=== PATIENT | male | born 1965 | race American Indian/Alaskan Native ===

== ENCOUNTER 2017-12-05 19:00 | Emergency (ER) | payer MEDICARE ==
[2017-12-05] MEDS ORDERED: XYLOCAINE 2%/EPI 1:100,000 INFILTRATI ONE (20:28)
[2017-12-05] MEDS ORDERED: NACL 0.9% IR ONE (20:28)
[2017-12-05] MEDS ORDERED: DILAUDID IV ONE (20:29)
--- NOTE | 2017-12-05 20:29 | Emergency Department Report ---
ED General Adult HPI - General Chief complaint: Wound/Laceration Stated complaint: LEFT LEG LACERATION Time Seen by Provider: 12/05/17 20:20 Source: patient, EMS (ems notes not available at time of chart dictation), RN notes reviewed, old records reviewed Mode of arrival: Stretcher Limitations: Physical Limitation - History of Present Illness Initial comments: This is a 52-year-old male. He has a past medical history of narcotic seeking behavior, hypertension, congestive heart failure, history of pulmonary embolus, tobacco dependency, GERD, arthritis, COPD, high cholesterol, morbid obesity, functional paraplegia using a wheelchair. Recently admitted to the hospital, please see his discharge summary from last week. Patient presents to the ER today with a complaint of left medial leg laceration after falling out of a wheelchair. He does not think he hit his head. He has sharp burning pain, which increases with palpation and decreases with rest over the laceration site. He reports that he does not think that he hit his head or neck. He admits to consuming 2 beers, and reports that the fall happened at least 4 hours prior to my evaluation of him. -: Sudden Location: left, lower extremity Radiation: non-radiation Severity scale (0 -10): 10 Quality: burning, stabbing, aching Consistency: intermittent Improves with: rest Worsens with: movement Associated Symptoms: denies: confusion, chest pain, cough, diaphoresis, fever/ chills, headaches, loss of appetite, malaise, nausea/vomiting, shortness of breath, syncope, weakness (patient denies new weakness) - Related Data Home Medications Medication Instructions Recorded Confirmed Last Taken Gabapentin [Neurontin] 600 mg PO BID 09/22/14 11/30/17 07/31/15 Previous Rx's Medication Instructions Recorded Last Taken Type Metolazone [Zaroxolyn] 2.5 mg PO BID #60 tablet 09/13/15 Unknown Rx Nystatin [Nystatin SUSP] 5 ml PO QID PRN #1 bottle 09/13/15 Unknown Rx oxyCODONE /ACETAMINOPHEN [Percocet 1 tab PO Q6HR PRN #15 tablet 04/24/16 Unknown Rx 5/325 mg] Acetaminophen [8Hr Arthritis Pain] 650 mg PO Q8H PRN #30 tablet.er 12/01/17 Unknown Rx Carvedilol [Coreg] 1 tab PO BID #60 tablet 12/01/17 Unknown Rx Divalproex Sodium [Divalproex 500 mg PO BID #60 12/01/17 Unknown Rx Sodium ER] Esomeprazole Magnesium [NexIUM] 40 mg PO QDAY #30 tab 12/01/17 07/31/15 Rx Folic Acid [Folvite] 1 mg PO QDAY #30 12/01/17 07/31/15 Rx Furosemide [Lasix TAB] 40 mg PO BID #60 tablet 12/01/17 Unknown Rx Nicotine [Habitrol] 21 mg TD QDAY #14 patch 12/01/17 Unknown Rx Potassium Chloride 20 meq PO BID #60 tablet.er 12/01/17 Unknown Rx Rivaroxaban [Xarelto] 20 mg PO QDAY #30 tablet 12/01/17 Unknown Rx Tamsulosin [Flomax] 0.4 mg PO QHS #30 12/01/17 Unknown Rx Timolol 0.5% [Timoptic] 0.5 ml AU BID #1 12/01/17 Unknown Rx Torsemide [Demadex] 100 mg PO BID #60 tablet 12/01/17 Unknown Rx Acetaminophen [Tylenol Arthritis] 650 mg PO Q6HR PRN #30 tablet.er 12/05/17 Unknown Rx Bacitracin Zinc Oint [Antibiotic 20 applic TP BID #1 tube 12/05/17 Unknown Rx Oint] Allergies Allergy/AdvReac Type Severity Reaction Status Date / Time morphine Allergy Itching Verified 11/29/17 07:58 tramadol Allergy Itching Verified 11/29/17 07:58 ED Review of Systems ROS: Stated complaint: LEFT LEG LACERATION Other details as noted in HPI Comment: All other systems reviewed and negative ED Past Medical Hx - Past Medical History Previous Medical History?: Yes Hx Hypertension: Yes Hx Congestive Heart Failure: Yes Hx Diabetes: No Hx GERD: Yes Hx Arthritis: Yes Hx Asthma: No Hx COPD: Yes Additional medical history: hyperlipidemia. CHF diastolic dysfunction. Sleep apnea - Surgical History Past Surgical History?: Yes Additional Surgical History: spinal fusion surgery in 2011. Reversed Colostomy. colon resection - Social History Smoking Status: Unknown if ever smoked Substance Use Type: Alcohol, Prescribed - Medications Home Medications: Home Medications Medication Instructions Recorded Confirmed Last Taken Type Gabapentin [Neurontin] 600 mg PO BID 09/22/14 11/30/17 07/31/15 History Metolazone [Zaroxolyn] 2.5 mg PO BID #60 tablet 09/13/15 Unknown Rx Nystatin [Nystatin SUSP] 5 ml PO QID PRN #1 bottle 09/13/15 Unknown Rx oxyCODONE /ACETAMINOPHEN [Percocet 1 tab PO Q6HR PRN #15 tablet 04/24/16 Unknown Rx 5/325 mg] Acetaminophen [8Hr Arthritis Pain] 650 mg PO Q8H PRN #30 tablet.er 12/01/17 Unknown Rx Carvedilol [Coreg] 1 tab PO BID #60 tablet 12/01/17 Unknown Rx Divalproex Sodium [Divalproex 500 mg PO BID #60 12/01/17 11/30/17 Unknown Rx Sodium ER] Esomeprazole Magnesium [NexIUM] 40 mg PO QDAY #30 tab 12/01/17 11/30/17 Rx Folic Acid [Folvite] 1 mg PO QDAY #30 12/01/17 11/30/17 07/31/15 Rx Furosemide [Lasix TAB] 40 mg PO BID #60 tablet 12/01/17 Unknown Rx Nicotine [Habitrol] 21 mg TD QDAY #14 patch 12/01/17 Unknown Rx Potassium Chloride 20 meq PO BID #60 tablet.er 12/01/17 Unknown Rx Rivaroxaban [Xarelto] 20 mg PO QDAY #30 tablet 12/01/17 Unknown Rx Tamsulosin [Flomax] 0.4 mg PO QHS #30 12/01/17 11/30/17 Unknown Rx Timolol 0.5% [Timoptic] 0.5 ml AU BID #1 12/01/17 11/30/17 Unknown Rx Torsemide [Demadex] 100 mg PO BID #60 tablet 12/01/17 Unknown Rx Acetaminophen [Tylenol Arthritis] 650 mg PO Q6HR PRN #30 tablet.er 12/05/17 Unknown Rx Bacitracin Zinc Oint [Antibiotic 20 applic TP BID #1 tube 12/05/17 Unknown Rx Oint] ED Physical Exam - General Limitations: Physical Limitation General appearance: alert, other (patient is agitated and anxious) - Head Head exam: Present: atraumatic, normocephalic - Eye Eye exam: Present: normal appearance, EOMI, other (visual acuity intact to finger counting, color perception, reading at a close distance). Absent: nystagmus - ENT ENT exam: Present: normal exam, normal orophraynx, mucous membranes moist, normal external ear exam - Neck Neck exam: Present: normal inspection, full ROM, other (there is no midline cervical spine pain, tenderness). Absent: tenderness, meningismus - Respiratory Respiratory exam: Present: normal lung sounds bilaterally. Absent: respiratory distress - Cardiovascular Cardiovascular Exam: Present: regular rate, normal rhythm, normal heart sounds. Absent: bradycardia, tachycardia, irregular rhythm, systolic murmur, diastolic murmur, rubs, gallop - GI/Abdominal GI/Abdominal exam: Present: soft, normal bowel sounds. Absent: distended, tenderness, guarding, rebound, rigid, pulsatile mass - Rectal Rectal exam: Present: deferred - Extremities Exam Extremities exam: Present: full ROM, tenderness (on the left medial lower extremity, there is a linear 10 cm laceration noted, with no obvious pulsatile bleeding and no obvious foreign bodies), pedal edema, other (2+ pulses noted on the bilateral upper, lower extremities. Chronic venous stasis changes noted. There is a healing left lateral leg laceration with multiple interrupted sutures with no obvious discharge, not ready to come out here.) - Back Exam Back exam: Present: normal inspection. Absent: paraspinal tenderness, vertebral tenderness - Neurological Exam Neurological exam: Present: alert, oriented X3, CN II-XII intact, other ( Extraocular movements intact. Tongue midline. No facial droop. Facial sensation intact to light touch in the V1, V2, V3 distribution bilaterally. 5 and 5 strength in 4 extremities.. Sensation is intact to light touch in 4 extremities.). Absent: motor sensory deficit - Psychiatric Psychiatric exam: Present: agitated, anxious - Skin Skin exam: Present: warm. Absent: rash ED Course Vital Signs 12/05/17 12/05/17 12/05/17 19:46 19:54 20:16 Temperature 98.2 F Pulse Rate 92 H Respiratory 18 18 Rate Blood Pressure 109/70 121/72 Blood Pressure 109/70 [Left] O2 Sat by Pulse 98 Oximetry 12/05/17 12/05/17 12/05/17 20:30 20:35 20:46 Temperature Pulse Rate Respiratory 18 Rate Blood Pressure 103/71 Blood Pressure [Left] O2 Sat by Pulse 96 Oximetry 12/05/17 21:05 Temperature Pulse Rate Respiratory 18 Rate Blood Pressure Blood Pressure [Left] O2 Sat by Pulse Oximetry - Laceration /Wound Repair Left Lower Medial Leg Wound Location: lower extremity Irrigated w/ Saline (ccs): 10 Betadine Prep?: Yes Anesthesia: Lidocaine w/ Epi Volume Anesthetic (ccs): 10 Wound Debrided: minimal Suture Size/Type: 3:0 (Ethilon monofilament) Number of Sutures: 10 Layer Closure?: No Sterile Dressing Applied?: No Progress: The wound was anesthetized with lidocaine with epinephrine. The wound was irrigated with sterile saline mixed with Betadine, 500 mL, at adequate pressure. The wound was explored under bloodless field, no obvious foreign bodies were noted. The wound was then debrided, and 10 interrupted 3-0 monofilament sutures were placed with good cosmetic approximation. The patient tolerated the procedure adequately. ED Medical Decision Making - Lab Data Vital Signs 12/05/17 12/05/17 12/05/17 19:46 19:54 20:16 Temperature 98.2 F Pulse Rate 92 H Respiratory 18 18 Rate Blood Pressure 109/70 121/72 Blood Pressure 109/70 [Left] O2 Sat by Pulse 98 Oximetry 12/05/17 12/05/17 12/05/17 20:30 20:35 20:46 Temperature Pulse Rate Respiratory 18 Rate Blood Pressure 103/71 Blood Pressure [Left] O2 Sat by Pulse 96 Oximetry 12/05/17 21:05 Temperature Pulse Rate Respiratory 18 Rate Blood Pressure Blood Pressure [Left] O2 Sat by Pulse Oximetry - Radiology Data Radiology results: report reviewed, image reviewed X-ray of the left lower extremity demonstrates no obvious foreign body. Noncontrast CT scan of the brain is negative. - Medical Decision Making Differential diagnosis, including but not limited to: Intracranial injury, resolved alcohol intoxication, left lower extremity laceration Assessment and plan: 52-year-old male who is clinically sober.Patient is clinically sober at this time. The cervical spine is cleared through nexus and [place] c spine rule no obvious other injuries. Noncontrast CT scan of the brain is negative. Left lower extremity laceration has been repaired. Patient can follow-up as an outpatient for both of his left lower extremity lacerations. Documented hypotension in the field, not documented in the ER at this time. Pain improved with hydromorphone. Critical care attestation.: If time is entered above; I have spent that time in minutes in the direct care of this critically ill patient, excluding procedure time. ED Disposition Clinical Impression: Laceration of left lower extremity Qualifiers: Encounter type: initial encounter Qualified Code(s): S81.812A - Laceration without foreign body, left lower leg, initial encounter Disposition: TO HOME OR SELFCARE Is pt being admited?: No Does the pt Need Aspirin: No Condition: Stable Instructions: Suture Care (ED), Laceration (ED) Additional Instructions: Keep the laceration dry and covered. Wash with gentle soap and water at least twice a day. Take the pain medication, and apply the bacitracin as directed. Have both lower extremity wounds examined by a medical professional in 48 hours. The left lateral lower extremity sutures, most likely can be taken out in 48 hours. Left medial lower extremity sutures can likely be taken out in 5- 7 days. Return to the ER right away with fevers, chills, lethargy, irritability , projectile vomiting, change in mental status, recurrent falls, inability to tolerate liquid feeds. Please make certain to moderate limits consumption of alcohol while operating a wheelchair. Referrals: PRIMARY CAREMD [Primary Care Provider] - 3-5 Days MARJAN BENZ MD [Staff Physician] - 3-5 Days
--- NOTE | 2017-12-05 21:25 | XRay Report ---
FINAL REPORT EXAM: XR TIBIA FIBULA 2V LT HISTORY: fall laceration ? fb TECHNIQUE: Frontal and lateral views of left tibia. PRIORS: None. FINDINGS: No apparent fracture or dislocation. Generalized soft tissue edema. No radiopaque soft tissue foreign body identified. IMPRESSION: 1. No acute osseous abnormality.
[2017-12-05 21:32] VITALS: BP 103/71
--- NOTE | 2017-12-05 21:49 | Cat Scan Report ---
FINAL REPORT EXAM: CT HEAD/BRAIN WO CON HISTORY: fall on eliquis TECHNIQUE: Noncontrast CT axial images of the brain. PRIORS: None. FINDINGS: No parenchymal mass, mass effect, hemorrhage, midline shift or hydrocephalus. No evidence of acute cortical infarct. No abnormal, extra-axial fluid or air collection. Osseous calvarium grossly intact. IMPRESSION: 1. No acute intracranial findings.
[2017-12-05] MEDS ORDERED: TYLENOL ONE (23:11)
[2017-12-05] MEDS ORDERED: TYLENOL PO ONE (23:12)
== END 2017-12-05 23:40 | disposition home or self-care (01) ==
LOC: ED 19:00
DX: S81.812A Laceration without foreign body, left lower leg, initial encounter (principal); I11.0 Hypertensive heart disease with heart failure; I50.9 Heart failure, unspecified; K21.9 Gastro-esophageal reflux disease without esophagitis; R51 Headache; M19.90 Unspecified osteoarthritis, unspecified site; E78.5 Hyperlipidemia, unspecified; Z88.5 Allergy status to narcotic agent; Z88.8 Allergy status to other drugs, medicaments and biological substances; W08.XXXA Fall from other furniture, initial encounter; Y93.89 Activity, other specified; Y99.8 Other external cause status; Y92.89 Other specified places as the place of occurrence of the external cause
CPT/HCPCS: 12004; 70450; 73590; 96374; 99284; J1170

== ENCOUNTER 2017-12-07 19:36 | Emergency (ER) | payer MEDICARE ==
[2017-12-07 20:39] LABS: Basophils # (Auto) 0.1 K/mm3 (0.0-0.1); Basophils % (Auto) 0.6 % (0.0-1.8); Eosinophils # (Auto) 0.1 K/mm3 (0.0-0.4); Eosinophils % (Auto) 0.8 % (0.0-4.3); Hematocrit 34.1 % (35.5-45.6); Hemoglobin 11.2 gm/dl (11.8-15.2); Lymphocytes # (Auto) 1.6 K/mm3 (1.2-5.4); Lymphocytes % (Auto) 14.6 % (13.4-35.0); Mean Corpuscular HGB Conc 33 % (32-34); Mean Corpuscular Hemoglobin 34 pg (28-32); Mean Corpuscular Volume 104 fl (84-94); Monocytes # (Auto) 1.2 K/mm3 (0.0-0.8); Monocytes % (Auto) 10.7 % (0.0-7.3); Platelet Count 242 K/mm3 (140-440); Red Blood Count 3.27 M/mm3 (3.65-5.03); Red Cell Distribution Width 16.4 % (13.2-15.2)
[2017-12-07 21:23] LABS: Alanine Aminotransferase 13 units/L (7-56); Albumin 3.5 g/dL (3.9-5); BUN/Creatinine Ratio 16; Blood Urea Nitrogen 13 mg/dL (9-20); Calcium 9.6 mg/dL (8.4-10.2); Hemolysis Index 5
[2017-12-07 21:33] LABS: Bilirubin,Urine NEG (Negative); Blood,Urine NEG (Negative); Color,Urine Yellow (Yellow); Protein,Urine <15 mg/dL mg/dL (Negative); RBC,Urine < 1.0 /HPF (0.0-6.0); Urobilinogen,Urine < 2.0 mg/dL (<2.0); WBC,Urine < 1.0 /HPF (0.0-6.0)
--- NOTE | 2017-12-07 22:28 | Emergency Department Report ---
- General Chief complaint: Weakness Stated complaint: LT LEG PAIN Time Seen by Provider: 12/07/17 22:05 Source: patient Mode of arrival: Wheelchair Limitations: Physical Limitation - History of Present Illness Initial comments: Mr. Castellanos is 52 yo male with hx of diastolic heart failure, COPD, hyperlipdemia who presents with generalized weakness. He had hypotension at home today 82/46. He takes Coreg 12.5 mg BID. He was recently admitted to hospital. Treated for atypical chest pain and hypotension. Hypotension was attributed to Coreg medication. He was quite upset that he was not given pain medications for a leg laceration during last ED encounter. According to inpatient notes, he has multiple filled prescriptions for Percocet from different doctors. One prescription totaled 180 pills. MD Complaint: generalized weakness -: Gradual Location: generalized Severity: mild Consistency: constant Context: other (BP 82/46 at home) - Related Data Home Medications Medication Instructions Recorded Confirmed Last Taken Gabapentin [Neurontin] 600 mg PO BID 09/22/14 11/30/17 07/31/15 Previous Rx's Medication Instructions Recorded Last Taken Type Metolazone [Zaroxolyn] 2.5 mg PO BID #60 tablet 09/13/15 Unknown Rx Nystatin [Nystatin SUSP] 5 ml PO QID PRN #1 bottle 09/13/15 Unknown Rx oxyCODONE /ACETAMINOPHEN [Percocet 1 tab PO Q6HR PRN #15 tablet 04/24/16 Unknown Rx 5/325 mg] Acetaminophen [8Hr Arthritis Pain] 650 mg PO Q8H PRN #30 tablet.er 12/01/17 Unknown Rx Carvedilol [Coreg] 1 tab PO BID #60 tablet 12/01/17 Unknown Rx Divalproex Sodium [Divalproex 500 mg PO BID #60 12/01/17 Unknown Rx Sodium ER] Esomeprazole Magnesium [NexIUM] 40 mg PO QDAY #30 tab 12/01/17 07/31/15 Rx Folic Acid [Folvite] 1 mg PO QDAY #30 12/01/17 07/31/15 Rx Furosemide [Lasix TAB] 40 mg PO BID #60 tablet 12/01/17 Unknown Rx Nicotine [Habitrol] 21 mg TD QDAY #14 patch 12/01/17 Unknown Rx Potassium Chloride 20 meq PO BID #60 tablet.er 12/01/17 Unknown Rx Rivaroxaban [Xarelto] 20 mg PO QDAY #30 tablet 12/01/17 Unknown Rx Tamsulosin [Flomax] 0.4 mg PO QHS #30 12/01/17 Unknown Rx Timolol 0.5% [Timoptic] 0.5 ml AU BID #1 12/01/17 Unknown Rx Torsemide [Demadex] 100 mg PO BID #60 tablet 12/01/17 Unknown Rx Acetaminophen [Tylenol Arthritis] 650 mg PO Q6HR PRN #30 tablet.er 12/05/17 Unknown Rx Bacitracin Zinc Oint [Antibiotic 20 applic TP BID #1 tube 12/05/17 Unknown Rx Oint] Allergies Allergy/AdvReac Type Severity Reaction Status Date / Time tramadol Allergy Itching Verified 12/07/17 20:10 ED Review of Systems ROS: Stated complaint: LT LEG PAIN Other details as noted in HPI Comment: All other systems reviewed and negative Constitutional: denies: fever, malaise Respiratory: denies: cough Cardiovascular: denies: chest pain Gastrointestinal: denies: abdominal pain ED Past Medical Hx - Past Medical History Hx Hypertension: Yes Hx Congestive Heart Failure: Yes Hx Diabetes: No Hx GERD: Yes Hx Arthritis: Yes Hx Asthma: No Hx COPD: Yes Additional medical history: hyperlipidemia. CHF diastolic dysfunction. Sleep apnea - Surgical History Additional Surgical History: spinal fusion surgery in 2011. Reversed Colostomy. colon resection - Social History Smoking Status: Current Some Day Smoker Substance Use Type: Alcohol - Medications Home Medications: Home Medications Medication Instructions Recorded Confirmed Last Taken Type Gabapentin [Neurontin] 600 mg PO BID 09/22/14 11/30/17 07/31/15 History Metolazone [Zaroxolyn] 2.5 mg PO BID #60 tablet 09/13/15 Unknown Rx Nystatin [Nystatin SUSP] 5 ml PO QID PRN #1 bottle 09/13/15 Unknown Rx oxyCODONE /ACETAMINOPHEN [Percocet 1 tab PO Q6HR PRN #15 tablet 04/24/16 Unknown Rx 5/325 mg] Acetaminophen [8Hr Arthritis Pain] 650 mg PO Q8H PRN #30 tablet.er 12/01/17 Unknown Rx Carvedilol [Coreg] 1 tab PO BID #60 tablet 12/01/17 Unknown Rx Divalproex Sodium [Divalproex 500 mg PO BID #60 12/01/17 11/30/17 Unknown Rx Sodium ER] Esomeprazole Magnesium [NexIUM] 40 mg PO QDAY #30 tab 12/01/17 11/30/17 Rx Folic Acid [Folvite] 1 mg PO QDAY #30 12/01/17 11/30/17 07/31/15 Rx Furosemide [Lasix TAB] 40 mg PO BID #60 tablet 12/01/17 Unknown Rx Nicotine [Habitrol] 21 mg TD QDAY #14 patch 12/01/17 Unknown Rx Potassium Chloride 20 meq PO BID #60 tablet.er 12/01/17 Unknown Rx Rivaroxaban [Xarelto] 20 mg PO QDAY #30 tablet 12/01/17 Unknown Rx Tamsulosin [Flomax] 0.4 mg PO QHS #30 12/01/17 11/30/17 Unknown Rx Timolol 0.5% [Timoptic] 0.5 ml AU BID #1 12/01/17 11/30/17 Unknown Rx Torsemide [Demadex] 100 mg PO BID #60 tablet 12/01/17 Unknown Rx Acetaminophen [Tylenol Arthritis] 650 mg PO Q6HR PRN #30 tablet.er 12/05/17 Unknown Rx Bacitracin Zinc Oint [Antibiotic 20 applic TP BID #1 tube 12/05/17 Unknown Rx Oint] ED Physical Exam - General Limitations: Physical Limitation General appearance: alert, in no apparent distress - Head Head exam: Present: atraumatic, normocephalic - Eye Eye exam: Present: normal appearance - ENT ENT exam: Present: mucous membranes moist - Neck Neck exam: Present: normal inspection - Respiratory Respiratory exam: Present: normal lung sounds bilaterally. Absent: respiratory distress, wheezes, rales, rhonchi - Cardiovascular Cardiovascular Exam: Present: regular rate, normal rhythm, normal heart sounds. Absent: systolic murmur, diastolic murmur, rubs, gallop - GI/Abdominal GI/Abdominal exam: Present: soft, normal bowel sounds. Absent: distended, tenderness, guarding, rebound - Rectal Rectal exam: Present: deferred - Extremities Exam Extremities exam: Present: other (bilateral leg edema 6 cm laceration with sutures in LLE without purulence or surrounding infection) - Back Exam Back exam: Present: normal inspection - Neurological Exam Neurological exam: Present: alert, oriented X3 - Psychiatric Psychiatric exam: Present: normal affect, normal mood - Skin Skin exam: Present: warm, dry, intact, normal color. Absent: rash ED Medical Decision Making - Lab Data Result diagrams: 12/07/17 20:23 12/07/17 20:23 - EKG Data 12/07/17 22:34 EKG obtained at 2043 Rate 70 beats a minute normal sinus rhythm normal axis normal intervals no ST-T signs of ischemia - Medical Decision Making Mr. Castellanos presents with iatrogenic hypotension due to medication Coreg. BP in ED 93/56. No evidence of bleeding, sepsis or cardiogenic shock. I recommended takiing half-dose or holding medication if blood pressure is low. He desired pain medication for leg laceration. HOwever, I explained that he must obtain narcotic therapy from his PCP. Ibuprofen should suffice for a leg laceration He received IM toradol in the ED. DC'd [facility] Critical care attestation.: If time is entered above; I have spent that time in minutes in the direct care of this critically ill patient, excluding procedure time. ED Disposition Clinical Impression: Leg laceration, Hypotension due to drugs Disposition: DC-01 TO HOME OR SELFCARE Is pt being admited?: No Does the pt Need Aspirin: No Condition: Stable Instructions: Hypotension (ED) Additional Instructions: Please hold Coreg until you are seen by your primary doctor. Referrals: ISRRAEL RODRIGUEZ JR, MD [Primary Care Provider] - 3-5 Days Time of Disposition: 22:38
[2017-12-07 22:38] VITALS: BP 92/64
== END 2017-12-07 22:54 | disposition home or self-care (01) ==
LOC: ED 19:36
DX: S81.812D Laceration without foreign body, left lower leg, subsequent encounter (principal); S81.811D Laceration without foreign body, right lower leg, subsequent encounter; I11.0 Hypertensive heart disease with heart failure; I50.30 Unspecified diastolic (congestive) heart failure; K21.9 Gastro-esophageal reflux disease without esophagitis; J44.9 Chronic obstructive pulmonary disease, unspecified; F17.200 Nicotine dependence, unspecified, uncomplicated; M19.90 Unspecified osteoarthritis, unspecified site; E78.5 Hyperlipidemia, unspecified; Z88.6 Allergy status to analgesic agent; X58.XXXD Exposure to other specified factors, subsequent encounter
CPT/HCPCS: 36415; 80053; 81001; 85025; 93005; 93010; 96372; 99284

== ENCOUNTER 2018-09-05 21:16 | Inpatient (IN) | payer MEDICARE ==
[2018-09-05] MEDS ORDERED: ASPIRIN PO ONE (21:57)
--- NOTE | 2018-09-05 22:01 | Emergency Department Report ---
Blank Doc - Documentation Documentation: This is a 53-year-old male that presents with CP and SOB. This initial assessment/diagnostic orders/clinical plan/treatment(s) is/are subject to change based on patient's health status, clinical progression and re- assessment by fellow clinical providers in the ED. Further treatment and workup at subsequent clinical providers discretion. Patient/guardians urged not to elope from the ED as their condition may be serious if not clinically assessed and managed. Initial orders include: 1- Patient sent to MAIN ED for further evaluation and treatment 2- labs 3- EKG 4- CXR
[2018-09-05 23:03] LABS: Basophils # (Auto) 0.1 K/mm3 (0.0-0.1); Basophils % (Auto) 1.2 % (0.0-1.8); Eosinophils # (Auto) 0.2 K/mm3 (0.0-0.4); Eosinophils % (Auto) 2.6 % (0.0-4.3); Hematocrit 41.4 % (35.5-45.6); Hemoglobin 13.9 gm/dl (11.8-15.2); Lymphocytes # (Auto) 1.9 K/mm3 (1.2-5.4); Lymphocytes % (Auto) 24.1 % (13.4-35.0); Mean Corpuscular HGB Conc 34 % (32-34); Mean Corpuscular Volume 98 fl (84-94); Monocytes # (Auto) 0.9 K/mm3 (0.0-0.8); Monocytes % (Auto) 11.2 % (0.0-7.3); Platelet Count 352 K/mm3 (140-440); Red Blood Count 4.23 M/mm3 (3.65-5.03); Red Cell Distribution Width 17.5 % (13.2-15.2)
[2018-09-05 23:15] LABS: INR 0.95 (0.87-1.13)
[2018-09-05 23:16] LABS: Partial Thromboplastin Time 29.7 Sec. (24.2-36.6)
--- NOTE | 2018-09-05 23:25 | XRay Report ---
PROCEDURE: XR CHEST ROUTINE 2V TECHNIQUE: PA and lateral chest radiographs were obtained. HISTORY: Chest Pain COMPARISONS: November 29, 2017. FINDINGS: Heart: Normal. Mediastinum/Vessels: Normal. Lungs/Pleural space: Lungs are expanded. There are no infiltrates, effusions or pneumothoraces.. Bony thorax: No acute osseous abnormality. IMPRESSION: Normal examination. This document is electronically signed by Tommy Alvarado MD., September 05 2018 11:23:26 PM ET
[2018-09-05 23:27] LABS: BUN/Creatinine Ratio 8; Blood Urea Nitrogen 5 mg/dL (9-20); Calcium 9.7 mg/dL (8.4-10.2); Hemolysis Index 9
--- NOTE | 2018-09-06 01:47 | Emergency Department Report ---
HPI - General Chief Complaint: Chest Pain Time Seen by Provider: 09/05/18 22:01 - HPI HPI: Room 4 The patient is a 53-year-old male presenting with a chief complaint chest pain. Patient states she passed 2 days he's had intermittent chest pain associated with shortness of breath and diaphoresis. Patient denies nausea/vomiting or fever. Patient admits to pleurisy. Patient denies cough. Patient states for 1 day he's also had pain in both lower extremities which she believes may be related to his rheumatoid arthritis. Patient states the pain is caused him to fall frequently. Patient currently gets this chest pain score of 6-7/10. Patient states she's never had a stress test or cardiac catheterization. Location: [See above] Duration: 2 days Quality: Pain Severity: 12/18 Modifying factors: [see above] Context: [see above] Mode of transportation: [not driving] ED Past Medical Hx - Past Medical History Previous Medical History?: Yes Hx Hypertension: Yes Hx Congestive Heart Failure: Yes Hx GERD: Yes Hx Arthritis: Yes Hx COPD: Yes Additional medical history: hyperlipidemia. CHF diastolic dysfunction. Sleep apnea - Surgical History Past Surgical History?: Yes Additional Surgical History: spinal fusion surgery in 2011. Reversed Colostomy. colon resection - Family History Family history: no significant - Social History Smoking Status: Current Every Day Smoker (4 cigarettes daily) Substance Use Type: None (denies illicit drug use), Alcohol (occasional) - Medications Home Medications: Home Medications Medication Instructions Recorded Confirmed Last Taken Type Gabapentin [Neurontin] 600 mg PO BID 09/22/14 11/30/17 07/31/15 History Nystatin [Nystatin SUSP] 5 ml PO QID PRN #1 bottle 09/13/15 Unknown Rx metOLazone [Zaroxolyn] 2.5 mg PO BID #60 tablet 09/13/15 Unknown Rx oxyCODONE /ACETAMINOPHEN [Percocet 1 tab PO Q6HR PRN #15 tablet 04/24/16 11/30/17 Unknown Rx 5/325 mg] Acetaminophen [8Hr Arthritis Pain] 650 mg PO Q8H PRN #30 tablet.er 12/01/17 Unknown Rx Carvedilol [Coreg] 1 tab PO BID #60 tablet 12/01/17 Unknown Rx Divalproex Sodium [Divalproex 500 mg PO BID #60 12/01/17 11/30/17 Unknown Rx Sodium ER] Esomeprazole Magnesium [NexIUM] 40 mg PO QDAY #30 tab 12/01/17 11/30/17 07/31/15 Rx Folic Acid [Folvite] 1 mg PO QDAY #30 12/01/17 11/30/17 07/31/15 Rx Furosemide [Lasix TAB] 40 mg PO BID #60 tablet 12/01/17 Unknown Rx Nicotine [Habitrol] 21 mg TD QDAY #14 patch 12/01/17 Unknown Rx Potassium Chloride 20 meq PO BID #60 tablet.er 12/01/17 Unknown Rx Rivaroxaban [Xarelto] 20 mg PO QDAY #30 tablet 12/01/17 Unknown Rx Tamsulosin [Flomax] 0.4 mg PO QHS #30 12/01/17 11/30/17 Unknown Rx Timolol 0.5% [Timoptic] 0.5 ml AU BID #1 12/01/17 11/30/17 Unknown Rx Torsemide [Demadex] 100 mg PO BID #60 tablet 12/01/17 Unknown Rx Acetaminophen [Tylenol Arthritis] 650 mg PO Q6HR PRN #30 tablet.er 12/05/17 Un known Rx Bacitracin Zinc Oint [Antibiotic 20 applic TP BID #1 tube 12/05/17 Unknown Rx Oint] ED Review of Systems ROS: Stated complaint: CHEST PAIN/CHF/LEGS WEAK Other details as noted in HPI Constitutional: diaphoresis Eyes: denies: eye pain ENT: denies: throat pain Respiratory: shortness of breath Cardiovascular: chest pain Endocrine: no symptoms reported Gastrointestinal: denies: nausea, vomiting Genitourinary: denies: dysuria Musculoskeletal: myalgia. denies: back pain Neurological: denies: headache Physical Exam - Physical Exam Vital Signs: Vital Signs 09/05/18 21:51 Temperature 97.9 F Pulse Rate 92 H Respiratory 20 Rate Blood Pressure 138/84 O2 Sat by Pulse 96 Oximetry Physical Exam: GENERAL: The patient is well-developed well-nourished male lying on stretcher not appearing to be in acute distress. [] HEENT: Normocephalic. Atraumatic. Extraocular motions are intact. Patient has moist mucous membranes. NECK: Supple. Trachea midline CHEST/LUNGS: Clear to auscultation. There is no respiratory distress noted. HEART/CARDIOVASCULAR: Regular. There is no tachycardia. There is no gallop rub or murmur. ABDOMEN: Abdomen is soft, nontender. Patient has normal bowel sounds. There is no abdominal distention. SKIN: There is no rash. There is no diaphoresis. NEURO: The patient is awake, alert, and oriented. The patient is cooperative. The patient has no focal neurologic deficits. The patient has normal speech MUSCULOSKELETAL: There is no evidence of acute injury. ED Course Vital Signs 09/05/18 21:51 Temperature 97.9 F Pulse Rate 92 H Respiratory 20 Rate Blood Pressure 138/84 O2 Sat by Pulse 96 Oximetry ED Medical Decision Making - Lab Data Result diagrams: 09/05/18 22:12 09/05/18 22:12 - EKG Data -: EKG Interpreted by Me EKG shows normal: sinus rhythm Rate: normal - EKG Data When compared to previous EKG there are: no significant change Interpretation: unchanged when compared t (12/07/2017) - Radiology Data Radiology results: report reviewed (chest x-ray), image reviewed (chest x-ray) interpreted by me: Chest X-ray-no focal infiltrates, no pneumothorax Findings [facility] [address] [place] [address] X Ray Report Signed Patient: LUIS MANUEL MCCLOUD MR#: [id number] : 1965 Acct:[id number] Age/Sex: 53 / M ADM Date: 09/05/18 Loc: ED Attending Dr: Ordering Physician: JOSE MILIAN MD Date of Service: 09/05/18 Procedure(s): XR chest routine 2V Accession Number(s): [id number] cc: ED MD MAICOL Fluoro Time In Minutes: PROCEDURE: XR CHEST ROUTINE 2V TECHNIQUE: PA and lateral chest radiographs were obtained. HISTORY: Chest Pain COMPARISONS: November 29, 2017. FINDINGS: Heart: Normal. Mediastinum/Vessels: Normal. Lungs/Pleural space: Lungs are expanded. There are no infiltrates, effusions or pneumothoraces.. Bony thorax: No acute osseous abnormality. IMPRESSION: Normal examination. This document is electronically signed by Tommy Prakash MD., September 05 2018 11:23:26 PM ET Transcribed By: CO Dictated By: TOMMY PRAKASH MD Electronically Authenticated By: TOMMY PRAKASH MD Signed Date/Time: 09/05/182324 DD/ 07 TD/TT: 09/05/182307 - Differential Diagnosis ACS, pericarditis, GERD, PE Critical care attestation.: If time is entered above; I have spent that time in minutes in the direct care of this critically ill patient, excluding procedure time. ED Disposition Clinical Impression: Chest pain Disposition: OP ADMIT IP TO THIS HOSP Is pt being admited?: Yes Does the pt Need Aspirin: Yes Condition: Fair Instructions: Chest Pain (ED) Referrals: DELFINA BROWNE MD [Primary Care Provider] - 3-5 Days Time of Disposition: 04:38 (hospitalist notified (Dr. Mamta Samaniego))
[2018-09-06] MEDS ORDERED: K-DUR PO ONE (01:50)
[2018-09-06] MEDS ORDERED: NITRO-BID 2% TP ONE (01:53)
[2018-09-06] MEDS ORDERED: SUBLIMAZE IV ONE ×2 (01:53→04:12)
[2018-09-06] MEDS ORDERED: ZOFRAN IV ONE (01:53)
[2018-09-06] MEDS ORDERED: ASPIRIN ONE (02:08)
--- NOTE | 2018-09-06 04:09 | Cat Scan Report ---
PROCEDURE: CT ANGIO CHEST TECHNIQUE: CT imaging is obtained to the chest in pulmonary angiographic phase following intravenou s administration of contrast. Transaxial, coronal and sagittal reformations are provided with maximal intensity projection HISTORY: chest pain, pleurisy COMPARISONS: Chest radiographs of the same date FINDINGS: Normal caliber main pulmonary artery. Well opacified pulmonary arterial tree. No pulmonary embolism . No pericardial effusion. Thoracic aorta is normal in course and caliber. No periaortic fluid or stranding. No pneumothorax, effusion or focal airspace disease. Bibasilar atelectasis versus scarring. The centr al airways are patent. No bronchiectasis. Imaged portion of the upper abdomen is remarkable for a 1 cm focus of hyperenhancement in the right h epatic lobe on axial series 2, image 123. Partially imaged IVC filter. The superficial soft tissues are unremarkable. No acute bony abnormality or worrisome osseous lesions identified. IMPRESSION: No pulmonary embolism or other acute finding. Incidental and probably benign 1 cm focus of hyperenhancement in the right hepatic lobe. No additiona l follow-up is necessary in the absence of known malignancy. This document is electronically signed by Conor Harman MD., September 06 2018 04:07:44 AM ET
[2018-09-06] MEDS ORDERED: SUBLIMAZE ONE (04:15)
[2018-09-06] MEDS ORDERED: MORPHINE IV ONE (04:15)
[2018-09-06] MEDS ORDERED: MORPHINE IV PRN (05:57)
[2018-09-06 07:26] VITALS: BP 124/81
== END 2018-09-06 09:15 | disposition left against medical advice (07) | DRG 313 ==
LOC: ED 21:16 → 4A 09-06 05:56
PROVIDERS: ADMIT Internal Medicine; ATTEND Internal Medicine
DX: R07.9 Chest pain, unspecified (principal); I50.30 Unspecified diastolic (congestive) heart failure; Z53.21 Procedure and treatment not carried out due to patient leaving prior to being seen by health care provider; R29.6 Repeated falls; K21.9 Gastro-esophageal reflux disease without esophagitis; F17.210 Nicotine dependence, cigarettes, uncomplicated; M19.90 Unspecified osteoarthritis, unspecified site; I11.0 Hypertensive heart disease with heart failure; J44.9 Chronic obstructive pulmonary disease, unspecified; G47.30 Sleep apnea, unspecified; Z90.49 Acquired absence of other specified parts of digestive tract; Z98.1 Arthrodesis status; Z79.899 Other long term (current) drug therapy
CPT/HCPCS: 36415; 71046; 71275; 80048; 83880; 84484; 85025; 85379; 85610; 85730; 93005; 93010; G0378; J2270; J2405; J3010; Q9967

== ENCOUNTER 2018-09-06 13:22 | Observation (INO) | payer MEDICARE ==
--- NOTE | 2018-09-06 13:59 | Emergency Department Report ---
Chief Complaint: Weakness Stated Complaint: CHEST PAIN/LEGS WEAK Time Seen by Provider: 09/06/18 13:57 - HPI History of Present Illness: This is a 53 y.o. male that returns to the ER for admission. Patient states he was admitted to the ER for stress test and pulmonary edema. Patient states he left when he got to the unit because he had to have a procedure done that was previously scheduled. Patient states he was only gone for 2 hours. Admits to chest pain - Exam Vital Signs: Vital Signs 09/06/18 13:39 Temperature 98.8 F Pulse Rate 84 Respiratory 16 Rate Blood Pressure 115/78 [Left] O2 Sat by Pulse 100 Oximetry MSE screening note: Focused history and physical exam performed. Due to findings the following was ordered: Main ED for further evaluation. ED Disposition for MSE Condition: Stable
[2018-09-06] MEDS ORDERED: ZOFRAN IV ONE (21:53)
[2018-09-06] MEDS ORDERED: NITRO-BID 2% TP ONE (21:53)
[2018-09-06] MEDS ORDERED: MORPHINE IV ONE (21:53)
[2018-09-06] MEDS ORDERED: ASPIRIN PO ONE (21:54)
--- NOTE | 2018-09-06 22:05 | Emergency Department Report ---
HPI - General Chief Complaint: Weakness Time Seen by Provider: 09/06/18 13:57 - HPI HPI: Room 4 The patient is a 53-year-old male presenting with chief complaint of intermittent chest pain and palpitations. The patient was seen by myself last night for chest pain and admitted to the hospital. The patient left AMA prior to being evaluated by the hospitalist because he did not want to miss his appointment to receive "injections" in his back. The patient states he was told he would be charged to $50 cancellation of the cancel the appointment so he left AMA. Patient states he returned to the ED for continued evaluation as he still has been having intermittent chest pain. Patient states he's also had palpitations. Patient currently gets his chest pain score of 7/10 Location: [See above] Duration: [See above] Quality: [See above] Severity: [See above] Modifying factors: [see above] Context: [see above] Mode of transportation: [not driving] ED Past Medical Hx - Past Medical History Hx Hypertension: Yes Hx Congestive Heart Failure: Yes Hx GERD: Yes Hx Arthritis: Yes Hx COPD: Yes Additional medical history: hyperlipidemia. CHF diastolic dysfunction. Sleep apnea - Surgical History Additional Surgical History: spinal fusion surgery in 2011. Reversed Colostomy. colon resection - Family History Family history: no significant - Social History Smoking Status: Current Every Day Smoker Substance Use Type: Alcohol - Medications Home Medications: Home Medications Medication Instructions Recorded Confirmed Last Taken Type Gabapentin [Neurontin] 600 mg PO BID 09/22/14 11/30/17 07/31/15 History Nystatin [Nystatin SUSP] 5 ml PO QID PRN #1 bottle 09/13/15 Unknown Rx metOLazone [Zaroxolyn] 2.5 mg PO BID #60 tablet 09/13/15 Unknown Rx oxyCODONE /ACETAMINOPHEN [Percocet 1 tab PO Q6HR PRN #15 tablet 04/24/1611/30 Unknown Rx 5/325 mg] Acetaminophen [8Hr Arthritis Pain] 650 mg PO Q8H PRN #30 tablet.er 12/01/17 Unknown Rx Carvedilol [Coreg] 1 tab PO BID #60 tablet 12/01/17 Unknown Rx Divalproex Sodium [Divalproex 500 mg PO BID #60 12/01/17 11/30/17 Unknown Rx Sodium ER] Esomeprazole Magnesium [NexIUM] 40 mg PO QDAY #30 tab 12/01/17 11/30/17 07/31/15 Rx Folic Acid [Folvite] 1 mg PO QDAY #30 12/01/17 11/30/17 07/31/15 Rx Furosemide [Lasix TAB] 40 mg PO BID #60 tablet 12/01/17 Unknown Rx Nicotine [Habitrol] 21 mg TD QDAY #14 patch 12/01/17 Unknown Rx Potassium Chloride 20 meq PO BID #60 tablet.er 12/01/17 Unknown Rx Rivaroxaban [Xarelto] 20 mg PO QDAY #30 tablet 12/01/17 Unknown Rx Tamsulosin [Flomax] 0.4 mg PO QHS #30 12/01/17 11/30/17 Unknown Rx Timolol 0.5% [Timoptic] 0.5 ml AU BID #1 12/01/17 11/30/17 Unknown Rx Torsemide [Demadex] 100 mg PO BID #60 tablet 12/01/17 Unknown Rx Acetaminophen [Tylenol Arthritis] 650 mg PO Q6HR PRN #30 tablet.er 12/05/17 Unknown Rx Bacitracin Zinc Oint [Antibiotic 20 applic TP BID #1 tube 12/05/17 Unknown Rx Oint] ED Review of Systems ROS: Stated complaint: CHEST PAIN/LEGS WEAK Other details as noted in HPI Constitutional: diaphoresis Eyes: denies: eye pain ENT: denies: throat pain Respiratory: shortness of breath Cardiovascular: chest pain, palpitations Endocrine: no symptoms reported Gastrointestinal: denies: abdominal pain Genitourinary: denies: dysuria Musculoskeletal: denies: back pain Neurological: weakness Physical Exam - Physical Exam Vital Signs: Vital Signs 09/06/18 09/06/18 13:39 13:55 Temperature 98.8 F 98.8 F Pulse Rate 84 84 Respiratory 16 20 Rate Blood Pressure 115/78 Blood Pressure 115/78 [Left] O2 Sat by Pulse 100 99 Oximetry Physical Exam: GENERAL: The patient is well-developed well-nourished male lying on stretcher not appearing to be in acute distress. [] HEENT: Normocephalic. Atraumatic. Extraocular motions are intact. Patient has moist mucous membranes. NECK: Supple. Trachea midline CHEST/LUNGS: Clear to auscultation. There is no respiratory distress noted. HEART/CARDIOVASCULAR: Regular. There is no tachycardia. There is no gallop rub or murmur. ABDOMEN: Abdomen is soft, nontender. Patient has normal bowel sounds. There is no abdominal distention. SKIN: There is no rash. There is no diaphoresis. NEURO: The patient is awake, alert, and oriented. The patient is cooperative. The patient has normal speech MUSCULOSKELETAL: There is no evidence of acute injury. ED Course Vital Signs 09/06/18 09/06/18 13:39 13:55 Temperature 98.8 F 98.8 F Pulse Rate 84 84 Respiratory 16 20 Rate Blood Pressure 115/78 Blood Pressure 115/78 [Left] O2 Sat by Pulse 100 99 Oximetry ED Medical Decision Making - Lab Data Result diagrams: 09/06/18 22:38 09/06/18 22:38 Laboratory Tests 09/06/18 09/06/18 22:38 22:38 WBC 8.8 RBC 3.95 Hgb 13.5 Hct 39.2 MCV 99 H MCH 34 H MCHC 35 H RDW 17.4 H Plt Count 300 Sodium 140 Potassium 3.5 L D Chloride 96.6 L Carbon Dioxide 31 H Anion Gap 16 BUN 9 Creatinine 0.9 Estimated GFR > 60 BUN/Creatinine Ratio 10 Glucose 96 Calcium 9.3 Total Creatine Kinase 99 CK-MB (CK-2) 1.4 CK-MB (CK-2) Rel Index 1.4 Troponin T < 0.010 - EKG Data -: EKG Interpreted by Me EKG shows normal: sinus rhythm Rate: normal - EKG Data When compared to previous EKG there are: no significant change Interpretation: unchanged when compared t (09/06/2018) - Radiology Data Radiology results: image reviewed (chest x-ray) interpreted by me: Chest x-ray-no focal infiltrates, no pneumothorax - Differential Diagnosis ACS, pericarditis, GERD Critical care attestation.: If time is entered above; I have spent that time in minutes in the direct care of this critically ill patient, excluding procedure time. ED Disposition Clinical Impression: Chest pain Disposition: - OP ADMIT IP TO THIS HOSP Is pt being admited?: Yes Does the pt Need Aspirin: Yes Condition: Fair Instructions: Chest Pain (ED) Referrals: ISRRAEL RODRIGUEZ JR, MD [Primary Care Provider] - 3-5 Days Time of Disposition: 23:57 (hospitalist paged (Dr Gray))
[2018-09-06 22:49] LABS: Hematocrit 39.2 % (35.5-45.6); Hemoglobin 13.5 gm/dl (11.8-15.2); Mean Corpuscular HGB Conc 35 % (32-34); Mean Corpuscular Volume 99 fl (84-94); Platelet Count 300 K/mm3 (140-440); Red Blood Count 3.95 M/mm3 (3.65-5.03); Red Cell Distribution Width 17.4 % (13.2-15.2)
[2018-09-06 23:18] LABS: Creatine Kinase MB 1.4 ng/mL (0.0-4.0)
[2018-09-06 23:20] LABS: BUN/Creatinine Ratio 10; Blood Urea Nitrogen 9 mg/dL (9-20); Calcium 9.3 mg/dL (8.4-10.2); Hemolysis Index 16
--- NOTE | 2018-09-06 23:44 | XRay Report ---
PROCEDURE: XR CHEST 1V AP TECHNIQUE: Chest radiograph single view. HISTORY: chest pain COMPARISONS: None . FINDINGS: Heart: Normal. Mediastinum/Vessels: Normal. Lungs/Pleural space: Normal. Bony thorax: No acute osseous abnormality. Life support devices: None. IMPRESSION: No acute cardiopulmonary abnormality. This document is electronically signed by Camille Comer DO., September 06 2018 11:42:19 PM ET
[2018-09-07 00:57] LABS: Basophils % (Manual) 0 % (0.0-1.8); Total Cells Counted 100
[2018-09-07 00:58] LABS: Platelet Estimate Consistent w Auto; RBC Morphology Normal
[2018-09-07] MEDS ORDERED: TYLENOL PO PRN (01:03)
[2018-09-07] MEDS ORDERED: MILK OF MAGNESIA PO PRN (01:03)
[2018-09-07] MEDS ORDERED: ZOFRAN IV PRN (01:03)
[2018-09-07] MEDS ORDERED: SODIUM CHLORIDE FLUSH SYRINGE 10 ML IV PRN (01:03)
[2018-09-07] MEDS ORDERED: K-DUR PO ONE ×2 (01:09→09:35)
[2018-09-07] MEDS ORDERED: NITROSTAT SL PRN (01:09)
--- NOTE | 2018-09-07 01:50 | History and Physical Report ---
History of Present Illness Date of examination: 09/07/18 Chief complaint: Chest pain History of present illness: Patient is a 53-year-old -[place] male with history of CHF and hypertens ion who presented to the ED on account of chest pain. Patient was admitted earlier today for chest pain, however he left against medical advise because he stated that he had a clinic appointment he didn't want to miss because he was told that he'll be charged $50 if he reschedules it. He described the chest pain as pinching in nature, mid-sternal in location, rated 7/10, constant in duration and nonradiating. No known aggravating or relieving factors. He has associated palpitations, diaphoresis and headaches. He denies shortness of breath, fever, chills, cough, sore throat, runny nose or congestion. He has chronic history of bilateral leg swelling but no orthopnea or PND. No nausea, v omiting, lightheadedness, syncope or loss of consciousness. No abdominal pain, constipation, diarrhea, dysuria or frequency. No recent history of stress test. Past History Past Medical History: COPD, GERD, heart failure, hypertension, hyperlipidemia, other (RA, glaucoma and cataracts, JENNIFER) Past Surgical History: total hip replacement (bilateral), Other (eye surgeries, neck surgery) Social history: smoking (20 years history of cigarette smoking, currently smokes few sticks per day. ), other ( He admits to occasional alcohol use but denies illicit drug use) Family history: CAD (grandmother had heart attack at 82 years old) Medications and Allergies Allergies Allergy/AdvReac Type Severity Reaction Status Date / Time tramadol Allergy Itching Verified 09/06/18 13:24 Home Medications Medication Instructions Recorded Confirmed Last Taken Type oxyCODONE /ACETAMINOPHEN [Percocet 1 tab PO Q6HR PRN #15 tablet 04/24/16 09/07/18 Unknown Rx 5/325 mg] Carvedilol [Coreg] 1 tab PO BID #60 tablet 12/01/17 09/07/18 Unknown Rx Potassium Chloride 20 meq PO BID #60 tablet.er 12/01/17 09/07/18 Unknown Rx Tamsulosin [Flomax] 0.4 mg PO QHS #30 12/01/17 09/07/18 Unknown Rx Torsemide [Demadex] 100 mg PO BID #60 tablet 12/01/17 09/07/18 Unknown Rx ALPRAZolam [Xanax TAB] 2 mg PO BID 09/07/18 09/07/18 Unknown History Active Meds: Active Medications Acetaminophen (Tylenol) 650 mg PO Q4H PRN PRN Reason: Pain MILD(1-3)/Fever >100.5/MA Aspirin (Aspirin) 325 mg PO DAILY [facility] Enoxaparin Sodium (Lovenox) 40 mg SUB-Q QDAY [facility] Potassium Chloride/Sodium Chloride (Ns/Kcl 20meq) 20 meq in 1,000 mls @ 75 mls/hr IV DIRECT SHAHEED Magnesium Hydroxide (Milk Of Magnesia) 30 ml PO Q4H PRN PRN Reason: Constipation Morphine Sulfate (Morphine) 4 mg IV Q4H PRN PRN Reason: Pain , Severe (7-10) Nitroglycerin (Nitrostat) 0.4 mg SL .Q5MIN PRN PRN Reason: Chest Pain Ondansetron HCl (Zofran) 4 mg IV Q8H PRN PRN Reason: Nausea And Vomiting Sodium Chloride (Sodium Chloride Flush Syringe 10 Ml) 10 ml IV BID SHAHEED Sodium Chloride (Sodium Chloride Flush Syringe 10 Ml) 10 ml IV PRN PRN PRN Reason: LINE FLUSH Exam - Constitutional Vitals: Temp Pulse Resp BP Pulse Ox 98.3 F 70 15 131/71 100 09/06/18 22:49 09/06/18 23:00 09/06/18 23:00 09/06/18 23:00 09/06/18 23:00 General appearance: Present: no acute distress, obese - EENT Eyes: Present: PERRL, EOM intact ENT: hearing intact, clear oral mucosa - Neck Neck: Present: supple, normal ROM - Respiratory Respiratory effort: normal Respiratory: bilateral: CTA - Cardiovascular Rhythm: regular Heart Sounds: Present: S1 & S2. Absent: rub, click - Extremities Extremities: No edema Peripheral Pulses: within normal limits - Abdominal General gastrointestinal: Present: soft, non-tender, non-distended, normal bowel sounds Male genitourinary: Present: deferred - Integumentary Integumentary: Present: clear, warm, dry - Musculoskeletal Musculoskeletal: gait normal, strength equal bilaterally - Psychiatric Psychiatric: appropriate mood/affect, intact judgment & insight - Neurologic Neurologic: CNII-XII intact, moves all extremities Results - Labs CBC & Chem 7: 09/06/18 22:38 09/06/18 22:38 Labs: Laboratory Last Values WBC 8.8 K/mm3 (4.5-11.0) 09/06/18 22:38 RBC 3.95 M/mm3 (3.65-5.03) 09/06/18 22:38 Hgb 13.5 gm/dl (11.8-15.2) 09/06/18 22:38 Hct 39.2 % (35.5-45.6) 09/06/18 22:38 MCV 99 fl (84-94) H 09/06/18 22:38 MCH 34 pg (28-32) H 09/06/18 22:38 MCHC 35 % (32-34) H 09/06/18 22:38 RDW 17.4 % (13.2-15.2) H 09/06/18 22:38 Plt Count 300 K/mm3 (140-440) 09/06/18 22:38 Add Manual Diff Complete 09/06/18 22:38 Total Counted 100 09/06/18 22:38 Seg Neuts % (Manual) 61.0 % (40.0-70.0) 09/06/18 22:38 Band Neutrophils % 0 % 09/06/18 22:38 Lymphocytes % (Manual) 26.0 % (13.4-35.0) 09/06/18 22:38 Reactive Lymphs % (Man) 0 % 09/06/18 22:38 Monocytes % (Manual) 9.0 % (0.0-7.3) H 09/06/18 22:38 Eosinophils % (Manual) 4.0 % (0.0-4.3) 09/06/18 22:38 Basophils % (Manual) 0 % (0.0-1.8) 09/06/18 22:38 Metamyelocytes % 0 % 09/06/18 22:38 Myelocytes % 0 % 09/06/18 22:38 Promyelocytes % 0 % 09/06/18 22:38 Blast Cells % 0 % 09/06/18 22:38 Nucleated RBC % Not Reportable 09/06/18 22:38 Seg Neutrophils # Man 5.4 K/mm3 (1.8-7.7) 09/06/18 22:38 Band Neutrophils # 0.0 K/mm3 09/06/18 22:38 Lymphocytes # (Manual) 2.3 K/mm3 (1.2-5.4) 09/06/18 22:38 Abs React Lymphs (Man) 0.0 K/mm3 09/06/18 22:38 Monocytes # (Manual) 0.8 K/mm3 (0.0-0.8) 09/06/18 22:38 Eosinophils # (Manual) 0.4 K/mm3 (0.0-0.4) 09/06/18 22:38 Basophils # (Manual) 0.0 K/mm3 (0.0-0.1) 09/06/18 22:38 Metamyelocytes # 0.0 K/mm3 09/06/18 22:38 Myelocytes # 0.0 K/mm3 09/06/18 22:38 Promyelocytes # 0.0 K/mm3 09/06/18 22:38 Blast Cells # 0.0 K/mm3 09/06/18 22:38 WBC Morphology Not Reportable 09/06/18 22:38 Hypersegmented Neuts Not Reportable 09/06/18 22:38 Hyposegmented Neuts Not Reportable 09/06/18 22:38 Hypogranular Neuts Not Reportable 09/06/18 22:38 Smudge Cells Not Reportable 09/06/18 22:38 Toxic Granulation Not Reportable 09/06/18 22:38 Toxic Vacuolation Not Reportable 09/06/18 22:38 Dohle Bodies Not Reportable 09/06/18 22:38 Pelger-Huet Anomaly Not Reportable 09/06/18 22:38 Elmer Rods Not Reportable 09/06/18 22:38 Platelet Estimate Consistent w auto 09/06/18 22:38 Clumped Platelets Not Reportable 09/06/18 22:38 Plt Clumps, EDTA Not Reportable 09/06/18 22:38 Large Platelets Not Reportable 09/06/18 22:38 Giant Platelets Not Reportable 09/06/18 22:38 Platelet Satelliting Not Reportable 09/06/18 22:38 Plt Morphology Comment Not Reportable 09/06/18 22:38 RBC Morphology Normal 09/06/18 22:38 Dimorphic RBCs Not Reportable 09/06/18 22:38 Polychromasia Not Reportable 09/06/18 22:38 Hypochromasia Not Reportable 09/06/18 22:38 Poikilocytosis Not Reportable 09/06/18 22:38 Anisocytosis Not Reportable 09/06/18 22:38 Microcytosis Not Reportable 09/06/18 22:38 Macrocytosis Not Reportable 09/06/18 22:38 Spherocytes Not Reportable 09/06/18 22:38 Pappenheimer Bodies Not Reportable 09/06/18 22:38 Sickle Cells Not Reportable 09/06/18 22:38 Target Cells Not Reportable 09/06/18 22:38 Tear Drop Cells Not Reportable 09/06/18 22:38 Ovalocytes Not Reportable 09/06/18 22:38 Helmet Cells Not Reportable 09/06/18 22:[address] [place] Bodies Not Reportable 09/06/18 22:38 [place] Rings Not Reportable 09/06/18 22:38 [place] Cells Not Reportable 09/06/18 22:38 Bite Cells Not Reportable 09/06/18 22:38 Crenated Cell Not Reportable 09/06/18 22:38 Elliptocytes Not Reportable 09/06/18 22:38 Acanthocytes (Spur) Not Reportable 09/06/18 22:38 Rouleaux Not Reportable 09/06/18 22:38 Hemoglobin C Crystals Not Reportable 09/06/18 22:38 Schistocytes Not Reportable 09/06/18 22:38 Malaria parasites Not Reportable 09/06/18 22:38 Oni Bodies Not Reportable 09/06/18 22:38 Hem Pathologist Commnt No 09/06/18 22:38 Sodium 140 mmol/L (137-145) 09/06/18 22:38 Potassium 3.5 mmol/L (3.6-5.0) L D 09/06/18 22:38 Chloride 96.6 mmol/L (98-107) L 09/06/18 22:38 Carbon Dioxide 31 mmol/L (22-30) H 09/06/18 22:38 Anion Gap 16 mmol/L 09/06/18 22:38 BUN 9 mg/dL (9-20) 09/06/18 22:38 Creatinine 0.9 mg/dL (0.8-1.5) 09/06/18 22:38 Estimated GFR > 60 ml/min 09/06/18 22:38 BUN/Creatinine Ratio 10 % 09/06/18 22:38 Glucose 96 mg/dL (75-100) 09/06/18 22:38 Calcium 9.3 mg/dL (8.4-10.2) 09/06/18 22:38 Magnesium 1.60 mg/dL (1.7-2.3) L 09/07/18 00:40 Total Creatine Kinase 99 units/L (55-170) 09/06/18 22:38 CK-MB (CK-2) 1.4 ng/mL (0.0-4.0) 09/06/18 22:38 CK-MB (CK-2) Rel Index 1.4 (0-4) 09/06/18 22:38 Troponin T < 0.010 ng/mL (0.00-0.029) 09/06/18 22:38 Assessment and Plan Assessment and plan: Chest pain rule out ACS -Chest pain pathway -Nuclear stress test ordered Hypokalemia/hypomagnesemia -Repleted, monitor levels Chronic diastolic heart failure with EF of 55-60% per echo in 11/2017 -No acute exacerbation HTN -Controlled, home med resumed COPD -No acute exacerbation -On PRN neb tx RA -Stable GERD -On protonix DVT prophylaxis with Lovenox Disposition: For discharge if stress test is negative Time spent: 35 minutes
[2018-09-07] MEDS ORDERED: MAGNESIUM SULFATE 1 GM in NACL 0.9% 50 ML IV ONE (01:59)
[2018-09-07] MEDS ORDERED: NACL 0.9% 1000 ML 1,000 ML IV SCH (02:00)
[2018-09-07] MEDS ORDERED: NS/KCL 20MEQ 20 MEQ/1,000 ML BAG IV SCH (02:00)
[2018-09-07] MEDS ORDERED: PROVENTIL IH PRN (03:22)
[2018-09-07] MEDS: MORPHINE IV PRN ×3 (04:31→12:22)
[2018-09-07 07:16] LABS: Chol/HDL Ratio 4.73 %; HDL Cholesterol 41 mg/dL (40-59); LDL Cholesterol,Direct 147 mg/dL (50-130)
[2018-09-07] MEDS ORDERED: MAGNESIUM SULFATE 2GM/50ML 2 GM/50 ML BAG IV ONE (09:35)
[2018-09-07] MEDS: XANAX PO SCH ×2 (09:45→22:20)
[2018-09-07] MEDS: ASPIRIN PO SCH (09:45)
[2018-09-07] MEDS: COREG PO SCH ×2 (09:46→22:20)
[2018-09-07] MEDS: PROTONIX PO SCH (09:46)
[2018-09-07] MEDS: LOVENOX SUB-Q SCH (09:47)
--- NOTE | 2018-09-07 09:51 | Discharge Summary ---
Providers - Providers Date of Admission: 09/07/18 01:03 Date of discharge: 09/07/18 Attending physician: TITI BRIDGES Primary care physician: ISRRAEL RODRIGUEZ Hospitalization Condition: Stable Hospital course: Patient is a 53 yo man with a history of CHF, hypertension, tobacco dependency, BPH anxiety, OA with spinal issues receiving injections and chronic pains syndome on narcotics who presents to [facility] ED with Chest pains. He was initially seen in ED and left AMA for spinal injection then came back to ED for chest pains. He has refused his stress test. * According to [place] dental laboratory assistant aware, Mr. Castellanos has received 14 tabs of Percocet 10/325 and 84 tabs of Oxycodone 10mg 08/27/[address] Vivek Lora. He also received 90 tabs of Soma 350mg on 08/22/[address] Isrrael Rodriguez. He also received 90 tabs of Xanax 2 mg on 08/17/[address] Isrrael Rodriguez. He also received 14 tabs of Percocet 10/325 on 08/15/[address] Vivek Lora as well as 84 tabs of Oxycodone 10mg on 08/15/[address] Vivek Lora. Chest pain unlikely, suspect anxiety related. Cardiac workup negative -Chest pain pathway -Nuclear stress test ordered but patient refused because he just didn't feel like it today, he was having headaches from the NTG Hypokalemia/hypomagnesemia -Replete, monitor levels Chronic diastolic heart failure with EF of 55-60% per echo in 11/2017 -No acute exacerbation HTN -Controlled, home med resumed COPD -No acute exacerbation -On PRN neb tx RA -Stable GERD -On protonix DVT prophylaxis with Lovenox Disposition: Since patient refuses to have stress test today and the next available time for stress testing here is Sunday. He can be home with an appointment with Cardiology to get outpatient stress test; when he feels able to have a stress test. His weakness is probably related to his chronic back issues and needs to see a spinal specialist which we do not have. Disposition: TO HOME OR SELFCARE Time spent for discharge: 32 minutes Core Measure Documentation - Palliative Care Palliative Care/ Comfort Measures: Not Applicable - Core Measures Any of the following diagnoses?: none - VTE Discharge Requirements Deep Vein Thrombosis/Pulmonary Embolism Present on Admission: No Has pt received <5 days of overlap therapy or INR<2.0: No Anticoagulant overlap therapy prescribed at discharge: No Contraindication No Overlap Therapy order at DC: Not Indicated Exam - Physical Exam Narrative exam: Gen: WDWN, NAD, bmi 37.5, Awake, Alert, Orientated HEENT: NCAT, EOMI, PERRL, OP Clear Neck: supple, no adenopathy, no thyromegaly, no JVD CVS/Heart: RRR, normal S1S2, pulses present bilaterally Chest/Lungs: CTA B, Symmetrical chest expansion, good air entry bilaterally GI/Abdomen: soft, NTND, good bowel sounds, no guarding or rebound /Bladder: no suprapubic tenderness, no CVA or paraspinal tenderness Extermity/Skin: no c/c/e, no obvious rash MSK: FROM x 4 Neuro: CN 2-12 grossly intact, no new focal deficits Psych: calm - Constitutional Vitals: Temp Pulse Resp BP Pulse Ox 98.6 F 95 H 18 113/79 94 09/07/18 03:51 09/07/18 03:51 09/07/18 03:51 09/07/18 03:51 09/07/18 03:51 Plan Activity: up only with assistance, fall precautions, other (no strenous activity unless cleared by Cardiology, including working, sex or driving) Diet: low salt Special Instructions: smoking cessation Additional Instructions: Make an appointment with [facility]: Address: [address] [place] [address]. Follow up with: ISRRAEL RODRIGUEZ JR, MD [Primary Care Provider] - 3-5 Days JIM OLMEDO MD [Staff Physician] - 7 Days
[2018-09-07] MEDS: SODIUM CHLORIDE FLUSH SYRINGE 10 ML IV SCH ×2 (09:56→22:20)
[2018-09-07] MEDS ORDERED: NON-FORMULARY (Alprazolam [Xanax Tab] 2 MG) PO SCH (10:00)
[2018-09-07] MEDS: PERCOCET 5/325 PO PRN ×2 (14:45→21:09)
[2018-09-07] MEDS: FLOMAX PO SCH (22:20)
[2018-09-08] MEDS: PERCOCET 5/325 PO PRN ×4 (03:04→21:24)
[2018-09-08 09:08] LABS: BUN/Creatinine Ratio 13; Blood Urea Nitrogen 8 mg/dL (9-20); Calcium 9.7 mg/dL (8.4-10.2); Hemolysis Index 4
[2018-09-08] MEDS: ASPIRIN PO SCH (10:00)
[2018-09-08] MEDS: XANAX PO SCH ×2 (10:00→21:24)
[2018-09-08] MEDS: COREG PO SCH ×2 (10:01→21:47)
[2018-09-08] MEDS: PROTONIX PO SCH (10:01)
[2018-09-08] MEDS: LOVENOX SUB-Q SCH (10:01)
[2018-09-08] MEDS: SODIUM CHLORIDE FLUSH SYRINGE 10 ML IV SCH ×3 (10:03→21:48)
--- NOTE | 2018-09-08 14:52 | Progress Note ---
Assessment and Plan Assessment and plan: Patient is a 53 yo man with a history of CHF, hypertension, tobacco dependency, BPH anxiety, OA with spinal issues receiving injections and chronic pains syndome on narcotics who [facility] with Chest pains. He was initially seen in ED and left AMA for spinal injection then came back to ED for chest pains. He has refused his stress test. * According to [place] development lead aware, Mr. Castellanos has received 14 tabs of Percocet 10/325 and 84 tabs of Oxycodone 10mg on 08/27/[address] Vivek Lora. He also received 90 tabs of Soma 350mg on 08/22/[address] Brandon Oh. He also received 90 tabs of Xanax 2 mg on 08/17/[address] Brandon Oh. He also received 14 tabs of Percocet 10/325 on 08/15/[address] Vivek Lora as well as 84 tabs of Oxycodone 10mg on 08/15/[address] Vivek Lora. Chest pain atypical, suspect anxiety related. Cardiac workup negative, stress test was ordered for Sunday but he refused, Hypokalemia/hypomagnesemia: Repleted Chronic diastolic heart failure with EF of 55-60% per echo in 11/2017, No acute exacerbation HTN-Controlled, home med resumed COPD-No acute exacerbation, On PRN neb tx RA with chronic pain syndrome-Stable, requesting iv morphine narcotic GERD-On protonix DVT prophylaxis with Lovenox Disposition: Patient is refusing to leave. He says his went to out-of-town when he told her that he would be admitted. Now, he says that his son will pick him up but no one has came yet. He has been discharged since Sunday. Patient refused Stress test, he can have it done as out patient. History Interval history: Patient was seen and examined. Follow-up on current diagnosis of CP. Overnight uneventful. Patient denies any chest pain, shortness breath, nausea/vomiting or severe headaches. Imaging, nursing note, chart, labs and old chart reviewed. Discussed with patient. Patient is refusing to leaving in a passive way. He says someone will come and pick him up but no one came last night and no one has come today. Hospitalist Physical - Physical exam Narrative exam: Gen: WDWN, NAD, bmi 37.5, Awake, Alert, Orientated HEENT: NCAT, EOMI, PERRL, OP Clear Neck: supple, no adenopathy, no thyromegaly, no JVD CVS/Heart: RRR, normal S1S2, pulses present bilaterally Chest/Lungs: CTA B, Symmetrical chest expansion, good air entry bilaterally GI/Abdomen: soft, NTND, good bowel sounds, no guarding or rebound /Bladder: no suprapubic tenderness, no CVA or paraspinal tenderness Extermity/Skin: no c/c/e, no obvious rash MSK: FROM x 4 Neuro: CN 2-12 grossly intact, no new focal deficits Psych: calm - Constitutional Vitals: Temp Pulse Resp BP Pulse Ox 98.0 F 83 18 128/77 95 09/08/18 13:03 09/08/18 13:03 09/08/18 13:03 09/08/18 13:03 09/08/18 13:03 General appearance: Present: no acute distress, obese Results - Labs CBC & Chem 7: 09/06/18 22:38 09/08/18 07:55 Labs: Laboratory Last Values WBC 8.8 K/mm3 (4.5-11.0) 09/06/18 22:38 RBC 3.95 M/mm3 (3.65-5.03) 09/06/18 22:38 Hgb 13.5 gm/dl (11.8-15.2) 09/06/18 22:38 Hct 39.2 % (35.5-45.6) 09/06/18 22:38 MCV 99 fl (84-94) H 09/06/18 22:38 MCH 34 pg (28-32) H 09/06/18 22:38 MCHC 35 % (32-34) H 09/06/18 22:38 RDW 17.4 % (13.2-15.2) H 09/06/18 22:38 Plt Count 300 K/mm3 (140-440) 09/06/18 22:38 Add Manual Diff Complete 09/06/18 22:38 Total Counted 100 09/06/18 22:38 Seg Neuts % (Manual) 61.0 % (40.0-70.0) 09/06/18 22:38 Band Neutrophils % 0 % 09/06/18 22:38 Lymphocytes % (Manual) 26.0 % (13.4-35.0) 09/06/18 22:38 Reactive Lymphs % (Man) 0 % 09/06/18 22:38 Monocytes % (Manual) 9.0 % (0.0-7.3) H 09/06/18 22:38 Eosinophils % (Manual) 4.0 % (0.0-4.3) 09/06/18 22:38 Basophils % (Manual) 0 % (0.0-1.8) 09/06/18 22:38 Metamyelocytes % 0 % 09/06/18 22:38 Myelocytes % 0 % 09/06/18 22:38 Promyelocytes % 0 % 09/06/18 22:38 Blast Cells % 0 % 09/06/18 22:38 Nucleated RBC % Not Reportable 09/06/18 22:38 Seg Neutrophils # Man 5.4 K/mm3 (1.8-7.7) 09/06/18 22:38 Band Neutrophils # 0.0 K/mm3 09/06/18 22:38 Lymphocytes # (Manual) 2.3 K/mm3 (1.2-5.4) 09/06/18 22:38 Abs React Lymphs (Man) 0.0 K/mm3 09/06/18 22:38 Monocytes # (Manual) 0.8 K/mm3 (0.0-0.8) 09/06/18 22:38 Eosinophils # (Manual) 0.4 K/mm3 (0.0-0.4) 09/06/18 22:38 Basophils # (Manual) 0.0 K/mm3 (0.0-0.1) 09/06/18 22:38 Metamyelocytes # 0.0 K/mm3 09/06/18 22:38 Myelocytes # 0.0 K/mm3 09/06/18 22:38 Promyelocytes # 0.0 K/mm3 09/06/18 22:38 Blast Cells # 0.0 K/mm3 09/06/18 22:38 WBC Morphology Not Reportable 09/06/18 22:38 Hypersegmented Neuts Not Reportable 09/06/18 22:38 Hyposegmented Neuts Not Reportable 09/06/18 22:38 Hypogranular Neuts Not Reportable 09/06/18 22:38 Smudge Cells Not Reportable 09/06/18 22:38 Toxic Granulation Not Reportable 09/06/18 22:38 Toxic Vacuolation Not Reportable 09/06/18 22:38 Dohle Bodies Not Reportable 09/06/18 22:38 Pelger-Huet Anomaly Not Reportable 09/06/18 22:38 Elmer Rods Not Reportable 09/06/18 22:38 Platelet Estimate Consistent w auto 09/06/18 22:38 Clumped Platelets Not Reportable 09/06/18 22:38 Plt Clumps, EDTA Not Reportable 09/06/18 22:38 Large Platelets Not Reportable 09/06/18 22:38 Giant Platelets Not Reportable 09/06/18 22:38 Platelet Satelliting Not Reportable 09/06/18 22:38 Plt Morphology Comment Not Reportable 09/06/18 22:38 RBC Morphology Normal 09/06/18 22:38 Dimorphic RBCs Not Reportable 09/06/18 22:38 Polychromasia Not Reportable 09/06/18 22:38 Hypochromasia Not Reportable 09/06/18 22:38 Poikilocytosis Not Reportable 09/06/18 22:38 Anisocytosis Not Reportable 09/06/18 22:38 Microcytosis Not Reportable 09/06/18 22:38 Macrocytosis Not Reportable 09/06/18 22:38 Spherocytes Not Reportable 09/06/18 22:38 Pappenheimer Bodies Not Reportable 09/06/18 22:38 Sickle Cells Not Reportable 09/06/18 22:38 Target Cells Not Reportable 09/06/18 22:38 Tear Drop Cells Not Reportable 09/06/18 22:38 Ovalocytes Not Reportable 09/06/18 22:38 Helmet Cells Not Reportable 09/06/18 22:38 Martinez-Pender Bodies Not Reportable 09/06/18 22:38 [place] Rings Not Reportable 09/06/18 22:38 Padmini Cells Not Reportable 09/06/18 22:38 Bite Cells Not Reportable 09/06/18 22:38 Crenated Cell Not Reportable 09/06/18 22:38 Elliptocytes Not Reportable 09/06/18 22:38 Acanthocytes (Spur) Not Reportable 09/06/18 22:38 Rouleaux Not Reportable 09/06/18 22:38 Hemoglobin C Crystals Not Reportable 09/06/18 22:38 Schistocytes Not Reportable 09/06/18 22:38 Malaria parasites Not Reportable 09/06/18 22:38 Oni Bodies Not Reportable 09/06/18 22:38 Hem Pathologist Commnt No 09/06/18 22:38 Sodium 140 mmol/L (137-145) 09/08/18 07:55 Potassium 3.4 mmol/L (3.6-5.0) L 09/08/18 07:55 Chloride 99.4 mmol/L (98-107) 09/08/18 07:55 Carbon Dioxide 28 mmol/L (22-30) 09/08/18 07:55 Anion Gap 16 mmol/L 09/08/18 07:55 BUN 8 mg/dL (9-20) L 09/08/18 07:55 Creatinine 0.6 mg/dL (0.8-1.5) L 09/08/18 07:55 Estimated GFR > 60 ml/min 09/08/18 07:55 BUN/Creatinine Ratio 13 % 09/08/18 07:55 Glucose 103 mg/dL (75-100) H 09/08/18 07:55 Calcium 9.7 mg/dL (8.4-10.2) 09/08/18 07:55 Magnesium 2.10 mg/dL (1.7-2.3) 09/08/18 07:55 Total Creatine Kinase 99 units/L (55-170) 09/06/18 22:38 CK-MB (CK-2) 1.4 ng/mL (0.0-4.0) 09/06/18 22:38 CK-MB (CK-2) Rel Index 1.4 (0-4) 09/06/18 22:38 Troponin T < 0.010 ng/mL (0.00-0.029) 09/07/18 05:01 Triglycerides 95 mg/dL (2-149) 09/07/18 05:01 Cholesterol 194 mg/dL (50-199) 09/07/18 05:01 LDL Cholesterol Direct 147 mg/dL (50-130) H 09/07/18 05:01 HDL Cholesterol 41 mg/dL (40-59) 09/07/18 05:01 Cholesterol/HDL Ratio 4.73 % 09/07/18 05:01 Active Medications - Current Medications Current Medications: Generic Name Dose Route Start Last Admin Trade Name Freq PRN Reason Stop Dose Admin Acetaminophen 650 mg 09/07/18 01:03 09/08/18 13:32 Tylenol PO 650 mg Q4H PRN Administration Pain MILD(1-3)/Fever >100.5/MA Albuterol 2.5 mg 09/07/18 03:22 Proventil IH Q4HRT PRN Shortness Of Breath Alprazolam 2 mg 09/07/18 10:00 09/08/18 10:00 Xanax PO 2 mg BID SHAHEED Administration Aspirin 325 mg 09/07/18 10:00 09/08/18 10:00 Aspirin PO 325 mg DAILY SHAHEED Administration Carvedilol 12.5 mg 09/07/18 10:00 09/08/18 10:01 Coreg PO 12.5 mg BID SHAHEED Administration Enoxaparin Sodium 40 mg 09/07/18 10:00 09/08/18 10:01 Lovenox SUB-Q 40 mg QDAY SHAHEED Administration Potassium Chloride/Sodium Chloride 20 meq in 1,000 mls @ 75 mls/hr 09/07/18 02:00 09/07/18 04:27 Ns/Kcl 20meq IV 75 mls/hr DIRECT SHAHEED Administration Magnesium Hydroxide 30 ml 09/07/18 01:03 09/07/18 09:54 Milk Of Magnesia PO 30 ml Q4H PRN Administration Constipation Morphine Sulfate 4 mg 09/07/18 01:03 09/07/18 12:22 Morphine IV 4 mg Q4H PRN Administration Pain , Severe (7-10) Nitroglycerin 0.4 mg 09/07/18 01:09 Nitrostat SL .Q5MIN PRN Chest Pain Ondansetron HCl 4 mg 09/07/18 01:03 Zofran IV Q8H PRN Nausea And Vomiting Oxycodone/Acetaminophen 1 tab 09/07/18 02:52 09/08/18 10:02 Percocet 5/325 PO 1 tab Q6HR PRN Administration Pain Pantoprazole Sodium 40 mg 09/07/18 10:00 09/08/18 10:01 Protonix PO 40 mg DAILY SHAHEED Administration Sodium Chloride 10 ml 09/07/18 10:00 09/08/18 10:10 Sodium Chloride Flush Syringe 10 Ml IV Not Given BID SHAHEED Sodium Chloride 10 ml 09/07/18 01:03 Sodium Chloride Flush Syringe 10 Ml IV PRN PRN LINE FLUSH Tamsulosin HCl 0.4 mg 09/07/18 22:00 09/07/18 22:20 Flomax PO 0.4 mg QHS SHAHEED Administration
[2018-09-08] MEDS: FLOMAX PO SCH (21:25)
[2018-09-08 21:48] VITALS: BP 112/72
== END 2018-09-08 22:00 | disposition home or self-care (01) ==
LOC: ED 13:22 → INTOOBSV 09-07 01:03 → 4A 09-07 01:03
PROVIDERS: ADMIT Internal Medicine; ATTEND Internal Medicine
DX: R07.89 Other chest pain (principal); I11.0 Hypertensive heart disease with heart failure; I50.32 Chronic diastolic (congestive) heart failure; E87.6 Hypokalemia; E83.42 Hypomagnesemia; J44.9 Chronic obstructive pulmonary disease, unspecified; K21.9 Gastro-esophageal reflux disease without esophagitis; M06.9 Rheumatoid arthritis, unspecified; N40.0 Benign prostatic hyperplasia without lower urinary tract symptoms; F41.9 Anxiety disorder, unspecified; F17.210 Nicotine dependence, cigarettes, uncomplicated; Z96.642 Presence of left artificial hip joint; Z79.82 Long term (current) use of aspirin
CPT/HCPCS: 36415; 71045; 80048; 80061; 82550; 82553; 83735; 84484; 85007; 85025; 93005; 93010; 96365; 96366; 96368; 96372; 96375; 96376; 99284; 99406; G0378; J1650; J2270; J2405; J3475; 96374; 99285

== ENCOUNTER 2018-10-02 20:31 | Inpatient (IN) | payer MEDICARE ==
--- NOTE | 2018-10-02 20:53 | Emergency Department Report ---
Blank Doc - Documentation Documentation: This is a 53-year-old male that presents with chest pain with SOB. History of cardiac. This initial assessment/diagnostic orders/clinical plan/treatment(s) is/are subject to change based on patient's health status, clinical progression and re- assessment by fellow clinical providers in the ED. Further treatment and workup at subsequent clinical providers discretion. Patient/guardians urged not to elope from the ED as their condition may be serious if not clinically assessed and managed. Initial orders include: 1- Patient sent to MAIN ED for further evaluation and treatment 2- labs 3- EKG 4- CXR
[2018-10-02 21:24] LABS: Basophils # (Auto) 0.1 K/mm3 (0.0-0.1); Basophils % (Auto) 1.4 % (0.0-1.8); Eosinophils # (Auto) 0.2 K/mm3 (0.0-0.4); Eosinophils % (Auto) 3.1 % (0.0-4.3); Hematocrit 36.8 % (35.5-45.6); Hemoglobin 12.7 gm/dl (11.8-15.2); Lymphocytes # (Auto) 1.9 K/mm3 (1.2-5.4); Lymphocytes % (Auto) 26.4 % (13.4-35.0); Mean Corpuscular HGB Conc 35 % (32-34); Mean Corpuscular Volume 97 fl (84-94); Monocytes # (Auto) 0.7 K/mm3 (0.0-0.8); Monocytes % (Auto) 9.4 % (0.0-7.3); Platelet Count 239 K/mm3 (140-440); Red Blood Count 3.77 M/mm3 (3.65-5.03); Red Cell Distribution Width 17.4 % (13.2-15.2)
[2018-10-02 21:32] LABS: INR 0.95 (0.87-1.13)
[2018-10-02 21:33] LABS: Partial Thromboplastin Time 27.1 Sec. (24.2-36.6)
[2018-10-02 21:48] LABS: BUN/Creatinine Ratio 10; Blood Urea Nitrogen 10 mg/dL (9-20); Calcium 9.6 mg/dL (8.4-10.2); Hemolysis Index 35
--- NOTE | 2018-10-02 21:58 | XRay Report ---
PROCEDURE: XR CHEST ROUTINE 2V TECHNIQUE: PA and lateral chest radiographs were obtained. HISTORY: Chest Pain COMPARISONS: 09/06/2018. FINDINGS: Heart: Normal. Mediastinum/Vessels: Normal. Lungs/Pleural space: Normal. Bony thorax: No acute osseous abnormality. IMPRESSION: Normal examination. This document is electronically signed by Kwabena Mack MD., October 02 2018 09:56:00 PM ET
[2018-10-02] MEDS ORDERED: DILAUDID IV ONE (23:08)
[2018-10-02] MEDS ORDERED: ZOFRAN IV ONE (23:09)
[2018-10-02] MEDS ORDERED: K-DUR PO ONE (23:17)
--- NOTE | 2018-10-02 23:17 | Emergency Department Report ---
ED Chest Pain HPI - General Chief Complaint: Chest Pain Stated Complaint: CHEST PAIN Time Seen by Provider: 10/02/18 20:52 Source: patient Mode of arrival: Ambulatory Limitations: No Limitations, Physical Limitation - History of Present Illness Initial Comments: 53-year-old male with a past medical history of CHF, hypertension, tobacco dependency, BPH, anxiety, and spinal issues requiring pain management with injections presents to Hospital complaints of left-sided chest pain started 45 minutes prior to arrival. [facility] and he developed left-sided chest pain described as sharp and tingling sensation. Positive associated diaphoresis and generalized weakness. He denies shortness of breath, nausea, or vomiting. Chest pain has since resolved but he is now having exacerbation of his chronic muscular skeletal pain. Previous medical records reviewed. Patient was recently here September 07. He appears to have a chronically elevated d-dimer and underwent a CT chest angiogram that was negative for pulmonary embolism. Stress test was planned but refused by patient because he did not want to miss his scheduled spinal injection appointment with his pain management doctor. Patient now states he is willing to receive a stress test and denies previous history of stress test in the past. His primary housekeeping aide is [facility]. Severity scale (0 -10): 8 - Related Data Home Medications Medication Instructions Recorded Confirmed Last Taken ALPRAZolam [Xanax TAB] 2 mg PO BID 09/07/18 09/07/18 Unknown Oxycodone HCl [Roxicodone] 30 mg PO Q8HR 09/07/18 09/07/18 09/06/18 Previous Rx's Medication Instructions Recorded Last Taken Type Carvedilol [Coreg] 1 tab PO BID #60 tablet 12/01/17 Unknown Rx Potassium Chloride 20 meq PO BID #60 tablet.er 12/01/17 Unknown Rx Tamsulosin [Flomax] 0.4 mg PO QHS #30 12/01/17 Unknown Rx Torsemide [Demadex] 100 mg PO BID #60 tablet 12/01/17 Unknown Rx Allergies Allergy/AdvReac Type Severity Reaction Status Date / Time tramadol Allergy Itching Verified 09/06/18 13:24 Heart Score - HEART Score History: Slightly suspicious EKG: Non-specific Age: 45-65 Risk factors: > 3 risk factors or hx of atherosclerotic disease Troponin: < normal limit HEART Score: 4 ED Review of Systems ROS: Stated complaint: CHEST PAIN Other details as noted in HPI Comment: All other systems reviewed and negative ED Past Medical Hx - Past Medical History Previous Medical History?: Yes Hx Hypertension: Yes Hx Congestive Heart Failure: Yes Hx GERD: Yes Hx Arthritis: Yes Hx COPD: Yes Additional medical history: hyperlipidemia. CHF diastolic dysfunction. Sleep apnea, CPAP - Surgical History Past Surgical History?: Yes Additional Surgical History: spinal fusion surgery in 2011. Reversed Colostomy. colon resection - Social History Smoking Status: Former Smoker Substance Use Type: Alcohol - Medications Home Medications: Home Medications Medication Instructions Recorded Confirmed Last Taken Type Carvedilol [Coreg] 1 tab PO BID #60 tablet 12/01/17 09/07/18 Unknown Rx Potassium Chloride 20 meq PO BID #60 tablet.er 12/01/17 09/07/18 Unknown Rx Tamsulosin [Flomax] 0.4 mg PO QHS #30 12/01/17 09/07/18 Unknown Rx Torsemide [Demadex] 100 mg PO BID #60 tablet 12/01/17 09/07/18 Unknown Rx ALPRAZolam [Xanax TAB] 2 mg PO BID 09/07/18 09/07/18 Unknown History Oxycodone HCl [Roxicodone] 30 mg PO Q8HR 09/07/18 09/07/18 09/06/18 History ED Physical Exam - General Limitations: No Limitations, Physical Limitation - Other Other exam information: General: No limitations, patient is alert in no acute distress Head exam: Atraumatic, normocephalic Eyes exam: Normal appearance ENT: Moist mucous membrane Neck exam: Normal inspection, full range of motion, no meningismus nontender Respiratory exam: Clear to auscultation bilateral, no wheezes, rales, crackles Cardiovascular: Normal rate and rhythm, normal heart sounds, left chest wall nontender Abdomen: Soft, nondistended, and nontender, with normal bowel sounds, no rebound, or guarding Extremity: Full range of motion normal inspection no deformity, bilateral edema equal without calf tenderness or leg asymmetry Back: Normal Inspection Neurologic: Alert, oriented x3, cranial nerves intact, no motor or sensory deficit Psychiatric: normal affect, normal mood Skin: Warm, dry, intact ED Course Vital Signs 10/02/18 10/02/18 10/02/18 20:50 20:53 22:19 Temperature 98.9 F 98.9 F Pulse Rate 73 72 90 Respiratory 18 18 15 Rate Blood Pressure 117/76 117/76 O2 Sat by Pulse 96 97 98 Oximetry 10/02/18 10/02/18 10/02/18 22:23 22:31 22:45 Temperature Pulse Rate 82 92 H Respiratory 20 13 12 Rate Blood Pressure 174/86 174/86 O2 Sat by Pulse 100 97 Oximetry 10/02/18 23:00 Temperature Pulse Rate 76 Respiratory 13 Rate Blood Pressure 143/79 O2 Sat by Pulse 98 Oximetry KELLY score - Kelly Score Age > 65: (0) No Aspirin use within the Past 7 Days: (0) No 3 or more CAD Risk Factors: (1) Yes 2 or more Angina events in past 24 hrs: (0) No Known CAD with more than 50% Stenosis: (0) No Elevated Cardiac Markers: (0) No ST Deviation Greater than 0.5mm: (0) No KELLY Score: 1 ED Medical Decision Making - Lab Data Result diagrams: 10/02/18 21:06 10/02/18 21:06 Lab Results 10/02/18 10/02/18 10/02/18 Range/Units 21:06 21:06 21:06 WBC 7.1 (4.5-11.0) K/mm3 RBC 3.77 (3.65-5.03) M/mm3 Hgb 12.7 (11.8-15.2) gm/dl Hct 36.8 (35.5-45.6) % MCV 97 H (84-94) fl MCH 34 H (28-32) pg MCHC 35 H (32-34) % RDW 17.4 H (13.2-15.2) % Plt Count 239 (140-440) K/mm3 Lymph % (Auto) 26.4 (13.4-35.0) % [place] % (Auto) 9.4 H (0.0-7.3) % Eos % (Auto) 3.1 (0.0-4.3) % Baso % (Auto) 1.4 (0.0-1.8) % Lymph # 1.9 (1.2-5.4) K/mm3 [place] # 0.7 (0.0-0.8) K/mm3 Eos # 0.2 (0.0-0.4) K/mm3 Baso # 0.1 (0.0-0.1) K/mm3 Seg Neutrophils % 59.7 (40.0-70.0) % Seg Neutrophils # 4.2 (1.8-7.7) K/mm3 PT 13.3 (12.2-14.9) Sec. INR 0.95 (0.87-1.13) APTT 27.1 (24.2-36.6) Sec. Sodium 137 (137-145) mmol/L Potassium 3.4 L (3.6-5.0) mmol/L Chloride 94.4 L (98-107) mmol/L Carbon Dioxide 28 (22-30) mmol/L Anion Gap 18 mmol/L BUN 10 (9-20) mg/dL Creatinine 1.0 (0.8-1.5) mg/dL Estimated GFR > 60 ml/min BUN/Creatinine Ratio 10 % Glucose 94 (75-100) mg/dL Calcium 9.6 (8.4-10.2) mg/dL Troponin T < 0.010 (0.00-0.029) ng/mL - EKG Data -: EKG Interpreted by Sc EKG shows normal: sinus rhythm, axis (qrs -51), QRS complexes (qrsd 109), ST-T waves (no stemi/t inv) Rate: normal (69) - EKG Data When compared to previous EKG there are: no significant change - Radiology Data Radiology results: report reviewed PROCEDURE: XR CHEST ROUTINE 2V TECHNIQUE: PA and lateral chest radiographs were obtained. HISTORY: Chest Pain COMPARISONS: 09/06/2018. FINDINGS: Heart: Normal. Mediastinum/Vessels: Normal. Lungs/Pleural space: Normal. Bony thorax: No acute osseous abnormality. IMPRESSION: Normal examination. - Medical Decision Making Pt with chest pain. No acute EKG changes, initial troponin negative Aspirin provided By mouth potassium for mild hypokalemia Patient declines nitroglycerin because it gives him a headache Dilaudid and Zofran given for chronic muscular skeletal pain in the ED Patient will be admitted to the hospitalist service for further cardiac workup Dr. Samaniego informed - Differential Diagnosis AK, anxiety, atypical chest pain, unstable angina, pulmonary embolism Critical Care Time: No Critical care attestation.: If time is entered above; I have spent that time in minutes in the direct care of this critically ill patient, excluding procedure time. ED Disposition Clinical Impression: Chest pain, Chronic pain, Hypokalemia Disposition: OP ADMIT IP TO THIS HOSP Is pt being admited?: Yes Condition: Stable Time of Disposition: 23:16 (DR Samaniego/hosp)
[2018-10-02] MEDS ORDERED: ASPIRIN PO ONE (23:30)
--- NOTE | 2018-10-02 23:44 | History and Physical Report ---
History of Present Illness Date of examination: 10/02/18 History of present illness: 53-year-old history of hypertension, COPD, GERD, CHF, hyperlipidemia, rheumatoid arthritis, sleep apnea comes emergency room with complaints of chest pain that started today. Pain is in the left epigastric area which she descri bes tingling sensation, constant, intensity 5/10, no radiation. Admits to shortness of breath, no nausea vomiting, diaphoresis or palpitation. Patient was just discharged from the hospital on the of last month, he left AMA, stress test was not obtained Review of systems Constitutional: no weight loss, chills, fever Ears, eyes, nose, mouth and throat: no nasal congestion, no nasal discharge, no sinus pressure, no vision change, no red eye. Neck: No neck pain or rigidity. Cardiovascular: no palpitations, +chest pain Respiratory: no cough, +shortness of breath Gastrointestinal: no hematochezia, abdominal pain Genitourinary : no frequency , no hematuria Musculoskeletal: no joint swelling or muscle ache Integumentary: no rash, no pruritis Neurological: no parathesias, no focal weakness Endocrine: no cold or heat intolerance, no polyuria or polydipsia Hematologic/Lymphatic: no easy bruising, no easy bleeding, no gland swelling Allergic/Immunologic: no urticaria, no angioedema. PAST MEDICAL HISTORY:hypertension, COPD, GERD, CHF, hyperlipidemia, rheumatoid arthritis, sleep apnea PAST SURGICAL HISTORY: Neck, eye surgery SOCIAL HISTORY: Denies alcohol, drugs, tobacco FAMILY HISTORY: Hypertension Medications and Allergies Allergies Allergy/AdvReac Type Severity Reaction Status Date / Time tramadol Allergy Itching Verified 09/06/18 13:24 Home Medications Medication Instructions Recorded Confirmed Last Taken Type Carvedilol [Coreg] 1 tab PO BID #60 tablet 12/01/17 09/07/18 Unknown Rx Potassium Chloride 20 meq PO BID #60 tablet.er 12/01/17 09/07/18 Unknown Rx Tamsulosin [Flomax] 0.4 mg PO QHS #30 12/01/17 09/07/18 Unknown Rx Torsemide [Demadex] 100 mg PO BID #60 tablet 12/01/17 09/07/18 Unknown Rx ALPRAZolam [Xanax TAB] 2 mg PO BID 09/07/18 09/07/18 Unknown History Oxycodone HCl [Roxicodone] 30 mg PO Q8HR 09/07/18 09/07/18 09/06/18 History Exam - Physical Exam Narrative exam: General Apperance: The patient lying in bed, breathing comfortable HEENT: Normocephalic, atraumatic. Pupils equally round and reactive to light, EOMI, no sclericterus or JVD or thyromegaly or nodule. , no carotid bruit, mucous membranes moist, no exudate or erythema Heart: S1-S2, regular is rhythm Lungs: Clear to auscultation bilaterally, breathing comfortable Abdomen: Positive bowel sounds, soft, nontender, nondistended, no organomegaly Extremities: No edema cyanosis clubbing Skin: no rash, nodule, warm and dry Neuro: cranial nerves 2-12 intact, speech is fluent, motor/sensory intact - Constitutional Vitals: Temp Pulse Resp BP Pulse Ox 98.9 F 76 13 143/79 98 10/02/18 20:53 10/02/18 23:00 10/02/18 23:00 10/02/18 23:00 10/02/18 23:00 Results - Labs CBC & Chem 7: 10/02/18 21:06 10/02/18 21:06 Labs: Abnormal lab results 10/02/18 10/02/18 Range/Units 21:06 21:06 MCV 97 H (84-94) fl MCH 34 H (28-32) pg MCHC 35 H (32-34) % RDW 17.4 H (13.2-15.2) % Luce % (Auto) 9.4 H (0.0-7.3) % Potassium 3.4 L (3.6-5.0) mmol/L Chloride 94.4 L (98-107) mmol/L - Imaging and Cardiology EKG: image reviewed Abdominal x-ray: report reviewed Assessment and Plan Assessment Atypical chest pain CHF, stable Hypertension Hyperlipidemia GERD Rheumatoid arthritis COPD Plan Check cardiac enzymes, obtain stress test percocet, DVT prophylaxis
[2018-10-03] MEDS ORDERED: PERCOCET 5/325 PO PRN (02:59)
[2018-10-03] MEDS: PERCOCET 5/325 PO PRN ×2 (03:18→08:09)
[2018-10-03] MEDS ORDERED: ZOFRAN IV PRN (03:58)
[2018-10-03] MEDS ORDERED: SODIUM CHLORIDE FLUSH SYRINGE 10 ML IV PRN (03:58)
[2018-10-03] MEDS ORDERED: TYLENOL PO PRN (03:58)
[2018-10-03 06:55] LABS: Basophils % (Auto) 0.6 % (0.0-1.8); Eosinophils # (Auto) 0.3 K/mm3 (0.0-0.4); Eosinophils % (Auto) 3.9 % (0.0-4.3); Hematocrit 35.3 % (35.5-45.6); Lymphocytes # (Auto) 1.7 K/mm3 (1.2-5.4); Lymphocytes % (Auto) 24.7 % (13.4-35.0); Mean Corpuscular HGB Conc 34 % (32-34); Mean Corpuscular Volume 98 fl (84-94); Monocytes # (Auto) 0.4 K/mm3 (0.0-0.8); Monocytes % (Auto) 6.2 % (0.0-7.3); Platelet Count 226 K/mm3 (140-440); Red Blood Count 3.61 M/mm3 (3.65-5.03); Red Cell Distribution Width 17.6 % (13.2-15.2)
[2018-10-03 07:16] LABS: BUN/Creatinine Ratio 12; Blood Urea Nitrogen 11 mg/dL (9-20); Calcium 9.2 mg/dL (8.4-10.2); Hemolysis Index 6
--- NOTE | 2018-10-03 08:11 | Progress Note ---
Assessment and Plan Assessment and plan: --Hypokalemia: replace per protocol with IV and po Kcl, follow electrolytes --Atypical chest pain; serial cardiac enzymes Cardiac medications, echocardiogram, stress test Evaluate for reversible ischemia Cardiology consultation if needed --CHF, possible diastolic dysfunction Continue current management --Hypertension; moderate control, continue current antihypertensives When necessary medications --Hyperlipidemia; on statin --GERD; Protonix --Rheumatoid arthritis; stable --COPD; oxygen titrate O2 sats to more than 90% Nebulizers as needed --DVT prophylaxis; Lovenox --Obesity; patient advised weight reduction when medically stable. Initially patient wanted to relieve AMA However decided to stay back for stress test tomorrow Plan of care reviewed with the patient and his nurse History Interval history: Patient seen and examined this morning medical records reviewed Admitted with chest pain, scheduled for a stress test this morning However canceled because of severe hypokalemia Patient feels better and denies any chest pain or shortness of breath today Alert awake oriented 3 Vital signs reviewed Hospitalist Physical - Constitutional Vitals: Temp Pulse Resp BP Pulse Ox 98.2 F 63 18 97/48 95 10/03/18 07:38 10/03/18 07:38 10/03/18 07:38 10/03/18 07:38 10/03/18 07:38 General appearance: Present: no acute distress, well-nourished - EENT Eyes: Present: PERRL, EOM intact - Neck Neck: Present: supple, normal ROM - Respiratory Respiratory effort: normal Respiratory: bilateral: diminished, negative: rales, rhonchi, wheezing - Cardiovascular Rhythm: regular Heart Sounds: Present: S1 & S2 - Extremities Extremities: no ischemia, No edema - Abdominal General gastrointestinal: soft, non-tender, non-distended, normal bowel sounds - Integumentary Integumentary: Present: clear, warm - Psychiatric Psychiatric: appropriate mood/affect - Neurologic Neurologic: CNII-XII intact, moves all extremities Results - Labs CBC & Chem 7: 10/03/18 05:44 10/03/18 11:14 Labs: Laboratory Last Values WBC 6.7 K/mm3 (4.5-11.0) 10/03/18 05:44 RBC 3.61 M/mm3 (3.65-5.03) L 10/03/18 05:44 Hgb 12.0 gm/dl (11.8-15.2) 10/03/18 05:44 Hct 35.3 % (35.5-45.6) L 10/03/18 05:44 MCV 98 fl (84-94) H 10/03/18 05:44 MCH 33 pg (28-32) H 10/03/18 05:44 MCHC 34 % (32-34) 10/03/18 05:44 RDW 17.6 % (13.2-15.2) H 10/03/18 05:44 Plt Count 226 K/mm3 (140-440) 10/03/18 05:44 Lymph % (Auto) 24.7 % (13.4-35.0) 10/03/18 05:44 Beauregard % (Auto) 6.2 % (0.0-7.3) 10/03/18 05:44 Eos % (Auto) 3.9 % (0.0-4.3) 10/03/18 05:44 Baso % (Auto) 0.6 % (0.0-1.8) 10/03/18 05:44 Lymph # 1.7 K/mm3 (1.2-5.4) 10/03/18 05:44 Beauregard # 0.4 K/mm3 (0.0-0.8) 10/03/18 05:44 Eos # 0.3 K/mm3 (0.0-0.4) 10/03/18 05:44 Baso # 0.0 K/mm3 (0.0-0.1) 10/03/18 05:44 Seg Neutrophils % 64.6 % (40.0-70.0) 10/03/18 05:44 Seg Neutrophils # 4.3 K/mm3 (1.8-7.7) 10/03/18 05:44 PT 13.3 Sec. (12.2-14.9) 10/02/18 21:06 INR 0.95 (0.87-1.13) 10/02/18 21:06 APTT 27.1 Sec. (24.2-36.6) 10/02/18 21:06 Sodium 138 mmol/L (137-145) 10/03/18 05:44 Potassium 2.9 mmol/L (3.6-5.0) L* 10/03/18 05:44 Chloride 95.7 mmol/L (98-107) L 10/03/18 05:44 Carbon Dioxide 30 mmol/L (22-30) 10/03/18 05:44 Anion Gap 15 mmol/L 10/03/18 05:44 BUN 11 mg/dL (9-20) 10/03/18 05:44 Creatinine 0.9 mg/dL (0.8-1.5) 10/03/18 05:44 Estimated GFR > 60 ml/min 10/03/18 05:44 BUN/Creatinine Ratio 12 % 10/03/18 05:44 Glucose 115 mg/dL (75-100) H 10/03/18 05:44 Calcium 9.2 mg/dL (8.4-10.2) 10/03/18 05:44 Troponin T < 0.010 ng/mL (0.00-0.029) 10/02/18 23:48 Active Medications - Current Medications Current Medications: Generic Name Dose Route Start Last Admin Trade Name Freq PRN Reason Stop Dose Admin Acetaminophen 650 mg 10/03/18 03:58 Tylenol PO Q4H PRN Pain MILD(1-3)/Fever >100.5/MA Enoxaparin Sodium 40 mg 10/03/18 10:00 Lovenox SUB-Q QDAY SHAHEED Potassium Chloride 10 meq in 100 mls @ 100 mls/hr 10/03/18 09:00 Kcl 10meq/100ml IV 10/03/18 11:59 Q1H SHAHEED Ondansetron HCl 4 mg 10/03/18 03:58 Zofran IV Q8H PRN Nausea And Vomiting Oxycodone/Acetaminophen 2 tab 10/03/18 03:12 10/03/18 03:18 Percocet 5/325 PO 1 tab Q4H PRN Administration Pain, Moderate (4-6) Potassium Chloride 40 meq 10/03/18 08:06 K-Dur PO 10/03/18 08:07 ONCE ONE Potassium Chloride 40 meq 10/03/18 08:07 K-Dur PO 10/03/18 08:08 ONCE ONE Sodium Chloride 10 ml 10/03/18 10:00 Sodium Chloride Flush Syringe 10 Ml IV BID SHAHEED Sodium Chloride 10 ml 10/03/18 03:58 Sodium Chloride Flush Syringe 10 Ml IV PRN PRN LINE FLUSH
[2018-10-03] MEDS ORDERED: K-DUR PO ONE ×3 (08:30→18:00)
[2018-10-03] MEDS ORDERED: K-DUR PO NR (10:00)
[2018-10-03] MEDS: SODIUM CHLORIDE FLUSH SYRINGE 10 ML IV SCH ×2 (10:21→22:06)
[2018-10-03] MEDS: LOVENOX SUB-Q SCH (10:27)
[2018-10-03] MEDS ORDERED: NACL 0.9% 500 ML 500 ML ONE (10:42)
[2018-10-03] MEDS: KCL 10MEQ/100ML 10 MEQ/100 ML BAG IV SCH ×3 (10:55→14:25)
[2018-10-03] MEDS: DILAUDID IV PRN ×2 (12:28→18:46)
[2018-10-03] MEDS ORDERED: XANAX PO PRN (13:47)
[2018-10-03] MEDS ORDERED: XANAX PO SCH (14:00)
[2018-10-03] MEDS ORDERED: NON-FORMULARY (Oxycodone Hcl [Roxicodone] 30 MG) PO SCH (14:00)
[2018-10-03] MEDS ORDERED: ROXICODONE PO PRN (14:29)
[2018-10-03] MEDS: ROXICODONE PO SCH ×2 (17:03→22:02)
[2018-10-03] MEDS ORDERED: NON-FORMULARY (Alprazolam [Xanax Tab] 2 MG) PO SCH (22:00)
[2018-10-03] MEDS ORDERED: NON-FORMULARY (Potassium Chloride [Potassium Chloride] 20 MEQ) PO SCH (22:00)
[2018-10-03] MEDS: COREG PO SCH (22:01)
[2018-10-03] MEDS: K-DUR PO SCH (22:01)
[2018-10-03] MEDS: XANAX PO SCH (22:01)
[2018-10-03] MEDS: FLOMAX PO SCH (22:01)
[2018-10-03] MEDS: DEMADEX PO SCH (22:05)
[2018-10-04] MEDS: DILAUDID IV PRN ×2 (01:00→08:13)
[2018-10-04] MEDS: ROXICODONE PO SCH ×3 (03:00→15:32)
[2018-10-04 07:28] LABS: BUN/Creatinine Ratio 13; Blood Urea Nitrogen 10 mg/dL (9-20); Calcium 8.7 mg/dL (8.4-10.2); Hemolysis Index 1
[2018-10-04] MEDS ORDERED: LEXISCAN IV ONE ×2 (08:26→08:27)
[2018-10-04] MEDS: LOVENOX SUB-Q SCH (11:16)
[2018-10-04] MEDS: DEMADEX PO SCH ×2 (11:16→21:15)
[2018-10-04] MEDS: K-DUR PO SCH ×2 (11:16→21:15)
[2018-10-04] MEDS: XANAX PO SCH ×2 (11:16→21:15)
[2018-10-04] MEDS: COREG PO SCH ×2 (11:17→21:15)
[2018-10-04] MEDS: SODIUM CHLORIDE FLUSH SYRINGE 10 ML IV SCH ×2 (11:17→21:34)
[2018-10-04 12:12] VITALS: BP 88/46
[2018-10-04] MEDS ORDERED: K-DUR PO ONE (12:39)
--- NOTE | 2018-10-04 14:39 | Discharge Summary ---
Providers - Providers Date of Admission: 10/04/18 09:15 Date of discharge: 10/04/18 Attending physician: MILTON CAMPBELL [facility] Reason for admission: Chest pain Condition: Stable Pertinent studies: CXR: normal Stress test:EF 56%,no ischemia Hospital course: 53-year-old male patient with history of hypertension, COPD, GERD, CHF, hyperlipidemia, rheumatoid arthritis, sleep apnea cwas admitted through emergency room with chest pain.Symptomatically managed,had negative stress test.Chest pain is probably secondary to GERD. Patient has leukemia and thrombocytopenia,evaluated by was evaluated by oncologist. Patient's symptoms improved,today patient is comfortable,no new complaints,vital signs stable. Physical exam unremarkable. Stable at discharge. Discharge Diagnosis: --Atypical chest pain; rule out acute coronary syndrome s/p stress test, no acute abnormalities Continue current management --Acute combined systolic and diastolic Congestive heart failure/ Continue current, anti-failure medications, cardiology following --Hypoglycemic episode, resolved Accu-Cheks, D50 per protocol, insulin as needed --Coronary artery disease s/p CABG: Continue current cardiac medications s/p heart cath, findings reviewed --Leukemia/thrombocytopenia; management per hematology The patient is on antiplatelets and heparin drip stopped Patient will follow with her private hem/onc upon discharge --Hyperkalemia; replace per protocol and monitor levels --Dyslipidemia; lipid lowering medications --Type 2 diabetes mellitus; Accu-Chek sliding scale coverage and ADA diet Long-acting insulin --DVT prophylaxis; Lovenox --Full code Stable at discharge. Disposition: TO HOME OR SELFCARE Time spent for discharge: 31 min Core Measure Documentation - Palliative Care Palliative Care/ Comfort Measures: Not Applicable - Core Measures Any of the following diagnoses?: none Exam - Constitutional Vitals: Temp Pulse Resp BP Pulse Ox 98.3 F 71 14 88/46 100 10/04/18 11:48 10/04/18 11:48 10/04/18 12:24 10/04/18 11:48 10/04/18 11:48 General appearance: Present: no acute distress, well-nourished - EENT Eyes: Present: PERRL, EOM intact - Neck Neck: Present: supple, normal ROM - Respiratory Respiratory effort: normal Respiratory: negative: rales, rhonchi, wheezing - Cardiovascular Rhythm: regular Heart Sounds: Present: S1 & S2 - Extremities Extremities: no ischemia, No edema - Abdominal General gastrointestinal: Present: soft, non-tender, non-distended, normal bowel sounds - Integumentary Integumentary: Present: clear, warm - Musculoskeletal Musculoskeletal: strength equal bilaterally - Psychiatric Psychiatric: appropriate mood/affect, cooperative - Neurologic Neurologic: CNII-XII intact, moves all extremities Plan Activity: advance as tolerated Diet: low salt Additional Instructions: Advised to follow private canteen attendant within 1 week. If you have recurrent chest pain contact M.D. or go to emergency room Follow up with: STEPH CLARK MD [Primary Care Provider] - 7 Days Prescriptions: Famotidine [Pepcid] 20 mg PO BID #20 tablet
[2018-10-04] MEDS: PERCOCET 5/325 PO PRN (15:01)
[2018-10-04] MEDS: FLOMAX PO SCH (21:15)
[2018-10-04] MEDS ORDERED: ROXICODONE PO ONE (21:19)
--- NOTE | 2018-10-04 21:20 | Treadmill Report ---
INDICATION: Chest pain. ORDERING PHYSICIAN: Mamta Samaniego MD FINDINGS: There is no scintigraphic evidence of myocardial ischemia. The left ventricle is mildly dilated. The left ventricular ejection fraction is measured at 56%. There is normal wall motion and wall thickening on gated imaging. CONCLUSION: 1. No scintigraphic evidence of myocardial ischemia. 2. Mildly dilated left ventricular cavity with an ejection fraction measured at 56%. 3. This is a low risk myocardial perfusion study associated with a 1-year cardiovascular event rate of less than 1%. JOB# [id number] JULIANA/SAE
== END 2018-10-04 22:48 | disposition home or self-care (01) | DRG 641 ==
LOC: ED 20:31 → 4A 23:43 → OBSVTOIN 10-04 09:15
PROVIDERS: ADMIT Internal Medicine; ATTEND Internal Medicine
DX: E87.6 Hypokalemia (principal); I50.30 Unspecified diastolic (congestive) heart failure; R07.89 Other chest pain; I11.0 Hypertensive heart disease with heart failure; K21.9 Gastro-esophageal reflux disease without esophagitis; E78.5 Hyperlipidemia, unspecified; M06.9 Rheumatoid arthritis, unspecified; J44.9 Chronic obstructive pulmonary disease, unspecified; E66.9 Obesity, unspecified; G47.30 Sleep apnea, unspecified; G89.29 Other chronic pain; F17.200 Nicotine dependence, unspecified, uncomplicated; F41.9 Anxiety disorder, unspecified; N40.0 Benign prostatic hyperplasia without lower urinary tract symptoms; Z71.3 Dietary counseling and surveillance; Z82.49 Family history of ischemic heart disease and other diseases of the circulatory system; Z79.899 Other long term (current) drug therapy; Z72.89 Other problems related to lifestyle
CPT/HCPCS: 36415; 71046; 78452; 80048; 83735; 84132; 84484; 85025; 85610; 85730; 93005; 93010; 93017; G0378; A9502; J1170; J1650; J2405; J2785; J3246; J3480; J7040

== ENCOUNTER 2018-10-31 01:19 | Emergency (ER) | payer MEDICARE ==
--- NOTE | 2018-10-31 01:58 | XRay Report ---
PROCEDURE: XR CHEST 1V AP TECHNIQUE: Chest radiograph single view. HISTORY: Chest Pain COMPARISONS: October 02, 2018 . FINDINGS: Heart: Normal. Mediastinum/Vessels: Normal. Lungs/Pleural space: Normal. Bony thorax: No acute osseous abnormality. Life support devices: None. IMPRESSION: No acute cardiopulmonary abnormality. This document is electronically signed by Camille Comer DO., Oct 31 2018 01:56:19 AM ET
[2018-10-31 02:09] LABS: Basophils # (Auto) 0.1 K/mm3 (0.0-0.1); Basophils % (Auto) 0.9 % (0.0-1.8); Eosinophils # (Auto) 0.2 K/mm3 (0.0-0.4); Eosinophils % (Auto) 2.3 % (0.0-4.3); INR 1.03 (0.87-1.13); Lymphocytes # (Auto) 1.5 K/mm3 (1.2-5.4); Lymphocytes % (Auto) 21.3 % (13.4-35.0); Mean Corpuscular HGB Conc 34 % (32-34); Mean Corpuscular Volume 98 fl (84-94); Monocytes # (Auto) 0.7 K/mm3 (0.0-0.8); Monocytes % (Auto) 9.4 % (0.0-7.3); Platelet Count 230 K/mm3 (140-440); Red Blood Count 3.87 M/mm3 (3.65-5.03); Red Cell Distribution Width 17.3 % (13.2-15.2)
[2018-10-31 02:10] LABS: Partial Thromboplastin Time 30.3 Sec. (24.2-36.6)
[2018-10-31 02:14] LABS: Calcium 9.1 mg/dL (8.4-10.2); Hemolysis Index 1
[2018-10-31 02:47] LABS: BUN/Creatinine Ratio 19; Blood Urea Nitrogen 17 mg/dL (9-20)
[2018-10-31] MEDS ORDERED: NACL 0.9% 250ML 250 ML IV ONE (02:53)
--- NOTE | 2018-10-31 03:11 | Emergency Department Report ---
ED Chest Pain HPI - General Chief Complaint: Chest Pain Stated Complaint: CHEST PAIN/HEADACHE Time Seen by Provider: 10/31/18 01:32 Source: patient, EMS Mode of arrival: Stretcher Limitations: No Limitations - History of Present Illness Initial Comments: 53-year-old -Indian male presents to the emergency department via EMS with complaints of some left-sided chest pain and a headache that started about 5 hours prior to presentation. The patient took his home medications without any relief. He received a full dose aspirin with EMS. The headache is left- sided. He denies any vision change, slurred speech or any neurological deficits. The chest pain is associated with some shortness of breath but he denies any nausea, vomiting or diaphoresis. The patient is a former smoker. He denies any illicit drug use. He has a past medical history of CHF, COPD, GERD, hypertension, hyperlipidemia. His primary care physician is Dr. Isrrael Rodriguez and his santa's helper is a Dr. Garcia. No recent travel or sick contacts at home. Severity scale (0 -10): 6 - Related Data Home Medications Medication Instructions Recorded Confirmed Last Taken ALPRAZolam [Xanax TAB] 2 mg PO BID 09/07/18 10/03/18 Unknown Oxycodone HCl [roxiCODONE] 30 mg PO Q8HR 09/07/18 10/03/18 09/06/18 Previous Rx's Medication Instructions Recorded Last Taken Type Carvedilol [Coreg] 1 tab PO BID #60 tablet 12/01/17 Unknown Rx Potassium Chloride 20 meq PO BID #60 tablet.er 12/01/17 Unknown Rx Tamsulosin [Flomax] 0.4 mg PO QHS #30 12/01/17 Unknown Rx Torsemide [Demadex] 100 mg PO BID #60 tablet 12/01/17 Unknown Rx Famotidine [Pepcid] 20 mg PO BID #20 tablet 10/04/18 Unknown Rx Allergies Allergy/AdvReac Type Severity Reaction Status Date / Time tramadol Allergy Itching Verified 09/06/18 13:24 Heart Score - HEART Score History: Moderately suspicious EKG: Non-specific Age: 45-65 Risk factors: 1-2 risk factors Troponin: < normal limit HEART Score: 4 - Critical Actions Critical Actions: 4-6 pts:12-16.6% risk of adverse cardiac event. Should be admitted ED Review of Systems ROS: Stated complaint: CHEST PAIN/HEADACHE Other details as noted in HPI Constitutional: denies: chills, fever Eyes: denies: eye pain, vision change ENT: denies: ear pain, throat pain Respiratory: shortness of breath. denies: cough Cardiovascular: chest pain. denies: palpitations Gastrointestinal: denies: abdominal pain, vomiting Genitourinary: denies: dysuria, discharge Musculoskeletal: denies: back pain, arthralgia Skin: denies: rash, lesions Neurological: headache. denies: weakness, numbness ED Past Medical Hx - Past Medical History Previous Medical History?: Yes Hx Hypertension: Yes Hx Congestive Heart Failure: Yes Hx Diabetes: No Hx GERD: Yes Hx Arthritis: Yes Hx Asthma: No Hx COPD: Yes Additional medical history: hyperlipidemia. CHF diastolic dysfunction. Sleep apnea, CPAP - Surgical History Past Surgical History?: Yes Additional Surgical History: spinal fusion surgery in 2011. Reversed Colostomy. colon resection - Social History Smoking Status: Never Smoker - Medications Home Medications: Home Medications Medication Instructions Recorded Confirmed Last Taken Type Carvedilol [Coreg] 1 tab PO BID #60 tablet 12/01/17 10/03/18 Unknown Rx Potassium Chloride 20 meq PO BID #60 tablet.er 12/01/17 10/03/18 Unknown Rx Tamsulosin [Flomax] 0.4 mg PO QHS #30 12/01/17 10/03/18 Unknown Rx Torsemide [Demadex] 100 mg PO BID #60 tablet 12/01/17 10/03/18 Unknown Rx ALPRAZolam [Xanax TAB] 2 mg PO BID 09/07/18 10/03/18 Unknown History Oxycodone HCl [roxiCODONE] 30 mg PO Q8HR 09/07/18 10/03/18 09/06/18 History Famotidine [Pepcid] 20 mg PO BID #20 tablet 10/04/18 Unknown Rx ED Physical Exam - General Limitations: No Limitations - Other Other exam information: GENERAL: The patient is well-developed well-nourished. HENT: Normocephalic. Atraumatic. Patient has moist mucous membranes. EYES: Extraocular motions are intact. Pupils equal reactive to light bilaterally. No nystagmus. NECK: Supple. Trachea is midline. CHEST/LUNGS: Clear to auscultation. There is no respiratory distress noted. HEART/CARDIOVASCULAR: Regular. There is no tachycardia. There is no murmur. ABDOMEN: Abdomen is soft, nontender. Patient has normal bowel sounds. There is no abdominal distention. SKIN: Skin is warm and dry. NEURO: The patient is awake, alert, and oriented. The patient is cooperative. The patient has no focal neurologic deficits. The patient has normal speech. MUSCULOSKELETAL: There is no tenderness or deformity. There is no evidence of acute injury. ED Course Vital Signs 10/31/18 10/31/18 10/31/18 01:24 01:25 01:29 Temperature 98.2 F Pulse Rate 66 62 Respiratory 21 16 16 Rate Blood Pressure 117/68 O2 Sat by Pulse 95 96 Oximetry 10/31/18 10/31/18 10/31/18 01:30 01:46 02:00 Temperature Pulse Rate 67 69 65 Respiratory 18 16 19 Rate Blood Pressure 117/67 117/67 95/52 O2 Sat by Pulse 97 97 97 Oximetry 10/31/18 10/31/18 10/31/18 02:16 02:31 02:46 Temperature Pulse Rate 67 73 63 Respiratory 19 15 15 Rate Blood Pressure 108/65 94/53 95/52 O2 Sat by Pulse 97 97 97 Oximetry 10/31/18 10/31/18 10/31/18 03:00 03:16 03:30 Temperature Pulse Rate 67 60 55 L Respiratory 17 19 17 Rate Blood Pressure 91/57 91/57 105/57 O2 Sat by Pulse 95 99 99 Oximetry 10/31/18 10/31/18 10/31/18 03:46 04:42 05:00 Temperature Pulse Rate 73 Respiratory 18 Rate Blood Pressure 91/57 101/62 113/67 O2 Sat by Pulse 97 88 Oximetry 10/31/18 05:30 Temperature Pulse Rate Respiratory Rate Blood Pressure 125/73 O2 Sat by Pulse Oximetry JETHRO score - Jethro Score Age > 65: (0) No Aspirin use within the Past 7 Days: (0) No 3 or more CAD Risk Factors: (1) Yes 2 or more Angina events in past 24 hrs: (0) No Known CAD with more than 50% Stenosis: (0) No Elevated Cardiac Markers: (0) No ST Deviation Greater than 0.5mm: (0) No JETHRO Score: 1 ED Medical Decision Making - Lab Data Result diagrams: 10/31/18 01:41 10/31/18 01:41 - EKG Data -: EKG Interpreted by Me EKG shows normal: sinus rhythm, axis (left axis deviation), intervals, QRS complexes (left anterior fascicular block), ST-T waves Rate: normal - EKG Data When compared to previous EKG there are: no significant change Interpretation: unchanged when compared t (10/02/18) - Radiology Data Radiology results: report reviewed, image reviewed interpreted by me: Chest x-ray does not show any acute process. There are no pleural effusions, obvious pneumonia and there is no pneumothorax. PROCEDURE: CT ANGIO CHEST TECHNIQUE: Computerized tomographic angiography of the chest was performed after the IV injection of iodinated nonionic contrast including image processing. The image data was postprocessed using 2-dimensional multiplanar reformatted (MPR) and 3-dimensional (MIP and/or volume rendered) techniques. Automated exposure control, adjustment of mA and/or kV according to patient size, or iterative reconstruction dose optimization techniques were utilized. CT DOSE LENGTH PRODUCT: mGycm HISTORY: CP, elevated dimer COMPARISONS: 09/06/2018 . FINDINGS: Heart and pericardium: Normal. Thoracic aorta: No evidence of dissection or aneurysm.. Pulmonary vasculature: No evidence of pulmonary embolus or congestion.. Lymph nodes: No enlarged thoracic lymph nodes. Lungs: There are no acute infiltrates. There is minimal bibasilar dependent atelectasis.. Pleural space: No effusion, thickening, or pneumothorax. Musculoskeletal structures: There is mild multilevel disc degeneration in the dorsal spine.. Upper abdominal structures: There is a stable 8 mm diameter focus of calcification versus hyper enhancement of the right hepatic lobe. IMPRESSION: No evidence of pulmonary embolus, aortic dissection, or vascular congestion. No acute process in the chest. Stable 8 mm in diameter focus of calcification versus hyper enhancement the right hepatic lobe This document is electronically signed by Suha Flores MD., Oct 31 2018 04:51:28 AM ET Transcribed By: RB Dictated By: SUHA FLORES MD Electronically Authenticated By: SUHA FLORES MD Signed Date/Time: 10/31/18 0453 PROCEDURE: CT HEAD/BRAIN WO CON TECHNIQUE: Computerized tomography of the head was performed without contrast material. HISTORY: headache COMPARISONS: None . FINDINGS: Skull and scalp: Normal . Paranasal sinuses: Normal . Ventricles and subarachnoid spaces: Normal . Cerebrum: No evidence of hemorrhage, acute infarction or mass . Cerebellum and brainstem: No evidence of hemorrhage, acute infarction or mass . Vasculature: Normal . Other: None . ASPECTS: 10 IMPRESSION: There is no evidence of an acute intracranial process. . This document is electronically signed by Camille Comer DO., Oct 31 2018 04:45:22 AM ET Transcribed By: [facility] Dictated By: CAMILLE COMER MD Electronically Authenticated By: CAMILLE COMER MD Signed Date/Time: 10/31/18 0447 - Medical Decision Making This patient presents to the emergency department with the complaints of headache and chest pain. Regarding the chest pain, EKG was done and it does not show any signs of ST elevation MO and is unchanged from previous. Labs have been mostly unremarkable including 2 negative troponins, but the patient did have a slightly elevated and equivocal d-dimer. Chest x-ray did not show any pleural effusions, pneumonia, pneumothorax, focal consolidations, or any other acute processes. CT angiography of the chest did not show any pulmonary embolism, dissection or aneurysm. The patient had a negative stress test here in September and it was read by Dr. Arizmendi as risk stratifying him to the point where there is a less than 1% probability of a 1 year cardiovascular event. He has good outpatient follow- up with cardiology, Dr. Garcia. Regarding the headache, the patient had a negative CT of the head without contrast did not show any bleed, shift, mass, ischemia, or any other acute processes. He does not appear to have any focal, motor or sensory deficits and his cranial nerves are intact. He was given some pain medication with some improvement of his symptoms. Vital signs stable throughout his ED course. The patient has good follow-up with primary care physician as well. He will return to the ER with any worsening of his symptoms or any acute distress. - Differential Diagnosis tension headache, migraine, subarachnoid, MO, PE, costochondritis Critical Care Time: No Critical care attestation.: If time is entered above; I have spent that time in minutes in the direct care of this critically ill patient, excluding procedure time. ED Disposition Clinical Impression: Chest pain Qualifiers: Chest pain type: unspecified Qualified Code(s): R07.9 - Chest pain, unspecified Headache Qualifiers: Headache type: unspecified Headache chronicity pattern: unspecified pattern Intractability: not intractable Qualified Code(s): R51 - Headache Disposition: DC-01 TO HOME OR SELFCARE Is pt being admited?: No Condition: Stable Instructions: Chest Pain (ED) Additional Instructions: Please follow-up with your primary care physician and santa's helper in the next few days. Return to the emergency department with any worsening of your symptoms or any acute distress. Referrals: ISRRAEL RODRIGUEZ JR, MD [Staff Physician] - 2-3 Days [facility], Your [Other] - 2-3 Days Time of Disposition: 05:39
[2018-10-31] MEDS ORDERED: NACL 0.9% 1000 ML 1,000 ML ONE (04:18)
--- NOTE | 2018-10-31 04:47 | Cat Scan Report ---
PROCEDURE: CT HEAD/BRAIN WO CON TECHNIQUE: Computerized tomography of the head was performed without contrast material. HISTORY: headache COMPARISONS: None . FINDINGS: Skull and scalp: Normal . Paranasal sinuses: Normal . Ventricles and subarachnoid spaces: Normal . Cerebrum: No evidence of hemorrhage, acute infarction or mass . Cerebellum and brainstem: No evidence of hemorrhage, acute infarction or mass . Vasculature: Normal . Other: None . ASPECTS: 10 IMPRESSION: There is no evidence of an acute intracranial process. . This document is electronically signed by Camille Comer DO., Oct 31 2018 04:45:22 AM ET
--- NOTE | 2018-10-31 04:53 | Cat Scan Report ---
PROCEDURE: CT ANGIO CHEST TECHNIQUE: Computerized tomographic angiography of the chest was performed after the IV injection of iodinated nonionic contrast including image processing. The image data was postprocessed using 2-di mensional multiplanar reformatted (MPR) and 3-dimensional (MIP and/or volume rendered) techniques. Au tomated exposure control, adjustment of mA and/or kV according to patient size, or iterative reconstr uction dose optimization techniques were utilized. CT DOSE LENGTH PRODUCT: mGycm HISTORY: CP, elevated dimer COMPARISONS: 09/06/2018 . FINDINGS: Heart and pericardium: Normal. Thoracic aorta: No evidence of dissection or aneurysm.. Pulmonary vasculature: No evidence of pulmonary embolus or congestion.. Lymph nodes: No enlarged thoracic lymph nodes. Lungs: There are no acute infiltrates. There is minimal bibasilar dependent atelectasis.. Pleural space: No effusion, thickening, or pneumothorax. Musculoskeletal structures: There is mild multilevel disc degeneration in the dorsal spine.. Upper abdominal structures: There is a stable 8 mm diameter focus of calcification versus hyper enha ncement of the right hepatic lobe. IMPRESSION: No evidence of pulmonary embolus, aortic dissection, or vascular congestion. No acute process in the chest. Stable 8 mm in diameter focus of calcification versus hyper enhancement the right hepatic lobe This document is electronically signed by Buster Flores MD., Oct 31 2018 04:51:28 AM ET
[2018-10-31] MEDS ORDERED: SUBLIMAZE IV ONE (04:55)
[2018-10-31] MEDS ORDERED: TORADOL IV ONE (05:43)
[2018-10-31 06:18] VITALS: BP 125/73
== END 2018-10-31 06:20 | disposition home or self-care (01) ==
LOC: ED 01:19
DX: R51 Headache (principal); R07.89 Other chest pain; I11.0 Hypertensive heart disease with heart failure; I50.9 Heart failure, unspecified; K21.9 Gastro-esophageal reflux disease without esophagitis; M19.90 Unspecified osteoarthritis, unspecified site; J44.9 Chronic obstructive pulmonary disease, unspecified; Z88.6 Allergy status to analgesic agent
CPT/HCPCS: 36415; 70450; 71045; 71275; 80048; 84484; 85025; 85379; 85610; 85730; 93005; 93010; 96374; 96375; 99285; J1885; J3010; J7030; J7050; Q9967

== ENCOUNTER 2019-05-15 19:55 | Emergency (ER) | payer OTHER, MEDICARE ==
[2019-05-15 20:14] VITALS: BP 115/72
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
--- NOTE | 2019-05-15 20:56 | XRay Report ---
CERVICAL SPINE 2 VIEWS INDICATION / CLINICAL INFORMATION: neck pain. COMPARISON: None available. FINDINGS: Exam is limited because of patient positioning. The is not able to raise his neck. Posterior fusion f rom C3 to C6. 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 The C7 vertebral body is not well-seen on the lateral vie w. CT of the cervical spine may be helpful for further evaluation if clinically indicated Signer Name: Pepe BLANCHARD Signed: 05/15/2019 8:51 PM Workstation Name: [id number]
[2019-05-15] MEDS ORDERED: HYDROcodone/ACETAMINOPHEN 5-325 MG TAB PO ONE (23:17)
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
== END 2019-05-16 00:25 | disposition home or self-care (01) ==
LOC: ED 19:55
DX: M54.5 Low back pain (principal); M54.2 Cervicalgia; I11.0 Hypertensive heart disease with heart failure; I50.9 Heart failure, unspecified; K21.9 Gastro-esophageal reflux disease without esophagitis; J44.0 Chronic obstructive pulmonary disease with (acute) lower respiratory infection; E78.5 Hyperlipidemia, unspecified; Z79.899 Other long term (current) drug therapy; Z88.8 Allergy status to other drugs, medicaments and biological substances; V49.59XA Passenger injured in collision with other motor vehicles in traffic accident, initial encounter; Y93.89 Activity, other specified; Y92.410 Unspecified street and highway as the place of occurrence of the external cause; Y99.8 Other external cause status
CPT/HCPCS: 72040

== ENCOUNTER 2019-07-03 10:45 | Emergency (ER) | payer MEDICARE ==
[2019-07-03 11:07] VITALS: BP 113/75
--- NOTE | 2019-07-03 11:33 | Event Note ---
ED Screening Note ED Screening Note: LEFT ER BECAUSE BACK HURT TOO BAD TO WAIT ANY MORE HE HAD BEEN HERE 45 MIN NAD ON DC This initial assessment/diagnostic orders/clinical plan/treatment(s) is/are subject to change based on patients health status, clinical progression and re- assessment by fellow clinical providers in the ED. Further treatment and workup at subsequent clinical providers discretion. Patient/guardian urged not to elope from the ED as their condition may be serious if not clinically assessed and managed. Initial orders include:
== END 2019-07-03 11:30 | disposition left against medical advice (07) ==
LOC: ED 10:45
DX: M54.5 Low back pain (principal); Z53.21 Procedure and treatment not carried out due to patient leaving prior to being seen by health care provider

== ENCOUNTER 2019-12-08 04:29 | Observation (INO) | payer MEDICARE ==
[2019-12-08] MEDS ORDERED: SUCRALFATE 1 GM/10 ML ORAL LIQD PO ONE (04:41)
[2019-12-08] MEDS ORDERED: FAMOTIDINE 20 MG TAB PO ONE (04:41)
[2019-12-08] MEDS ORDERED: ACETAMINOPHEN 325 MG TAB PO ONE (04:41)
--- NOTE | 2019-12-08 04:42 | Event Note ---
Date: 12/08/19 Medical screening note: 54-year-old gentleman presenting with chest pain. Had a negative cardiac stress test in 2019, negative CT angiogram chest for pulmonary embolism in 2019. Reports no DVT or pulmonary embolism risk factors currently. Primary care doctor: Dr. Brandon Oh
[2019-12-08 05:28] LABS: Hematocrit 39.1 % (35.5-45.6); Hemoglobin 13.4 gm/dl (11.8-15.2); Mean Corpuscular HGB Conc 34 % (32-34); Mean Corpuscular Volume 92 fl (84-94); Platelet Count 264 K/mm3 (140-440); Red Blood Count 4.26 M/mm3 (3.65-5.03); Red Cell Distribution Width 15.3 % (13.2-15.2)
--- NOTE | 2019-12-08 05:34 | XRay Report ---
CHEST 1 VIEW INDICATION: Chest pain. COMPARISON: 10/31/2018 FINDINGS: Support devices: None. Heart: Stable. Lungs/Pleura: No acute pulmonary or pleural findings. IMPRESSION: 1. No significant change. Signer Name: Devin Kincaid MD Signed: 12/08/2019 5:29 AM Workstation Name: [id number]
[2019-12-08 05:57] LABS: INR 1.09 (0.87-1.13)
[2019-12-08 06:22] LABS: BUN/Creatinine Ratio 20; Blood Urea Nitrogen 14 mg/dL (9-20)
[2019-12-08] MEDS ORDERED: MORPHINE 4 MG/1 ML INJ IV ONE (06:22)
[2019-12-08] MEDS ORDERED: ONDANSETRON 4 MG/2 ML INJ IV ONE (06:22)
[2019-12-08 06:23] LABS: Calcium 9.1 mg/dL (8.4-10.2); Hemolysis Index 18
--- NOTE | 2019-12-08 06:27 | Emergency Department Report ---
ED Chest Pain HPI - General Chief Complaint: Chest Pain Stated Complaint: CHEST PAIN Time Seen by Provider: 12/08/19 06:13 Source: patient, EMS Mode of arrival: Stretcher Limitations: Physical Limitation - History of Present Illness Initial Comments: Mr. Castellanos is 54 years old male with history of hypertension, congestive heart failure and COPD. Patient presented to the ER via EMS from home. Patient is complaining of chest pain that woke him up from sleep this morning. Patient describes his chest pain as pressure with no radiation mainly to the left side. Patient stated that he felt his heart racing and pumping hard and then he started feeling shortness of breath. Patient also felt generalized weakness. Patient stated that he is better now. Patient denied any fever or chills recently. He also denied any contact with COVID-19 patients. Patient stated that he has severe allergy to aspirin including tongue swelling and airway compromise. MD Complaint: chest pain -: This morning Onset: during rest Pain Location: left chest Pain Radiation: none Severity scale (0 -10): 8 Quality: tightness Consistency: intermittent - Related Data Home Medications Medication Instructions Recorded Confirmed Last Taken ALPRAZolam [Xanax TAB] 2 mg PO BID 09/07/18 10/03/18 Unknown Oxycodone HCl [roxiCODONE] 30 mg PO Q8HR 09/07/18 10/03/18 09/06/18 Previous Rx's Medication Instructions Recorded Last Taken Type Carvedilol [Coreg] 1 tab PO BID #60 tablet 12/01/17 Unknown Rx Potassium Chloride 20 meq PO BID #60 tablet.er 12/01/17 Unknown Rx Tamsulosin [Flomax] 0.4 mg PO QHS #30 12/01/17 Unknown Rx Torsemide [Demadex] 100 mg PO BID #60 tablet 12/01/17 Unknown Rx Famotidine [Pepcid] 20 mg PO BID #20 tablet 10/04/18 Unknown Rx Cyclobenzaprine [Flexeril] 10 mg PO QHS PRN #20 tablet 05/16/19 Unknown Rx Ibuprofen [Motrin 800 MG tab] 800 mg PO Q8HR PRN #30 tablet 05/16/19 Unknown Rx Allergies Allergy/AdvReac Type Severity Reaction Status Date / Time acetaminophen [From Tylenol] Allergy Unknown Verified 12/08/19 05:21 tramadol Allergy Itching Verified 03/29/19 13:24 Heart Score - HEART Score History: Moderately suspicious EKG: Non-specific Age: 45-65 Risk factors: > 3 risk factors or hx of atherosclerotic disease Troponin: < normal limit HEART Score: 5 - Critical Actions Critical Actions: 4-6 pts:12-16.6% risk of adverse cardiac event. Should be admitted ED Review of Systems ROS: Stated complaint: CHEST PAIN Other details as noted in HPI Comment: All other systems reviewed and negative Constitutional: denies: chills, fever Respiratory: shortness of breath. denies: cough, orthopnea, SOB with exertion, SOB at rest, wheezing Cardiovascular: chest pain, palpitations. denies: dyspnea on exertion Gastrointestinal: denies: abdominal pain, nausea, vomiting Musculoskeletal: denies: back pain Neurological: weakness (Generalized) ED Past Medical Hx - Past Medical History Previous Medical History?: Yes Hx Hypertension: Yes Hx Congestive Heart Failure: Yes Hx Diabetes: No Hx GERD: Yes Hx Arthritis: Yes Hx Asthma: No Hx COPD: Yes Additional medical history: hyperlipidemia. CHF diastolic dysfunction. Sleep apnea, CPAP - Surgical History Past Surgical History?: Yes Additional Surgical History: spinal fusion surgery in 2011. Reversed Colostomy. colon resection - Social History Smoking Status: Current Every Day Smoker Substance Use Type: Alcohol - Medications Home Medications: Home Medications Medication Instructions Recorded Confirmed Last Taken Type Carvedilol [Coreg] 1 tab PO BID #60 tablet 12/01/17 10/03/18 Unknown Rx Potassium Chloride 20 meq PO BID #60 tablet.er 12/01/17 10/03/18 Unknown Rx Tamsulosin [Flomax] 0.4 mg PO QHS #30 12/01/17 10/03/18 Unknown Rx Torsemide [Demadex] 100 mg PO BID #60 tablet 12/01/17 10/03/18 Unknown Rx ALPRAZolam [Xanax TAB] 2 mg PO BID 09/07/18 10/03/18 Unknown History Oxycodone HCl [roxiCODONE] 30 mg PO Q8HR 09/07/18 10/03/18 09/06/18 History Famotidine [Pepcid] 20 mg PO BID #20 tablet 10/04/18 Unknown Rx Cyclobenzaprine [Flexeril] 10 mg PO QHS PRN #20 tablet 05/16/19 Unknown Rx Ibuprofen [Motrin 800 MG tab] 800 mg PO Q8HR PRN #30 tablet 05/16/19 Unknown Rx ED Physical Exam - General Limitations: Physical Limitation General appearance: alert, in no apparent distress - Head Head exam: Present: atraumatic, normocephalic, normal inspection - Eye Eye exam: Present: normal appearance, PERRL - ENT ENT exam: Present: normal exam, normal orophraynx, mucous membranes moist - Neck Neck exam: Present: normal inspection, full ROM. Absent: tenderness, meningismus, lymphadenopathy, thyromegaly - Respiratory Respiratory exam: Present: normal lung sounds bilaterally - Cardiovascular Cardiovascular Exam: Present: regular rate, normal rhythm, normal heart sounds - GI/Abdominal GI/Abdominal exam: Present: soft, normal bowel sounds. Absent: distended, tenderness, guarding, rebound, rigid, organomegaly, mass, bruit, pulsatile mass - Extremities Exam Extremities exam: Present: normal inspection, full ROM, normal capillary refill. Absent: tenderness, pedal edema, joint swelling, calf tenderness - Back Exam Back exam: Present: normal inspection, full ROM. Absent: CVA tenderness (R), CVA tenderness (L) - Neurological Exam Neurological exam: Present: alert, oriented X3, CN II-XII intact, normal gait, reflexes normal. Absent: motor sensory deficit - Psychiatric Psychiatric exam: Present: normal mood - Skin Skin exam: Present: warm, intact, normal color ED Course Vital Signs 12/08/19 12/08/19 05:11 06:29 Temperature 99.2 F Pulse Rate 95 H Respiratory 16 16 Rate Blood Pressure 113/68 [Left] O2 Sat by Pulse 99 Oximetry KELLY score - Kelly Score Age > 65: (0) No Aspirin use within the Past 7 Days: (0) No 3 or more CAD Risk Factors: (1) Yes 2 or more Angina events in past 24 hrs: (0) No Known CAD with more than 50% Stenosis: (0) No Elevated Cardiac Markers: (0) No ST Deviation Greater than 0.5mm: (0) No KELLY Score: 1 ED Medical Decision Making - Lab Data Result diagrams: 12/08/19 04:57 12/08/19 04:57 - EKG Data -: EKG Interpreted by Nm EKG shows normal: sinus rhythm Rate: normal - EKG Data Interpretation: no acute changes - Radiology Data Radiology results: report reviewed - Medical Decision Making Mr. Castellanos is 54 years old male with history of hypertension, congestive heart failure and COPD. Patient presented to the ER via EMS from home. Patient is complaining of chest pain that woke him up from sleep this morning. Patient describes his chest pain as pressure with no radiation mainly to the left side. Patient stated that he felt his heart racing and pumping hard and then he start ed feeling shortness of breath. Patient also felt generalized weakness. Patient stated that he is better now. Patient denied any fever or chills recently. He also denied any contact with COVID-19 patients. Patient stated that he has severe allergy to aspirin including tongue swelling and airway compromise. EKG is unremarkable. Chest x-ray is negative for acute finding. Labs reviewed and is unremarkable including the first troponin. Patient symptoms improved. I discussed the patient with Dr. Barajas, he advised to admit the patient to Dr. Keating. Critical care attestation.: If time is entered above; I have spent that time in minutes in the direct care of this critically ill patient, excluding procedure time. ED Disposition Clinical Impression: Chest pain Disposition: 09 OP ADMIT IP TO THIS HOSP Is pt being admited?: Yes Condition: Stable Instructions: Chest Pain (ED)
[2019-12-08 07:28] LABS: INR 1.13 (0.87-1.13)
[2019-12-08 07:29] LABS: Partial Thromboplastin Time 26.8 Sec. (24.2-36.6)
--- NOTE | 2019-12-08 09:43 | History and Physical Report ---
History of Present Illness Date of examination: 12/08/19 Date of admission: 12/08/19 08:51 Chief complaint: Chest pain History of present illness: Mr. Castellanos is 54 years old male with past medical history of hypertension, congestive heart failure, hyperlipidemia, GERD, rheumatoid arthritis, type 2 diabetes mellitus, pulmonary embolism in 02/2015 and COPD who presented to the ER via EMS from home complaining of chest pain that woke him up from sleep this morning at approximately 3:30 AM. Patient describes his chest pain as pressure with radiation mainly to the left side. Patient stated that he felt his heart racing and pumping hard and then he started feeling shortness of breath. Patient also felt generalized weakness. He reports shortness of breath with minimal exertion. Patient stated that he is better now. Patient had a negative stress test completed here in 2018. Patient denied any fever or chills recently. He also denied any contact with [facility] patients. Patient stated that he has severe allergy to aspirin including tongue swelling and airway compromise. No cough or cold-like symptoms. No headache or visual disturbances. Past History Past Medical History: COPD, GERD, heart failure, hyperlipidemia, other (Rheumatoid arthritis) Past Surgical History: Other (Cardiac stent placed approximately 7 years ago) Social history: no significant social history Family history: no significant family history Medications and Allergies Allergies Allergy/AdvReac Type Severity Reaction Status Date / Time acetaminophen [From Tylenol] Allergy Unknown Verified 12/08/19 05:21 tramadol Allergy Itching Verified 09/06/18 13:24 Home Medications Medication Instructions Recorded Confirmed Last Taken Type Carvedilol [Coreg] 1 tab PO BID #60 tablet 12/01/17 10/03/18 Unknown Rx Potassium Chloride 20 meq PO BID #60 tablet.er 12/01/17 10/03/18 Unknown Rx Tamsulosin [Flomax] 0.4 mg PO QHS #30 12/01/17 10/03/18 Unknown Rx Torsemide [Demadex] 100 mg PO BID #60 tablet 12/01/17 10/03/18 Unknown Rx ALPRAZolam [Xanax TAB] 2 mg PO BID 09/07/18 10/03/18 Unknown History Oxycodone HCl [roxiCODONE] 30 mg PO Q8HR 09/07/18 10/03/18 09/06/18 History Famotidine [Pepcid] 20 mg PO BID #20 tablet 10/04/18 Unknown Rx Cyclobenzaprine [Flexeril] 10 mg PO QHS PRN #20 tablet 05/16/19 Unknown Rx Ibuprofen [Motrin 800 MG tab] 800 mg PO Q8HR PRN #30 tablet 05/16/19 Unknown Rx Review of Systems All systems: negative Exam - Constitutional Vitals: Temp Pulse Resp BP Pulse Ox 99.2 F 93 H 24 101/56 99 12/08/19 05:11 12/08/19 09:00 12/08/19 09:00 12/08/19 09:00 12/08/19 05:11 General appearance: Present: no acute distress, well-nourished - EENT Eyes: Present: PERRL ENT: hearing intact, clear oral mucosa - Neck Neck: Present: supple, normal ROM - Respiratory Respiratory effort: normal Respiratory: bilateral: CTA - Cardiovascular Heart Sounds: Present: S1 & S2. Absent: rub, click - Extremities Extremities: pulses symmetrical, No edema Peripheral Pulses: within normal limits - Abdominal General gastrointestinal: Present: soft, non-tender, non-distended, normal bowel sounds Male genitourinary: Present: normal - Integumentary Integumentary: Present: clear, warm, dry - Musculoskeletal Musculoskeletal: gait normal, strength equal bilaterally - Psychiatric Psychiatric: appropriate mood/affect, intact judgment & insight - Neurologic Neurologic: CNII-XII intact, moves all extremities HEART Score - HEART Score EKG: Non-specific Age: 45-65 Risk factors: > 3 risk factors or hx of atherosclerotic disease Troponin: Troponin T 0.010 ng/mL (0.00-0.029) 12/08/19 04:57 Troponin: < normal limit - Critical Actions Critical Actions: 4-6 pts:12-16.6% risk of adverse cardiac event. Should be admitted Results - Labs CBC & Chem 7: 12/08/19 04:57 12/08/19 04:57 Labs: Laboratory Last Values WBC 9.7 K/mm3 (4.5-11.0) 12/08/19 04:57 RBC 4.26 M/mm3 (3.65-5.03) 12/08/19 04:57 Hgb 13.4 gm/dl (11.8-15.2) 12/08/19 04:57 Hct 39.1 % (35.5-45.6) 12/08/19 04:57 MCV 92 fl (84-94) 12/08/19 04:57 MCH 31 pg (28-32) 12/08/19 04:57 MCHC 34 % (32-34) 12/08/19 04:57 RDW 15.3 % (13.2-15.2) H 12/08/19 04:57 Plt Count 264 K/mm3 (140-440) 12/08/19 04:57 PT 14.3 Sec. (12.2-14.9) 12/08/19 06:44 INR 1.13 (0.87-1.13) 12/08/19 06:44 APTT 26.8 Sec. (24.2-36.6) 12/08/19 06:44 Sodium 144 mmol/L (137-145) 12/08/19 04:57 Potassium 3.3 mmol/L (3.6-5.0) L 12/08/19 04:57 Chloride 103.7 mmol/L (98-107) 12/08/19 04:57 Carbon Dioxide 29 mmol/L (22-30) 12/08/19 04:57 Anion Gap 15 mmol/L 12/08/19 04:57 BUN 14 mg/dL (9-20) 12/08/19 04:57 Creatinine 0.7 mg/dL (0.8-1.5) L 12/08/19 04:57 Estimated GFR > 60 ml/min 12/08/19 04:57 BUN/Creatinine Ratio 20 % 12/08/19 04:57 Glucose 109 mg/dL (75-100) H 12/08/19 04:57 Calcium 9.1 mg/dL (8.4-10.2) 12/08/19 04:57 Magnesium 2.10 mg/dL (1.7-2.3) 12/08/19 04:57 Total Creatine Kinase 113 units/L (55-170) 12/08/19 04:57 Troponin T 0.010 ng/mL (0.00-0.029) 12/08/19 04:57 NT-Pro-B Natriuret Pep 19.40 pg/mL (0-900) 12/08/19 06:44 [place]/IV: IV Catheter Type [Right Hand] INT / Saline Lock Assessment and Plan Assessment and plan: Chest pain. Follow-up serial cardiac enzymes Cardiac medications, echocardiogram, stress test Evaluate for reversible ischemia Cardiology consultation if needed Compensated diastolic heart failure, echocardiogram completed 2017 revealed mild concentric left ventricular hypertrophy with EF of 55 to 60%. Continue current management and home medications of Coreg and Demadex. Chest x- ray negative. Hypertension. resume home antihypertensives Hyperlipidemia. Continue on statin Type 2 diabetes mellitus. Continue Accu-Cheks and sliding scale insulin. GERD. Protonix 40 mg daily Rheumatoid arthritis. stable, pain control. COPD. Maintain oxygen titrate O2 sats to more than 92% Nebulizers as needed History of PE in 02/2015 . DVT prophylaxis; Lovenox Obesity. Patient will be advised weight reduction at discharge. JENNIFER. Continue supportive care and CPAP.
[2019-12-08] MEDS ORDERED: ONDANSETRON 4 MG/2 ML INJ IV PRN (09:50)
[2019-12-08] MEDS ORDERED: MORPHINE 4 MG/1 ML INJ IM ONE (09:50)
[2019-12-08] MEDS ORDERED: CYCLOBENZAPRINE 10 MG TAB PO PRN (09:55)
[2019-12-08] MEDS ORDERED: MORPHINE 2 MG/1 ML INJ ONE (09:58)
[2019-12-08] MEDS: carvediloL 12.5 MG TAB PO SCH ×2 (11:31→21:42)
[2019-12-08] MEDS: POTASSIUM CHLORIDE ER 20 MEQ TAB PO SCH ×2 (11:31→21:42)
[2019-12-08] MEDS: FAMOTIDINE 20 MG TAB PO SCH ×2 (11:31→21:41)
[2019-12-08] MEDS: ALPRAZolam 1 MG TAB PO SCH ×2 (11:32→21:42)
[2019-12-08] MEDS: ENOXAPARIN 40 MG/0.4 ML INJ SUB-Q SCH ×2 (11:32→11:48)
[2019-12-08] MEDS: TORSEMIDE 100 MG TAB PO SCH ×2 (12:41→21:41)
[2019-12-08] MEDS: OXYCODONE 15 MG TAB PO SCH ×2 (13:09→21:00)
--- NOTE | 2019-12-08 14:51 | Consultation ---
History of Present Illness Consult date: 12/08/19 Requesting physician: NATHANIEL MARTINEZ Consult reason: chest pain History of present illness: The pt is a 54-year-old male with a past medical history of hypertension, HFpEF, DM, pulmonary embolism in 02/2015, GERD COPD, JENNIFER (noncompliant with CPAP), rheumatoid arthritis, morbid obesity and BPH. He has been seen by our practice on prior hospitalization, reports that he has been followed by [facility] in the past. He presented to the ER via EMS from home complaining of chest pain that woke him up from sleep this morning at approximately 3:30 AM. Patient describes his chest pain as an intermittent "punching" with no clear aggravating or alleviating factors. Patient stated that he felt his heart racing and pumping hard and then he started feeling shortness of breath. Patient also felt generalized weakness. He reports shortness of breath with minimal exertion. Patient stated that he is better now. Patient stated that he has severe allergy to aspirin including tongue swelling and airway compromise. Lexiscan MPI stress test done 09/2018 was negative for ischemia, EF 56%. Echo done 11/29/2017 showed EF 55-60%, mild LVH. Past History Past Medical History: COPD, GERD, heart failure, hyperlipidemia, other (as per HPI) Past Surgical History: Other (Cardiac stent placed approximately 7 years ago) Social history: no significant social history Family history: no significant family history Medications and Allergies Allergies Allergy/AdvReac Type Severity Reaction Status Date / Time acetaminophen [From Tylenol] Allergy Unknown Verified 12/08/19 05:21 tramadol Allergy Itching Verified 09/06/18 13:24 Home Medications Medication Instructions Recorded Confirmed Last Taken Type Carvedilol [Coreg] 1 tab PO BID #60 tablet 12/01/17 10/03/18 Unknown Rx Potassium Chloride 20 meq PO BID #60 tablet.er 12/01/17 10/03/18 Unknown Rx Tamsulosin [Flomax] 0.4 mg PO QHS #30 12/01/17 10/03/18 Unknown Rx Torsemide [Demadex] 100 mg PO BID #60 tablet 12/01/17 10/03/18 Unknown Rx ALPRAZolam [Xanax TAB] 2 mg PO BID 09/07/18 10/03/18 Unknown History Oxycodone HCl [roxiCODONE] 30 mg PO Q8HR 09/07/18 10/03/18 09/06/18 History Famotidine [Pepcid] 20 mg PO BID #20 tablet 10/04/18 Unknown Rx Cyclobenzaprine [Flexeril] 10 mg PO QHS PRN #20 tablet 05/16/19 Unknown Rx Ibuprofen [Motrin 800 MG tab] 800 mg PO Q8HR PRN #30 tablet 05/16/19 Unknown Rx Active Meds: Active Medications Alprazolam (Xanax) 2 mg PO BID [facility] Last Admin: 12/08/19 11:32 Dose: 2 mg Documented by: Carvedilol (Coreg) 12.5 mg PO BID [facility] Last Admin: 12/08/19 11:31 Dose: 12.5 mg Documented by: Cyclobenzaprine HCl (Flexeril) 10 mg PO QHS PRN PRN Reason: Muscle Spasm Enoxaparin Sodium (Enoxaparin) 40 mg SUB-Q QDAY [facility] Last Admin: 12/08/19 11:48 Dose: Not Given Documented by: Famotidine (Pepcid) 20 mg PO BID [facility] Last Admin: 12/08/19 11:31 Dose: 20 mg Documented by: Ondansetron HCl (Zofran) 4 mg IV Q8H PRN PRN Reason: Nausea And Vomiting Potassium Chloride (K-Dur) 20 meq PO BID [facility] Last Admin: 12/08/19 11:31 Dose: 20 meq Documented by: Sodium Chloride (Sodium Chloride Flush Syringe 10 Ml) 10 ml IV PRN PRN PRN Reason: LINE FLUSH Sodium Chloride (Sodium Chloride Flush Syringe 10 Ml) 10 ml IV PRN PRN PRN Reason: LINE FLUSH Tamsulosin HCl (Flomax) 0.4 mg PO QHS [facility] Torsemide (Demadex) 100 mg PO BID [facility] Last Admin: 12/08/19 12:41 Dose: 100 mg Documented by: Review of Systems Constitutional: no weight loss, no weight gain, no fever, no chills, no sweats Ears, nose, mouth and throat: no ear pain, no nose pain, no sinus pressure, no sinus pain Cardiovascular: chest pain, shortness of breath, no orthopnea, no palpitations, no rapid/irregular heart beat, no edema, no syncope, no lightheadedness Respiratory: shortness of breath, no cough, no congestion, no wheezing, no pain on inspiration Gastrointestinal: no abdominal pain, no nausea, no vomiting, no diarrhea, no constipation, no change in bowel habits Genitourinary Male: no dysuria, no hematuria, no flank pain, no discharge, no urinary frequency, no urinary hesitancy Musculoskeletal: no neck stiffness, no neck pain, no shooting arm pain, no arm numbness/tingling, no low back pain, no shooting leg pain Integumentary: no rash, no pruritis, no redness, no sores, no wounds Neurological: no head injury, no paralysis, no weakness, no parathesias, no numbness, no tingling, no seizures, no syncope Psychiatric: no anxiety Endocrine: no cold intolerance, no heat intolerance Hematologic/Lymphatic: no easy bruising Allergic/Immunologic: no urticaria Physical Examination Vital Signs Temp Pulse Resp BP Pulse Ox 99.2 F 95 H 16 113/68 99 12/08/19 05:11 12/08/19 05:11 12/08/19 05:11 12/08/19 05:11 12/08/19 05:11 General appearance: no acute distress HEENT: Positive: PERRL, Normocephaly, Mucus Membranes Moist Neck: Positive: neck supple, trachea midline Cardiac: Positive: Reg Rate and Rhythm, S1/S2 Lungs: Positive: Decreased Breath Sounds Neuro: Positive: Grossly Intact Abdomen: Negative: Tender Skin: Negative: Rash Musculoskeletal: No Pain Extremities: Absent: edema Results 12/08/19 04:57 12/08/19 04:57 Coagulation 12/08/19 12/08/19 Range/Units 04:57 06:44 PT 13.9 14.3 (12.2-14.9) Sec. INR 1.09 1.13 (0.87-1.13) APTT 26.8 (24.2-36.6) Sec. CBC 12/08/19 Range/Units 04:57 WBC 9.7 (4.5-11.0) K/mm3 RBC 4.26 (3.65-5.03) M/mm3 Hgb 13.4 (11.8-15.2) gm/dl Hct 39.1 (35.5-45.6) % Plt Count 264 (140-440) K/mm3 Comprehensive Metabolic Panel 12/08/19 Range/Units 04:57 Sodium 144 (137-145) mmol/L Potassium 3.3 L (3.6-5.0) mmol/L Chloride 103.7 (98-107) mmol/L Carbon Dioxide 29 (22-30) mmol/L BUN 14 (9-20) mg/dL Creatinine 0.7 L (0.8-1.5) mg/dL Glucose 109 H (75-100) mg/dL Calcium 9.1 (8.4-10.2) mg/dL - Imaging and Cardiology Echo: pending, report reviewed (11/29/2017 showed EF 55-60%, mild LVH. ) EKG: report reviewed, image reviewed EKG interpretations - Telemetry EKG Rhythm: Sinus Rhythm - EKG Sinus rhythms and dysrhythmias: sinus rhythm Chamber hypertrophy or enlargement: left ventricular hypertro Assessment and Plan AMI r/o. Await echo. Plan for lexiscan MPI stress test in AM. NPO after MN. The patient has been seen in conjunction with Dr. Jyotsna Degroot who agrees with the assessment and plan of care. - Patient Problems (1) Chest pain Current Visit: Yes Status: Acute (2) HTN (hypertension) Current Visit: Yes Status: Chronic (3) Diabetes Current Visit: Yes Status: Chronic (4) History of pulmonary embolism Current Visit: Yes Status: Chronic (5) Morbid obesity Current Visit: Yes Status: Chronic (6) Obstructive sleep apnea Current Visit: Yes Status: Chronic (7) Hypokalemia Current Visit: Yes Status: Acute (8) Rheumatoid arthritis Current Visit: Yes Status: Chronic
[2019-12-08 15:58] LABS: Basophils # (Auto) 0.1 K/mm3 (0.0-0.1); Basophils % (Auto) 1.2 % (0.0-1.8); Eosinophils # (Auto) 0.6 K/mm3 (0.0-0.4); Eosinophils % (Auto) 5.4 % (0.0-4.3); Hemoglobin 13.1 gm/dl (11.8-15.2); Lymphocytes # (Auto) 2.4 K/mm3 (1.2-5.4); Lymphocytes % (Auto) 23.7 % (13.4-35.0); Mean Corpuscular HGB Conc 35 % (32-34); Mean Corpuscular Volume 93 fl (84-94); Monocytes # (Auto) 1.1 K/mm3 (0.0-0.8); Monocytes % (Auto) 11.1 % (0.0-7.3); Platelet Count 270 K/mm3 (140-440); Red Blood Count 3.97 M/mm3 (3.65-5.03); Red Cell Distribution Width 15.6 % (13.2-15.2)
[2019-12-08 16:33] LABS: BUN/Creatinine Ratio 13; Blood Urea Nitrogen 12 mg/dL (9-20); Calcium 9.4 mg/dL (8.4-10.2); Hemolysis Index 15
[2019-12-08] MEDS ORDERED: TAMSULOSIN 0.4 MG CAP PO SCH (22:00)
[2019-12-09] MEDS ORDERED: HYDROmorphone 1 MG/1 ML INJ IV ONE (02:57)
[2019-12-09] MEDS ORDERED: MAGNESIUM CITRATE 300 ML ORAL LIQD PO ONE (03:18)
[2019-12-09] MEDS: OXYCODONE 15 MG TAB PO SCH ×2 (05:47→13:06)
[2019-12-09] MEDS: MORPHINE 2 MG/1 ML INJ IV PRN ×2 (08:43→15:03)
[2019-12-09 08:53] LABS: Basophils # (Auto) 0.1 K/mm3 (0.0-0.1); Basophils % (Auto) 0.7 % (0.0-1.8); Eosinophils # (Auto) 0.6 K/mm3 (0.0-0.4); Eosinophils % (Auto) 6.9 % (0.0-4.3); Hematocrit 37.9 % (35.5-45.6); Hemoglobin 12.8 gm/dl (11.8-15.2); Lymphocytes # (Auto) 2.4 K/mm3 (1.2-5.4); Mean Corpuscular HGB Conc 34 % (32-34); Mean Corpuscular Volume 92 fl (84-94); Monocytes % (Auto) 10.8 % (0.0-7.3); Platelet Count 249 K/mm3 (140-440); Red Blood Count 4.13 M/mm3 (3.65-5.03); Red Cell Distribution Width 15.1 % (13.2-15.2)
[2019-12-09 09:33] LABS: BUN/Creatinine Ratio 18; Blood Urea Nitrogen 14 mg/dL (9-20); Calcium 8.5 mg/dL (8.4-10.2); Hemolysis Index 4
[2019-12-09] MEDS ORDERED: ASPIRIN EC 325 MG TAB PO SCH (10:00)
[2019-12-09] MEDS ORDERED: REGADENOSON 0.4 MG/5 ML INJ IV ONE ×2 (10:25→10:36)
--- NOTE | 2019-12-09 10:49 | Progress Note ---
Assessment and Plan tte reviewed - EF 50-55%, mild to mod LVH, abnormal diastolic function, mild pulm HTN RVSP 37mmHg. AMI r/o. S/p lexiscan MPI stress test this AM which was negative. Currently stable cardiac status. Pt may discharge from cardiology standpoint. Recommend pt follow up with [facility] within 1-2 weeks. The patient has been seen in conjunction with Dr. Jyotsna Degroot who agrees with the assessment and plan of care. - Patient Problems (1) Chest pain Current Visit: Yes Status: Resolved (2) HTN (hypertension) Current Visit: Yes Status: Chronic (3) Diabetes Current Visit: Yes Status: Chronic (4) History of pulmonary embolism Current Visit: Yes Status: Chronic (5) Morbid obesity Current Visit: Yes Status: Chronic (6) Obstructive sleep apnea Current Visit: Yes Status: Chronic (7) Hypokalemia Current Visit: Yes Status: Acute (8) Rheumatoid arthritis Current Visit: Yes Status: Chronic Subjective Date of service: 12/09/19 Principal diagnosis: cp Interval history: pt for stress test. no current complaints. in SR on tele. Objective Last Vital Signs Temp 97.5 F L 12/09/19 07:13 Pulse 76 12/09/19 07:13 Resp 21 12/09/19 07:13 BP 108/74 12/09/19 07:13 Pulse Ox 96 12/09/19 07:13 - Physical Examination General: No Apparent Distress HEENT: Positive: PERRL, Normocephaly, Mucus Membranes Moist Neck: Positive: neck supple, trachea midline Cardiac: Positive: Reg Rate and Rhythm, S1/S2 Lungs: Positive: Decreased Breath Sounds Neuro: Positive: Grossly Intact Abdomen: Negative: Tender Skin: Negative: Rash Musculoskeletal: No Pain Extremities: Absent: edema - Labs and Meds CBC 12/08/19 12/09/19 Range/Units 15:43 06:48 WBC 10.1 8.9 (4.5-11.0) K/mm3 RBC 3.97 4.13 (3.65-5.03) M/mm3 Hgb 13.1 12.8 (11.8-15.2) gm/dl Hct 37.0 37.9 (35.5-45.6) % Plt Count 270 249 (140-440) K/mm3 Lymph # 2.4 2.4 (1.2-5.4) K/mm3 [place] # 1.1 H 1.0 H (0.0-0.8) K/mm3 Eos # 0.6 H 0.6 H (0.0-0.4) K/mm3 Baso # 0.1 0.1 (0.0-0.1) K/mm3 Comprehensive Metabolic Panel 12/08/19 12/09/19 Range/Units 15:43 06:48 Sodium 139 137 (137-145) mmol/L Potassium 3.2 L 3.1 L (3.6-5.0) mmol/L Chloride 100.2 92.3 L (98-107) mmol/L Carbon Dioxide 29 31 H (22-30) mmol/L BUN 12 14 (9-20) mg/dL Creatinine 0.9 0.8 (0.8-1.5) mg/dL Glucose 108 H 101 H (75-100) mg/dL Calcium 9.4 8.5 (8.4-10.2) mg/dL - Imaging and Cardiology EKG: report reviewed, image reviewed Echo: pending, report reviewed (11/29/2017 showed EF 55-60%, mild LVH. ) - Telemetry EKG Rhythm: Sinus Rhythm - EKG Sinus rhythms and dysrhythmias: sinus rhythm Chamber hypertrophy or enlargement: left ventricular hypertro
[2019-12-09] MEDS: TORSEMIDE 100 MG TAB PO SCH (11:48)
[2019-12-09] MEDS: FAMOTIDINE 20 MG TAB PO SCH (11:48)
[2019-12-09] MEDS: POTASSIUM CHLORIDE ER 20 MEQ TAB PO SCH (11:48)
[2019-12-09] MEDS: carvediloL 12.5 MG TAB PO SCH (11:48)
[2019-12-09] MEDS: ALPRAZolam 1 MG TAB PO SCH (11:48)
[2019-12-09] MEDS: ENOXAPARIN 40 MG/0.4 ML INJ SUB-Q SCH (11:49)
--- NOTE | 2019-12-09 14:24 | Discharge Summary ---
Providers - Providers Date of Admission: 12/08/19 08:51 Date of discharge: 12/09/19 Attending physician: MILTON CAMPBELL Primary care physician: TUNA PURSE SEINER Hospitalization Condition: Stable Disposition: DC-01 TO HOME OR SELFCARE Time spent for discharge: 32 min Core Measure Documentation - Palliative Care Palliative Care/ Comfort Measures: Not Applicable - Core Measures Any of the following diagnoses?: none Exam - Constitutional Vitals: Temp Pulse Resp BP Pulse Ox 97.1 F L 65 21 112/80 97 12/09/19 11:57 12/09/19 12:00 12/09/19 11:57 12/09/19 11:57 12/09/19 11:57 General appearance: Present: no acute distress, well-nourished, obese - EENT Eyes: Present: PERRL, EOM intact - Neck Neck: Present: supple, normal ROM - Respiratory Respiratory effort: normal Respiratory: bilateral: diminished, negative: rales, rhonchi, wheezing - Cardiovascular Rhythm: regular Heart Sounds: Present: S1 & S2 - Extremities Extremities: no ischemia, No edema - Abdominal General gastrointestinal: Present: soft, non-tender, non-distended, normal bowel sounds - Integumentary Integumentary: Present: clear, warm - Musculoskeletal Musculoskeletal: strength equal bilaterally - Psychiatric Psychiatric: appropriate mood/affect, cooperative - Neurologic Neurologic: moves all extremities Plan Activity: advance as tolerated Diet: other (Cardiac diet) Special Instructions: smoking cessation Additional Instructions: 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 If you have worsening symptoms contact MD or go to emergency room as needed. Smoking cessation, advised nicotine patch as needed. Exercise as tolerated and weight reduction when medically stable Follow up with: PRIMARY CARE,MD [Primary Care Provider] - 3-5 Days Prescriptions: Zolpidem [Ambien] 5 mg PO QHS PRN #5 tablet PRN Reason: Sleep Tamsulosin [Flomax] 0.4 mg PO QHS #30 capsule Nicotine [Habitrol] 14 mg TD DAILY #30 patch
[2019-12-09 16:08] VITALS: BP 124/84
--- NOTE | 2019-12-10 14:27 | Treadmill Report ---
NUCLEAR PERFUSION SCAN REFERRING PHYSICIAN: Dr. Miguel Keating. PROTOCOL: The patient was assessed in postabsorptive state, given 10 mCi of technetium 99m at rest. The patient underwent rest imaging. The patient underwent Lexiscan stress test. At peak stress, the patient was given 26 mCi of technetium 99m. Shortly thereafter, the patient underwent stress imaging. Raw imaging reveals mild GI artifact, no significant motion artifact. SPECT images examined carefully in the horizontal long axis, vertical long axis, short axis views. There is normal mitral uptake of radioisotope in all reported segments. No evidence of significant fixed or reversible perfusion defect suggestive of prior infarction or ischemia. Gated wall motion reveals normal systolic thickening, calculated ejection fraction of 60%. No TID. CONCLUSIONS: 1. Normal myocardial perfusion scan without evidence of active ischemia or prior infarction. 2. Normal left ventricular systolic performance without evidence of transient ischemic dilatation or stress-induced segmental wall motion abnormalities. JOB# [id number] JAMEL/SAE
== END 2019-12-09 19:54 | disposition home or self-care (01) ==
LOC: ED 04:29 → 4A 08:51 → INTOOBSV 08:51
PROVIDERS: ADMIT Hospitalist; ATTEND Internal Medicine
DX: R07.89 Other chest pain (principal); I11.0 Hypertensive heart disease with heart failure; I50.30 Unspecified diastolic (congestive) heart failure; E78.5 Hyperlipidemia, unspecified; E11.9 Type 2 diabetes mellitus without complications; K21.9 Gastro-esophageal reflux disease without esophagitis; M06.9 Rheumatoid arthritis, unspecified; J44.9 Chronic obstructive pulmonary disease, unspecified; G47.33 Obstructive sleep apnea (adult) (pediatric); E87.6 Hypokalemia; E66.01 Morbid (severe) obesity due to excess calories; F17.200 Nicotine dependence, unspecified, uncomplicated; Z86.711 Personal history of pulmonary embolism; Z90.49 Acquired absence of other specified parts of digestive tract; Z95.1 Presence of aortocoronary bypass graft; Z99.89 Dependence on other enabling machines and devices; Z98.1 Arthrodesis status; Z93.3 Colostomy status; Z79.51 Long term (current) use of inhaled steroids; Z79.899 Other long term (current) drug therapy; Z88.6 Allergy status to analgesic agent; Z88.8 Allergy status to other drugs, medicaments and biological substances
CPT/HCPCS: 36415; 71045; 78452; 80048; 82550; 83735; 83880; 84484; 85025; 85027; 85610; 85730; 93005; 93017; 93306; 96372; 96374; 96375; 96376; 99285; A9502; G0378; J1170; J1650; J2270; J2405; J2785

== ENCOUNTER 2020-02-01 19:29 | Observation (INO) | payer MEDICARE ==
[2020-02-01 20:35] LABS: Basophils # (Auto) 0.1 K/mm3 (0.0-0.1); Basophils % (Auto) 1.1 % (0.0-1.8); Eosinophils # (Auto) 0.1 K/mm3 (0.0-0.4); Hematocrit 39.2 % (35.5-45.6); Hemoglobin 13.6 gm/dl (11.8-15.2); Lymphocytes % (Auto) 17.6 % (13.4-35.0); Mean Corpuscular HGB Conc 35 % (32-34); Mean Corpuscular Volume 95 fl (84-94); Monocytes # (Auto) 1.2 K/mm3 (0.0-0.8); Monocytes % (Auto) 10.3 % (0.0-7.3); Platelet Count 233 K/mm3 (140-440); Red Blood Count 4.15 M/mm3 (3.65-5.03); Red Cell Distribution Width 17.5 % (13.2-15.2)
[2020-02-01] MEDS ORDERED: HYDROmorphone 1 MG/1 ML INJ IV ONE ×2 (20:45→23:05)
[2020-02-01] MEDS ORDERED: ASPIRIN 81 MG TAB CHEW PO ONE (20:45)
--- NOTE | 2020-02-01 20:45 | Emergency Department Report ---
ED Chest Pain HPI - General Chief Complaint: Chest Pain Stated Complaint: CHEST PAIN Time Seen by Provider: 02/01/20 19:51 Source: patient, EMS Mode of arrival: Stretcher Limitations: No Limitations - History of Present Illness Initial Comments: This is a 54-year-old -[place] male presents to the emergency department with a complaint of left-sided chest pain that started this afternoon and has been going on since. He describes it as a shocklike discomfort. He has a past medical history that includes hypertension, CHF, diabetes, previous pulmonary embolism, rheumatoid arthritis, obstructive sleep apnea. The patient was seen here for similar symptoms at the beginning of this month. He had a negative stress test at that time and it appears that cardiology recommended a cardiac catheterization for definitive diagnosis of his chest discomfort, but the patient admits that he got scared about the procedure and decided not to have it done. No recent travel or sick contacts at home. He denies any fever, lower extremity swelling, nausea, vomiting or diaphoresis. However, when the chest pain began the patient also had some lightheadedness. Severity scale (0 -10): 7 - Related Data Home Medications Medication Instructions Recorded Confirmed Last Taken ALPRAZolam [Xanax TAB] 2 mg PO TID 09/07/18 01/15/20 1 Day Ago ~01/14/20 Carisoprodol [Soma] 250 mg PO TID 01/15/20 01/15/20 Unknown Carvedilol [Coreg] 4.6 mg PO BID 01/15/20 01/15/20 Unknown Oxycodone HCl [oxyCODONE] 20 mg PO Q6H PRN 01/15/20 01/15/20 1 Day Ago ~01/14/20 Rosuvastatin (Nf) [Crestor] 5 mg PO QHS 01/15/20 01/15/20 Unknown Previous Rx's Medication Instructions Recorded Last Taken Type Torsemide [Demadex] 100 mg PO BID #60 tablet 12/01/17 12/07/19 Rx Tamsulosin [Flomax] 0.4 mg PO QHS #30 capsule 12/09/19 Unknown Rx ALPRAZolam [Xanax TAB] 1 mg PO TID tablet 01/16/20 Unknown Rx AtorvaSTATin 5 mg PO QHS 30 Days #30 tablet 01/16/20 Unknown Rx Tamsulosin [Flomax] 0.4 mg PO QDAY 30 Days #30 capsule 01/16/20 Unknown Rx Torsemide [Demadex] 100 mg PO Q12HR tablet 01/16/20 Unknown Rx carisoprodoL [Soma] 350 mg PO TID tablet 01/16/20 Unknown Rx carvediloL [Coreg] 3.125 mg PO BID 30 Days #60 tablet 01/16/20 Unknown Rx Acetaminophen/Codeine [Tylenol #3] 1 tab PO Q6H PRN #10 tab 01/21/20 Unknown Rx cephALEXin [Keflex] 500 mg PO Q8HR #30 cap 01/21/20 Unknown Rx Allergies Allergy/AdvReac Type Severity Reaction Status Date / Time acetaminophen [From Tylenol] Allergy Unknown Verified 12/08/19 05:21 tramadol Allergy Itching Verified 09/06/18 13:24 Heart Score - HEART Score History: Slightly suspicious EKG: Non-specific Age: 45-65 Risk factors: 1-2 risk factors Troponin: < normal limit HEART Score: 3 - Critical Actions Critical Actions: 0-3 pts:0.9-1.7%risk of adverse cardiac event.Candidate for discharge ED Review of Systems ROS: Stated complaint: CHEST PAIN Other details as noted in HPI Comment: All other systems reviewed and negative Constitutional: denies: chills, fever Eyes: denies: eye pain, vision change ENT: denies: ear pain, throat pain Respiratory: shortness of breath. denies: cough, wheezing Cardiovascular: chest pain. denies: palpitations Gastrointestinal: denies: abdominal pain, vomiting Genitourinary: denies: dysuria, discharge Musculoskeletal: denies: back pain, arthralgia Skin: denies: rash, lesions Neurological: denies: headache, weakness ED Past Medical Hx - Past Medical History Previous Medical History?: Yes Hx Hypertension: Yes Hx CVA: Yes (Mild Left sided weakness) Hx Congestive Heart Failure: Yes Hx Diabetes: No Hx Pulmonary Embolism: Yes Hx GERD: Yes Hx Arthritis: Yes Hx Asthma: No Hx COPD: Yes (Denies) Additional medical history: hyperlipidemia. CHF diastolic dysfunction. Sleep apnea, CPAP - Surgical History Past Surgical History?: Yes Additional Surgical History: spinal fusion surgery in 2011. Reversed Colostomy. colon resection - Social History Smoking Status: Light Tobacco Smoker - Medications Home Medications: Home Medications Medication Instructions Recorded Confirmed Last Taken Type Torsemide [Demadex] 100 mg PO BID #60 tablet 12/01/17 01/15/20 12/07/19 Rx ALPRAZolam [Xanax TAB] 2 mg PO TID 09/07/18 01/15/20 1 Day Ago History ~01/14/20 Tamsulosin [Flomax] 0.4 mg PO QHS #30 capsule 12/09/19 01/15/20 Unknown Rx Carisoprodol [Soma] 250 mg PO TID 01/15/20 01/15/20 Unknown History Carvedilol [Coreg] 4.6 mg PO BID 01/15/20 01/15/20 Unknown History Oxycodone HCl [oxyCODONE] 20 mg PO Q6H PRN 01/15/20 01/15/20 1 Day Ago History ~01/14/20 Rosuvastatin (Nf) [Crestor] 5 mg PO QHS 01/15/20 01/15/20 Unknown History ALPRAZolam [Xanax TAB] 1 mg PO TID tablet 01/16/20 Unknown Rx AtorvaSTATin 5 mg PO QHS 30 Days #30 tablet 01/16/20 Unknown Rx Tamsulosin [Flomax] 0.4 mg PO QDAY 30 Days #30 capsule 01/16/20 Unknown Rx Torsemide [Demadex] 100 mg PO Q12HR tablet 01/16/20 Unknown Rx carisoprodoL [Soma] 350 mg PO TID tablet 01/16/20 Unknown Rx carvediloL [Coreg] 3.125 mg PO BID 30 Days #60 tablet 01/16/20 Unknown Rx Acetaminophen/Codeine [Tylenol #3] 1 tab PO Q6H PRN #10 tab 01/21/20 Unknown Rx cephALEXin [Keflex] 500 mg PO Q8HR #30 cap 01/21/20 Unknown Rx ED Physical Exam - General Limitations: No Limitations - Other Other exam information: GENERAL: The patient is well-developed well-nourished. HENT: Normocephalic. Atraumatic. Patient has moist mucous membranes. EYES: Extraocular motions are intact. NECK: Supple. Trachea is midline. CHEST/LUNGS: Clear to auscultation. There is no respiratory distress noted. Chest pain is not reproducible to palpation of the chest wall. HEART/CARDIOVASCULAR: Regular. There is no tachycardia. There is no murmur. ABDOMEN: Abdomen is soft, nontender. Patient has normal bowel sounds. SKIN: Skin is warm and dry. NEURO: The patient is awake, alert, and oriented. The patient is cooperative. The patient has no focal neurologic deficits. Normal speech. MUSCULOSKELETAL: There is no obvious deformity. There is no limitation range of motion. ED Course Vital Signs 02/01/20 02/01/20 02/01/20 20:01 21:02 21:04 Temperature 99.4 F Pulse Rate 80 88 Respiratory 20 15 14 Rate Blood Pressure 116/80 116/80 [Left] O2 Sat by Pulse 99 100 98 Oximetry KELLY score - Kelly Score Age > 65: (0) No Aspirin use within the Past 7 Days: (1) Yes 3 or more CAD Risk Factors: (1) Yes 2 or more Angina events in past 24 hrs: (1) Yes Known CAD with more than 50% Stenosis: (0) No Elevated Cardiac Markers: (0) No ST Deviation Greater than 0.5mm: (0) No KELLY Score: 3 ED Medical Decision Making - Lab Data Result diagrams: 02/01/20 20:16 02/01/20 20:16 - EKG Data -: EKG Interpreted by Me EKG shows normal: sinus rhythm, axis (Left axis deviation), intervals, QRS co mplexes (LVH), ST-T waves Rate: normal - EKG Data Interpretation: unchanged when compared t (01/16/20) - Radiology Data Radiology results: report reviewed, image reviewed interpreted by me: Chest x-ray does not show any acute process. There are no pleural effusions, obvious pneumonia and there is no pneumothorax. No significant cardiomegaly. CTA CHEST WITH IV CONTRAST INDICATION: Chest pain TECHNIQUE: Axial CT images were obtained through the chest after injection of IV contrast. Coronal oblique 2-D reconstruction images were produced. 3 plane MIP reconstruction images were produced at an independent workstation. All CTs at this facility utilize dose reduction techniques including automated exposure control, iterative reconstruction and weight based dosing when appropriate to reduce patient radiation dose to as low as reasonable achievable. COMPARISON: CTA of the chest, 10/31/2018. Chest radiograph, 02/01/2020 FINDINGS: Evaluation of the pulmonary arteries demonstrates no evidence of central or segmental filling defect to suggest pulmonary embolism. The heart is normal in size. The thoracic aorta is normal in caliber. Evaluation of the lung parenchyma demonstrates no evidence of focal airspace disease or pleural effusion. Limited imaging of the upper abdomen demonstrates no evidence of acute abnormality.. Bones and soft tissues: Evaluation of bony structures demonstrates no evidence of acute bony abnormality. Evaluation of soft tissue structures demonstrates no evidence of acute soft tissue abnormality. IMPRESSION: 1. No evidence of pulmonary embolism or acute parenchymal process. - Medical Decision Making This patient presents to the emergency department with complaint of some left- sided chest pains that been going on intermittently since patient was last admitted here for his chest pain work-up. At that time the patient had a negative thallium stress test but the consult done by [facility] cardiology did state that they recommended a cardiac catheterization for definitive diagnosis. The patient admits that he had refused the procedure at that time. The patient has had negative troponins x2 thus far. He had an elevated and equivocal d-dimer and therefore had a CT angiography of the chest that did not show any evidence of pulmonary embolism or any other acute process. He has required a few doses of IV analgesia for his chest discomfort. He will be admitted to the hospital for further evaluation and treatment and was accepted for admission by the hospitalist, Dr. Wilkins. Critical Care Time: No Critical care attestation.: If time is entered above; I have spent that time in minutes in the direct care of this critically ill patient, excluding procedure time. ED Disposition Clinical Impression: Angina at rest, Acute chest pain, Hypokalemia Disposition: OP ADMIT IP TO THIS HOSP Is pt being admited?: Yes Condition: Fair Time of Disposition: 23:07
[2020-02-01 20:48] LABS: BUN/Creatinine Ratio 22; Blood Urea Nitrogen 22 mg/dL (9-20); Calcium 9.4 mg/dL (8.4-10.2); Hemolysis Index 7
[2020-02-01 20:51] LABS: INR 0.98 (0.87-1.13)
[2020-02-01] MEDS ORDERED: POTASSIUM CHLORIDE ER 20 MEQ TAB PO ONE ×2 (20:59→23:18)
--- NOTE | 2020-02-01 21:17 | XRay Report ---
CHEST 1 VIEW INDICATION: CP. COMPARISON: 01/14/2020 FINDINGS: Support devices: None. Heart: Normal. Lungs/Pleura: No acute pulmonary or pleural findings. IMPRESSION: 1. No acute findings. Signer Name: Devin Kincaid MD Signed: 02/01/2020 9:13 PM Workstation Name: [email or web address]
--- NOTE | 2020-02-01 22:58 | Cat Scan Report ---
CTA CHEST WITH IV CONTRAST INDICATION: Chest pain TECHNIQUE: Axial CT images were obtained through the chest after injection of IV contrast. Coronal oblique 2-D reconstruction images were produced. 3 plane MIP reconstruction images were produced at an [employer] workstation. All CTs at this facility utilize dose reduction techniques including automated expos ure control, iterative reconstruction and weight based dosing when appropriate to reduce patient radi ation dose to as low as reasonable achievable. COMPARISON: CTA of the chest, 10/31/2018. Chest radiograph, 02/01/2020 FINDINGS: Evaluation of the pulmonary arteries demonstrates no evidence of central or segmental filling defect to suggest pulmonary embolism. The heart is normal in size. The thoracic aorta is normal in caliber. Evaluation of the lung parenchyma demonstrates no evidence of focal airspace disease or pleural effus ion. Limited imaging of the upper abdomen demonstrates no evidence of acute abnormality.. Bones and soft tissues: Evaluation of bony structures demonstrates no evidence of acute bony abnormal ity. Evaluation of soft tissue structures demonstrates no evidence of acute soft tissue abnormality. IMPRESSION: 1. No evidence of pulmonary embolism or acute parenchymal process. Signer Name: Fernanda Verde MD Signed: 02/01/2020 10:54 PM Workstation Name: [id number]
[2020-02-01] MEDS ORDERED: MAGNESIUM HYDROXIDE (MOM) ORAL LIQD UDC PO PRN (23:28)
[2020-02-01] MEDS ORDERED: NITROGLYCERIN 0.4 MG TAB SUBL SL PRN (23:28)
[2020-02-01] MEDS ORDERED: ACETAMINOPHEN 325 MG TAB PO PRN (23:28)
[2020-02-01] MEDS ORDERED: ONDANSETRON 4 MG/2 ML INJ IV PRN (23:28)
--- NOTE | 2020-02-01 23:40 | History and Physical Report ---
History of Present Illness Date of examination: 02/01/20 Date of admission: 02/01/20 23:07 Chief complaint: Chest Pain History of present illness: Patient is a 54-year-old -Citizen Of [place] male with known history of hypertension, COPD, congestive heart failure with EF of 50 to 55%, hyperlipidemia and history of CVA in the past presenting to the emergency room today complaining of chest pain. Chest pain was said to be left-sided and describes it as being sharp radiating into the shoulder. There is no no relieving or exacerbating factor. He denies any denies any nausea vomiting, no abdominal pain, no diarrhea, no fever or chills, no diaphoresis, no headache or had some lightheadedness. He denies any sick contacts and no recent travel. Denies any contact with anyone with COVID- 19. Patient states he fell about a week ago and had an injury to his left lower extremity and currently has sutures in place. He denies any head injury. Denies any loss of consciousness. Patient presented with similar symptoms about a month ago and hardware trainer-Dr. Mays had recommended cardiac catheterization for definitive diagnosis of his chest pain. Patient declined having the procedure at that time as he admits that he was scared. Work-up today in the emergency room did not reveal any acute abnormality on the EKG, CT angiogram and also on the chest x-ray. Patient however had a potassium level of about 3.0. Past History Past Medical History: arthritis, COPD, heart failure, hypertension, hyperlipidemia, pulmonary embolism, stroke, other (Sleep Apnea,) Past Surgical History: Other (Spinal fusion in 2011,Colon Resection and Colostomy Reversal.) Social history: smoking (Occasional Tobacco Use.) Family history: no significant family history Medications and Allergies Allergies Allergy/AdvReac Type Severity Reaction Status Date / Time acetaminophen [From Tylenol] Allergy Unknown Verified 12/08/19 05:21 tramadol Allergy Itching Verified 09/06/18 13:24 Home Medications Medication Instructions Recorded Confirmed Last Taken Type Torsemide [Demadex] 100 mg PO BID #60 tablet 12/01/17 01/15/20 12/07/19 Rx ALPRAZolam [Xanax TAB] 2 mg PO TID 09/07/18 01/15/20 1 Day Ago History ~01/14/20 Tamsulosin [Flomax] 0.4 mg PO QHS #30 capsule 12/09/19 01/15/20 Unknown Rx Carisoprodol [Soma] 250 mg PO TID 01/15/20 01/15/20 Unknown History Carvedilol [Coreg] 4.6 mg PO BID 01/15/20 01/15/20 Unknown History Oxycodone HCl [oxyCODONE] 20 mg PO Q6H PRN 01/15/20 01/15/20 1 Day Ago History ~01/14/20 Rosuvastatin (Nf) [Crestor] 5 mg PO QHS 01/15/20 01/15/20 Unknown History ALPRAZolam [Xanax TAB] 1 mg PO TID tablet 01/16/20 Unknown Rx AtorvaSTATin 5 mg PO QHS 30 Days #30 tablet 01/16/20 Unknown Rx Tamsulosin [Flomax] 0.4 mg PO QDAY 30 Days #30 capsule 01/16/20 Unknown Rx Torsemide [Demadex] 100 mg PO Q12HR tablet 01/16/20 Unknown Rx carisoprodoL [Soma] 350 mg PO TID tablet 01/16/20 Unknown Rx carvediloL [Coreg] 3.125 mg PO BID 30 Days #60 tablet 01/16/20 Unknown Rx Acetaminophen/Codeine [Tylenol #3] 1 tab PO Q6H PRN #10 tab 01/21/20 Unknown Rx cephALEXin [Keflex] 500 mg PO Q8HR #30 cap 01/21/20 Unknown Rx Active Meds: Active Medications Acetaminophen (Tylenol) 650 mg PO Q4H PRN PRN Reason: Pain MILD(1-3)/Fever >100.5/MA Aspirin (Ecotrin) 325 mg PO QDAY SHAHEED Hydromorphone HCl (Dilaudid) 0.5 mg IV Q3H PRN PRN Reason: Pain , Severe (7-10) Magnesium Hydroxide (Milk Of Magnesia) 30 ml PO Q4H PRN PRN Reason: Constipation Nitroglycerin (Nitrostat) 0.4 mg SL Q5M PRN PRN Reason: Chest Pain Ondansetron HCl (Zofran) 4 mg IV Q8H PRN PRN Reason: Nausea And Vomiting Sodium Chloride (Sodium Chloride Flush Syringe 10 Ml) 10 ml IV BID SHAHEED Sodium Chloride (Sodium Chloride Flush Syringe 10 Ml) 10 ml IV PRN PRN PRN Reason: LINE FLUSH Sodium Chloride (Sodium Chloride Flush Syringe 10 Ml) 10 ml IV PRN PRN PRN Reason: LINE FLUSH Review of Systems Constitutional: no fever, no chills Ears, nose, mouth and throat: no nasal congestion, no sore throat Cardiovascular: chest pain, lightheadedness, no palpitations Respiratory: no cough, no shortness of breath Gastrointestinal: no abdominal pain, no nausea, no vomiting, no diarrhea Genitourinary Male: no dysuria, no hematuria, no flank pain Musculoskeletal: no neck pain, no low back pain Integumentary: no rash, no pruritis Neurological: no headaches, no confusion Psychiatric: no anxiety, no depression Exam - Constitutional Vitals: Temp Pulse Resp BP Pulse Ox 99.4 F 88 14 116/80 98 02/01/20 20:01 02/01/20 21:02 02/01/20 21:04 02/01/20 21:02 02/01/20 21:04 General appearance: Present: no acute distress, well-nourished - EENT Eyes: Present: PERRL, EOM intact. Absent: scleral icterus ENT: hearing intact, clear oral mucosa, dentition normal - Neck Neck: Present: supple, normal ROM - Respiratory Respiratory effort: normal Respiratory: bilateral: CTA - Cardiovascular Rhythm: regular Heart Sounds: Present: S1 & S2. Absent: gallop, systolic murmur, diastolic murmur, rub - Extremities Extremities: no ischemia, pulses intact, pulses symmetrical, No edema, Full ROM Extremity abnormal: other (Wound with sutures in place on lateral aspect of left leg just above the ankle.) Peripheral Pulses: within normal limits - Abdominal General gastrointestinal: Present: soft, non-tender, non-distended, normal bowel sounds. Absent: mass - Integumentary Integumentary: Present: clear, warm, dry. Absent: rash - Musculoskeletal Musculoskeletal: strength equal bilaterally - Psychiatric Psychiatric: appropriate mood/affect, intact judgment & insight, memory intact, cooperative - Neurologic Neurologic: CNII-XII intact, no focal deficits, moves all extremities HEART Score - HEART Score EKG: Non-specific Age: 45-65 Risk factors: 1-2 risk factors Troponin: Troponin T < 0.010 ng/mL (0.00-0.029) 02/01/20 20:16 Troponin: < normal limit - Critical Actions Critical Actions: 0-3 pts:0.9-1.7%risk of adverse cardiac event.Candidate for discharge Results - Labs CBC & Chem 7: 02/01/20 20:16 02/01/20 20:16 Labs: Abnormal lab results 02/01/20 02/01/20 02/01/20 Range/Units 20:16 20:16 20:47 WBC 11.6 H (4.5-11.0) K/mm3 MCV 95 H (84-94) fl MCH 33 H (28-32) pg MCHC 35 H (32-34) % RDW 17.5 H (13.2-15.2) % Posey % (Auto) 10.3 H (0.0-7.3) % Posey # 1.2 H (0.0-0.8) K/mm3 Seg Neutrophils # 8.1 H (1.8-7.7) K/mm3 D-Dimer 358.55 H (0-234) ng/mlDDU Potassium 3.0 L (3.6-5.0) mmol/L Chloride 93.5 L (98-107) mmol/L Carbon Dioxide 31 H (22-30) mmol/L BUN 22 H (9-20) mg/dL Glucose 109 H (75-100) mg/dL Assessment and Plan - Patient Problems (1) Acute chest pain Current Visit: Yes Status: Acute Plan to address problem: Patient admitted and placed on telemetry. We will monitor serial cardiac enzymes. We will place a consult to cardiology for further evaluation and recommendation. Cardiac catheterization was recommended during patient's recent hospital stay-as shown in Dr. Mays's recommendation. (2) Laceration of left lower extremity Current Visit: No Status: Acute Plan to address problem: Patient has sutures in place on laceration on left lower extremity. We will place a consult to wound care team for evaluation . (3) HTN (hypertension) Current Visit: No Status: Chronic Plan to address problem: Blood pressure appears stable. We will resume routine home medications once reconciled. We will also monitor vital signs closely. (4) Hypokalemia Current Visit: Yes Status: Acute Plan to address problem: Potassium to be repleted and will monitor chemistry. (5) DVT prophylaxis Current Visit: No Status: Acute Plan to address problem: Patient placed on subcutaneous heparin. (6) Full code status Current Visit: No Status: Acute
[2020-02-02] MEDS: HYDROmorphone 1 MG/1 ML INJ IV PRN ×4 (02:56→20:44)
[2020-02-02] MEDS: TORSEMIDE 100 MG TAB PO SCH ×3 (02:57→18:32)
[2020-02-02] MEDS: CARISOPRODOL 350 MG TAB PO SCH ×4 (02:58→19:26)
[2020-02-02] MEDS: ALPRAZolam 1 MG TAB PO SCH ×4 (02:58→19:26)
[2020-02-02] MEDS: carvediloL 12.5 MG TAB PO SCH ×3 (03:06→21:34)
[2020-02-02 05:15] LABS: BUN/Creatinine Ratio 24; Blood Urea Nitrogen 24 mg/dL (9-20); Calcium 9.5 mg/dL (8.4-10.2); Hemolysis Index 9
[2020-02-02 05:25] LABS: Chol/HDL Ratio 3.76 %
[2020-02-02 05:30] LABS: Basophils # (Auto) 0.1 K/mm3 (0.0-0.1); Basophils % (Auto) 0.6 % (0.0-1.8); Eosinophils # (Auto) 0.1 K/mm3 (0.0-0.4); Eosinophils % (Auto) 1.1 % (0.0-4.3); Hematocrit 38.2 % (35.5-45.6); Hemoglobin 13.3 gm/dl (11.8-15.2); Lymphocytes # (Auto) 1.9 K/mm3 (1.2-5.4); Lymphocytes % (Auto) 17.9 % (13.4-35.0); Mean Corpuscular HGB Conc 35 % (32-34); Mean Corpuscular Volume 95 fl (84-94); Monocytes # (Auto) 1.2 K/mm3 (0.0-0.8); Monocytes % (Auto) 10.8 % (0.0-7.3); Platelet Count 219 K/mm3 (140-440); Red Blood Count 4.03 M/mm3 (3.65-5.03); Red Cell Distribution Width 17.2 % (13.2-15.2)
[2020-02-02 05:39] LABS: INR 1.01 (0.87-1.13)
[2020-02-02] MEDS: HEPARIN 5,000 UNIT/1 ML VIAL SUB-Q SCH ×4 (06:10→21:38)
[2020-02-02] MEDS ORDERED: CARISOPRODOL 350 MG TAB PO SCH (08:00)
[2020-02-02] MEDS ORDERED: POTASSIUM CHLORIDE ER 20 MEQ TAB PO NR (08:11)
[2020-02-02] MEDS ORDERED: POTASSIUM CHLORIDE 10 MEQ 10 MEQ/100 ML BAG IV NR (09:00)
[2020-02-02] MEDS ORDERED: ASPIRIN EC 325 MG TAB PO SCH (10:00)
[2020-02-02] MEDS ORDERED: carvediloL 3.125 MG TAB PO SCH (10:00)
--- NOTE | 2020-02-02 10:16 | Progress Note ---
<JEREMY GREEN TianaJose Carlos - Last Filed: 02/02/20 15:22> Assessment and Plan - Patient Problems (1) Acute chest pain Current Visit: Yes Status: Acute Plan to address problem: - Telemetry monitoring - Cardiology consulted; plans a left heart cath in the AM - Serial cardiac enzymes - 12/07 echocardiogram showed mild to moderate LVH, EF 50 to 55%, mildly dilated LA and mild pulmonary hypertension - 12/08 Lexiscan negative for ischemia - PRN morphine and Nitroglycerin (2) Hypokalemia Current Visit: Yes Status: Acute Plan to address problem: - 02/01 K 3.1, 3 on 01/31 - Repleted - Replete as needed - Trend BMP (3) Acute on chronic diastolic CHF (congestive heart failure) Current Visit: No Status: Chronic Plan to address problem: - 12/07 echocardiogram showed moderate LVH, EF 55%, left atrium with mild dilation, mild pulmonary hypertension - Cardiology consulted - On Torsemide and Coreg and ASA - Supportive care (4) HTN (hypertension) Current Visit: No Status: Chronic Plan to address problem: - Restarted on coreg and diuretic - IV hydralazine PRN - BP monitoring per protocol (5) Laceration of left lower extremity Current Visit: No Status: Acute Plan to address problem: - WOCN consulted - This injury is likely from a recent fall down the stairs after presyncopal episode - WC per nursing (6) BPH (benign prostatic hyperplasia) Current Visit: No Status: Chronic Qualifiers: Lower urinary tract symptom presence: symptoms present Plan to address problem: - Flomax restarted (7) Hyperlipemia Current Visit: No Status: Chronic Plan to address problem: - Continue statin (8) History of pulmonary embolism Current Visit: No Status: Chronic (9) CVA, old, alterations of sensations Current Visit: Yes Status: Chronic Plan to address problem: - Residual slight right sided weakness - BB, ASA, Statin, diuretic - Supportive care (10) DVT prophylaxis Current Visit: No Status: Acute Plan to address problem: - heparin subq - SCDs to BLE while in bed History Interval history: 54 year old male with hypertension, HFpEF, DM, pulmonary embolism in 02/2015, GERD COPD, JENNIFER (noncompliant with CPAP), rheumatoid arthritis, morbid obesity, BPH presents for chest pain on 01/31. Cardiology consulted. In the emergency department his CTA chest and chest x-ray were negative. Of note he was recently admitted and refused a cardiac catheterization at that time with Dr. Ocasio. This morning he is hypokalemic at 3.1 and repleted with p.o. potassium. He is also requesting his home pain medications to be restarted. He states his chest pain is located on the left side of his chest with radiation to his left thigh which is described as "electric". Cardiology plans to do a left heart cath in the a.m.. Will be n.p.o. after midnight Hospitalist Physical - Constitutional Vitals: Temp Pulse Resp BP Pulse Ox 98.1 F 87 18 133/88 95 02/02/20 07:54 02/02/20 08:59 02/02/20 07:54 02/02/20 07:54 02/02/20 07:54 General appearance: Present: no acute distress, well-nourished - EENT Eyes: Present: PERRL ENT: hearing intact - Neck Neck: Present: normal ROM - Respiratory Respiratory effort: normal Respiratory: bilateral: CTA - Cardiovascular Rhythm: regular Heart Sounds: Present: S1 & S2. Absent: systolic murmur, diastolic murmur - Extremities Extremities: no ischemia, pulses intact, pulses symmetrical, No edema, normal temperature, normal color, Full ROM Peripheral Pulses: within normal limits - Abdominal General gastrointestinal: soft, non-tender, non-distended, normal bowel sounds - Integumentary Integumentary: Present: warm, dry - Psychiatric Psychiatric: cooperative - Neurologic Neurologic: CNII-XII intact, no focal deficits, moves all extremities - Allied Health Allied health notes reviewed: nursing HEART Score - HEART Score EKG: Non-specific Age: 45-65 Risk factors: 1-2 risk factors Troponin: Troponin T < 0.010 ng/mL (0.00-0.029) 02/02/20 04:15 Troponin: < normal limit - Critical Actions Critical Actions: 0-3 pts:0.9-1.7%risk of adverse cardiac event.Candidate for discharge Results - Labs CBC & Chem 7: 02/02/20 04:15 02/02/20 04:15 Labs: Laboratory Last Values WBC 10.7 K/mm3 (4.5-11.0) 02/02/20 04:15 RBC 4.03 M/mm3 (3.65-5.03) 02/02/20 04:15 Hgb 13.3 gm/dl (11.8-15.2) 02/02/20 04:15 Hct 38.2 % (35.5-45.6) 02/02/20 04:15 MCV 95 fl (84-94) H 02/02/20 04:15 MCH 33 pg (28-32) H 02/02/20 04:15 MCHC 35 % (32-34) H 02/02/20 04:15 RDW 17.2 % (13.2-15.2) H 02/02/20 04:15 Plt Count 219 K/mm3 (140-440) 02/02/20 04:15 Lymph % (Auto) 17.9 % (13.4-35.0) 02/02/20 04:15 [place] % (Auto) 10.8 % (0.0-7.3) H 02/02/20 04:15 Eos % (Auto) 1.1 % (0.0-4.3) 02/02/20 04:15 Baso % (Auto) 0.6 % (0.0-1.8) 02/02/20 04:15 Lymph # 1.9 K/mm3 (1.2-5.4) 02/02/20 04:15 [place] # 1.2 K/mm3 (0.0-0.8) H 02/02/20 04:15 Eos # 0.1 K/mm3 (0.0-0.4) 02/02/20 04:15 Baso # 0.1 K/mm3 (0.0-0.1) 02/02/20 04:15 Seg Neutrophils % 69.6 % (40.0-70.0) 02/02/20 04:15 Seg Neutrophils # 7.5 K/mm3 (1.8-7.7) 02/02/20 04:15 PT 13.5 Sec. (12.2-14.9) 02/02/20 04:15 INR 1.01 (0.87-1.13) 02/02/20 04:15 D-Dimer 358.55 ng/mlDDU (0-234) H 02/01/20 20:47 Sodium 138 mmol/L (137-145) 02/02/20 04:15 Potassium 3.1 mmol/L (3.6-5.0) L 02/02/20 04:15 Chloride 92.8 mmol/L (98-107) L 02/02/20 04:15 Carbon Dioxide 31 mmol/L (22-30) H 02/02/20 04:15 Anion Gap 17 mmol/L 02/02/20 04:15 BUN 24 mg/dL (9-20) H 02/02/20 04:15 Creatinine 1.0 mg/dL (0.8-1.3) 02/02/20 04:15 Estimated GFR > 60 ml/min 02/02/20 04:15 BUN/Creatinine Ratio 24 % 02/02/20 04:15 Glucose 127 mg/dL (75-100) H 02/02/20 04:15 Calcium 9.5 mg/dL (8.4-10.2) 02/02/20 04:15 Magnesium 2.00 mg/dL (1.7-2.3) 02/02/20 04:15 Troponin T < 0.010 ng/mL (0.00-0.029) 02/02/20 04:15 Triglycerides 88 mg/dL (2-149) 02/02/20 04:15 Cholesterol 192 mg/dL (50-199) 02/02/20 04:15 LDL Cholesterol Direct 134 mg/dL (50-130) H 02/02/20 04:15 HDL Cholesterol 51 mg/dL (40-59) 02/02/20 04:15 Cholesterol/HDL Ratio 3.76 % 02/02/20 04:15 [place]/IV: IV Catheter Type [Left Distal INT / Saline Lock Port Forearm] Active Medications - Current Medications Current Medications: Generic Name Dose Route Start Last Admin Trade Name Freq PRN Reason Stop Dose Admin Acetaminophen 650 mg 02/01/20 23:28 Tylenol PO Q4H PRN Pain MILD(1-3)/Fever >100.5/MA Alprazolam 2 mg 02/02/20 03:00 02/02/20 08:57 Xanax PO 2 mg TID SHAHEED Administration Aspirin 325 mg 02/02/20 10:00 Ecotrin PO QDAY [facility] Atorvastatin Calcium 5 mg 02/02/20 22:00 Atorvastatin PO QHS [facility] Carisoprodol 350 mg 02/02/20 03:00 02/02/20 08:57 Soma PO 350 mg TID SHAHEED Administration Carvedilol 12.5 mg 02/02/20 03:00 02/02/20 08:59 Coreg PO 12.5 mg BID SHAHEED Administration Heparin Sodium (Porcine) 5,000 unit 02/02/20 06:00 02/02/20 06:10 Heparin SUB-Q Not Given Q8HR SHAHEED Hydromorphone HCl 0.5 mg 02/01/20 23:34 02/02/20 06:05 Dilaudid IV 0.5 mg Q3H PRN Administration Pain , Severe (7-10) Magnesium Hydroxide 30 ml 02/01/20 23:28 Milk Of Magnesia PO Q4H PRN Constipation Nitroglycerin 0.4 mg 02/01/20 23:28 Nitrostat SL Q5M PRN Chest Pain Ondansetron HCl 4 mg 02/01/20 23:28 Zofran IV Q8H PRN Nausea And Vomiting Sodium Chloride 10 ml 02/02/20 10:00 02/02/20 09:00 Sodium Chloride Flush Syringe 10 Ml IV 10 ml BID SHAHEED Administration Sodium Chloride 10 ml 02/01/20 23:28 Sodium Chloride Flush Syringe 10 Ml IV PRN PRN LINE FLUSH Tamsulosin HCl 0.4 mg 02/02/20 22:00 Flomax PO QHS SHAHEED Torsemide 100 mg 02/02/20 03:00 02/02/20 06:07 Demadex PO Not Given 0600,1800 SHAHEED <AMADEO GÓMEZ R - Last Filed: 02/02/20 15:59> Assessment and Plan Assessment and plan: I saw and evaluated the patient. I agree with the findings and the plan of care as documented in the Nurse Practitioner's~note. Hospitalist Physical - Constitutional Vitals: Temp Pulse Resp BP Pulse Ox 98.2 F 70 18 118/83 93 02/02/20 11:38 02/02/20 11:38 02/02/20 11:38 02/02/20 11:38 02/02/20 11:38 HEART Score - HEART Score Troponin: Troponin T < 0.010 ng/mL (0.00-0.029) 02/02/20 04:15 Results - Labs CBC & Chem 7: 02/02/20 04:15 02/02/20 04:15 Labs: Laboratory Last Values WBC 10.7 K/mm3 (4.5-11.0) 02/02/20 04:15 RBC 4.03 M/mm3 (3.65-5.03) 02/02/20 04:15 Hgb 13.3 gm/dl (11.8-15.2) 02/02/20 04:15 Hct 38.2 % (35.5-45.6) 02/02/20 04:15 MCV 95 fl (84-94) H 02/02/20 04:15 MCH 33 pg (28-32) H 02/02/20 04:15 MCHC 35 % (32-34) H 02/02/20 04:15 RDW 17.2 % (13.2-15.2) H 02/02/20 04:15 Plt Count 219 K/mm3 (140-440) 02/02/20 04:15 Lymph % (Auto) 17.9 % (13.4-35.0) 02/02/20 04:15 [place] % (Auto) 10.8 % (0.0-7.3) H 02/02/20 04:15 Eos % (Auto) 1.1 % (0.0-4.3) 02/02/20 04:15 Baso % (Auto) 0.6 % (0.0-1.8) 02/02/20 04:15 Lymph # 1.9 K/mm3 (1.2-5.4) 02/02/20 04:15 [place] # 1.2 K/mm3 (0.0-0.8) H 02/02/20 04:15 Eos # 0.1 K/mm3 (0.0-0.4) 02/02/20 04:15 Baso # 0.1 K/mm3 (0.0-0.1) 02/02/20 04:15 Seg Neutrophils % 69.6 % (40.0-70.0) 02/02/20 04:15 Seg Neutrophils # 7.5 K/mm3 (1.8-7.7) 02/02/20 04:15 PT 13.5 Sec. (12.2-14.9) 02/02/20 04:15 INR 1.01 (0.87-1.13) 02/02/20 04:15 D-Dimer 358.55 ng/mlDDU (0-234) H 02/01/20 20:47 Sodium 138 mmol/L (137-145) 02/02/20 04:15 Potassium 3.1 mmol/L (3.6-5.0) L 02/02/20 04:15 Chloride 92.8 mmol/L (98-107) L 02/02/20 04:15 Carbon Dioxide 31 mmol/L (22-30) H 02/02/20 04:15 Anion Gap 17 mmol/L 02/02/20 04:15 BUN 24 mg/dL (9-20) H 02/02/20 04:15 Creatinine 1.0 mg/dL (0.8-1.3) 02/02/20 04:15 Estimated GFR > 60 ml/min 02/02/20 04:15 BUN/Creatinine Ratio 24 % 02/02/20 04:15 Glucose 127 mg/dL (75-100) H 02/02/20 04:15 Calcium 9.5 mg/dL (8.4-10.2) 02/02/20 04:15 Magnesium 2.00 mg/dL (1.7-2.3) 02/02/20 04:15 Troponin T < 0.010 ng/mL (0.00-0.029) 02/02/20 04:15 Triglycerides 88 mg/dL (2-149) 02/02/20 04:15 Cholesterol 192 mg/dL (50-199) 02/02/20 04:15 LDL Cholesterol Direct 134 mg/dL (50-130) H 02/02/20 04:15 HDL Cholesterol 51 mg/dL (40-59) 02/02/20 04:15 Cholesterol/HDL Ratio 3.76 % 02/02/20 04:15 [place]/IV: IV Catheter Type [Left Distal INT / Saline Lock Port Forearm] Active Medications - Current Medications Current Medications: Generic Name Dose Route Start Last Admin Trade Name Freq PRN Reason Stop Dose Admin Acetaminophen 650 mg 02/01/20 23:28 Tylenol PO Q4H PRN Pain MILD(1-3)/Fever >100.5/MA Alprazolam 2 mg 02/02/20 03:00 02/02/20 14:21 Xanax PO 2 mg TID SHAHEED Administration Atorvastatin Calcium 40 mg 02/02/20 22:00 Lipitor PO QHS SHAHEED Carisoprodol 350 mg 02/02/20 03:00 02/02/20 14:21 Soma PO 350 mg TID [facility] Administration Carvedilol 12.5 mg 02/02/20 03:00 02/02/20 08:59 Coreg PO 12.5 mg BID [facility] Administration Heparin Sodium (Porcine) 5,000 unit 02/02/20 06:00 02/02/20 14:22 Heparin SUB-Q 5,000 unit Q8HR SHAHEED Administration Hydralazine HCl 10 mg 02/02/20 11:00 Apresoline IV Q4HR PRN Hypertension Hydromorphone HCl 0.5 mg 02/01/20 23:34 02/02/20 09:00 Dilaudid IV 0.5 mg Q3H PRN Administration Pain , Severe (7-10) Sodium Chloride 500 mls @ 50 mls/hr 02/02/20 11:00 Nacl 0.9% 500 Ml IV 02/02/20 20:59 DIRECT [facility] Magnesium Hydroxide 30 ml 02/01/20 23:28 Milk Of Magnesia PO Q4H PRN Constipation Nitroglycerin 0.4 mg 02/01/20 23:28 Nitrostat SL Q5M PRN Chest Pain Ondansetron HCl 4 mg 02/01/20 23:28 Zofran IV Q8H PRN Nausea And Vomiting Oxycodone HCl 20 mg 02/02/20 13:29 02/02/20 15:26 Roxicodone PO 20 mg Q6H PRN Administration Pain, Moderate (4-6) Sodium Chloride 10 ml 02/02/20 10:00 02/02/20 09:00 Sodium Chloride Flush Syringe 10 Ml IV 10 ml BID [facility] Administration Sodium Chloride 10 ml 02/01/20 23:28 Sodium Chloride Flush Syringe 10 Ml IV PRN PRN LINE FLUSH Tamsulosin HCl 0.4 mg 02/02/20 22:00 Flomax PO QHS [facility] Torsemide 100 mg 02/02/20 03:00 02/02/20 06:07 Demadex PO Not Given 0600,1800 [facility]
--- NOTE | 2020-02-02 10:59 | Consultation ---
History of Present Illness Consult date: 02/02/20 Requesting physician: ANNE LYNN Consult reason: chest pain History of present illness: The pt is a 54-year-old male with a past medical history of hypertension, HFpEF, DM, pulmonary embolism in 02/2015, GERD COPD, JENNIFER (noncompliant with CPAP), rheumatoid arthritis, morbid obesity, BPH, ASA allergy. He has been seen by our practice on prior hospitalization, reports that he has been followed by [place] [facility] in the past. He presented for evaluation following a presyncopal episode and ongoing chest pain. He states he was walking up some stairs when he became very lightheaded and fell down. He experienced a similar episode several weeks ago. He has been experiencing chest pain for several weeks. He describes his chest pain as a midsternal "lightning strike" which is aggravated by exertion. Pt denies any SOB, palpitations, n/v, diaphoresis. Of note, pt reports a severe allergy to aspirin including tongue swelling and airway compromise. Pt was discharged from [facility] on 01/16/2020 following eval of chest pain and syncopal episode. He underwent lexiscan MPI stress test on 12/09/2019 which was negative. tte done 11/2019 showed EF 50-55%, mild to mod LVH, abnormal diastolic function, mild pulm HTN RVSP 37mmHg. AMI r/o. Coronary angiography recommended for definitive diagnosis given recent negative stress test. Pt was initially agreeable to [facility] but ultimately declined because he was unsure that he could lay flat throughout the procedure due to chronic back pain. Lexiscan MPI stress test done 12/09/2019 was negative. tte done 11/2019 showed EF 50-55%, mild to mod LVH, abnormal diastolic function, mild pulm HTN RVSP 37mmHg. Past History Past Medical History: arthritis, COPD, heart failure, hypertension, hyperlipidemia, pulmonary embolism, stroke, other (Sleep Apnea,) Past Surgical History: Other (Spinal fusion in 2011,Colon Resection and Colostomy Reversal.) Social history: smoking (Occasional Tobacco Use.) Family history: no significant family history Medications and Allergies Allergies Allergy/AdvReac Type Severity Reaction Status Date / Time acetaminophen [From Tylenol] Allergy Unknown Verified 12/08/19 05:21 tramadol Allergy Itching Verified 09/06/18 13:24 Home Medications Medication Instructions Recorded Confirmed Last Taken Type ALPRAZolam [Xanax TAB] 2 mg PO TID 09/07/18 02/02/20 1 Day Ago History ~01/14/20 Tamsulosin [Flomax] 0.4 mg PO QHS #30 capsule 12/09/19 02/02/20 Unknown Rx Carisoprodol [Soma] 250 mg PO TID 01/15/20 02/02/20 Unknown History Carvedilol [Coreg] 4.6 mg PO BID 01/15/20 02/02/20 Unknown History Oxycodone HCl [oxyCODONE] 20 mg PO Q6H PRN 01/15/20 02/02/20 1 Day Ago History ~01/14/20 Rosuvastatin (Nf) [Crestor] 5 mg PO QHS 01/15/20 02/02/20 Unknown History ALPRAZolam [Xanax TAB] 1 mg PO TID tablet 01/16/20 02/02/20 Unknown Rx AtorvaSTATin 5 mg PO QHS 30 Days #30 tablet 01/16/20 02/02/20 Unknown Rx Torsemide [Demadex] 100 mg PO Q12HR tablet 01/16/20 02/02/20 Unknown Rx carisoprodoL [Soma] 350 mg PO TID tablet 01/16/20 02/02/20 Unknown Rx carvediloL [Coreg] 3.125 mg PO BID 30 Days #60 tablet 01/16/20 02/02/20 Unknown Rx Acetaminophen/Codeine [Tylenol #3] 1 tab PO Q6H PRN #10 tab 01/21/20 02/02/20 Unknown Rx cephALEXin [Keflex] 500 mg PO Q8HR #30 cap 01/21/20 02/02/20 Unknown Rx Tamsulosin [Flomax] 12 mg PO QDAY 02/02/20 02/02/20 Unknown History Active Meds: Active Medications Acetaminophen (Tylenol) 650 mg PO Q4H PRN PRN Reason: Pain MILD(1-3)/Fever >100.5/MA Alprazolam (Xanax) 2 mg PO TID SHAHEED Last Admin: 02/02/20 08:57 Dose: 2 mg Documented by: Aspirin (Ecotrin) 325 mg PO QDAY SHAHEED Atorvastatin Calcium (Atorvastatin) 5 mg PO QHS SHAHEED Carisoprodol (Soma) 350 mg PO TID [facility] Last Admin: 02/02/20 08:57 Dose: 350 mg Documented by: Carvedilol (Coreg) 12.5 mg PO BID [facility] Last Admin: 02/02/20 08:59 Dose: 12.5 mg Documented by: Heparin Sodium (Porcine) (Heparin) 5,000 unit SUB-Q Q8HR [facility] Last Admin: 02/02/20 06:10 Dose: Not Given Documented by: Hydralazine HCl (Apresoline) 10 mg IV Q4HR PRN PRN Reason: Hypertension Hydromorphone HCl (Dilaudid) 0.5 mg IV Q3H PRN PRN Reason: Pain , Severe (7-10) Last Admin: 02/02/20 06:05 Dose: 0.5 mg Documented by: Sodium Chloride (Nacl 0.9% 500 Ml) 500 mls @ 50 mls/hr IV DIRECT [facility] Stop: 02/02/20 20:59 Magnesium Hydroxide (Milk Of Magnesia) 30 ml PO Q4H PRN PRN Reason: Constipation Nitroglycerin (Nitrostat) 0.4 mg SL Q5M PRN PRN Reason: Chest Pain Ondansetron HCl (Zofran) 4 mg IV Q8H PRN PRN Reason: Nausea And Vomiting Sodium Chloride (Sodium Chloride Flush Syringe 10 Ml) 10 ml IV BID [facility] Last Admin: 02/02/20 09:00 Dose: 10 ml Documented by: Sodium Chloride (Sodium Chloride Flush Syringe 10 Ml) 10 ml IV PRN PRN PRN Reason: LINE FLUSH Tamsulosin HCl (Flomax) 0.4 mg PO QHS [facility] Torsemide (Demadex) 100 mg PO 0600,1800 [facility] Last Admin: 02/02/20 06:07 Dose: Not Given Documented by: Review of Systems Constitutional: no weight loss, no weight gain, no fever, no chills, no sweats Ears, nose, mouth and throat: no ear pain, no nose pain, no sinus pressure, no sinus pain Cardiovascular: chest pain, syncope, lightheadedness, no orthopnea, no palpitations, no rapid/irregular heart beat, no edema, no shortness of breath, no dyspnea on exertion, no high blood pressure, no leg edema Respiratory: no cough, no shortness of breath, no dyspnea on exertion, no congestion, no wheezing, no pain on inspiration Gastrointestinal: no abdominal pain, no nausea, no vomiting, no diarrhea, no constipation, no change in bowel habits Genitourinary Male: no dysuria, no hematuria, no flank pain, no discharge, no urinary frequency, no urinary hesitancy Musculoskeletal: no neck stiffness, no neck pain, no shooting arm pain, no arm numbness/tingling, no low back pain, no shooting leg pain Integumentary: no rash, no pruritis Neurological: syncope, no head injury, no paralysis, no weakness, no parathesias, no numbness, no tingling, no seizures Psychiatric: no anxiety Endocrine: no cold intolerance, no heat intolerance Hematologic/Lymphatic: no easy bruising, no easy bleeding Allergic/Immunologic: no urticaria Physical Examination Vital Signs Temp Pulse Resp BP Pulse Ox 99.4 F 80 20 116/80 99 02/01/20 20:01 02/01/20 20:01 02/01/20 20:01 02/01/20 20:01 02/01/20 20:01 General appearance: no acute distress HEENT: Positive: PERRL, Normocephaly, Mucus Membranes Moist Neck: Positive: neck supple, trachea midline Cardiac: Positive: Reg Rate and Rhythm, S1/S2 Lungs: Positive: Decreased Breath Sounds Neuro: Positive: Grossly Intact Abdomen: Negative: Tender Skin: Negative: Rash Musculoskeletal: No Pain Extremities: Absent: edema Results 02/02/20 04:15 02/02/20 04:15 Coagulation 02/01/20 02/02/20 Range/Units 20:16 04:15 PT 13.2 13.5 (12.2-14.9) Sec. INR 0.98 1.01 (0.87-1.13) Lipids 02/02/20 Range/Units 04:15 Triglycerides 88 (2-149) mg/dL Cholesterol 192 (50-199) mg/dL HDL Cholesterol 51 (40-59) mg/dL Cholesterol/HDL Ratio 3.76 % CBC 02/01/20 02/02/20 Range/Units 20:16 04:15 WBC 11.6 H 10.7 (4.5-11.0) K/mm3 RBC 4.15 4.03 (3.65-5.03) M/mm3 Hgb 13.6 13.3 (11.8-15.2) gm/dl Hct 39.2 38.2 (35.5-45.6) % Plt Count 233 219 (140-440) K/mm3 Lymph # 2.0 1.9 (1.2-5.4) K/mm3 [place] # 1.2 H 1.2 H (0.0-0.8) K/mm3 Eos # 0.1 0.1 (0.0-0.4) K/mm3 Baso # 0.1 0.1 (0.0-0.1) K/mm3 Comprehensive Metabolic Panel 02/01/20 02/02/20 Range/Units 20:16 04:15 Sodium 139 138 (137-145) mmol/L Potassium 3.0 L 3.1 L (3.6-5.0) mmol/L Chloride 93.5 L 92.8 L (98-107) mmol/L Carbon Dioxide 31 H 31 H (22-30) mmol/L BUN 22 H 24 H (9-20) mg/dL Creatinine 1.0 1.0 (0.8-1.3) mg/dL Glucose 109 H 127 H (75-100) mg/dL Calcium 9.4 9.5 (8.4-10.2) mg/dL - Imaging and Cardiology Echo: report reviewed (11/2019 showed EF 50-55%, mild to mod LVH, abnormal diastolic function, mild pulm HTN RVSP 37mmHg. ) EKG: report reviewed, image reviewed EKG interpretations - Telemetry EKG Rhythm: Sinus Rhythm - EKG Sinus rhythms and dysrhythmias: sinus rhythm Assessment and Plan Pt presents with c/o chest pain and pre syncopal episode. He underwent lexiscan MPI stress test on 12/09/2019 which was negative. tte done 11/2019 showed EF 50- 55%, mild to mod LVH, abnormal diastolic function, mild pulm HTN RVSP 37mmHg. AMI r/o. Coronary angiography recommended for definitive diagnosis given recent negative stress test. Indications, potential risks and benefits reviewed with pt and he is agreeable to proceed with [facility] in AM. NPO after MN. The patient has been seen in conjunction with Dr. Mays who agrees with the assessment and plan of care. - Patient Problems (1) Chest pain Current Visit: Yes Status: Acute (2) Pre syncope Current Visit: Yes Status: Acute (3) HTN (hypertension) Current Visit: Yes Status: Chronic (4) Diabetes Current Visit: Yes Status: Chronic (5) History of pulmonary embolism Current Visit: Yes Status: Chronic (6) Morbid obesity Current Visit: Yes Status: Chronic (7) Obstructive sleep apnea Current Visit: Yes Status: Chronic (8) ASA allergy Current Visit: Yes Status: Chronic (9) Rheumatoid arthritis Current Visit: Yes Status: Chronic
[2020-02-02] MEDS ORDERED: SODIUM CHLORIDE 0.9% 500 ML 500 ML IV SCH (11:00)
[2020-02-02] MEDS ORDERED: hydrALAZINE 20 MG/1 ML INJ IV PRN (11:00)
[2020-02-02] MEDS ORDERED: oxyCODONE /ACETAMINOPHEN 5-325MG TAB PO PRN (11:44)
[2020-02-02] MEDS ORDERED: oxyCODONE 5 MG TAB PO PRN (12:14)
[2020-02-02] MEDS ORDERED: CARISOPRODOL 250 MG PO SCH (14:00)
[2020-02-02] MEDS: oxyCODONE 5 MG TAB PO PRN ×2 (15:26→21:34)
[2020-02-02 18:11] LABS: BUN/Creatinine Ratio 23; Blood Urea Nitrogen 25 mg/dL (9-20); Calcium 9.5 mg/dL (8.4-10.2); Hemolysis Index 1
[2020-02-02] MEDS: TAMSULOSIN 0.4 MG CAP PO SCH (21:33)
[2020-02-03] MEDS: HYDROmorphone 1 MG/1 ML INJ IV PRN ×5 (03:05→23:09)
[2020-02-03] MEDS: oxyCODONE 5 MG TAB PO PRN ×4 (03:36→21:03)
[2020-02-03] MEDS: HEPARIN 5,000 UNIT/1 ML VIAL SUB-Q SCH ×3 (05:49→21:09)
[2020-02-03] MEDS: TORSEMIDE 100 MG TAB PO SCH ×2 (05:51→17:08)
[2020-02-03 06:16] LABS: Basophils # (Auto) 0.1 K/mm3 (0.0-0.1); Basophils % (Auto) 0.9 % (0.0-1.8); Eosinophils # (Auto) 0.2 K/mm3 (0.0-0.4); Eosinophils % (Auto) 1.4 % (0.0-4.3); Hematocrit 37.9 % (35.5-45.6); Lymphocytes # (Auto) 1.9 K/mm3 (1.2-5.4); Lymphocytes % (Auto) 17.2 % (13.4-35.0); Mean Corpuscular HGB Conc 34 % (32-34); Mean Corpuscular Volume 95 fl (84-94); Monocytes # (Auto) 0.8 K/mm3 (0.0-0.8); Monocytes % (Auto) 7.1 % (0.0-7.3); Platelet Count 235 K/mm3 (140-440); Red Blood Count 3.99 M/mm3 (3.65-5.03); Red Cell Distribution Width 17.5 % (13.2-15.2)
[2020-02-03 06:24] LABS: INR 0.95 (0.87-1.13)
[2020-02-03 06:33] LABS: BUN/Creatinine Ratio 25; Blood Urea Nitrogen 25 mg/dL (9-20); Calcium 9.8 mg/dL (8.4-10.2); Hemolysis Index 34
[2020-02-03] MEDS ORDERED: HEPARIN/NS 5000 UNIT/500ML 1,000 ML IR ONE (08:06)
[2020-02-03] MEDS ORDERED: fentaNYL 100 MCG/2 ML INJ ONE (08:06)
[2020-02-03] MEDS ORDERED: VERAPAMIL 5 MG/2 ML INJ ONE (08:06)
[2020-02-03] MEDS ORDERED: LIDOCAINE (2%) 20 MG/1 ML VIAL 20 ML MDV INFILTRATI ONE (08:06)
[2020-02-03] MEDS ORDERED: HEPARIN 10,000 UNITS/10 ML VIAL ONE (08:06)
[2020-02-03] MEDS ORDERED: MIDAZOLAM 2 MG/2 ML INJ ONE (08:06)
[2020-02-03] MEDS ORDERED: SODIUM CHLORIDE 0.9% 500 ML 500 ML ONE (08:08)
[2020-02-03] MEDS ORDERED: HYDROmorphone 1 MG/1 ML INJ ONE (08:17)
--- NOTE | 2020-02-03 09:06 | Progress Note ---
Assessment and Plan - Patient Problems (1) Acute chest pain Current Visit: Yes Status: Acute Plan to address problem: - Telemetry monitoring - Cardiology consulted - 02/02 Left heart cath: - Serial cardiac enzymes have been <0.01 - 12/07 echocardiogram showed mild to moderate LVH, EF 50 to 55%, mildly dilated LA and mild pulmonary hypertension - 12/08 Lexiscan negative for ischemia - PRN morphine and Nitroglycerin (2) Hypokalemia Current Visit: Yes Status: Resolved Plan to address problem: - 02/01 K 3.1, 3 on 01/31 4.1 - Repleted 02/01 - Replete as needed - Trend BMP (3) Acute on chronic diastolic CHF (congestive heart failure) Current Visit: No Status: Chronic Plan to address problem: - 12/07 echocardiogram showed moderate LVH, EF 55%, left atrium with mild dilation, mild pulmonary hypertension - Cardiology consulted - On Torsemide and Coreg and ASA - Supportive care 0 02/02 left heart cath (4) HTN (hypertension) Current Visit: No Status: Chronic Plan to address problem: - Restarted on coreg and diuretic - IV hydralazine PRN - BP monitoring per protocol (5) Laceration of left lower extremity Current Visit: No Status: Acute Plan to address problem: - WOCN consulted - This injury is likely from a recent fall down the stairs after presyncopal episode - WC per nursing (6) BPH (benign prostatic hyperplasia) Current Visit: No Status: Chronic Qualifiers: Lower urinary tract symptom presence: symptoms present Plan to address problem: - Flomax restarted (7) Hyperlipemia Current Visit: No Status: Chronic Plan to address problem: - Continue statin (8) History of pulmonary embolism Current Visit: No Status: Chronic (9) CVA, old, alterations of sensations Current Visit: Yes Status: Chronic Plan to address problem: - Residual slight right sided weakness - BB, ASA, Statin, diuretic - Supportive care (10) DVT prophylaxis Current Visit: No Status: Acute Plan to address problem: - heparin subq - SCDs to BLE while in bed History Interval history: 54 year old male with hypertension, HFpEF, DM, pulmonary embolism in 02/2015, GERD COPD, JENNIFER (noncompliant with CPAP), rheumatoid arthritis, morbid obesity, BPH presents for chest pain on 01/31. Cardiology consulted. In the emergency department his CTA chest and chest x-ray were negative. Of note he was recently admitted and refused a cardiac catheterization at that time with Dr. Ocasio. This morning he is off the floor for a left heart cath. No acute events reported overnight. Hospitalist Physical - Constitutional Vitals: Temp Pulse Resp BP Pulse Ox 97.1 F L 57 L 13 103/65 99 02/03/20 07:47 02/03/20 07:47 02/03/20 07:47 02/03/20 07:47 02/03/20 07:47 General appearance: Present: no acute distress, well-nourished HEART Score - HEART Score EKG: Non-specific Age: 45-65 Risk factors: 1-2 risk factors Troponin: Troponin T < 0.010 ng/mL (0.00-0.029) 02/02/20 04:15 Troponin: < normal limit - Critical Actions Critical Actions: 0-3 pts:0.9-1.7%risk of adverse cardiac event.Candidate for discharge Results - Labs CBC & Chem 7: 02/03/20 05:53 02/03/20 05:53 Labs: Laboratory Last Values WBC 11.3 K/mm3 (4.5-11.0) H 02/03/20 05:53 RBC 3.99 M/mm3 (3.65-5.03) 02/03/20 05:53 Hgb 13.0 gm/dl (11.8-15.2) 02/03/20 05:53 Hct 37.9 % (35.5-45.6) 02/03/20 05:53 MCV 95 fl (84-94) H 02/03/20 05:53 MCH 33 pg (28-32) H 02/03/20 05:53 MCHC 34 % (32-34) 02/03/20 05:53 RDW 17.5 % (13.2-15.2) H 02/03/20 05:53 Plt Count 235 K/mm3 (140-440) 02/03/20 05:53 Lymph % (Auto) 17.2 % (13.4-35.0) 02/03/20 05:53 [place] % (Auto) 7.1 % (0.0-7.3) 02/03/20 05:53 Eos % (Auto) 1.4 % (0.0-4.3) 02/03/20 05:53 Baso % (Auto) 0.9 % (0.0-1.8) 02/03/20 05:53 Lymph # 1.9 K/mm3 (1.2-5.4) 02/03/20 05:53 [place] # 0.8 K/mm3 (0.0-0.8) 02/03/20 05:53 Eos # 0.2 K/mm3 (0.0-0.4) 02/03/20 05:53 Baso # 0.1 K/mm3 (0.0-0.1) 02/03/20 05:53 Seg Neutrophils % 73.4 % (40.0-70.0) H 02/03/20 05:53 Seg Neutrophils # 8.3 K/mm3 (1.8-7.7) H 02/03/20 05:53 PT 12.9 Sec. (12.2-14.9) 02/03/20 05:53 INR 0.95 (0.87-1.13) 02/03/20 05:53 D-Dimer 358.55 ng/mlDDU (0-234) H 02/01/20 20:47 Sodium 136 mmol/L (137-145) L 02/03/20 05:53 Potassium 4.1 mmol/L (3.6-5.0) 02/03/20 05:53 Chloride 94.4 mmol/L (98-107) L 02/03/20 05:53 Carbon Dioxide 27 mmol/L (22-30) 02/03/20 05:53 Anion Gap 19 mmol/L 02/03/20 05:53 BUN 25 mg/dL (9-20) H 02/03/20 05:53 Creatinine 1.0 mg/dL (0.8-1.3) 02/03/20 05:53 Estimated GFR > 60 ml/min 02/03/20 05:53 BUN/Creatinine Ratio 25 % 02/03/20 05:53 Glucose 104 mg/dL (75-100) H 02/03/20 05:53 Calcium 9.8 mg/dL (8.4-10.2) 02/03/20 05:53 Magnesium 2.00 mg/dL (1.7-2.3) 02/02/20 04:15 Troponin T < 0.010 ng/mL (0.00-0.029) 02/02/20 04:15 Triglycerides 88 mg/dL (2-149) 02/02/20 04:15 Cholesterol 192 mg/dL (50-199) 02/02/20 04:15 LDL Cholesterol Direct 134 mg/dL (50-130) H 02/02/20 04:15 HDL Cholesterol 51 mg/dL (40-59) 02/02/20 04:15 Cholesterol/HDL Ratio 3.76 % 02/02/20 04:15 Blood Type O POSITIVE 02/03/20 05:53 Antibody Screen Negative 02/03/20 05:53 [place]/IV: Voiding Method Toilet IV Catheter Type [Left INT / Saline Lock Antecubital] IV Catheter Type [Left Distal INT / Saline Lock Port Forearm] Active Medications - Current Medications Current Medications: Generic Name Dose Route Start Last Admin Trade Name Freq PRN Reason Stop Dose Admin Acetaminophen 650 mg 02/01/20 23:28 Tylenol PO Q4H PRN Pain MILD(1-3)/Fever >100.5/MA Alprazolam 2 mg 02/02/20 03:00 02/02/20 19:26 Xanax PO 2 mg TID [facility] Administration Atorvastatin Calcium 40 mg 02/02/20 22:00 02/02/20 21:33 Lipitor PO 40 mg QHS [facility] Administration Carisoprodol 350 mg 02/02/20 03:00 02/02/20 19:26 Soma PO 350 mg TID [facility] Administration Carvedilol 12.5 mg 02/02/20 03:00 02/02/20 21:34 Coreg PO 12.5 mg BID SHAHEED Administration Heparin Sodium (Porcine) 5,000 unit 02/02/20 06:00 02/03/20 05:49 Heparin SUB-Q Not Given Q8HR SHAHEED Hydralazine HCl 10 mg 02/02/20 11:00 Apresoline IV Q4HR PRN Hypertension Hydromorphone HCl 0.5 mg 02/01/20 23:34 02/03/20 06:08 Dilaudid IV 0.5 mg Q3H PRN Administration Pain , Severe (7-10) Magnesium Hydroxide 30 ml 02/01/20 23:28 Milk Of Magnesia PO Q4H PRN Constipation Nitroglycerin 0.4 mg 02/01/20 23:28 Nitrostat SL Q5M PRN Chest Pain Ondansetron HCl 4 mg 02/01/20 23:28 Zofran IV Q8H PRN Nausea And Vomiting Oxycodone HCl 20 mg 02/02/20 13:29 02/03/20 03:36 Roxicodone PO 20 mg Q6H PRN Administration Pain, Moderate (4-6) Sodium Chloride 10 ml 02/02/20 10:00 02/02/20 21:48 Sodium Chloride Flush Syringe 10 Ml IV 10 ml BID SHAHEED Administration Sodium Chloride 10 ml 02/01/20 23:28 Sodium Chloride Flush Syringe 10 Ml IV PRN PRN LINE FLUSH Tamsulosin HCl 0.4 mg 02/02/20 22:00 02/02/20 21:33 Flomax PO 0.4 mg QHS SHAHEED Administration Torsemide 100 mg 02/02/20 03:00 02/03/20 05:51 Demadex PO Not Given 0600,1800 SHAHEED
[2020-02-03] MEDS: ALPRAZolam 1 MG TAB PO SCH ×3 (09:34→20:29)
[2020-02-03] MEDS: CARISOPRODOL 350 MG TAB PO SCH ×3 (09:35→20:30)
[2020-02-03] MEDS: carvediloL 12.5 MG TAB PO SCH ×2 (09:35→21:04)
--- NOTE | 2020-02-03 10:47 | Discharge Summary ---
<PETERJEREMY TianaJose Carlos - Last Filed: 02/03/20 11:11> Providers - Providers Date of Admission: 02/01/20 23:07 Date of discharge: 02/03/20 Attending physician: BRIANNA CHILDRESS MD 02/01/20 Consult to Cardiac Rehabilitation [CONS] Routine Reason For Exam: Phase I 02/01/20 23:29 Consult to Cardiology [CONS] Routine Consulting Provider: JEANMARIE EDWARDS Reason For Exam: chest pain 02/02/20 00:46 Consult to Wound/ET Nurse [CONS] Routine Reason For Exam: wound eval left lower extremity Primary care physician: BATT MACHINE OPERATOR Hospitalization Condition: Stable Hospital course: 54 year old male with hypertension, HFpEF, DM, pulmonary embolism in 02/2015, GERD, COPD, JENNIFER (noncompliant with CPAP), rheumatoid arthritis, morbid obesity, BPH presents for chest pain on 01/31. In the emergency department his CTA chest and chest x-ray were negative. Of note he was recently admitted and refused a cardiac catheterization at that time with Dr. Ocasio. His electrolyte imbalances were corrected. Cardiology was consulted and attempted to perform a left heart catheterization this morning. However the patient was unable to lay for the procedure. He will need to f/u with cardiology and his PCP within 1-2 weeks of discharge. Please follow up in office with Dr. Edwards within 2 weeks of discharge ([phone]) - Patient Problems (1) Acute chest pain Current Visit: Yes Status: Acute Plan to address problem: - Telemetry monitoring - Cardiology unable to performe left heart cath on 02/02 because of patient discomfort - Serial cardiac enzymes <0.010 - 12/07 echocardiogram showed mild to moderate LVH, EF 50 to 55%, mildly dilated LA and mild pulmonary hypertension - 12/08 Lexiscan negative for ischemia (2) Hypokalemia Current Visit: Yes Status: resolved Plan to address problem: - 02/02 K 4.1 (3) Acute on chronic diastolic CHF (congestive heart failure) Current Visit: No Status: Chronic Plan to address problem: - 12/07 echocardiogram showed moderate LVH, EF 55%, left atrium with mild dilation, mild pulmonary hypertension - Resume your home torsemide, coreg and aspirin - Follow up with cardiology outpatient (4) HTN (hypertension) Current Visit: No Status: Chronic Plan to address problem: - Resume your home BP regimen - Home BP monitoring daily (5) Laceration of left lower extremity Current Visit: No Status: Acute Plan to address problem: - WOCN consulted - This injury is likely from a recent fall down the stairs after presyncopal episode - WC per nursing (6) BPH (benign prostatic hyperplasia) Current Visit: No Status: Chronic Qualifiers: Lower urinary tract symptom presence: symptoms present Plan to address problem: - Flomax restarted (7) Hyperlipemia Current Visit: No Status: Chronic Plan to address problem: - Continue statin (8) History of pulmonary embolism Current Visit: No Status: Chronic (9) CVA, old, alterations of sensations Current Visit: Yes Status: Chronic Plan to address problem: - Residual slight right sided weakness - Supportive care Disposition: DC-01 TO HOME OR SELFCARE Time spent for discharge: 40 Core Measure Documentation - Palliative Care Palliative Care/ Comfort Measures: Not Applicable - Core Measures Any of the following diagnoses?: history only Exam - Constitutional Vitals: Temp Pulse Resp BP Pulse Ox 97.1 F L 57 L 13 103/65 99 02/03/20 07:47 02/03/20 07:47 02/03/20 07:47 02/03/20 07:47 02/03/20 07:47 General appearance: Present: no acute distress - EENT Eyes: Present: PERRL, EOM intact ENT: hearing intact - Neck Neck: Present: supple, normal ROM - Respiratory Respiratory effort: normal Respiratory: bilateral: CTA - Cardiovascular Rhythm: regular Heart Sounds: Present: S1 & S2. Absent: systolic murmur, diastolic murmur - Extremities Extremities: no ischemia, pulses intact, pulses symmetrical, No edema, normal temperature, normal color, Full ROM Peripheral Pulses: within normal limits - Abdominal General gastrointestinal: Present: soft, non-tender, non-distended, normal bowel sounds - Integumentary Integumentary: Present: clear, warm, dry - Musculoskeletal Musculoskeletal: strength equal bilaterally - Psychiatric Psychiatric: cooperative - Neurologic Neurologic: CNII-XII intact, no focal deficits, moves all extremities - Allied Health Allied health notes reviewed: nursing, social work Plan Activity: advance as tolerated Diet: low salt, diabetic Wound: per wound nurse instructions Special Instructions: record daily weights, record daily BP diary Additional Instructions: Please report to the nearest ED or call your PCP if you have worsening symtpoms. Please f/u with your PCP and Cardiology within 1-2 weeks of discharge Follow up with: PRIMARY MD KELLY [Primary Care Provider] - 3-5 Days JEANMARIE EDWARDS MD [Staff Physician] - 7 Days Prescriptions: AtorvaSTATin [Lipitor] 40 mg PO QHS #30 tablet carvediloL [Coreg] 12.5 mg PO BID #60 tablet <BRIANNA CHILDRESS - Last Filed: 02/03/20 14:42> Providers - Providers Date of Admission: 02/01/20 23:07 Attending physician: BRIANNA CHILDRESS MD 02/01/20 Consult to Cardiac Rehabilitation [CONS] Routine Reason For Exam: Phase I 02/01/20 23:29 Consult to Cardiology [CONS] Routine Consulting Provider: JEANMARIE EDWARDS Reason For Exam: chest pain 02/02/20 00:46 Consult to Wound/ET Nurse [CONS] Routine Reason For Exam: wound eval left lower extremity Primary care physician: BATT MACHINE OPERATOR Hospitalization Reason for admission: Congestive heart failure Hospital course: I saw and evaluated the patient. I agree with the findings and the plan of care as documented in the Nurse Practitioner's~note, with the following corrections and additions. Patient clinical stable, unable to lay down flat due to cervical fusion with spinal andrei. will follow outpatient with Cardiology, understands importance of definitive treatment. Chest pain is secondary to congestive heart failure. Exam - Constitutional Vitals: Temp Pulse Resp BP Pulse Ox 97.1 F L 57 L 13 103/65 99 02/03/20 07:47 02/03/20 07:47 02/03/20 07:47 02/03/20 07:47 02/03/20 07:47
--- NOTE | 2020-02-03 10:58 | Progress Note ---
Assessment and Plan Pt presents with c/o chest pain and pre syncopal episode. He underwent lexiscan MPI stress test on 12/09/2019 which was negative. tte done 11/2019 showed EF 50- 55%, mild to mod LVH, abnormal diastolic function, mild pulm HTN RVSP 37mmHg. AMI r/o. Coronary angiography recommended for definitive diagnosis given recent negative stress test. Similar to a recent [facility] admission, pt was initially agreeable to [facility], but states this morning that he is unable to lie flat due to chronic neck and back pain and refuses to proceed with [facility]. Currently stable cardiac status. Chest pain currently resolved. Pt may discharge from cardiology standpoint on present cardiac regimen. Recommend pt follow up in our office with Dr. Mays within 2 weeks of d ischarge ([phone]). Pt verbalizes understanding. The patient has been seen in conjunction with Dr. Mays who agrees with the assessment and plan of care. - Patient Problems (1) Chest pain Current Visit: Yes Status: Resolved (2) Pre syncope Current Visit: Yes Status: Acute (3) HTN (hypertension) Current Visit: Yes Status: Chronic (4) Diabetes Current Visit: Yes Status: Chronic (5) History of pulmonary embolism Current Visit: Yes Status: Chronic (6) Morbid obesity Current Visit: Yes Status: Chronic (7) Obstructive sleep apnea Current Visit: Yes Status: Chronic (8) ASA allergy Current Visit: Yes Status: Chronic (9) Rheumatoid arthritis Current Visit: Yes Status: Chronic Subjective Date of service: 02/03/20 Principal diagnosis: cp Interval history: pt ambulating around unit, no current cardiac complaints. in SR on tele HR 80s. Objective Last Vital Signs Temp 97.1 F L 02/03/20 07:47 Pulse 57 L 02/03/20 07:47 Resp 13 02/03/20 07:47 BP 103/65 02/03/20 07:47 Pulse Ox 99 02/03/20 07:47 - Physical Examination General: No Apparent Distress HEENT: Positive: PERRL, Normocephaly, Mucus Membranes Moist Neck: Positive: neck supple, trachea midline Cardiac: Positive: Reg Rate and Rhythm, S1/S2 Lungs: Positive: Decreased Breath Sounds Neuro: Positive: Grossly Intact Abdomen: Negative: Tender Skin: Negative: Rash Musculoskeletal: No Pain Extremities: Absent: edema - Labs and Meds Coagulation 02/03/20 Range/Units 05:53 PT 12.9 (12.2-14.9) Sec. INR 0.95 (0.87-1.13) CBC 02/03/20 Range/Units 05:53 WBC 11.3 H (4.5-11.0) K/mm3 RBC 3.99 (3.65-5.03) M/mm3 Hgb 13.0 (11.8-15.2) gm/dl Hct 37.9 (35.5-45.6) % Plt Count 235 (140-440) K/mm3 Lymph # 1.9 (1.2-5.4) K/mm3 [place] # 0.8 (0.0-0.8) K/mm3 Eos # 0.2 (0.0-0.4) K/mm3 Baso # 0.1 (0.0-0.1) K/mm3 Comprehensive Metabolic Panel 02/02/20 02/03/20 Range/Units 17:25 05:53 Sodium 135 L 136 L (137-145) mmol/L Potassium 3.6 4.1 (3.6-5.0) mmol/L Chloride 92.9 L 94.4 L (98-107) mmol/L Carbon Dioxide 27 27 (22-30) mmol/L BUN 25 H 25 H (9-20) mg/dL Creatinine 1.1 1.0 (0.8-1.3) mg/dL Glucose 151 H 104 H (75-100) mg/dL Calcium 9.5 9.8 (8.4-10.2) mg/dL - Imaging and Cardiology EKG: report reviewed, image reviewed Echo: report reviewed (11/2019 showed EF 50-55%, mild to mod LVH, abnormal diastolic function, mild pulm HTN RVSP 37mmHg. ) - EKG Sinus rhythms and dysrhythmias: sinus rhythm
[2020-02-03] MEDS: TAMSULOSIN 0.4 MG CAP PO SCH (21:11)
[2020-02-04] MEDS: HYDROmorphone 1 MG/1 ML INJ IV PRN ×3 (02:07→07:58)
[2020-02-04] MEDS: oxyCODONE 5 MG TAB PO PRN ×2 (03:51→09:36)
[2020-02-04] MEDS: TORSEMIDE 100 MG TAB PO SCH (05:03)
[2020-02-04] MEDS: HEPARIN 5,000 UNIT/1 ML VIAL SUB-Q SCH (05:19)
[2020-02-04] MEDS: ALPRAZolam 1 MG TAB PO SCH (08:06)
[2020-02-04] MEDS: CARISOPRODOL 350 MG TAB PO SCH (08:06)
[2020-02-04 09:10] VITALS: BP 111/79
[2020-02-04] MEDS: carvediloL 12.5 MG TAB PO SCH (09:33)
== END 2020-02-04 10:55 | disposition home or self-care (01) ==
LOC: ED 19:29 → 4A 23:07
PROVIDERS: ADMIT Internal Medicine Geriatric Medicine; ATTEND Internal Medicine
DX: I20.8 Other forms of angina pectoris (principal); R07.89 Other chest pain; S81.812A Laceration without foreign body, left lower leg, initial encounter; I11.0 Hypertensive heart disease with heart failure; I50.9 Heart failure, unspecified; E87.6 Hypokalemia; J44.9 Chronic obstructive pulmonary disease, unspecified; E78.5 Hyperlipidemia, unspecified; F17.200 Nicotine dependence, unspecified, uncomplicated; M06.9 Rheumatoid arthritis, unspecified; R55 Syncope and collapse; K21.9 Gastro-esophageal reflux disease without esophagitis; N40.0 Benign prostatic hyperplasia without lower urinary tract symptoms; E66.01 Morbid (severe) obesity due to excess calories; G47.33 Obstructive sleep apnea (adult) (pediatric); Z86.73 Personal history of transient ischemic attack (TIA), and cerebral infarction without residual deficits; Z86.711 Personal history of pulmonary embolism; Z79.82 Long term (current) use of aspirin; Z68.34 Body mass index [BMI] 34.0-34.9, adult; X58.XXXA Exposure to other specified factors, initial encounter; Y93.89 Activity, other specified; Y92.89 Other specified places as the place of occurrence of the external cause; Y99.8 Other external cause status
CPT/HCPCS: 36415; 71045; 71275; 80048; 80061; 83735; 84484; 85025; 85379; 85610; 86850; 86900; 86901; 93005; 96372; 96374; 96376; 99285; A9270; C1894; G0378; J1170; J1644; J7040; Q9967; J2250; J3010

== ENCOUNTER 2020-03-31 20:16 | Observation (INO) | payer MEDICARE ==
[2020-03-31] MEDS ORDERED: ASPIRIN 325 MG TAB PO ONE (20:39)
[2020-03-31] MEDS ORDERED: fentaNYL 100 MCG/2 ML INJ IV ONE ×2 (21:06→22:23)
[2020-03-31] MEDS ORDERED: ONDANSETRON 4 MG/2 ML INJ IV ONE (21:06)
[2020-03-31] MEDS ORDERED: NITROGLYCERIN 2% OINT 1 GM TP ONE (21:06)
[2020-03-31 21:17] LABS: Basophils # (Auto) 0.1 K/mm3 (0.0-0.1); Basophils % (Auto) 0.7 % (0.0-1.8); Eosinophils # (Auto) 0.2 K/mm3 (0.0-0.4); Eosinophils % (Auto) 1.5 % (0.0-4.3); Hematocrit 41.4 % (35.5-45.6); Lymphocytes # (Auto) 1.8 K/mm3 (1.2-5.4); Lymphocytes % (Auto) 16.3 % (13.4-35.0); Mean Corpuscular HGB Conc 34 % (32-34); Mean Corpuscular Volume 100 fl (84-94); Monocytes # (Auto) 1.3 K/mm3 (0.0-0.8); Monocytes % (Auto) 11.7 % (0.0-7.3); Platelet Count 221 K/mm3 (140-440); Red Blood Count 4.13 M/mm3 (3.65-5.03); Red Cell Distribution Width 15.9 % (13.2-15.2)
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
[2020-03-31 21:27] LABS: BUN/Creatinine Ratio 17; Blood Urea Nitrogen 19 mg/dL (9-20); Calcium 9.8 mg/dL (8.4-10.2); Hemolysis Index 14
--- NOTE | 2020-03-31 22:06 | XRay Report ---
CHEST 1 VIEW INDICATION / CLINICAL INFORMATION: MAIN. COMPARISON: 03/03/2020 FINDINGS: SUPPORT DEVICES: None. HEART / MEDIASTINUM: Stable. LUNGS / PLEURA: No significant pulmonary or pleural abnormality. No pneumothorax. ADDITIONAL FINDINGS: No significant additional findings. IMPRESSION: 1. No acute findings. Signer Name: Buster Guevara MD Signed: 03/31/2020 10:02 PM Workstation Name: [id number]
[2020-03-31] MEDS ORDERED: POTASSIUM CHLORIDE ER 20 MEQ TAB PO ONE (22:08)
[2020-03-31] MEDS ORDERED: MORPHINE 4 MG/1 ML INJ IV ONE (22:56)
--- NOTE | 2020-03-31 23:17 | XRay Report ---
RIGHT HIP/PELVIS 2 VIEW(S) INDICATION / CLINICAL INFORMATION: Pain after fall COMPARISON: Right hip radiograph 08/28/2015 FINDINGS: BONES/ JOINT(S): Postoperative change of bilateral total hip arthroplasties. No fracture or dislocati on. No significant hardware abnormality. Degenerative change at the lower lumbar spine and sacral ruslan ac joints. SOFT TISSUES: No significant abnormality. ADDITIONAL FINDINGS: None. Signer Name: Buster Guevara MD Signed: 03/31/2020 11:12 PM Workstation Name: [id number]
--- NOTE | 2020-04-01 00:39 | Cat Scan Report ---
CTA of the chest with 3D Reconstruction Indication: ,Chest pain, shortness of breath Technique: TECHNIQUE: Axial CT images were obtained through the chest after injection of 100 cc of Omnipaque 350 is administered IV contrast. 3 plane MIP reconstructions were produced. All CT scans at this [facility] are performed using CT dose reduction for ALARA by means of automated exposure control. COMPARISON: CT scan dated 03/01/2020 Automatic exposure control was utilized in an attempt to reduce radiation dose. Findings: Pulmonary arteries: The main pulmonary artery and right and left pulmonary artery branches fill satis factorily with contrast. No pulmonary embolus is seen. Lungs: There is mild dependent atelectasis in the lungs appear unchanged Mediastinum: Heart size is normal. No adenopathy is seen. Aorta: Normal in diameter. No dissection seen within limits of this exam. Impression: No pulmonary embolus is seen Signer Name: Obi Castellon MD Signed: 04/01/2020 12:34 AM Workstation Name: [id number]
[2020-04-01] MEDS ORDERED: MORPHINE 2 MG/1 ML INJ IV PRN (02:09)
[2020-04-01] MEDS ORDERED: DEXTROSE 50% IN WATER (25GM) 50 ML SYRINGE IV PRN (02:09)
[2020-04-01] MEDS ORDERED: ACETAMINOPHEN 325 MG TAB PO PRN ×2 (02:09)
[2020-04-01] MEDS ORDERED: MAGNESIUM HYDROXIDE (MOM) ORAL LIQD UDC PO PRN (02:09)
[2020-04-01] MEDS ORDERED: ONDANSETRON 4 MG/2 ML INJ IV PRN (02:09)
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
[2020-04-01] MEDS ORDERED: MORPHINE 2 MG/1 ML INJ ONE (03:07)
[2020-04-01 04:27] LABS: Basophils # (Auto) 0.1 K/mm3 (0.0-0.1); Basophils % (Auto) 0.6 % (0.0-1.8); Eosinophils # (Auto) 0.2 K/mm3 (0.0-0.4); Eosinophils % (Auto) 1.6 % (0.0-4.3); Hematocrit 39.9 % (35.5-45.6); Hemoglobin 13.8 gm/dl (11.8-15.2); Lymphocytes # (Auto) 2.1 K/mm3 (1.2-5.4); Lymphocytes % (Auto) 18.4 % (13.4-35.0); Mean Corpuscular HGB Conc 35 % (32-34); Mean Corpuscular Volume 100 fl (84-94); Monocytes # (Auto) 1.5 K/mm3 (0.0-0.8); Monocytes % (Auto) 12.7 % (0.0-7.3); Platelet Count 222 K/mm3 (140-440); Red Blood Count 3.99 M/mm3 (3.65-5.03)
[2020-04-01 04:41] LABS: BUN/Creatinine Ratio 17; Blood Urea Nitrogen 19 mg/dL (9-20); Calcium 9.5 mg/dL (8.4-10.2); Hemolysis Index 12
[2020-04-01] MEDS: MORPHINE 2 MG/1 ML INJ IV PRN ×4 (05:09→20:23)
[2020-04-01] MEDS: INSULIN LISPRO 100 UNIT/ML VIAL 3 mL SUB-Q SCH ×4 (09:28→22:02)
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
[2020-04-01] MEDS ORDERED: FLU VACC QUAD 2020-2021 (6 months +)/PF 60 0.5 ML SYRINGE IM ONE (12:00)
[2020-04-01] MEDS ORDERED: OXYCODONE HCL 20 MG PO PRN (14:12)
[2020-04-01] MEDS ORDERED: DOCUSATE SODIUM 50 MG PO SCH (14:15)
[2020-04-01] MEDS ORDERED: POTASSIUM CHLORIDE ER 20 MEQ TAB PO SCH (15:00)
[2020-04-01] MEDS ORDERED: ASPIRIN 81 MG TAB CHEW PO SCH (15:00)
[2020-04-01] MEDS: carvediloL 12.5 MG TAB PO SCH ×2 (15:04→22:02)
[2020-04-01] MEDS: TORSEMIDE 100 MG TAB PO SCH ×2 (15:26→22:00)
[2020-04-01] MEDS: oxyCODONE 5 MG TAB PO SCH ×3 (15:26→22:01)
[2020-04-01] MEDS: ALPRAZolam 1 MG TAB PO SCH ×2 (17:43→22:01)
[2020-04-01] MEDS ORDERED: NON-FORMULARY EACH (Alprazolam [Xanax Tab] 2 MG) PO SCH (18:00)
--- NOTE | 2020-04-01 18:22 | Discharge Summary ---
Providers - Providers Date of Admission: 04/01/20 02:09 Date of discharge: 04/01/20 Attending physician: ROBINSON RAVI 04/01/20 Consult to Cardiac Rehabilitation [CONS] Routine Reason For Exam: Phase I 04/01/20 02:09 Consult to Cardiology [CONS] Routine Consulting Provider: ESDRAS VELIZ Reason For Exam: chest pain Primary care physician: CYLINDER BLOCK HOLE RELINER Hospitalization Condition: Fair Hospital course: 54-year-old male with known history of hypertension, history of CVA, CHF, hyperlipidemia, GERD, history of PE in the past presenting to the emergency room today complaining of chest pain. Chest pain is said to be left-sided and radiating towards the left upper upper extremity. Pain was stabbing in nature. He states he lost consciousness and fell in the bathroom earlier today because of the pain. EMS was subsequently called by family members and was brought to the emergency room.. On a scale of 10 pain was about 6/10 in severity. No no relieving or exacerbating factor. He had associated nausea and vomiting, diaphoresis and shortness of breath. He denies any headache or dizziness, no fever or chills no abdominal pain. Work-up in the emergency room today including EKG and troponin levels were unremarkable. Patient is being admitted for work-up of his chest pain. The pt is a 54-year-old male with a past medical history of hypertension, HFpEF, DM, pulmonary embolism in 02/2015, GERD COPD, JENNIFER (noncompliant with CPAP), rheumatoid arthritis, morbid obesity, BPH, ASA allergy. He has been seen by our practice on prior hospitalization, reports that he has been followed by [facility] in the past. He presented for evaluation following a fall at home. Pt states that he was getting out of his shower yesterday when his legs became weak and he fell down. He hit his back on the side of the bathtub. He states that his daughter encouraged him to call EMS for evaluation of his heart, although he did not have any occurrence of chest pain, SOB, palpitations, n/v, diaphoresis, dizziness or syncope. He is feeling well on evaluation, no current complaints. Of note, pt was discharged from [facility] on both 01/16/2020, 02/03/2020 and 03/06/2020 following eval of chest pain. He underwent lexiscan MPI stress test on 12/09/2019 which was negative. tte done 11/2019 showed EF 50-55%, mild to mod LVH, abnormal diastolic function, mild pulm HTN RVSP 37mmHg. AMI r/o. Coronary angiography recommended on all three admissions for definitive diagnosis given recent negative stress test. Pt was initially agreeable to [facility] on all admissions but ultimately was unable to undergo the procedure due to chronic back pain and/or anxiety. (1) Acute chest pain Current Visit: Yes Status: Acute Plan to address problem: No stress test because the stress test was done recently in November 2019 and was negative (2) Diabetes Current Visit: No Status: Chronic Plan to address problem: Continue home medications (3) HTN (hypertension) Current Visit: No Status: Chronic Plan to address problem: Continue antihypertensive (4) Morbid obesity Current Visit: No Status: Chronic Plan to address problem: Patient counseled about morbid obesity (5) Obstructive sleep apnea Current Visit: No Status: Chronic Plan to address problem: Patient uses CPAP machine at home. (6) DVT prophylaxis Current Visit: No Status: Acute Plan to address problem: Patient placed on subcutaneous Lovenox. (7) Full code status Current Visit: No Status: Acute Disposition: DC-01 TO HOME OR SELFCARE - Discharge Diagnoses (1) Acute chest pain Status: Acute (2) CHF (congestive heart failure) Status: Acute (3) BPH (benign prostatic hyperplasia) Status: Chronic Qualifiers: Lower urinary tract symptom presence: symptoms present (4) COPD (chronic obstructive pulmonary disease) Status: Chronic Qualifiers: COPD type: unspecified COPD Qualified Code(s): J44.9 - Chronic obstructive pulmonary disease, unspecified (5) Chronic pain Status: Chronic (6) HTN (hypertension) Status: Chronic (7) Morbid obesity Status: Chronic Core Measure Documentation - Palliative Care Palliative Care/ Comfort Measures: Not Applicable - Core Measures Any of the following diagnoses?: none Exam - Constitutional Vitals: Temp Pulse Resp BP Pulse Ox 97.8 F 71 20 96/60 94 04/01/20 16:00 04/01/20 16:00 04/01/20 16:00 04/01/20 16:00 04/01/20 16:00 General appearance: Present: no acute distress, well-nourished - EENT Eyes: Present: PERRL ENT: hearing intact, clear oral mucosa - Neck Neck: Present: supple, normal ROM - Respiratory Respiratory effort: normal Respiratory: bilateral: CTA - Cardiovascular Heart rate: 78 Rhythm: regular Heart Sounds: Present: S1 & S2. Absent: rub, click - Extremities Extremities: no ischemia, pulses intact, pulses symmetrical, No edema Peripheral Pulses: within normal limits - Abdominal General gastrointestinal: Present: soft, non-tender, non-distended, normal bowel sounds Male genitourinary: Present: normal - Rectal Rectal Exam: deferred - Integumentary Integumentary: Present: clear, warm, dry - Musculoskeletal Musculoskeletal: gait normal, strength equal bilaterally - Psychiatric Psychiatric: appropriate mood/affect, intact judgment & insight - Neurologic Neurologic: CNII-XII intact, moves all extremities - Allied Health Allied health notes reviewed: nursing, case management Plan Activity: no restrictions Diet: low salt Follow up with: PRIMARY CARE, [Primary Care Provider] - 7 Days
[2020-04-01] MEDS ORDERED: GABAPENTIN 400 MG CAP PO SCH (20:00)
[2020-04-01] MEDS ORDERED: NON-FORMULARY EACH (Gabapentin [Neurontin] 800 MG) PO SCH (20:00)
[2020-04-01] MEDS ORDERED: CARISOPRODOL 350 MG TAB PO SCH (20:00)
[2020-04-01] MEDS ORDERED: TAMSULOSIN 0.4 MG CAP PO SCH (22:00)
[2020-04-01] MEDS ORDERED: NON-FORMULARY EACH (Rosuvastatin Calcium [Crestor] 20 MG) PO SCH (22:00)
[2020-04-01] MEDS ORDERED: DOCUSATE SODIUM 100 MG CAP PO SCH (22:00)
[2020-04-02] MEDS: MORPHINE 2 MG/1 ML INJ IV PRN (02:35)
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
[2020-04-02] MEDS ORDERED: KETOROLAC 30 MG/1 ML INJ IV ONE (04:32)
[2020-04-02 05:33] LABS: Basophils # (Auto) 0.1 K/mm3 (0.0-0.1); Basophils % (Auto) 0.9 % (0.0-1.8); Eosinophils # (Auto) 0.3 K/mm3 (0.0-0.4); Eosinophils % (Auto) 2.7 % (0.0-4.3); Hematocrit 39.3 % (35.5-45.6); Hemoglobin 13.7 gm/dl (11.8-15.2); Lymphocytes # (Auto) 1.8 K/mm3 (1.2-5.4); Mean Corpuscular HGB Conc 35 % (32-34); Mean Corpuscular Volume 100 fl (84-94); Monocytes # (Auto) 1.1 K/mm3 (0.0-0.8); Platelet Count 207 K/mm3 (140-440); Red Blood Count 3.93 M/mm3 (3.65-5.03); Red Cell Distribution Width 15.7 % (13.2-15.2)
[2020-04-02 05:36] LABS: INR 0.91 (0.87-1.13)
[2020-04-02 05:54] LABS: BUN/Creatinine Ratio 16; Blood Urea Nitrogen 18 mg/dL (9-20); Calcium 8.9 mg/dL (8.4-10.2); Hemolysis Index 5
[2020-04-02 08:25] VITALS: BP 129/76
[2020-04-02] MEDS ORDERED: ASPIRIN EC 325 MG TAB PO SCH (10:00)
[2020-04-02] MEDS ORDERED: PANTOPRAZOLE 40 MG TAB PO SCH (10:00)
== END 2020-04-02 08:55 | disposition home or self-care (01) ==
LOC: ED 20:16 → 4A 04-01 02:09
PROVIDERS: ADMIT Internal Medicine Geriatric Medicine; ATTEND Internal Medicine
DX: R07.89 Other chest pain (principal); I11.0 Hypertensive heart disease with heart failure; I50.9 Heart failure, unspecified; E11.9 Type 2 diabetes mellitus without complications; E66.01 Morbid (severe) obesity due to excess calories; G47.33 Obstructive sleep apnea (adult) (pediatric); K21.9 Gastro-esophageal reflux disease without esophagitis; E78.5 Hyperlipidemia, unspecified; N40.0 Benign prostatic hyperplasia without lower urinary tract symptoms; J44.9 Chronic obstructive pulmonary disease, unspecified; M06.9 Rheumatoid arthritis, unspecified; F17.210 Nicotine dependence, cigarettes, uncomplicated; Z86.73 Personal history of transient ischemic attack (TIA), and cerebral infarction without residual deficits; Z86.711 Personal history of pulmonary embolism; Z98.890 Other specified postprocedural states; Z79.82 Long term (current) use of aspirin; Z68.39 Body mass index [BMI] 39.0-39.9, adult
CPT/HCPCS: 36415; 71045; 71275; 73502; 80048; 82962; 84484; 85025; 85379; 85610; 93005; 96374; 96375; 96376; 99285; A9270; G0378; J1885; J2270; J2405; J3010; Q9967

== ENCOUNTER 2020-04-27 15:41 | Emergency (ER) | payer MEDICARE ==
[2020-04-27] MEDS ORDERED: ASPIRIN 81 MG TAB CHEW PO ONE (15:44)
--- NOTE | 2020-04-27 15:47 | Event Note ---
ED Screening Note Date of service: 04/27/20 Time: 15:46 ED Screening Note: Patient complains of sudden onset of left-sided chest pain today + Escobar sign This initial assessment/diagnostic orders/clinical plan/treatment(s) is/are subject to change based on patients health status, clinical progression and re- assessment by fellow clinical providers in the ED. Further treatment and workup at subsequent clinical providers discretion. Patient/guardian urged not to elope from the ED as their condition may be serious if not clinically assessed and managed. Initial orders include: Labs EKG Chest x-ray
[2020-04-27 16:02] VITALS: BP 110/93
[2020-04-27 16:30] LABS: Basophils # (Auto) 0.1 K/mm3 (0.0-0.1); Basophils % (Auto) 1.3 % (0.0-1.8); Eosinophils # (Auto) 0.1 K/mm3 (0.0-0.4); Eosinophils % (Auto) 1.5 % (0.0-4.3); Hematocrit 44.8 % (35.5-45.6); Hemoglobin 15.4 gm/dl (11.8-15.2); Lymphocytes # (Auto) 1.8 K/mm3 (1.2-5.4); Lymphocytes % (Auto) 18.5 % (13.4-35.0); Mean Corpuscular HGB Conc 34 % (32-34); Mean Corpuscular Volume 99 fl (84-94); Monocytes # (Auto) 1.1 K/mm3 (0.0-0.8); Monocytes % (Auto) 11.6 % (0.0-7.3); Platelet Count 239 K/mm3 (140-440); Red Blood Count 4.52 M/mm3 (3.65-5.03); Red Cell Distribution Width 15.2 % (13.2-15.2)
--- NOTE | 2020-04-27 16:36 | XRay Report ---
CHEST 2 VIEWS INDICATION / CLINICAL INFORMATION: MAIN. COMPARISON: 03/31/2020 FINDINGS: SUPPORT DEVICES: None. HEART / MEDIASTINUM: No significant abnormality. LUNGS / PLEURA: No significant pulmonary or pleural abnormality. No pneumothorax. ADDITIONAL FINDINGS: No significant additional findings. IMPRESSION: 1. No acute findings. No significant interval change. Signer Name: Leroy Vizcaino MD Signed: 04/27/2020 4:32 PM Workstation Name: [id number]
[2020-04-27 16:37] LABS: BUN/Creatinine Ratio 19; Blood Urea Nitrogen 19 mg/dL (9-20); Calcium 9.8 mg/dL (8.4-10.2); Hemolysis Index 6
[2020-04-27 16:40] LABS: Alanine Aminotransferase 26 units/L (7-56); Albumin 4.2 g/dL (3.9-5); Bilirubin,Direct < 0.2 mg/dL (0-0.2)
== END 2020-04-28 09:48 | disposition left against medical advice (07) ==
LOC: ED 15:41
DX: R07.9 Chest pain, unspecified (principal); Z53.21 Procedure and treatment not carried out due to patient leaving prior to being seen by health care provider
CPT/HCPCS: 36415; 71046; 80048; 80076; 84484; 85025; 93005

== ENCOUNTER 2020-04-28 22:26 | Inpatient (IN) | payer MEDICARE ==
[2020-04-28] MEDS ORDERED: ASPIRIN 325 MG TAB PO ONE (22:40)
[2020-04-28] MEDS ORDERED: ASPIRIN 81 MG TAB CHEW ONE (23:06)
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
--- NOTE | 2020-04-28 23:37 | XRay Report ---
CHEST 1 VIEW 04/28/2020 10:31 PM INDICATION / CLINICAL INFORMATION: Chest Pain. COMPARISON: 04/27/2020 FINDINGS: SUPPORT DEVICES: None. HEART / MEDIASTINUM: No significant abnormality. LUNGS / PLEURA: No significant pulmonary or pleural abnormality. No pneumothorax. ADDITIONAL FINDINGS: No significant additional findings. IMPRESSION: 1. No acute findings. Signer Name: Jelani Ortiz MD Signed: 04/28/2020 11:36 PM Workstation Name: [id number]
[2020-04-28 23:38] LABS: Basophils # (Auto) 0.1 K/mm3 (0.0-0.1); Basophils % (Auto) 0.7 % (0.0-1.8); Eosinophils # (Auto) 0.2 K/mm3 (0.0-0.4); Eosinophils % (Auto) 2.8 % (0.0-4.3); Hemoglobin 14.9 gm/dl (11.8-15.2); Lymphocytes # (Auto) 2.2 K/mm3 (1.2-5.4); Lymphocytes % (Auto) 30.3 % (13.4-35.0); Mean Corpuscular HGB Conc 35 % (32-34); Mean Corpuscular Volume 99 fl (84-94); Platelet Count 230 K/mm3 (140-440); Red Blood Count 4.36 M/mm3 (3.65-5.03)
[2020-04-29] MEDS ORDERED: MORPHINE 2 MG/1 ML INJ ONE ×2 (00:19→07:22)
[2020-04-29 00:34] LABS: BUN/Creatinine Ratio 22; Blood Urea Nitrogen 22 mg/dL (9-20); Calcium 9.9 mg/dL (8.4-10.2); Hemolysis Index 6
[2020-04-29] MEDS ORDERED: ONDANSETRON 4 MG/2 ML INJ IV ONE (01:23)
[2020-04-29] MEDS ORDERED: HYDROmorphone 1 MG/1 ML INJ IM ONE (01:35)
[2020-04-29] MEDS ORDERED: ACETAMINOPHEN 325 MG TAB PO PRN ×2 (01:43)
[2020-04-29] MEDS ORDERED: ONDANSETRON 4 MG/2 ML INJ IV PRN (01:43)
[2020-04-29] MEDS ORDERED: DEXTROSE 50% IN WATER (25GM) 50 ML SYRINGE IV PRN (01:43)
[2020-04-29] MEDS ORDERED: MAGNESIUM HYDROXIDE (MOM) ORAL LIQD UDC PO PRN (01:43)
[2020-04-29] MEDS ORDERED: NITROGLYCERIN 0.4 MG TAB SUBL SL PRN (01:43)
[2020-04-29] MEDS ORDERED: HYDROmorphone 1 MG/1 ML INJ ONE (01:54)
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
[2020-04-29 03:29] LABS: Basophils # (Auto) 0.1 K/mm3 (0.0-0.1); Basophils % (Auto) 1.2 % (0.0-1.8); Eosinophils # (Auto) 0.2 K/mm3 (0.0-0.4); Hematocrit 42.3 % (35.5-45.6); Hemoglobin 14.6 gm/dl (11.8-15.2); Lymphocytes % (Auto) 30.1 % (13.4-35.0); Mean Corpuscular HGB Conc 35 % (32-34); Mean Corpuscular Volume 99 fl (84-94); Monocytes # (Auto) 0.7 K/mm3 (0.0-0.8); Monocytes % (Auto) 10.1 % (0.0-7.3); Platelet Count 243 K/mm3 (140-440); Red Blood Count 4.28 M/mm3 (3.65-5.03)
[2020-04-29 03:37] LABS: BUN/Creatinine Ratio 24; Blood Urea Nitrogen 24 mg/dL (9-20); Calcium 9.3 mg/dL (8.4-10.2); Hemolysis Index 3
[2020-04-29 04:02] LABS: Chol/HDL Ratio 5.04 %
[2020-04-29] MEDS ORDERED: REGADENOSON 0.4 MG/5 ML INJ IV ONE (06:54)
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
[2020-04-29] MEDS: INSULIN LISPRO 100 UNIT/ML VIAL 3 mL SUB-Q SCH ×5 (11:19→21:09)
[2020-04-29] MEDS ORDERED: POTASSIUM CHLORIDE ER 20 MEQ TAB PO ONE (11:45)
[2020-04-29] MEDS: carvediloL 6.25 MG TAB PO SCH ×2 (12:25→21:09)
[2020-04-29] MEDS: BUMETANIDE 1 MG/4 ML INJ IV SCH (12:28)
[2020-04-29] MEDS ORDERED: OXYCODONE HCL 20 MG PO PRN (12:51)
[2020-04-29] MEDS: GABAPENTIN 400 MG CAP PO SCH ×2 (13:56→21:08)
[2020-04-29] MEDS: CARISOPRODOL 350 MG TAB PO SCH ×2 (13:56→21:09)
[2020-04-29] MEDS: ALPRAZolam 1 MG TAB PO SCH ×3 (13:56→21:09)
[2020-04-29] MEDS: PANTOPRAZOLE 40 MG TAB PO SCH (13:56)
[2020-04-29] MEDS ORDERED: NON-FORMULARY EACH (Gabapentin [Neurontin] 800 MG) PO SCH (14:00)
[2020-04-29] MEDS: oxyCODONE 5 MG TAB PO PRN ×2 (14:21→21:08)
--- NOTE | 2020-04-29 14:37 | Event Note ---
Date: 04/29/20 patient seen and examined cont current Mx for acute on chronic CHF exacerbation
[2020-04-29] MEDS: TAMSULOSIN 0.4 MG CAP PO SCH (21:09)
[2020-04-29] MEDS ORDERED: NON-FORMULARY EACH (Rosuvastatin Calcium [Crestor] 20 MG) PO SCH (22:00)
[2020-04-29] MEDS ORDERED: carvediloL 12.5 MG TAB PO SCH (22:00)
[2020-04-29] MEDS: MORPHINE 2 MG/1 ML INJ IV PRN (23:27)
[2020-04-30] MEDS: oxyCODONE 5 MG TAB PO PRN ×4 (03:29→20:30)
[2020-04-30 05:40] LABS: Basophils # (Auto) 0.1 K/mm3 (0.0-0.1); Basophils % (Auto) 1.4 % (0.0-1.8); Eosinophils # (Auto) 0.2 K/mm3 (0.0-0.4); Eosinophils % (Auto) 4.4 % (0.0-4.3); Hematocrit 37.3 % (35.5-45.6); Hemoglobin 12.8 gm/dl (11.8-15.2); Lymphocytes # (Auto) 1.8 K/mm3 (1.2-5.4); Lymphocytes % (Auto) 38.6 % (13.4-35.0); Mean Corpuscular HGB Conc 34 % (32-34); Mean Corpuscular Volume 100 fl (84-94); Monocytes # (Auto) 0.4 K/mm3 (0.0-0.8); Monocytes % (Auto) 8.1 % (0.0-7.3); Platelet Count 178 K/mm3 (140-440); Red Blood Count 3.75 M/mm3 (3.65-5.03); Red Cell Distribution Width 14.9 % (13.2-15.2)
[2020-04-30 05:47] LABS: INR 0.95 (0.87-1.13)
[2020-04-30 05:57] LABS: BUN/Creatinine Ratio 25; Blood Urea Nitrogen 32 mg/dL (9-20); Calcium 9.3 mg/dL (8.4-10.2); Hemolysis Index 8
[2020-04-30] MEDS: MORPHINE 2 MG/1 ML INJ IV PRN ×4 (06:22→22:35)
[2020-04-30] MEDS: INSULIN LISPRO 100 UNIT/ML VIAL 3 mL SUB-Q SCH ×3 (08:42→18:00)
[2020-04-30] MEDS: GABAPENTIN 400 MG CAP PO SCH ×3 (09:10→20:18)
[2020-04-30] MEDS: PANTOPRAZOLE 40 MG TAB PO SCH (09:11)
[2020-04-30] MEDS: CARISOPRODOL 350 MG TAB PO SCH ×3 (09:11→20:17)
[2020-04-30] MEDS: POTASSIUM CHLORIDE ER 20 MEQ TAB PO SCH (09:11)
[2020-04-30] MEDS: ASPIRIN 81 MG TAB CHEW PO SCH (09:11)
[2020-04-30] MEDS: ALPRAZolam 1 MG TAB PO SCH ×4 (09:11→22:28)
[2020-04-30] MEDS: carvediloL 6.25 MG TAB PO SCH ×2 (09:11→22:28)
[2020-04-30] MEDS: BUMETANIDE 1 MG/4 ML INJ IV SCH ×3 (09:12→22:29)
[2020-04-30] MEDS ORDERED: ASPIRIN EC 325 MG TAB PO SCH (10:00)
--- NOTE | 2020-04-30 10:31 | Discharge Summary ---
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 Of note, pt was discharged from [facility] on both 01/16/2020, 02/03/2020 and 03/06/2020 following eval of chest pain. He underwent lexiscan MPI stress test on 12/09/2019 which was negative. tte done 11/2019 showed EF 50-55%, mild to mod LVH, abnormal diastolic function, mild pulm HTN RVSP 37mmHg. AMI r/o. Coronary angiography recommended on all three admissions for definitive diagnosis given recent negative stress test. Pt was initially agreeable to [facility] on all admissions but ultimately was unable to undergo the procedure due to chronic back pain and/or anxiety. Echo: report reviewed (11/2019 showed EF 50-55%, mild to mod LVH, abnormal diastolic function, mild pulm HTN RVSP 37mmHg. ) EKG: report reviewed, image reviewed Patient was admitted to telemetry floor with scheduled iv diuretics. Monitored with serial CE, EKG. Cardiology consulted, Provided cardiac diet, daily weights, monitored in's and O's. Patients symptom improved with medical management. Per cardiology No indication for additional cardiac w/u at this time. Patient was then discharged home in stable condition with outpt f/u. Discharge diagnosis: (1) Acute heart failure with preserved ejection fraction Current Visit: Yes Status: Acute on chronic (2) HTN (hypertension) Current Visit: Yes Status: Chronic (3) History of pulmonary embolism Current Visit: Yes Status: Chronic (4) Obesity Current Visit: Yes Status: Chronic (5) Obstructive sleep apnea Current Visit: Yes Status: Chronic (6) Rheumatoid arthritis Current Visit: Yes Status: Chronic (7) atypical chest pain, likely due to GERD Current Visit: Yes Status: Acute (8) COPD, without exacerbation Current Visit: Yes Status: Chronic (9) hypokalemia, repleted Time spent for discharge: 34 minutes Exam - Physical Exam Narrative exam: General appearance: Present: no acute distress, well-nourished - EENT Eyes: Present: PERRL, EOM intact. Absent: scleral icterus ENT: hearing intact, clear oral mucosa, dentition normal - Neck Neck: Present: supple, normal ROM - Respiratory Respiratory effort: normal Respiratory: bilateral: CTA - Cardiovascular Rhythm: regular Heart Sounds: Present: S1 & S2. Absent: gallop, systolic murmur, diastolic murmur, rub - Extremities Extremities: no ischemia, pulses intact, No edema, normal temperature, normal color, Full ROM - Abdominal General gastrointestinal: Present: soft, non-tender, non-distended, normal bowel sounds, other (Multiple healed scars). Absent: mass - Integumentary Integumentary: Present: clear, warm, dry - Musculoskeletal Musculoskeletal: strength equal bilaterally - Psychiatric Psychiatric: appropriate mood/affect, intact judgment & insight, memory intact, cooperative - Neurologic Neurologic: CNII-XII intact, no focal deficits, moves all extremities - Constitutional Vitals: Temp Pulse Resp BP Pulse Ox 97.7 F 98 H 20 149/78 97 04/30/20 08:05 04/30/20 08:05 04/30/20 09:10 04/30/20 08:05 04/30/20 08:05 Plan Activity: advance as tolerated Weight Bearing Status: Weight Bear as Tolerated Diet: low fat, low salt Special Instructions: restrict fluid intake to (1.5L per day), record daily weights, home health RN Additional Instructions: f/u at [facility] in one week Follow up with: PRIMARY CARE, [Primary Care Provider] - 3-5 Days Prescriptions: Potassium Chloride [K-Dur] 20 meq PO QDAY #3 tablet
[2020-04-30] MEDS ORDERED: POTASSIUM CHLORIDE ER 20 MEQ TAB PO ONE ×2 (10:49→16:00)
--- NOTE | 2020-04-30 11:14 | Progress Note ---
Assessment and Plan Increase IV bumex to BID dosing. Replete K+. Anticipate d/c in AM. The patient has been seen in conjunction with Dr. Mays who agrees with the assessment and plan of care. - Patient Problems (1) Acute heart failure with preserved ejection fraction Current Visit: Yes Status: Acute (2) HTN (hypertension) Current Visit: Yes Status: Chronic (3) Diabetes Current Visit: Yes Status: Chronic (4) History of pulmonary embolism Current Visit: Yes Status: Chronic (5) Morbid obesity Current Visit: Yes Status: Chronic (6) Obstructive sleep apnea Current Visit: Yes Status: Chronic (7) ASA allergy Current Visit: Yes Status: Chronic (8) Rheumatoid arthritis Current Visit: Yes Status: Chronic Subjective Date of service: 04/30/20 Principal diagnosis: HF Interval history: pt sitting up at bedside, states SOB is minimally improved, abdominal swelling has not gotten any better and his UOP is not increased. tele reviewed - in SR HR 100s. Objective Last Vital Signs Temp 97.7 F 04/30/20 08:05 Pulse 98 H 04/30/20 08:05 Resp 20 04/30/20 09:10 BP 149/78 04/30/20 08:05 Pulse Ox 97 04/30/20 08:05 - Physical Examination General: No Apparent Distress HEENT: Positive: PERRL, Normocephaly, Mucus Membranes Moist Neck: Positive: neck supple, trachea midline Cardiac: Positive: Reg Rate and Rhythm, S1/S2 Lungs: Positive: Decreased Breath Sounds Neuro: Positive: Grossly Intact Abdomen: Negative: Tender Skin: Negative: Rash Musculoskeletal: No Pain Extremities: Absent: edema - Labs and Meds Coagulation 04/30/20 Range/Units 05:10 PT 12.6 (12.2-14.9) Sec. INR 0.95 (0.87-1.13) CBC 04/30/20 Range/Units 05:10 WBC 4.7 (4.5-11.0) K/mm3 RBC 3.75 (3.65-5.03) M/mm3 Hgb 12.8 (11.8-15.2) gm/dl Hct 37.3 (35.5-45.6) % Plt Count 178 (140-440) K/mm3 Lymph # (Auto) 1.8 (1.2-5.4) K/mm3 [place] # (Auto) 0.4 (0.0-0.8) K/mm3 Eos # (Auto) 0.2 (0.0-0.4) K/mm3 Baso # (Auto) 0.1 (0.0-0.1) K/mm3 Comprehensive Metabolic Panel 04/30/20 Range/Units 05:10 Sodium 136 L (137-145) mmol/L Potassium 3.2 L (3.6-5.0) mmol/L Chloride 94.7 L (98-107) mmol/L Carbon Dioxide 28 (22-30) mmol/L BUN 32 H (9-20) mg/dL Creatinine 1.3 (0.8-1.3) mg/dL Glucose 129 H (75-100) mg/dL Calcium 9.3 (8.4-10.2) mg/dL - Imaging and Cardiology EKG: report reviewed, image reviewed Echo: report reviewed (11/2019 showed EF 50-55%, mild to mod LVH, abnormal diastolic function, mild pulm HTN RVSP 37mmHg. ) - Telemetry EKG Rhythm: Sinus Rhythm
--- NOTE | 2020-04-30 15:43 | Progress Note ---
Assessment and Plan (1) Acute heart failure with preserved ejection fraction Current Visit: Yes Status: Acute on chronic (2) HTN (hypertension) Current Visit: Yes Status: Chronic (3) History of pulmonary embolism Current Visit: Yes Status: Chronic (4) Obesity Current Visit: Yes Status: Chronic (5) Obstructive sleep apnea Current Visit: Yes Status: Chronic (6) Rheumatoid arthritis Current Visit: Yes Status: Chronic (7) atypical chest pain, likely due to GERD Current Visit: Yes Status: Acute (8) COPD, without exacerbation Current Visit: Yes Status: Chronic (9) hypokalemia, repleted -Monitor at telemetry bed -Supplemental O2 as needed -Continue on Aspirin, statin, and Bumex IV - Consulted cardiology, resumed home meds - cardiac diet now, daily weights, monitor in's and O's - provide DVT Px with lovenox - 04/30: Increase Bumax dose today. possible d/c tomorrow Subjective Date of service: 04/30/20 Principal diagnosis: HF Interval history: Patient seen and examined. Medical records and medication list reviewed. No acute event overnight noted by the RN. Patient complains of short of breath on exertion. Also has generalized body ache patient is tolerating diet. Discussed plan of care at bedside with patient. Objective - Exam Narrative Exam: General appearance: Present: no acute distress, well-nourished - EENT Eyes: Present: PERRL, EOM intact. Absent: scleral icterus ENT: hearing intact, clear oral mucosa, dentition normal - Neck Neck: Present: supple, normal ROM - Respiratory Respiratory effort: normal Respiratory: bilateral: Few bibasilar crackles - Cardiovascular Rhythm: regular Heart Sounds: Present: S1 & S2. Absent: gallop, systolic murmur, diastolic murmur, rub - Extremities Extremities: no ischemia, pulses intact, No edema, normal temperature, normal color, Full ROM - Abdominal General gastrointestinal: Present: soft, non-tender, non-distended, normal bowel sounds, other (Multiple healed scars). Absent: mass - Integumentary Integumentary: Present: clear, warm, dry - Musculoskeletal Musculoskeletal: strength equal bilaterally - Psychiatric Psychiatric: appropriate mood/affect, intact judgment & insight, memory intact, cooperative - Neurologic Neurologic: CNII-XII intact, no focal deficits, moves all extremities - Constitutional Vitals: Vital Signs - 12hr 04/30/20 04/30/20 04/30/20 04:59 08:05 09:10 Temperature 98.4 F 97.7 F Pulse Rate 87 98 H Respiratory 20 18 20 Rate Blood Pressure 106/72 149/78 O2 Sat by Pulse 95 97 Oximetry 04/30/20 04/30/20 13:14 15:08 Temperature Pulse Rate Respiratory 22 20 Rate Blood Pressure O2 Sat by Pulse Oximetry - Labs CBC & Chem 7: 04/30/20 05:10 05/01/20 06:06 Labs: Abnormal lab results 04/30/20 04/30/20 Range/Units 05:10 05:10 MCV 100 H (84-94) fl MCH 34 H (28-32) pg Lymph % (Auto) 38.6 H (13.4-35.0) % [place] % (Auto) 8.1 H (0.0-7.3) % Eos % (Auto) 4.4 H (0.0-4.3) % Sodium 136 L (137-145) mmol/L Potassium 3.2 L (3.6-5.0) mmol/L Chloride 94.7 L (98-107) mmol/L BUN 32 H (9-20) mg/dL Glucose 129 H (75-100) mg/dL HEART Score - HEART Score EKG: Non-specific Age: 45-65 Risk factors: > 3 risk factors or hx of atherosclerotic disease Troponin: Troponin T < 0.010 ng/mL (0.00-0.029) 04/29/20 10:02 Troponin: < normal limit
[2020-04-30] MEDS: TAMSULOSIN 0.4 MG CAP PO SCH (22:29)
[2020-05-01] MEDS: oxyCODONE 5 MG TAB PO PRN ×2 (02:26→10:19)
[2020-05-01] MEDS: MORPHINE 2 MG/1 ML INJ IV PRN ×2 (04:19→08:37)
[2020-05-01] MEDS: INSULIN LISPRO 100 UNIT/ML VIAL 3 mL SUB-Q SCH ×2 (05:54→08:31)
[2020-05-01 06:52] LABS: BUN/Creatinine Ratio 18; Blood Urea Nitrogen 20 mg/dL (9-20); Calcium 8.6 mg/dL (8.4-10.2); Hemolysis Index 24
[2020-05-01 08:11] VITALS: BP 111/78
[2020-05-01] MEDS: CARISOPRODOL 350 MG TAB PO SCH (08:37)
[2020-05-01] MEDS: GABAPENTIN 400 MG CAP PO SCH (08:37)
[2020-05-01] MEDS: POTASSIUM CHLORIDE ER 20 MEQ TAB PO SCH (10:19)
[2020-05-01] MEDS: ASPIRIN 81 MG TAB CHEW PO SCH (10:19)
[2020-05-01] MEDS: PANTOPRAZOLE 40 MG TAB PO SCH (10:19)
[2020-05-01] MEDS: carvediloL 6.25 MG TAB PO SCH (10:20)
[2020-05-01] MEDS: ALPRAZolam 1 MG TAB PO SCH (10:20)
[2020-05-01] MEDS: BUMETANIDE 1 MG/4 ML INJ IV SCH (10:21)
[2020-05-01] MEDS ORDERED: POTASSIUM CHLORIDE ER 20 MEQ TAB PO SCH (13:00)
[2020-05-02] MEDS ORDERED: PANTOPRAZOLE 40 MG TAB PO SCH (07:30)
== END 2020-05-01 11:55 | disposition home health service (06) | DRG 391 ==
LOC: ED 22:26 → 4A 04-29 01:46 → OBSVTOIN 04-30 15:08
PROVIDERS: ADMIT Internal Medicine Geriatric Medicine; ATTEND Internal Medicine
DX: K21.9 Gastro-esophageal reflux disease without esophagitis (principal); I50.33 Acute on chronic diastolic (congestive) heart failure; I11.0 Hypertensive heart disease with heart failure; E11.9 Type 2 diabetes mellitus without complications; E78.5 Hyperlipidemia, unspecified; G47.33 Obstructive sleep apnea (adult) (pediatric); J44.9 Chronic obstructive pulmonary disease, unspecified; E66.01 Morbid (severe) obesity due to excess calories; N40.0 Benign prostatic hyperplasia without lower urinary tract symptoms; M06.9 Rheumatoid arthritis, unspecified; G89.29 Other chronic pain; M54.9 Dorsalgia, unspecified; E87.6 Hypokalemia; I27.20 Pulmonary hypertension, unspecified; F17.200 Nicotine dependence, unspecified, uncomplicated; Z88.6 Allergy status to analgesic agent; Z68.33 Body mass index [BMI] 33.0-33.9, adult; Z79.82 Long term (current) use of aspirin; Z88.8 Allergy status to other drugs, medicaments and biological substances; Z86.73 Personal history of transient ischemic attack (TIA), and cerebral infarction without residual deficits; Z86.711 Personal history of pulmonary embolism
CPT/HCPCS: 36415; 71045; 80048; 80061; 83735; 83880; 84484; 85025; 85610; 93005; 96365; 96375; 99406; G0378; A9270-GY; J1170; J2270; J2405

== ENCOUNTER 2020-05-03 02:19 | Emergency (ER) | payer MEDICARE ==
--- NOTE | 2020-05-03 02:58 | Cat Scan Report ---
CT HEAD WITHOUT CONTRAST INDICATION: fall out of bed headache. TECHNIQUE: All CT scans at this location are performed using CT dose reduction for ALARA by means of automated e xposure control. COMPARISON: 03/03/2020 FINDINGS: HEMORRHAGE: None. EXTRA-AXIAL SPACES: Normal in size and morphology for the patient's age. VENTRICULAR SYSTEM: Normal in size and morphology for the patient's age. BRAIN PARENCHYMA: No acute findings. MIDLINE SHIFT OR HERNIATION: None. ORBITS: Normal as visualized. SOFT TISSUES OF HEAD: Normal. CALVARIUM: Normal. VISUALIZED PARANASAL SINUSES AND MASTOID AIR CELLS: Clear. ADDITIONAL FINDINGS: None. IMPRESSION: 1. No acute intracranial abnormality. Signer Name: Devin Kincaid MD Signed: 05/03/2020 2:53 AM Workstation Name: [email or web address]
--- NOTE | 2020-05-03 03:01 | Cat Scan Report ---
CT CERVICAL SPINE WITHOUT CONTRAST INDICATION: fall out of bed. Neck pain. TECHNIQUE: Axial CT images of the spine were obtained. Sagittal and coronal reformatted images were produced. Al l CT scans at this location are performed using CT dose reduction for ALARA by means of automated exp osure control. COMPARISON: None available. FINDINGS: ACUTE FRACTURE(S) OR SUBLUXATION: None. SPINAL DEGENERATIVE CHANGES: There has been posterior decompression at C3-C6. Hardware is intact. The re is diffuse spondylosis. There is slight cervical kyphosis. No listhesis. PARASPINAL SOFT TISSUES: No soft tissue swelling or other acute abnormalities. ADDITIONAL FINDINGS: No significant additional findings. IMPRESSION: 1. No acute fracture or subluxation in the cervical spine. Signer Name: Devin Kincaid MD Signed: 05/03/2020 2:57 AM Workstation Name: [id number]
--- NOTE | 2020-05-03 03:02 | XRay Report ---
CHEST 1 VIEW INDICATION: Chest Pain. COMPARISON: 04/28/2020 FINDINGS: Support devices: None. Heart: Normal. Lungs/Pleura: No acute pulmonary or pleural findings. IMPRESSION: 1. No acute findings. Signer Name: Devin Kincaid MD Signed: 05/03/2020 2:58 AM Workstation Name: [id number]
[2020-05-03 03:21] LABS: Basophils % (Auto) 0.8 % (0.0-1.8); Eosinophils # (Auto) 0.2 K/mm3 (0.0-0.4); Eosinophils % (Auto) 3.3 % (0.0-4.3); Hematocrit 37.6 % (35.5-45.6); Hemoglobin 12.9 gm/dl (11.8-15.2); Lymphocytes # (Auto) 2.2 K/mm3 (1.2-5.4); Lymphocytes % (Auto) 37.2 % (13.4-35.0); Mean Corpuscular HGB Conc 34 % (32-34); Mean Corpuscular Volume 99 fl (84-94); Monocytes # (Auto) 0.4 K/mm3 (0.0-0.8); Monocytes % (Auto) 7.5 % (0.0-7.3); Platelet Count 213 K/mm3 (140-440); Red Blood Count 3.82 M/mm3 (3.65-5.03); Red Cell Distribution Width 14.9 % (13.2-15.2)
[2020-05-03 03:36] LABS: INR 0.94 (0.87-1.13)
[2020-05-03 03:37] LABS: Partial Thromboplastin Time 25.8 Sec. (24.2-36.6)
[2020-05-03 03:40] LABS: BUN/Creatinine Ratio 18; Blood Urea Nitrogen 14 mg/dL (9-20); Calcium 9.5 mg/dL (8.4-10.2); Hemolysis Index 11
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
[2020-05-03 07:23] VITALS: BP 111/72
== END 2020-05-03 07:00 | disposition home or self-care (01) ==
LOC: ED 02:19
DX: S09.90XA Unspecified injury of head, initial encounter (principal); R07.89 Other chest pain; I11.0 Hypertensive heart disease with heart failure; I50.9 Heart failure, unspecified; E11.9 Type 2 diabetes mellitus without complications; K21.9 Gastro-esophageal reflux disease without esophagitis; M19.91 Primary osteoarthritis, unspecified site; J44.9 Chronic obstructive pulmonary disease, unspecified; Z98.890 Other specified postprocedural states; Z79.899 Other long term (current) drug therapy; Z88.8 Allergy status to other drugs, medicaments and biological substances; W06.XXXA Fall from bed, initial encounter; Y93.89 Activity, other specified; Y92.89 Other specified places as the place of occurrence of the external cause; Y99.8 Other external cause status
CPT/HCPCS: 36415; 70450; 71045; 72125; 80048; 84484; 85025; 85610; 85730; 93005

== ENCOUNTER 2020-05-09 19:11 | Emergency (ER) | payer MEDICARE ==
[2020-05-09 19:28] VITALS: BP 130/86
[2020-05-09] MEDS ORDERED: ASPIRIN 325 MG TAB PO ONE (19:30)
--- NOTE | 2020-05-09 19:30 | Event Note ---
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 Further treatment and workup at subsequent clinical providers discretion. Patient/guardian urged not to elope from the ED as their condition may be serious if not clinically assessed and managed. Initial orders include: CP protocol
[2020-05-09 19:44] LABS: Basophils # (Auto) 0.1 K/mm3 (0.0-0.1); Basophils % (Auto) 1.2 % (0.0-1.8); Eosinophils # (Auto) 0.2 K/mm3 (0.0-0.4); Eosinophils % (Auto) 2.7 % (0.0-4.3); Hematocrit 41.1 % (35.5-45.6); Hemoglobin 14.5 gm/dl (11.8-15.2); Lymphocytes # (Auto) 2.3 K/mm3 (1.2-5.4); Lymphocytes % (Auto) 34.7 % (13.4-35.0); Mean Corpuscular HGB Conc 35 % (32-34); Mean Corpuscular Volume 97 fl (84-94); Monocytes # (Auto) 0.4 K/mm3 (0.0-0.8); Monocytes % (Auto) 5.6 % (0.0-7.3); Platelet Count 250 K/mm3 (140-440); Red Blood Count 4.23 M/mm3 (3.65-5.03); Red Cell Distribution Width 15.1 % (13.2-15.2)
[2020-05-09 19:54] LABS: INR 0.95 (0.87-1.13)
[2020-05-09 19:55] LABS: Partial Thromboplastin Time 27.2 Sec. (24.2-36.6)
[2020-05-09 20:09] LABS: Alanine Aminotransferase 21 units/L (7-56); Albumin 4.1 g/dL (3.9-5); BUN/Creatinine Ratio 15; Blood Urea Nitrogen 15 mg/dL (9-20); Calcium 10.1 mg/dL (8.4-10.2); Hemolysis Index 9
[2020-05-09] MEDS ORDERED: POTASSIUM CHLORIDE ER 20 MEQ TAB PO ONE (20:29)
--- NOTE | 2020-05-09 21:05 | XRay Report ---
CHEST 2 VIEWS INDICATION / CLINICAL INFORMATION: Chest Pain. COMPARISON: 05/03/2020 FINDINGS: SUPPORT DEVICES: None. HEART / MEDIASTINUM: Stable. LUNGS / PLEURA: No significant pulmonary or pleural abnormality. No pneumothorax. ADDITIONAL FINDINGS: No significant additional findings. IMPRESSION: 1. No acute findings. No significant interval change. Signer Name: Leroy Vizcaino MD Signed: 05/09/2020 9:01 PM Workstation Name: [id number]
== END 2020-05-10 03:00 | disposition left against medical advice (07) ==
LOC: ED 19:11
DX: R07.89 Other chest pain (principal); Z53.21 Procedure and treatment not carried out due to patient leaving prior to being seen by health care provider
CPT/HCPCS: 36415; 71046; 80053; 83880; 84484; 85025; 85610; 85730; 93005

== ENCOUNTER 2020-07-27 13:33 | Emergency (ER) | payer MEDICARE ==
--- NOTE | 2020-07-27 14:38 | Emergency Department Report ---
Blank Doc - Documentation Documentation: 55-year-old male that presents with left-sided chest pain with radiation to left arm and shortness of breath. Patient has history of CHF. Patient is compliant with all his medication. 1- This initial assessment/diagnostic orders/clinical plan/ treatment(s) is/are subject to change based on pt's health status, clinical progression and re- assessment by fellow clinical providers in the ED. Further treatment and workup at subsequent clinical provers discretion. Patient/guardians urged not to elope from ED as their condition may be serious if not clinically assessed and managed. 2-cardiac work-up
--- NOTE | 2020-07-27 15:14 | XRay Report ---
CHEST PA AND LATERAL VIEWS INDICATION: Chest Pain. COMPARISON: 05/28/2020 FINDINGS: Support devices: None. Heart: Within normal limits. Lungs/Pleura: No acute pulmonary or pleural findings. IMPRESSION: 1. No acute findings. Signer Name: Devin Kincaid MD Signed: 07/27/2020 3:09 PM Workstation Name: [id number]
[2020-07-27 15:16] LABS: Basophils # (Auto) 0.1 K/mm3 (0.0-0.1); Eosinophils # (Auto) 0.2 K/mm3 (0.0-0.4); Eosinophils % (Auto) 2.7 % (0.0-4.3); Hematocrit 43.8 % (35.5-45.6); Hemoglobin 15.3 gm/dl (11.8-15.2); Lymphocytes # (Auto) 1.8 K/mm3 (1.2-5.4); Mean Corpuscular HGB Conc 35 % (32-34); Mean Corpuscular Volume 96 fl (84-94); Monocytes # (Auto) 0.9 K/mm3 (0.0-0.8); Monocytes % (Auto) 13.1 % (0.0-7.3); Platelet Count 205 K/mm3 (140-440); Red Blood Count 4.55 M/mm3 (3.65-5.03); Red Cell Distribution Width 16.9 % (13.2-15.2)
[2020-07-27 15:24] LABS: INR 0.98 (0.87-1.13)
[2020-07-27 15:25] LABS: Partial Thromboplastin Time 27.6 Sec. (24.2-36.6)
[2020-07-27 15:38] LABS: Alanine Aminotransferase 18 units/L (7-56); Albumin 4.5 g/dL (3.9-5); BUN/Creatinine Ratio 15; Blood Urea Nitrogen 15 mg/dL (9-20); Calcium 9.7 mg/dL (8.4-10.2); Hemolysis Index 4
[2020-07-27] MEDS ORDERED: SUCRALFATE 1 GM/10 ML ORAL LIQD PO ONE (15:48)
[2020-07-27] MEDS ORDERED: FAMOTIDINE 20 MG TAB PO ONE (15:48)
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
[2020-07-27] MEDS ORDERED: NITROGLYCERIN 0.4 MG TAB SUBL SL PRN (16:39)
[2020-07-27 16:41] VITALS: BP 118/76
[2020-07-27] MEDS ORDERED: IBUPROFEN 400 MG TAB PO ONE (18:02)
== END 2020-07-27 18:38 | disposition left against medical advice (07) ==
LOC: ED 13:33
DX: E87.6 Hypokalemia (principal); R07.89 Other chest pain; E66.9 Obesity, unspecified; Z68.32 Body mass index [BMI] 32.0-32.9, adult; I11.0 Hypertensive heart disease with heart failure; I50.9 Heart failure, unspecified; E11.9 Type 2 diabetes mellitus without complications; K21.9 Gastro-esophageal reflux disease without esophagitis; M19.91 Primary osteoarthritis, unspecified site; J44.9 Chronic obstructive pulmonary disease, unspecified; F17.200 Nicotine dependence, unspecified, uncomplicated; Z86.73 Personal history of transient ischemic attack (TIA), and cerebral infarction without residual deficits; Z98.890 Other specified postprocedural states; Z79.899 Other long term (current) drug therapy; Z88.8 Allergy status to other drugs, medicaments and biological substances
CPT/HCPCS: 36415; 71046; 80053; 83735; 83880; 84484; 85025; 85610; 85730; 93005

== ENCOUNTER 2020-08-21 20:58 | Emergency (ER) | payer MEDICARE ==
[2020-08-21 21:23] VITALS: BP 102/72
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
== END 2020-08-21 21:54 | disposition left against medical advice (07) ==
LOC: ED 20:58
DX: R07.89 Other chest pain (principal); I11.0 Hypertensive heart disease with heart failure; I50.9 Heart failure, unspecified; E11.9 Type 2 diabetes mellitus without complications; K21.9 Gastro-esophageal reflux disease without esophagitis; M19.91 Primary osteoarthritis, unspecified site; J44.9 Chronic obstructive pulmonary disease, unspecified; F17.200 Nicotine dependence, unspecified, uncomplicated; Z98.890 Other specified postprocedural states; Z79.899 Other long term (current) drug therapy; Z88.8 Allergy status to other drugs, medicaments and biological substances
CPT/HCPCS: 99283

== ENCOUNTER 2020-08-22 11:40 | Inpatient (IN) | payer MEDICARE ==
--- NOTE | 2020-08-22 12:19 | XRay Report ---
XR chest 1V ap INDICATION / CLINICAL INFORMATION: Chest Pain. COMPARISON: 07/30/2020 FINDINGS: SUPPORT DEVICES: None. HEART /PULMONARY VASCULATURE: No significant abnormality. LUNGS / PLEURA: Low lung volumes with streaky left greater than right bibasilar opacities, likely ref lecting atelectasis. No pleural effusion. No pneumothorax. ADDITIONAL FINDINGS: No significant additional findings. IMPRESSION: Low lung volumes with streaky bibasilar opacities, favoring atelectasis. Otherwise, no acute chest pr ocess. Signer Name: Antoine Isaac MD Signed: 08/22/2020 12:15 PM Workstation Name: [id number]
[2020-08-22] MEDS ORDERED: ALPRAZolam 1 MG TAB PO ONE (12:27)
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
[2020-08-22 12:33] LABS: Basophils # (Auto) 0.1 K/mm3 (0.0-0.1); Basophils % (Auto) 0.7 % (0.0-1.8); Eosinophils # (Auto) 0.9 K/mm3 (0.0-0.4); Eosinophils % (Auto) 9.9 % (0.0-4.3); Hemoglobin 13.8 gm/dl (11.8-15.2); Lymphocytes # (Auto) 1.6 K/mm3 (1.2-5.4); Lymphocytes % (Auto) 17.6 % (13.4-35.0); Mean Corpuscular HGB Conc 34 % (32-34); Mean Corpuscular Volume 98 fl (84-94); Monocytes # (Auto) 1.2 K/mm3 (0.0-0.8); Monocytes % (Auto) 12.9 % (0.0-7.3); Platelet Count 188 K/mm3 (140-440); Red Cell Distribution Width 17.5 % (13.2-15.2)
[2020-08-22 12:48] LABS: INR 0.98 (0.87-1.13)
[2020-08-22 12:49] LABS: Partial Thromboplastin Time 28.1 Sec. (24.2-36.6)
[2020-08-22 13:09] LABS: Alanine Aminotransferase 16 units/L (7-56); BUN/Creatinine Ratio 20; Blood Urea Nitrogen 20 mg/dL (9-20); Calcium 9.2 mg/dL (8.4-10.2); Hemolysis Index 22
[2020-08-22] MEDS ORDERED: MORPHINE 4 MG/1 ML INJ IV ONE (13:18)
[2020-08-22] MEDS ORDERED: ONDANSETRON 4 MG/2 ML INJ IV ONE (13:18)
--- NOTE | 2020-08-22 14:19 | Cat Scan Report ---
CTA CHEST WITH CONTRAST INDICATION / CLINICAL INFORMATION: Dyspnea. TECHNIQUE: Axial CT images were obtained through the chest after injection of IV contrast. 3 plane ME P and/or 3D reconstructions were produced. All CT scans at this location are performed using CT dose reduction for ALARA by means of automated exposure control. COMPARISON: None available. FINDINGS: PULMONARY ARTERIES: No central or segmental pulmonary embolus. THORACIC AORTA: Mild atherosclerotic calcification without acute abnormality. HEART: No significant abnormality. ADENOPATHY: No significant adenopathy. LUNGS/PLEURA: Airspace consolidation of the medial right lower lobe. Remainder of the lungs are clear of consolidation. No pleural effusion. No pneumothorax. ADDITIONAL FINDINGS: None. UPPER ABDOMEN: No acute findings. SKELETAL STRUCTURES: No significant osseous abnormality. IMPRESSION: 1. No evidence of pulmonary embolus. 2. Right lower lobe airspace consolidation, suspicious for pneumonia. Signer Name: Antoine Isaac MD Signed: 08/22/2020 2:14 PM Workstation Name: [id number]
--- NOTE | 2020-08-22 14:23 | Cat Scan Report ---
CT HEAD WITHOUT CONTRAST INDICATION / CLINICAL INFORMATION: headache. TECHNIQUE: All CT scans at this location are performed using CT dose reduction for ALARA by means of automated exposure control. COMPARISON: 04/30/2020. FINDINGS: BRAIN PARENCHYMA: No acute intracranial hemorrhage. No evidence of recent infarct. No mass effect or midline shift. VENTRICULAR SYSTEM/EXTRA-AXIAL SPACES: Ventricles are normal for age. No extra-axial fluid collection . ORBITS: Right lens is absent. SKELETAL SYSTEM/SOFT TISSUES: Normal bones and soft tissues. PARANASAL SINUSES/MASTOID AIR CELLS: No significant abnormality. ADDITIONAL FINDINGS: None. IMPRESSION: 1. No acute intracranial abnormality. Signer Name: Antoine Isaac MD Signed: 08/22/2020 2:19 PM Workstation Name: [id number]
[2020-08-22] MEDS ORDERED: DOCUSATE SODIUM 100 MG CAP PO PRN (19:57)
[2020-08-22] MEDS: oxyCODONE 5 MG TAB PO PRN (20:39)
[2020-08-22] MEDS ORDERED: ONDANSETRON 4 MG/2 ML INJ IV PRN (21:24)
[2020-08-22] MEDS ORDERED: ACETAMINOPHEN 325 MG TAB PO PRN (21:24)
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
[2020-08-22] MEDS ORDERED: NON-FORMULARY EACH (Oxycodone Hcl [Oxycodone] 20 MG Tablet) PO SCH (22:00)
[2020-08-22] MEDS ORDERED: XANAX 2 MG PO SCH (22:00)
[2020-08-22] MEDS ORDERED: TAMSULOSIN PO SCH (22:00)
[2020-08-22] MEDS ORDERED: NON-FORMULARY EACH (Rosuvastatin Calcium [Crestor] 20 MG Tablet) PO SCH (22:00)
[2020-08-22] MEDS ORDERED: NON-FORMULARY EACH (Gabapentin [Neurontin] 800 MG Tablet) PO SCH (22:00)
[2020-08-22] MEDS: ALPRAZolam 1 MG TAB PO SCH (22:24)
[2020-08-22] MEDS: GABAPENTIN 400 MG CAP PO SCH (22:24)
[2020-08-22] MEDS: TAMSULOSIN 0.4 MG CAP PO SCH (22:25)
[2020-08-22] MEDS: FAMOTIDINE 20 MG/2 ML INJ IV SCH (22:25)
[2020-08-22] MEDS: HEPARIN 5,000 UNIT/1 ML VIAL SUB-Q SCH (22:26)
[2020-08-22] MEDS: DORZOLAMIDE 2% OP SCH (23:32)
[2020-08-22] MEDS: TIMOLOL 0.5% OP SCH (23:32)
[2020-08-23] MEDS: TORSEMIDE 100 MG TAB PO SCH ×2 (00:24→10:20)
[2020-08-23] MEDS: KETOROLAC 30 MG/1 ML INJ IV PRN (03:41)
[2020-08-23] MEDS: oxyCODONE 5 MG TAB PO PRN ×3 (04:18→18:36)
[2020-08-23 06:00] LABS: Basophils # (Auto) 0.1 K/mm3 (0.0-0.1); Basophils % (Auto) 0.8 % (0.0-1.8); Eosinophils # (Auto) 0.8 K/mm3 (0.0-0.4); Eosinophils % (Auto) 9.7 % (0.0-4.3); Hematocrit 36.7 % (35.5-45.6); Hemoglobin 12.7 gm/dl (11.8-15.2); Lymphocytes # (Auto) 1.7 K/mm3 (1.2-5.4); Lymphocytes % (Auto) 21.7 % (13.4-35.0); Mean Corpuscular HGB Conc 35 % (32-34); Mean Corpuscular Volume 98 fl (84-94); Monocytes # (Auto) 1.1 K/mm3 (0.0-0.8); Monocytes % (Auto) 14.5 % (0.0-7.3); Platelet Count 165 K/mm3 (140-440); Red Blood Count 3.74 M/mm3 (3.65-5.03); Red Cell Distribution Width 17.3 % (13.2-15.2)
[2020-08-23 07:15] LABS: Alanine Aminotransferase 15 units/L (7-56); Albumin 3.6 g/dL (3.9-5); BUN/Creatinine Ratio 18; Blood Urea Nitrogen 21 mg/dL (9-20); Calcium 8.5 mg/dL (8.4-10.2); Hemolysis Index 7
[2020-08-23] MEDS: INSULIN LISPRO 100 UNIT/ML SUB-Q SCH ×3 (08:38→16:17)
[2020-08-23] MEDS: FAMOTIDINE 20 MG/2 ML INJ IV SCH (10:19)
[2020-08-23] MEDS: HEPARIN 5,000 UNIT/1 ML VIAL SUB-Q SCH ×3 (10:20→21:55)
[2020-08-23] MEDS: GABAPENTIN 400 MG CAP PO SCH ×4 (10:21→21:48)
[2020-08-23] MEDS: ALPRAZolam 1 MG TAB PO SCH ×3 (10:21→17:18)
[2020-08-23] MEDS: TIMOLOL 0.5% OP SCH ×2 (10:23→22:00)
[2020-08-23] MEDS: DORZOLAMIDE 2% OP SCH ×2 (10:23→22:00)
--- NOTE | 2020-08-23 11:33 | Progress Note ---
Assessment and Plan Assessment and plan: 54-year-old male with history of CHF pulmonary embolism, diabetes and hypertension and recurrent chest pain and chronic pain seeking behavior comes in for left-sided chest pain. Patient has multiple visits. Patient was recommended to have a cardiac cath but in the last minute refuses cardiac cath because of anxiety. This visit patient promises that he is going to have a cardiac cath. Chest pain is intermittent and exacerbated by exertion. No shortness of breath. Patient being admitted because of his decision to get cardiac cath. Exercise is an exacerbation factor. 08/23: Patient has had multiple visits and previously was recommended to have a cardiac cath but declined due to anxiety. Returns with chest pain. Today he is noted to wheezing we will obtain pulmonary evaluation. We will also put a psych evaluation. He also has chronic pain syndrome for which he is on oxycodone 25 mg outpatient we will evaluate and readjust his medications. Otherwise continue current management Atypical chest pain recurrent question chronic pain syndrome versus coronary art sydnee disease versus costochondritis Hypertension Severe anxiety Tobacco use disorder History of CVA with gait abnormality persistent ambulates with a cane Chronic pain syndrome Prior history of pulmonary embolism with IVC filter placed Congestive heart failure possible diastolic GERD Arthritis Diabetes mellitus Obstructive sleep apnea Hyperlipidemia Plan Start on steroids therapy secondary to noted wheezing CPAP at HS Continue other plan as outlined. DVT/GI pProphy History Interval history: Patient seen and examined continues to report anxiety and shortness of breath with intermittent chest pain. States that he is willing to get his cardiac cath done now. Hospitalist Physical - Physical exam Narrative exam: VITAL SIGNS: Reviewed. GENERAL: The patient appears normally developed, morbidly obese vital signs as documented. HEAD: No signs of head trauma. EYES: Pupils are equal. Extraocular motions intact. EARS: Hearing grossly intact. MOUTH: Oropharynx is normal. NECK: No adenopathy, no JVD. Well-healed surgical incision in the neck [neck fusion per patient] CHEST: Chest with wheezing breath sounds bilaterally expiratory morning expiratory. No rales, or rhonchi. CARDIAC: Regular rate and rhythm. S1 and S2, without murmurs, gallops, or rubs. VASCULAR: No Edema. Peripheral pulses normal and equal in all extremities. ABDOMEN: Large pannus and well healed ostomy scar. Soft, non tender and non distended. No rebound or guarding, and no masses palpated. Bowel Sounds normal. MUSCULOSKELETAL: Good range of motion of all major joints. Extremities without clubbing, cyanosis or edema. NEUROLOGIC EXAM: Alert and oriented x 3 No focal sensory or strength deficits. Speech normal. Follows commands. PSYCHIATRIC: Mood anxious. SKIN: detail exam as documented in skin assessment - Constitutional Vitals: Temp Pulse Resp BP Pulse Ox 98.1 F 81 20 119/66 98 08/23/20 09:13 08/23/20 09:13 08/23/20 09:13 08/23/20 09:13 08/23/20 09:13 General appearance: Present: no acute distress, well-nourished HEART Score - HEART Score EKG: Non-specific Age: 45-65 Risk factors: > 3 risk factors or hx of atherosclerotic disease Troponin: Troponin T < 0.010 ng/mL (0.00-0.029) 08/22/20 17:22 Troponin: < normal limit Results - Labs CBC & Chem 7: 08/23/20 05:23 08/23/20 05:23 Labs: Laboratory Last Values WBC 7.9 K/mm3 (4.5-11.0) 08/23/20 05:23 RBC 3.74 M/mm3 (3.65-5.03) 08/23/20 05:23 Hgb 12.7 gm/dl (11.8-15.2) 08/23/20 05:23 Hct 36.7 % (35.5-45.6) 08/23/20 05:23 MCV 98 fl (84-94) H 08/23/20 05:23 MCH 34 pg (28-32) H 08/23/20 05:23 MCHC 35 % (32-34) H 08/23/20 05:23 RDW 17.3 % (13.2-15.2) H 08/23/20 05:23 Plt Count 165 K/mm3 (140-440) 08/23/20 05:23 Lymph % (Auto) 21.7 % (13.4-35.0) 08/23/20 05:23 [place] % (Auto) 14.5 % (0.0-7.3) H 08/23/20 05:23 Eos % (Auto) 9.7 % (0.0-4.3) H 08/23/20 05:23 Baso % (Auto) 0.8 % (0.0-1.8) 08/23/20 05:23 Lymph # (Auto) 1.7 K/mm3 (1.2-5.4) 08/23/20 05:23 [place] # (Auto) 1.1 K/mm3 (0.0-0.8) H 08/23/20 05:23 Eos # (Auto) 0.8 K/mm3 (0.0-0.4) H 08/23/20 05:23 Baso # (Auto) 0.1 K/mm3 (0.0-0.1) 08/23/20 05:23 Seg Neutrophils % 53.3 % (40.0-70.0) 08/23/20 05:23 Seg Neutrophils # 4.2 K/mm3 (1.8-7.7) 08/23/20 05:23 PT 12.9 Sec. (12.2-14.9) 08/22/20 12:13 INR 0.98 (0.87-1.13) 08/22/20 12:13 APTT 28.1 Sec. (24.2-36.6) 08/22/20 12:13 Sodium 140 mmol/L (137-145) 08/23/20 05:23 Potassium 3.6 mmol/L (3.6-5.0) 08/23/20 05:23 Chloride 101.0 mmol/L (98-107) 08/23/20 05:23 Carbon Dioxide 26 mmol/L (22-30) 08/23/20 05:23 Anion Gap 17 mmol/L 08/23/20 05:23 BUN 21 mg/dL (9-20) H 08/23/20 05:23 Creatinine 1.2 mg/dL (0.8-1.3) 08/23/20 05:23 Estimated GFR > 60 ml/min 08/23/20 05:23 BUN/Creatinine Ratio 18 % 08/23/20 05:23 Glucose 118 mg/dL (75-100) H 08/23/20 05:23 Hemoglobin A1c 5.5 % (4-6) 08/23/20 05:23 Calcium 8.5 mg/dL (8.4-10.2) 08/23/20 05:23 Total Bilirubin 0.50 mg/dL (0.1-1.2) 08/23/20 05:23 AST 19 units/L (5-40) 08/23/20 05:23 ALT 15 units/L (7-56) 08/23/20 05:23 Alkaline Phosphatase 59 units/L (35-129) 08/23/20 05:23 Troponin T < 0.010 ng/mL (0.00-0.029) 08/22/20 17:22 Total Protein 6.9 g/dL (6.3-8.2) 08/23/20 05:23 Albumin 3.6 g/dL (3.9-5) L 08/23/20 05:23 Albumin/Globulin Ratio 1.1 % 08/23/20 05:23 [place]/IV: Voiding Method Toilet Active Medications - Current Medications Current Medications: Generic Name Dose Route Start Last Admin Trade Name Freq PRN Reason Stop Dose Admin Alprazolam 2 mg 08/22/20 22:00 08/23/20 10:21 Alprazolam 1 Mg Tab PO 2 mg QID SHAHEED Administration Atorvastatin Calcium 40 mg 08/22/20 22:00 08/22/20 22:25 Atorvastatin 40 Mg Tab PO 40 mg QHS SHAHEED Administration Docusate Sodium 100 mg 08/22/20 19:57 Docusate Sodium 100 Mg Cap PO BID PRN Constipation Famotidine 20 mg 08/22/20 22:00 08/23/20 10:19 Famotidine 20 Mg/2 Ml Inj IV 20 mg BID SHAHEED Administration Gabapentin 800 mg 08/22/20 22:00 08/23/20 10:21 Gabapentin 400 Mg Cap PO 800 mg QID SHAHEED Administration Heparin Sodium (Porcine) 5,000 unit 08/22/20 22:00 08/23/20 10:20 Heparin 5,000 Unit/1 Ml Vial SUB-Q 5,000 unit Q12HR SHAHEED Administration Insulin Human Lispro 0 unit 08/23/20 07:30 08/23/20 08:38 Insulin Lispro 100 Unit/Ml SUB-Q Not Given [facility] Protocol Ketorolac Tromethamine 30 mg 08/22/20 21:26 08/23/20 03:41 Ketorolac 30 Mg/1 Ml Inj IV 08/27/20 21:25 30 mg Q6H PRN Administration Pain, Moderate (4-6) Methylprednisolone Sodium Succinate 60 mg 08/23/20 12:00 Methylprednisolone Sod Succinate 125 Mg/2 Ml Inj IV Q8HR SHAHEED Miscellaneous Medication 1 drop 08/22/20 22:00 08/23/20 10:23 Timolol 0.5%-Dorzolamide 2% OP 1 drop BID SHAHEED Administration Ondansetron HCl 4 mg 08/22/20 21:24 Ondansetron 4 Mg/2 Ml Inj IV Q8H PRN Nausea And Vomiting Oxycodone HCl 20 mg 08/22/20 22:00 08/23/20 10:22 Oxycodone 5 Mg Tab PO 20 mg QID PRN Administration Pain, Moderate (4-6) Sodium Chloride 10 ml 08/22/20 22:00 08/23/20 10:20 Sodium Chloride 0.9% 10 Ml Flush Syringe IV 10 ml BID SHAHEED Administration Sodium Chloride 10 ml 08/22/20 21:24 Sodium Chloride 0.9% 10 Ml Flush Syringe IV PRN PRN LINE FLUSH Tamsulosin HCl 0.4 mg 08/22/20 22:00 08/22/20 22:25 Tamsulosin 0.4 Mg Cap PO 0.4 mg QHS SHAHEED Administration Torsemide 100 mg 08/22/20 20:00 08/23/20 10:20 Torsemide 100 Mg Tab PO 100 mg DAILY SHAHEED Administration
--- NOTE | 2020-08-23 13:32 | Consultation ---
History of Present Illness Consult date: 08/23/20 Consult reason: chest pain History of present illness: Patient is a 55-year-old man with severe obesity, and chronic atypical chest pain. He has been hospitalized here at least 6 times in the past 12 months, each time with atypical chest pain, and on multiple occasions has been scheduled for cardiac catheterization and diagnostic coronary angiogram. Each time, he has initially agreed, but repeatedly declined to undergo the procedure at the last minute. There have also been consistent request for specific narcotic pain medications, in and ostensibly narcotic seeking behavior. He returns to the hospital now, with complaints of similar chest pain. He states that he is now ready to proceed with your catheterization for definitive illusion of coronary artery disease. EKG is normal sinus rhythm, left axis deviation and a nonspecific intraventricular conduction delay. There are no acute ischemic changes. Chest x-ray shows a normal-sized cardiac silhouette, and clear lungs. Past History Past Medical History: other (Obesity) Medications and Allergies Allergies Allergy/AdvReac Type Severity Reaction Status Date / Time acetaminophen [From Tylenol] Allergy Swelling Verified 05/28/20 20:18 tramadol Allergy Itching Verified 03/03/20 07:42 Home Medications Medication Instructions Recorded Confirmed Last Taken Type Rosuvastatin Calcium [Crestor] 20 mg PO HS 03/31/20 07/31/20 08/21/20 History Torsemide [Demadex] 100 mg PO DAILY 03/31/20 07/31/20 1 Day Ago History ~08/21/20 Docusate Sodium [Colace CAP] 100 mg PO QID PRN 05/28/20 07/31/20 08/21/20 History Gabapentin [Neurontin] 1 tab PO 4XD 08/22/20 08/22/20 08/21/20 History Oxycodone HCl [oxyCODONE] 25 mg PO 4XD 08/22/20 08/23/20 08/22/20 15:00 History Tamsulosin 1 tab PO HS 08/22/20 08/22/20 08/21/20 History Timolol 0.5%-Dorzolamide 2% 1 drop OU BID 08/22/20 08/22/20 08/21/20 History Xanax TAB 2 mg PO 4XD 08/22/20 08/22/20 08/22/20 History oxyCODONE [roxiCODONE] 1 tab PO 4XD 08/22/20 08/22/20 08/21/20 History Active Meds: Active Medications Alprazolam (Alprazolam 1 Mg Tab) 2 mg PO QID [facility] Last Admin: 08/23/20 10:21 Dose: 2 mg Documented by: Atorvastatin Calcium (Atorvastatin 40 Mg Tab) 40 mg PO QHS [facility] Last Admin: 08/22/20 22:25 Dose: 40 mg Documented by: Docusate Sodium (Docusate Sodium 100 Mg Cap) 100 mg PO BID PRN PRN Reason: Constipation Famotidine (Famotidine 20 Mg Tab) 20 mg PO BID [facility] Gabapentin (Gabapentin 400 Mg Cap) 800 mg PO QID [facility] Last Admin: 08/23/20 10:21 Dose: 800 mg Documented by: Heparin Sodium (Porcine) (Heparin 5,000 Unit/1 Ml Vial) 5,000 unit SUB-Q Q12HR [facility] Last Admin: 08/23/20 10:20 Dose: 5,000 unit Documented by: Sodium Chloride (Nacl 0.9% 500 Ml) 500 mls @ 50 mls/hr IV DIRECT [facility] Stop: 08/23/20 23:59 Insulin Human Lispro (Insulin Lispro 100 Unit/Ml) 0 unit SUB-Q AC [facility]; Protocol Last Admin: 08/23/20 08:38 Dose: Not Given Documented by: Ketorolac Tromethamine (Ketorolac 30 Mg/1 Ml Inj) 30 mg IV Q6H PRN PRN Reason: Pain, Moderate (4-6) Stop: 08/27/20 21:25 Last Admin: 08/23/20 03:41 Dose: 30 mg Documented by: Methylprednisolone Sodium Succinate (Methylprednisolone Sod Succinate 125 Mg/2 Ml Inj) 60 mg IV Q8HR [facility] Miscellaneous Medication (Timolol 0.5%-Dorzolamide 2%) 1 drop OP BID [facility] Last Admin: 08/23/20 10:23 Dose: 1 drop Documented by: Ondansetron HCl (Ondansetron 4 Mg/2 Ml Inj) 4 mg IV Q8H PRN PRN Reason: Nausea And Vomiting Sodium Chloride (Sodium Chloride 0.9% 10 Ml Flush Syringe) 10 ml IV BID [facility] Last Admin: 08/23/20 10:20 Dose: 10 ml Documented by: Sodium Chloride (Sodium Chloride 0.9% 10 Ml Flush Syringe) 10 ml IV PRN PRN PRN Reason: LINE FLUSH Tamsulosin HCl (Tamsulosin 0.4 Mg Cap) 0.4 mg PO QHS [facility] Last Admin: 08/22/20 22:25 Dose: 0.4 mg Documented by: Torsemide (Torsemide 100 Mg Tab) 100 mg PO DAILY [facility] Last Admin: 08/23/20 10:20 Dose: 100 mg Documented by: Review of Systems Cardiovascular: chest pain, shortness of breath, no orthopnea, no palpitations, no rapid/irregular heart beat, no edema, no syncope, no lightheadedness Physical Examination Vital Signs Pulse Ox 95 08/22/20 11:54 General appearance: no acute distress HEENT: Positive: PERRL Neck: Positive: neck supple Cardiac: Positive: Reg Rate and Rhythm Lungs: Positive: Decreased Breath Sounds Neuro: Positive: Grossly Intact Abdomen: Positive: Soft Male genitourinary: Positive: deferred Skin: Positive: Clear Extremities: Absent: edema Results 08/23/20 05:23 08/23/20 05:23 Cardiac Enzymes 08/23/20 Range/Units 05:23 AST 19 (5-40) units/L CBC 08/23/20 Range/Units 05:23 WBC 7.9 (4.5-11.0) K/mm3 RBC 3.74 (3.65-5.03) M/mm3 Hgb 12.7 (11.8-15.2) gm/dl Hct 36.7 (35.5-45.6) % Plt Count 165 (140-440) K/mm3 Lymph # (Auto) 1.7 (1.2-5.4) K/mm3 [place] # (Auto) 1.1 H (0.0-0.8) K/mm3 Eos # (Auto) 0.8 H (0.0-0.4) K/mm3 Baso # (Auto) 0.1 (0.0-0.1) K/mm3 Comprehensive Metabolic Panel 08/23/20 Range/Units 05:23 Sodium 140 (137-145) mmol/L Potassium 3.6 (3.6-5.0) mmol/L Chloride 101.0 (98-107) mmol/L Carbon Dioxide 26 (22-30) mmol/L BUN 21 H (9-20) mg/dL Creatinine 1.2 (0.8-1.3) mg/dL Glucose 118 H (75-100) mg/dL Calcium 8.5 (8.4-10.2) mg/dL AST 19 (5-40) units/L ALT 15 (7-56) units/L Alkaline Phosphatase 59 (35-129) units/L Total Protein 6.9 (6.3-8.2) g/dL Albumin 3.6 L (3.9-5) g/dL EKG interpretations - Telemetry EKG Rhythm: Sinus Rhythm Assessment and Plan - Patient Problems (1) Chest pain Current Visit: Yes Status: Acute Plan to address problem: History of atypical chest pain with recurrent chest pain despite prior noninvasive ischemic evaluation. We will proceed with diagnostic coronary angiography if patient consents to proceed.
[2020-08-23] MEDS ORDERED: SODIUM CHLORIDE 0.9% 500 ML 500 ML IV SCH (14:00)
--- NOTE | 2020-08-23 14:31 | Consultation ---
History of Present Illness Consult date: 08/23/20 Reason for consult: dyspnea, chest pain, COPD, pulmonary embolism, obstructive sleep apnea History of present illness: 55-year-old male with a past medical history of chf, DM, pulmonary embolism (With greenfilter placement), GERD, COPD, JENNIFER, rheumatoid arthritis, morbid obesity, and BPH presents to the hospital with left-sided chest pain . Pain woke him up from his sleep. Described as a sharp shooting type of pain with associated diaphoresis. Patient states he also gets diaphoresis fatigue with exertion. Positive pain radiation to left arm. Denies nausea, vomiting. Positive shortness of breath. Patient has had similar pain in the past and has presented here multiple times and admitted for chest pain work-up. Patient has refused cardiac cath greater than 6 times. Apparently patient states he refused secondary to severe anxiety while lying on the cath table. Last admission was in July. Negative CT angiogram chest July 30 and cath was refused. Patient was here in the ER now for chest pain and refused admission and left AGAINST MEDICAL ADVICE. With each chest pain visit patient's pain appears to be s atypical, sharp, with negative troponins. Patient received aspirin in route and refused nitroglycerin because it gives him a headache. Patient states he takes Xanax 2 mg 4 times a day for anxiety . Pt also c/o headache Patient has history of smoking 1/4th pack a day x 30years. Drinks alcohol on week ends. Denies illicit drug abuse. 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 Patient allergic to tylenol and Tramadol. Patient alert, awake. Walking in [address] with cane. Still complaining shortness of breath. Denies chest pain and cough at this time. Patient is on room air. O2 saturation 95%. Patient afebrile. No leukocytosis. Chest xray done 08/22/20 reported Low lung volumes with streaky bibasilar opacities, favoring atelectasis. Otherwise, no acute chest process Patient also has angio CT of chest 08/22/20 reported No evidence of pulmonary embolus. Right lower lobe airspace consolidation, suspicious for pneumonia. Patient presently on I/V solumedrol, S/C Heparin, Famotidine. Recommend albuterol/atrovent aerosol treatments q 6 hours. If patient become febrile, Ynoy mmend I/V antibiotics. Past History Past Medical History: COPD, diabetes, hypertension, pulmonary embolism, stroke, other (Obesity) Medications and Allergies Allergies Allergy/AdvReac Type Severity Reaction Status Date / Time acetaminophen [From Tylenol] Allergy Swelling Verified 05/28/20 20:18 tramadol Allergy Itching Verified 03/03/20 07:42 Home Medications Medication Instructions Recorded Confirmed Last Taken Type Rosuvastatin Calcium [Crestor] 20 mg PO HS 03/31/20 07/31/20 08/21/20 History Torsemide [Demadex] 100 mg PO DAILY 03/31/20 07/31/20 1 Day Ago History ~08/21/20 Docusate Sodium [Colace CAP] 100 mg PO QID PRN 05/28/20 07/31/20 08/21/20 Histo ry Gabapentin [Neurontin] 1 tab PO 4XD 08/22/20 08/22/20 08/21/20 History Oxycodone HCl [oxyCODONE] 25 mg PO 4XD 08/22/20 08/23/20 08/22/20 15:00 History Tamsulosin 1 tab PO HS 08/22/20 08/22/20 08/21/20 History Timolol 0.5%-Dorzolamide 2% 1 drop OU BID 08/22/20 08/22/20 08/21/20 History Xanax TAB 2 mg PO 4XD 08/22/20 08/22/20 08/22/20 History oxyCODONE [roxiCODONE] 1 tab PO 4XD 08/22/20 08/22/20 08/21/20 History Active Meds: Active Medications Alprazolam (Alprazolam 1 Mg Tab) 2 mg PO QID [facility] Last Admin: 08/23/20 10:21 Dose: 2 mg Documented by: Atorvastatin Calcium (Atorvastatin 40 Mg Tab) 40 mg PO QHS [facility] Last Admin: 08/22/20 22:25 Dose: 40 mg Documented by: Docusate Sodium (Docusate Sodium 100 Mg Cap) 100 mg PO BID PRN PRN Reason: Constipation Famotidine (Famotidine 20 Mg Tab) 20 mg PO BID [facility] Gabapentin (Gabapentin 400 Mg Cap) 800 mg PO QID [facility] Last Admin: 08/23/20 10:21 Dose: 800 mg Documented by: Heparin Sodium (Porcine) (Heparin 5,000 Unit/1 Ml Vial) 5,000 unit SUB-Q Q12HR [facility] Last Admin: 08/23/20 10:20 Dose: 5,000 unit Documented by: Sodium Chloride (Nacl 0.9% 500 Ml) 500 mls @ 50 mls/hr IV DIRECT [facility] Stop: 08/23/20 23:59 Insulin Human Lispro (Insulin Lispro 100 Unit/Ml) 0 unit SUB-Q AC [facility]; Protocol Last Admin: 08/23/20 08:38 Dose: Not Given Documented by: Ketorolac Tromethamine (Ketorolac 30 Mg/1 Ml Inj) 30 mg IV Q6H PRN PRN Reason: Pain, Moderate (4-6) Stop: 08/27/20 21:25 Last Admin: 08/23/20 03:41 Dose: 30 mg Documented by: Methylprednisolone Sodium Succinate (Methylprednisolone Sod Succinate 125 Mg/2 Ml Inj) 60 mg IV Q8HR [facility] Miscellaneous Medication (Timolol 0.5%-Dorzolamide 2%) 1 drop OP BID [facility] Last Admin: 08/23/20 10:23 Dose: 1 drop Documented by: Ondansetron HCl (Ondansetron 4 Mg/2 Ml Inj) 4 mg IV Q8H PRN PRN Reason: Nausea And Vomiting Sodium Chloride (Sodium Chloride 0.9% 10 Ml Flush Syringe) 10 ml IV BID [facility] Last Admin: 08/23/20 10:20 Dose: 10 ml Documented by: Sodium Chloride (Sodium Chloride 0.9% 10 Ml Flush Syringe) 10 ml IV PRN PRN PRN Reason: LINE FLUSH Tamsulosin HCl (Tamsulosin 0.4 Mg Cap) 0.4 mg PO QHS [facility] Last Admin: 08/22/20 22:25 Dose: 0.4 mg Documented by: Torsemide (Torsemide 100 Mg Tab) 100 mg PO DAILY [facility] Last Admin: 08/23/20 10:20 Dose: 100 mg Documented by: Review of Systems All systems: negative Physical Examination Vital signs: Vital Signs Pulse Ox 95 08/22/20 11:54 General appearance: no acute distress, alert Eyes: non-icteric ENT: oropharynx moist Neck: supple, no JVD Effort: normal Ascultation: Bilateral: rhonchi (Right base.) Cardiovascular: regular rate and rhythm Gastrointestinal: normoactive bowel sounds Integumentary: normal Extremities: no cyanosis, no edema Musculoskeletal: other (Deformities weakness in left leg.) Gait: poor gait normal mental status, pupils equal and round mood appropriate Results - Laboratory Findings CBC and BMP: 08/23/20 05:23 08/23/20 05:23 PT/INR, D-dimer PT 12.9 Sec. (12.2-14.9) 08/22/20 12:13 INR 0.98 (0.87-1.13) 08/22/20 12:13 Abnormal lab findings: Abnormal Labs 08/22/20 08/22/20 08/23/20 12:13 12:13 05:23 MCV 98 H 98 H MCH 33 H 34 H MCHC 35 H RDW 17.5 H 17.3 H [place] % (Auto) 12.9 H 14.5 H Eos % (Auto) 9.9 H 9.7 H [place] # (Auto) 1.2 H 1.1 H Eos # (Auto) 0.9 H 0.8 H Potassium 3.4 L BUN Glucose 118 H Albumin 08/23/20 05:23 MCV MCH MCHC RDW [place] % (Auto) Eos % (Auto) [place] # (Auto) Eos # (Auto) Potassium BUN 21 H Glucose 118 H Albumin 3.6 L - Diagnostic Findings Chest x-ray: report reviewed, image reviewed CT scan - chest: report reviewed, image reviewed Additional studies: XR chest 1V ap 08/22/20 INDICATION / CLINICAL INFORMATION: Chest Pain. COMPARISON: 07/30/2020 FINDINGS: SUPPORT DEVICES: None. HEART /PULMONARY VASCULATURE: No significant abnormality. LUNGS / PLEURA: Low lung volumes with streaky left greater than right bibasilar opacities, likely reflecting atelectasis. No pleural effusion. No pneumothorax. ADDITIONAL FINDINGS: No significant additional findings. IMPRESSION: Low lung volumes with streaky bibasilar opacities, favoring atelectasis. Otherwise, no acute chest process. CTA CHEST WITH CONTRAST 08/22/20 INDICATION / CLINICAL INFORMATION: Dyspnea. TECHNIQUE: Axial CT images were obtained through the chest after injection of IV contrast. 3 plane MIP and/or 3D reconstructions were produced. All CT scans at this location are performed using CT dose reduction for ALARA by means of automated exposure control. COMPARISON: None available. FINDINGS: PULMONARY ARTERIES: No central or segmental pulmonary embolus. THORACIC AORTA: Mild atherosclerotic calcification without acute abnormality. HEART: No significant abnormality. ADENOPATHY: No significant adenopathy. LUNGS/PLEURA: Airspace consolidation of the medial right lower lobe. Remainder of the lungs are clear of consolidation. No pleural effusion. No pneumothorax. ADDITIONAL FINDINGS: None. UPPER ABDOMEN: No acute findings. SKELETAL STRUCTURES: No significant osseous abnormality. IMPRESSION: 1. No evidence of pulmonary embolus. 2. Right lower lobe airspace consolidation, suspicious for pneumonia. Assessment and Plan 55-year-old male with a past medical history of chf, DM, pulmonary embolism (With greenfilter placement), GERD, COPD, JENNIFER, rheumatoid arthritis, morbid obesity, and BPH presents to the hospital with left-sided chest pain . Pain woke him up from his sleep. Described as a sharp shooting type of pain with associated diaphoresis. Patient states he also gets diaphoresis fatigue with exertion. Positive pain radiation to left arm. Denies nausea, vomiting. Positive shortness of breath. Patient has had similar pain in the past and has presented here multiple times and admitted for chest pain work-up. Patient has refused cardiac cath greater than 6 times. Apparently patient states he refused secondary to severe anxiety while lying on the cath table. Last admission was in July. Negative CT angiogram chest July 30 and cath was refused. Patient was here in the ER now for chest pain and refused admission and left AGAINST MEDICAL ADVICE. With each chest pain visit patient's pain appears to be s atypical, sharp, with negative troponins. Patient received aspirin in route and refused nitroglycerin because it gives him a headache. Patient states he takes Xanax 2 mg 4 times a day for anxiety . Pt also c/o headache Patient has history of smoking 1/4th pack a day x 30years. Drinks alcohol on week ends. Denies illicit drug abuse. 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 Patient allergic to tylenol and Tramadol. Patient alert, awake. Walking in [address] with cane. Still complaining shortness of breath. Denies chest pain and cough at this time. Patient is on room air. O2 saturation 95%. Patient afebrile. No leukocytosis. Chest xray done 08/22/20 reported Low lung volumes with streaky bibasilar opacities, favoring atelectasis. Otherwise, no acute chest process Patient also has angio CT of chest 08/22/20 reported No evidence of pulmonary embolus. Right lower lobe airspace consolidation, suspicious for pneumonia. Patient presently on I/V solumedrol, S/C Heparin, Famotidine. Recommend albuterol/atrovent aerosol treatments q 6 hours. If patient become febrile, Recommend I/V antibiotics. - Patient Problems (1) Pneumonia involving right lung Current Visit: Yes Status: Acute Plan to address problem: Patient afebrile. No leukocytosis. If patient become febrile, Recommend to start on antibiotics. (2) Chest pain Current Visit: Yes Status: Acute Plan to address problem: Management as per cardiology. (3) History of CVA (cerebrovascular accident) Current Visit: Yes Status: Acute Plan to address problem: Management as per primary care. (4) HTN (hypertension) Current Visit: Yes Status: Chronic Plan to address problem: Management as per primary care. (5) History of pulmonary embolism Current Visit: Yes Status: Chronic Plan to address problem: Patient has Green[employer] filter placement. (6) Morbid obesity Current Visit: Yes Status: Chronic (7) COPD (chronic obstructive pulmonary disease) Current Visit: No Status: Chronic Qualifiers: COPD type: unspecified COPD Qualified Code(s): J44.9 - Chronic obstructive pulmonary disease, unspecified Plan to address problem: O2 2 litres via nasal canula Albuterol/atrovent aerosol treatments q 6 hours. Continue I/V solumedrol Continue S/C Heparin Continue Famotidine. Counseled to stop smoking. PFTs as Out patient. (8) Diabetes Current Visit: No Status: Chronic Plan to address problem: Management as per primary care. (9) Obstructive sleep apnea Current Visit: No Status: Chronic Plan to address problem: History of sleep apnea. CPAP during night time.
[2020-08-23] MEDS: methylPREDNISolone Sod Succinate 125 MG/2 ML INJ IV SCH ×2 (14:54→21:45)
[2020-08-23] MEDS: HYDROmorphone 1 MG/1 ML INJ IV PRN ×2 (16:22→22:05)
[2020-08-23] MEDS: TAMSULOSIN 0.4 MG CAP PO SCH (21:44)
[2020-08-23] MEDS: FAMOTIDINE 20 MG TAB PO SCH (21:44)
[2020-08-24] MEDS: HYDROmorphone 1 MG/1 ML INJ IV PRN ×5 (00:55→21:39)
[2020-08-24] MEDS: oxyCODONE 5 MG TAB PO PRN ×3 (02:46→17:31)
[2020-08-24] MEDS: ALPRAZolam 1 MG TAB PO PRN ×4 (02:46→21:39)
[2020-08-24] MEDS: methylPREDNISolone Sod Succinate 125 MG/2 ML INJ IV SCH ×3 (06:03→21:27)
[2020-08-24] MEDS: KETOROLAC 30 MG/1 ML INJ IV PRN ×2 (07:39→13:10)
[2020-08-24] MEDS: INSULIN LISPRO 100 UNIT/ML SUB-Q SCH ×3 (08:01→16:58)
--- NOTE | 2020-08-24 09:44 | Consultation ---
History of Present Illness - Reason for Consult Consult date: 08/24/20 Reason for consult: mental health eval - History of Present Psychiatric Illness Per ER Note: 55-year-old male with a past medical history of chf, DM, pulmonary embolism (With greenfilter placement), GERD, COPD, JENNIFER, rheumatoid arthritis, morbid obesity, and BPH presents to the hospital with left-sided chest pain since 2 AM. Pain woke him up from his sleep. Described as a sharp shooting type of pain with associated diaphoresis. Patient states he also gets diaphoresis fatigue with exertion. Positive pain radiation to left arm. Denies nausea, vomiting. Positive shortness of breath. Patient has had similar pain in the past and has presented here multiple times and admitted for chest pain work-up. Patient has refused cardiac cath greater than 6 times. Apparently patient states he refused secondary to severe anxiety while lying on the cath table. Last admission was in July. Negative CT angiogram chest July 30 and cath was refused. Patient was here in the ER yesterday for chest pain and refused admission and left AGAINST MEDICAL ADVICE. With each chest pain visit patient's pain appears to be s atypical, sharp, with negative troponins. Patient received aspirin in route and refused nitroglycerin because it gives him a headache. Patient states he takes Xanax 2 mg 4 times a day for anxiety and did not have a dose this morning. Pt also c/o headache The patient was seen today, lab is at bedside drawing blood. He is a/o x 3. He is calm, and cooperative. He is conversational. The patient is sarcastic at times. He says he came to the hospital "to have my heart checked out." The patient says he has a history of depression and anxiety. He says he once attempted suicided years ago, but denies being SI/HI now. He says he gets treated with "xanax for his anxiety and depression." The patient denies hallucinations of any kind. He says "an night I have a lot of thoughts going on in my head, just crazy thoughts." When asked were they thoughts of hurting himself or anybody, the patient replies "No, I don't want to hurt nobody, not even myself." He says "baby, I'm not crazy." He says he "never sleeps because of the thoughts of his childhood and different things." He denies any illicit drug use, and states he drinks alcohol occasionally but "it's not a problem." He says "I need my xanax, that's what helps me." PAST PSYCHIATRIC HISTORY Diagnoses: Depression, anxiety Suicide attempts or Self-harm behavior: Yes Prior psychiatric hospitalizations: Denies Substance Abuse history: Nicotine Previous psychiatric medications tried: xanax, zoloft, prozac, trazodone Outpatient treatment: Denies PAST MEDICAL HISTORY:CHF, DM, PE, GERD, COPD, JENNIFER Family Psychiatric History: None reported or documented SOCIAL HISTORY Marital Status: Living Arrangements: Alone Employment Status: Disabled Access to guns/weapons: Denies Education: high school History of Abuse: Denies Legal History: None reported REVIEW OF SYSTEMS Constitutional: Negative for weight loss ENT: Negative for stridor Respiratory: Negative for cough or hemoptysis All other systems reviewed and are negative MENTAL STATUS EXAMINATION General Appearance and Behavior: Age appropriate, good hygiene, not wearing a ppropriate clothes, good eye contact, cooperative with questioning, calm Cooperation: Participating/engaged Psychomotor Behavior: Psychomotor normal Mood: "alright" Affect and affective range: congruent with stated mood Thought Process: goal directed Thought Content: None Speech: normal tone and pace Suicidal Ideation: Denies Homicidal Ideation: Denies Hallucinations: Denies Delusions: None elicited Impulse Control: Impaired Insight and Judgment: Normal insight and judgment Memory: Normal Attention: Normal Orientation: Alert, oriented Assessment and Plan (1) Generalized Anxiety Disorder Current Visit: Yes Status: Acute Treatment Start Remeron 15mg po daily Start Lexapro 5mg po daily Sitter: defer to [facility] Medical: Per primary Disposition: Do not recommend acute psychiatric inpatient treatment Will follow for med management. Thanks for this consult Case staffed with Dr. Wren. Medications and Allergies Allergies Allergy/AdvReac Type Severity Reaction Status Date / Time acetaminophen [From Tylenol] Allergy Swelling Verified 05/28/20 20:18 tramadol Allergy Itching Verified 03/03/20 07:42 Home Medications Medication Instructions Recorded Confirmed Last Taken Type Rosuvastatin Calcium [Crestor] 20 mg PO HS 03/31/20 07/31/20 08/21/20 History Torsemide [Demadex] 100 mg PO DAILY 03/31/20 07/31/20 1 Day Ago History ~08/21/20 Docusate Sodium [Colace CAP] 100 mg PO QID PRN 05/28/20 07/31/20 08/21/20 History Gabapentin [Neurontin] 1 tab PO 4XD 08/22/20 08/22/20 08/21/20 History Oxycodone HCl [oxyCODONE] 25 mg PO 4XD 08/22/20 08/23/20 08/22/20 15:00 History Tamsulosin 1 tab PO HS 08/22/20 08/22/20 08/21/20 History Timolol 0.5%-Dorzolamide 2% 1 drop OU BID 08/22/20 08/22/20 08/21/20 History Xanax TAB 2 mg PO 4XD 08/22/20 08/22/20 08/22/20 History oxyCODONE [roxiCODONE] 1 tab PO 4XD 08/22/20 08/22/20 08/21/20 History Active Meds: Active Medications Alprazolam (Alprazolam 1 Mg Tab) 1 mg PO QID PRN PRN Reason: Anxiety Last Admin: 08/24/20 07:38 Dose: 1 mg Documented by: Atorvastatin Calcium (Atorvastatin 40 Mg Tab) 40 mg PO QHS [facility] Last Admin: 08/23/20 21:44 Dose: 40 mg Documented by: Docusate Sodium (Docusate Sodium 100 Mg Cap) 100 mg PO BID PRN PRN Reason: Constipation Famotidine (Famotidine 20 Mg Tab) 20 mg PO BID [facility] Last Admin: 08/23/20 21:44 Dose: 20 mg Documented by: Gabapentin (Gabapentin 400 Mg Cap) 800 mg PO QID [facility] Last Admin: 08/23/20 21:48 Dose: 800 mg Documented by: Heparin Sodium (Porcine) (Heparin 5,000 Unit/1 Ml Vial) 5,000 unit SUB-Q Q12HR [facility] Last Admin: 08/23/20 21:55 Dose: Not Given Documented by: Hydromorphone HCl (Hydromorphone 1 Mg/1 Ml Inj) 0.5 mg IV Q3H PRN PRN Reason: Pain , Severe (7-10) Last Admin: 08/24/20 06:03 Dose: 0.5 mg Documented by: Insulin Human Lispro (Insulin Lispro 100 Unit/Ml) 0 unit SUB-Q AC [facility]; Protocol Last Admin: 08/24/20 08:01 Dose: Not Given Documented by: Ketorolac Tromethamine (Ketorolac 30 Mg/1 Ml Inj) 30 mg IV Q6H PRN PRN Reason: Pain, Moderate (4-6) Stop: 08/27/20 21:25 Last Admin: 08/24/20 07:39 Dose: 30 mg Documented by: Methylprednisolone Sodium Succinate (Methylprednisolone Sod Succinate 125 Mg/2 Ml Inj) 60 mg IV Q8HR [facility] Last Admin: 08/24/20 06:03 Dose: 60 mg Documented by: Miscellaneous Medication (Timolol 0.5%-Dorzolamide 2%) 1 drop OP BID [facility] Last Admin: 08/23/20 22:00 Dose: 1 drop Documented by: Ondansetron HCl (Ondansetron 4 Mg/2 Ml Inj) 4 mg IV Q8H PRN PRN Reason: Nausea And Vomiting Oxycodone HCl (Oxycodone 5 Mg Tab) 25 mg PO Q8H PRN PRN Reason: Pain, Moderate (4-6) Last Admin: 08/24/20 02:46 Dose: 25 mg Documented by: Sodium Chloride (Sodium Chloride 0.9% 10 Ml Flush Syringe) 10 ml IV BID [facility] Last Admin: 08/23/20 21:45 Dose: 10 ml Documented by: Sodium Chloride (Sodium Chloride 0.9% 10 Ml Flush Syringe) 10 ml IV PRN PRN PRN Reason: LINE FLUSH Tamsulosin HCl (Tamsulosin 0.4 Mg Cap) 0.4 mg PO QHS [facility] Last Admin: 08/23/20 21:44 Dose: 0.4 mg Documented by: Torsemide (Torsemide 100 Mg Tab) 100 mg PO DAILY [facility] Last Admin: 08/23/20 10:20 Dose: 100 mg Documented by: Mental Status Exam - Vital signs Last Vital Signs Temp 98.0 F 08/24/20 07:43 Pulse 93 H 08/24/20 07:43 Resp 18 08/24/20 07:43 BP 120/102 08/24/20 07:43 Pulse Ox 96 08/24/20 07:43 Results Result Diagrams: 08/23/20 05:23 08/23/20 05:23 Abnormal lab results 03/15/21 Range/Units 21:05 POC Glucose 200 H (70-105) mg/dL All other labs normal.
[2020-08-24 10:00] LABS: Partial Thromboplastin Time 27.3 Sec. (24.2-36.6)
[2020-08-24] MEDS: FAMOTIDINE 20 MG TAB PO SCH ×2 (10:11→21:27)
[2020-08-24] MEDS: GABAPENTIN 400 MG CAP PO SCH ×4 (10:11→21:27)
[2020-08-24] MEDS: HEPARIN 5,000 UNIT/1 ML VIAL SUB-Q SCH ×2 (10:11→21:28)
[2020-08-24] MEDS: TORSEMIDE 100 MG TAB PO SCH (10:11)
[2020-08-24] MEDS: ESCITALOPRAM 10 MG TAB PO SCH (10:20)
[2020-08-24] MEDS: DORZOLAMIDE 2% OP SCH ×2 (10:21→21:29)
[2020-08-24] MEDS: TIMOLOL 0.5% OP SCH ×2 (10:21→21:29)
--- NOTE | 2020-08-24 10:34 | Progress Note ---
Assessment and Plan 55-year-old male with a past medical history of chf, DM, pulmonary embolism (With greenfilter placement), GERD, COPD, JENNIFER, rheumatoid arthritis, morbid obesity, and BPH presents to the hospital with left-sided chest pain . Pain woke him up from his sleep. Described as a sharp shooting type of pain with associated diaphoresis. Patient states he also gets diaphoresis fatigue with exertion. Positive pain radiation to left arm. Denies nausea, vomiting. Positive shortness of breath. Patient has had similar pain in the past and has presented here multiple times and admitted for chest pain work-up. Patient has refused cardiac cath greater than 6 times. Apparently patient states he refused secondary to severe anxiety while lying on the cath table. Last admission was in July. Negative CT angiogram chest July 30 and cath was refused. Patient was here in the ER now for chest pain and refused admission and left AGAINST MEDICAL ADVICE. With each chest pain visit patient's pain appears to be s atypical, sharp, with negative troponins. Patient received aspirin in route and refused nitroglycerin because it gives him a headache. Patient states he takes Xanax 2 mg 4 times a day for anxiety . Pt also c/o headache Patient has history of smoking 1/4th pack a day x 30years. Drinks alcohol on week ends. Denies illicit drug abuse. 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 Patient and has 6 children. Patient allergic to tylenol and Tramadol. Patient alert, awake. Walking in [address] with cane. Still complaining shortness of breath. Denies chest pain and cough at this time. Patient is on room air. O2 saturation 95%. Patient afebrile. No leukocytosis. Chest xray done 08/22/20 reported Low lung volumes with streaky bibasilar opacities, favoring atelectasis. Otherwise, no acute chest process Patient also has angio CT of chest 08/22/20 reported No evidence of pulmonary embolus. Right lower lobe airspace consolidation, suspicious for pneumonia. Patient presently on I/V solumedrol, S/C Heparin, Famotidine. Recommend albuterol/atrovent aerosol treatments q 6 hours. If patient become febrile, Recommend I/V antibiotics. 08/24/20 Patient alert, awake. Resting on room air. O2 saturation running 96%. Patient complaining wheezing. But no acute respiratory distress. Patient afebrile. No leukocytosis. Obtaining blood gases. Staring on albuterol/atrovent aerosol treatments.Patient already receiving I/V solumedrol, S/C heparin and famotidine. - Patient Problems (1) Pneumonia involving right lung Current Visit: Yes Status: Acute Plan to address problem: Patient afebrile. No leukocytosis. If patient become febrile, Recommend to start on antibiotics. (2) Chest pain Current Visit: Yes Status: Acute Plan to address problem: Management as per cardiology. (3) History of CVA (cerebrovascular accident) Current Visit: Yes Status: Acute Plan to address problem: Management as per primary care. (4) HTN (hypertension) Current Visit: Yes Status: Chronic Plan to address problem: Management as per primary care. (5) History of pulmonary embolism Current Visit: Yes Status: Chronic Plan to address problem: Patient has Greenfile[place] filter placement. (6) Morbid obesity Current Visit: Yes Status: Chronic (7) COPD (chronic obstructive pulmonary disease) Current Visit: No Status: Chronic Qualifiers: COPD type: unspecified COPD Qualified Code(s): J44.9 - Chronic obstructive pulmonary disease, unspecified Plan to address problem: O2 2 litres via nasal canula Albuterol/atrovent aerosol treatments q 6 hours. Continue I/V solumedrol Continue S/C Heparin Continue Famotidine. Counseled to stop smoking. PFTs as Out patient. (8) Diabetes Current Visit: No Status: Chronic Plan to address problem: Management as per primary care. (9) Obstructive sleep apnea Current Visit: No Status: Chronic Plan to address problem: History of sleep apnea. CPAP during night time. Subjective Date of service: 08/24/20 Interval history: Patient alert, awake. Resting on room air. O2 saturation running 96%. Patient complaining wheezing. But no acute respiratory distress. Patient afebrile. No leukocytosis. Obtaining blood gases. Staring on albuterol/atrovent aerosol treatments.Patient already receiving I/V solumedrol, S/C heparin and famotidine. Objective Vital Signs - 12hr 08/23/20 08/24/20 08/24/20 23:27 00:55 02:46 Temperature 98.3 F Pulse Rate 97 H Respiratory 18 20 20 Rate Blood Pressure 141/105 O2 Sat by Pulse 90 Oximetry 0308/24/20 08/24/20 03:27 06:03 07:43 Temperature 98.0 F 98.0 F Pulse Rate 72 93 H Respiratory 18 20 18 Rate Blood Pressure 119/75 120/102 O2 Sat by Pulse 94 96 Oximetry Constitutional: no acute distress, alert Eyes: non-icteric ENT: oropharynx moist Neck: supple, no JVD Effort: normal Ascultation: Bilateral: rhonchi (Right base.) Cardiovascular: regular rate and rhythm Gastrointestinal: normoactive bowel sounds Integumentary: normal Extremities: no cyanosis, no edema Neurologic: normal mental status, pupils equal and round Psychiatric: mood appropriate CBC and BMP: 08/23/20 05:23 08/23/20 05:23 ABG, PT/INR, D-dimer: PT/INR, D-dimer PT 13.1 Sec. (12.2-14.9) 08/24/20 09:23 INR 1.00 (0.87-1.13) 08/24/20 09:23 Abnormal lab findings: Abnormal Labs 08/22/20 08/22/20 08/23/20 12:13 12:13 05:23 MCV 98 H 98 H MCH 33 H 34 H MCHC 35 H RDW 17.5 H 17.3 H [place] % (Auto) 12.9 H 14.5 H Eos % (Auto) 9.9 H 9.7 H [place] # (Auto) 1.2 H 1.1 H Eos # (Auto) 0.9 H 0.8 H Potassium 3.4 L BUN Glucose 118 H POC Glucose Albumin 08/23/20 08/23/20 05:23 21:05 MCV MCH MCHC RDW [place] % (Auto) Eos % (Auto) [place] # (Auto) Eos # (Auto) Potassium BUN 21 H Glucose 118 H POC Glucose 200 H Albumin 3.6 L
[2020-08-24 11:46] LABS: ABG Base Excess 1.7 mmol/L (-2.0-3.0); ABG Methemoglobin 0.4 % (0.0-1.5); ABG Oxygen Saturation 94.9 % (95.0-99.0); ABG PCO2 45.1 mm Hg; ABG PH 7.394 pH Units (7.350-7.450); ABG PO2 71.7 mm Hg (80.0-90.0)
--- NOTE | 2020-08-24 12:25 | Event Note ---
Date: 08/24/20 Patient's cardiac catheterization could not be done today, he reports that he had a full breakfast this morning. Even though he was instructed yesterday to stay n.p.o. past midnight, he suggested that he ate the food because it was brought to him in his room. We have again given instructions for n.p.o. after midnight tonight and cardiac catheterization rescheduled for tomorrow morning.
--- NOTE | 2020-08-24 13:22 | Progress Note ---
Assessment and Plan Assessment and plan: 54-year-old male with history of CHF pulmonary embolism, diabetes and hypertension and recurrent chest pain and chronic pain seeking behavior comes in for left-sided chest pain. Patient has multiple visits. Patient was recommended to have a cardiac cath but in the last minute refuses cardiac cath because of anxiety. This visit patient promises that he is going to have a cardiac cath. Chest pain is intermittent and exacerbated by exertion. No shortness of breath. Patient being admitted because of his decision to get cardiac cath. Exercise is an exacerbation factor. 08/23: Patient has had multiple visits and previously was recommended to have a cardiac cath but declined due to anxiety. Returns with chest pain. Today he is noted to wheezing we will obtain pulmonary evaluation. We will also put a psych evaluation. He also has chronic pain syndrome for which he is on oxycodone 25 mg outpatient we will evaluate and readjust his medications. Otherwise continue current management Atypical chest pain recurrent question chronic pain syndrome versus coronary art sydnee disease versus costochondritis Hypertension Severe anxiety Tobacco use disorder History of CVA with gait abnormality persistent ambulates with a cane Chronic pain syndrome Prior history of pulmonary embolism with IVC filter placed Congestive heart failure possible diastolic GERD Arthritis Diabetes mellitus Obstructive sleep apnea Hyperlipidemia Plan 08/24: Wheezing has improved. Continues asked for pain medication and is very manipulative way. He is very noncompliant with treatment I strongly advised him about staying n.p.o. but he is tells me that he was just too hungry and he found some crackers and juice and drank and unfortunately he implied to this paint specialist that food was brought to him which was not true. He will remain n.p.o. for procedure tomorrow after midnight. Psych input is noted. I have also advised him on the risk of benzos and opioids combination he states that he follows with the pain doctor who is very familiar with this risk and manages appropriately. Start on steroids therapy secondary to noted wheezing CPAP at HS Continue other plan as outlined. DVT/GI pProphy History Interval history: Patient seen and examined. This morning he tells me that he drank juice and ate crackers. The nursing staff reports that the patient was belligerent with them and he was found in the pantry this morning trying to get food. He continues to also increase pain medication Hospitalist Physical - Physical exam Narrative exam: VITAL SIGNS: Reviewed. GENERAL: The patient appears normally developed, morbidly obese vital signs as documented. HEAD: No signs of head trauma. EYES: Pupils are equal. Extraocular motions intact. EARS: Hearing grossly intact. MOUTH: Oropharynx is normal. NECK: No adenopathy, no JVD. Well-healed surgical incision in the neck [neck fusion per patient] CHEST: Chest with wheezing breath sounds bilaterally expiratory morning expiratory. No rales, or rhonchi. CARDIAC: Regular rate and rhythm. S1 and S2, without murmurs, gallops, or rubs. VASCULAR: No Edema. Peripheral pulses normal and equal in all extremities. ABDOMEN: Large pannus and well healed ostomy scar. Soft, non tender and non distended. No rebound or guarding, and no masses palpated. Bowel Sounds normal. MUSCULOSKELETAL: Good range of motion of all major joints. Extremities without clubbing, cyanosis or edema. NEUROLOGIC EXAM: Alert and oriented x 3 No focal sensory or strength deficits. Speech normal. Follows commands. PSYCHIATRIC: Mood anxious. SKIN: detail exam as documented in skin assessment - Constitutional Vitals: Temp Pulse Resp BP Pulse Ox 98.0 F 72 19 120/102 96 08/24/20 07:43 08/24/20 10:00 08/24/20 10:00 08/24/20 07:43 08/24/20 07:43 General appearance: Present: no acute distress HEART Score - HEART Score EKG: Non-specific Age: 45-65 Risk factors: > 3 risk factors or hx of atherosclerotic disease Troponin: Troponin T < 0.010 ng/mL (0.00-0.029) 08/22/20 17:22 Troponin: < normal limit Results - Labs CBC & Chem 7: 08/23/20 05:23 08/23/20 05:23 Labs: Laboratory Last Values WBC 7.9 K/mm3 (4.5-11.0) 08/23/20 05:23 RBC 3.74 M/mm3 (3.65-5.03) 08/23/20 05:23 Hgb 12.7 gm/dl (11.8-15.2) 08/23/20 05:23 Hct 36.7 % (35.5-45.6) 08/23/20 05:23 MCV 98 fl (84-94) H 08/23/20 05:23 MCH 34 pg (28-32) H 08/23/20 05:23 MCHC 35 % (32-34) H 08/23/20 05:23 RDW 17.3 % (13.2-15.2) H 08/23/20 05:23 Plt Count 165 K/mm3 (140-440) 08/23/20 05:23 Lymph % (Auto) 21.7 % (13.4-35.0) 08/23/20 05:23 [place] % (Auto) 14.5 % (0.0-7.3) H 08/23/20 05:23 Eos % (Auto) 9.7 % (0.0-4.3) H 08/23/20 05:23 Baso % (Auto) 0.8 % (0.0-1.8) 08/23/20 05:23 Lymph # (Auto) 1.7 K/mm3 (1.2-5.4) 08/23/20 05:23 [place] # (Auto) 1.1 K/mm3 (0.0-0.8) H 08/23/20 05:23 Eos # (Auto) 0.8 K/mm3 (0.0-0.4) H 08/23/20 05:23 Baso # (Auto) 0.1 K/mm3 (0.0-0.1) 08/23/20 05:23 Seg Neutrophils % 53.3 % (40.0-70.0) 08/23/20 05:23 Seg Neutrophils # 4.2 K/mm3 (1.8-7.7) 08/23/20 05:23 PT 13.1 Sec. (12.2-14.9) 08/24/20 09:23 INR 1.00 (0.87-1.13) 08/24/20 09:23 APTT 27.3 Sec. (24.2-36.6) 08/24/20 09:23 ABG pH 7.394 pH Units (7.350-7.450) 08/24/20 11:41 ABG pCO2 45.1 mm Hg 08/24/20 11:41 ABG pO2 71.7 mm Hg (80.0-90.0) L 08/24/20 11:41 ABG HCO3 27.0 mmol/L (20.0-26.0) H 08/24/20 11:41 ABG O2 Saturation 94.9 % (95.0-99.0) L 08/24/20 11:41 ABG O2 Content 14.3 (0.0-44) 08/24/20 11:41 ABG Base Excess 1.7 mmol/L (-2.0-3.0) 08/24/20 11:41 ABG Hemoglobin 10.9 gm/dl (14.0-18.0) L 08/24/20 11:41 ABG Carboxyhemoglobin 1.5 % (0.0-5.0) 08/24/20 11:41 ABG Methemoglobin 0.4 % (0.0-1.5) 08/24/20 11:41 Oxyhemoglobin 93.1 % (95.0-99.0) L 08/24/20 11:41 FiO2 21 % 08/24/20 11:41 Sodium 140 mmol/L (137-145) 08/23/20 05:23 Potassium 3.6 mmol/L (3.6-5.0) 08/23/20 05:23 Chloride 101.0 mmol/L (98-107) 08/23/20 05:23 Carbon Dioxide 26 mmol/L (22-30) 08/23/20 05:23 Anion Gap 17 mmol/L 08/23/20 05:23 BUN 21 mg/dL (9-20) H 08/23/20 05:23 Creatinine 1.2 mg/dL (0.8-1.3) 08/23/20 05:23 Estimated GFR > 60 ml/min 08/23/20 05:23 BUN/Creatinine Ratio 18 % 08/23/20 05:23 Glucose 118 mg/dL (75-100) H 08/23/20 05:23 POC Glucose 177 mg/dL (70-105) H 08/24/20 11:26 Hemoglobin A1c 5.5 % (4-6) 08/23/20 05:23 Calcium 8.5 mg/dL (8.4-10.2) 08/23/20 05:23 Total Bilirubin 0.50 mg/dL (0.1-1.2) 08/23/20 05:23 AST 19 units/L (5-40) 08/23/20 05:23 ALT 15 units/L (7-56) 08/23/20 05:23 Alkaline Phosphatase 59 units/L (35-129) 08/23/20 05:23 Troponin T < 0.010 ng/mL (0.00-0.029) 08/22/20 17:22 Total Protein 6.9 g/dL (6.3-8.2) 08/23/20 05:23 Albumin 3.6 g/dL (3.9-5) L 08/23/20 05:23 Albumin/Globulin Ratio 1.1 % 08/23/20 05:23 [place]/IV: Voiding Method Toilet Active Medications - Current Medications Current Medications: Generic Name Dose Route Start Last Admin Trade Name Freq PRN Reason Stop Dose Admin Albuterol 2.5 mg 08/24/20 14:00 Albuterol 2.5 Mg/3 Ml Nebu IH Q6HRT SHAHEED Alprazolam 1 mg 08/23/20 18:50 08/24/20 13:10 Alprazolam 1 Mg Tab PO 1 mg QID PRN Administration Anxiety Atorvastatin Calcium 40 mg 08/22/20 22:00 08/23/20 21:44 Atorvastatin 40 Mg Tab PO 40 mg QHS SHAHEED Administration Docusate Sodium 100 mg 08/22/20 19:57 Docusate Sodium 100 Mg Cap PO BID PRN Constipation Escitalopram Oxalate 5 mg 08/24/20 10:00 08/24/20 10:20 Escitalopram 10 Mg Tab PO Not Given QDAY SHAHEED Famotidine 20 mg 08/23/20 22:00 08/24/20 10:11 Famotidine 20 Mg Tab PO 20 mg BID SHAHEED Administration Gabapentin 800 mg 08/22/20 22:00 08/24/20 13:10 Gabapentin 400 Mg Cap PO 800 mg QID SHAHEED Administration Heparin Sodium (Porcine) 5,000 unit 08/22/20 22:00 08/24/20 10:11 Heparin 5,000 Unit/1 Ml Vial SUB-Q 5,000 unit Q12HR SHAHEED Administration Hydromorphone HCl 0.5 mg 08/23/20 14:30 08/24/20 06:03 Hydromorphone 1 Mg/1 Ml Inj IV 0.5 mg Q3H PRN Administration Pain , Severe (7-10) Insulin Human Lispro 0 unit 08/23/20 07:30 08/24/20 12:00 Insulin Lispro 100 Unit/Ml SUB-Q 3 unit AC SHAHEED Administration Protocol Ipratropium [place] 0.5 mg 08/24/20 14:00 Ipratropium 0.02% Nebu 2.5 Ml IH Q6HRT [facility] Ketorolac Tromethamine 30 mg 08/22/20 21:26 08/24/20 13:10 Ketorolac 30 Mg/1 Ml Inj IV 08/27/20 21:25 30 mg Q6H PRN Administration Pain, Moderate (4-6) Methylprednisolone Sodium Succinate 60 mg 08/23/20 14:00 08/24/20 13:10 Methylprednisolone Sod Succinate 125 Mg/2 Ml Inj IV 60 mg Q8HR SHAHEED Administration Mirtazapine 15 mg 08/24/20 22:00 Mirtazapine 15 Mg Tab PO QHS [facility] Miscellaneous Medication 1 drop 08/22/20 22:00 08/24/20 10:21 Timolol 0.5%-Dorzolamide 2% OP Not Given BID [facility] Ondansetron HCl 4 mg 08/22/20 21:24 Ondansetron 4 Mg/2 Ml Inj IV Q8H PRN Nausea And Vomiting Oxycodone HCl 25 mg 08/23/20 14:46 08/24/20 10:10 Oxycodone 5 Mg Tab PO 25 mg Q8H PRN Administration Pain, Moderate (4-6) Sodium Chloride 10 ml 08/22/20 22:00 08/24/20 10:21 Sodium Chloride 0.9% 10 Ml Flush Syringe IV Not Given BID [facility] Sodium Chloride 10 ml 08/22/20 21:24 Sodium Chloride 0.9% 10 Ml Flush Syringe IV PRN PRN LINE FLUSH Tamsulosin HCl 0.4 mg 08/22/20 22:00 08/23/20 21:44 Tamsulosin 0.4 Mg Cap PO 0.4 mg QHS [facility] Administration Torsemide 100 mg 08/22/20 20:00 08/24/20 10:11 Torsemide 100 Mg Tab PO 100 mg DAILY SHAHEED Administration
[2020-08-24] MEDS: IPRATROPIUM 0.02% NEBU 2.5 ML IH SCH ×2 (14:52→19:58)
[2020-08-24] MEDS: ALBUTEROL 2.5 MG/3 ML NEBU IH SCH ×2 (14:52→19:58)
[2020-08-24] MEDS: TAMSULOSIN 0.4 MG CAP PO SCH (21:27)
[2020-08-24] MEDS ORDERED: MIRTAZAPINE 15 MG TAB PO SCH (22:00)
[2020-08-25] MEDS: KETOROLAC 30 MG/1 ML INJ IV PRN (00:34)
[2020-08-25] MEDS: HYDROmorphone 1 MG/1 ML INJ IV PRN ×3 (00:35→11:34)
[2020-08-25] MEDS: oxyCODONE 5 MG TAB PO PRN ×3 (01:09→17:47)
[2020-08-25] MEDS: ALPRAZolam 1 MG TAB PO PRN ×4 (01:10→17:54)
[2020-08-25] MEDS: IPRATROPIUM 0.02% NEBU 2.5 ML IH SCH ×2 (01:47→09:34)
[2020-08-25] MEDS: ALBUTEROL 2.5 MG/3 ML NEBU IH SCH ×2 (01:47→09:34)
[2020-08-25 05:35] LABS: BUN/Creatinine Ratio 26; Blood Urea Nitrogen 37 mg/dL (9-20); Calcium 8.8 mg/dL (8.4-10.2); Hemolysis Index 6
[2020-08-25 05:37] LABS: Basophils % (Auto) 0.1 % (0.0-1.8); Hematocrit 35.2 % (35.5-45.6); Hemoglobin 11.8 gm/dl (11.8-15.2); Lymphocytes # (Auto) 0.6 K/mm3 (1.2-5.4); Lymphocytes % (Auto) 5.2 % (13.4-35.0); Mean Corpuscular HGB Conc 34 % (32-34); Mean Corpuscular Volume 99 fl (84-94); Monocytes # (Auto) 0.7 K/mm3 (0.0-0.8); Monocytes % (Auto) 5.9 % (0.0-7.3); Platelet Count 194 K/mm3 (140-440); Red Blood Count 3.56 M/mm3 (3.65-5.03); Red Cell Distribution Width 16.9 % (13.2-15.2)
[2020-08-25 05:39] LABS: INR 1.01 (0.87-1.13)
[2020-08-25] MEDS: methylPREDNISolone Sod Succinate 125 MG/2 ML INJ IV SCH (06:47)
[2020-08-25] MEDS: IPRATROPIUM/ALBUTEROL SULFATE 3 ML AMPUL.NEB IH SCH ×2 (08:25→16:32)
[2020-08-25] MEDS: INSULIN LISPRO 100 UNIT/ML SUB-Q SCH ×3 (08:28→17:03)
[2020-08-25 08:43] VITALS: BP 120/70
--- NOTE | 2020-08-25 08:43 | Progress Note ---
Subjective - Reason for Consult Consult date: 08/25/20 Reason for consult: anxiety - Chief Complaint Chief complaint: The patient was seen today. He is a/o x 3. He is conversational. He is calm and cooperative. When asked if he slept better after starting the medication, he says "sh*t yea," then laughs. He says he didn't get the lexapro yesterday. Advised the patient that he would today. The patient denies SI/HI or hallucinations of any kind. REVIEW OF SYSTEMS Constitutional: Negative for weight loss ENT: Negative for stridor Respiratory: Negative for cough or hemoptysis All other systems reviewed and are negative MENTAL STATUS EXAMINATION General Appearance and Behavior: Age appropriate, good hygiene, not wearing appropriate clothes, good eye contact, cooperative with questioning, calm Cooperation: Participating/engaged Psychomotor Behavior: Psychomotor normal Mood: "alright" Affect and affective range: congruent with stated mood Thought Process: goal directed Thought Content: None Speech: normal tone and pace Suicidal Ideation: Denies Homicidal Ideation: Denies Hallucinations: Denies Delusions: None elicited Impulse Control: Impaired Insight and Judgment: Normal insight and judgment Memory: Normal Attention: Normal Orientation: Alert, oriented Assessment and Plan (1) Generalized Anxiety Disorder Current Visit: Yes Status: Acute Treatment Continue Remeron 15mg po daily Continue Lexapro 5mg po daily Sitter: defer to [facility] Medical: Per primary Disposition: Do not recommend acute psychiatric inpatient treatment Will follow for med management. Thanks for this consult Case staffed with Dr. Wren. Mental Status Exam - Vital signs Last Vital Signs Temp 98.3 F 08/25/20 06:31 Pulse 79 08/25/20 01:48 Resp 16 08/25/20 01:48 BP 127/88 08/24/20 19:55 Pulse Ox 96 08/24/20 19:55
[2020-08-25] MEDS ORDERED: ALBUTEROL 2.5 MG/3 ML NEBU IH PRN (10:00)
--- NOTE | 2020-08-25 11:11 | Discharge Summary ---
Providers - Providers Date of Admission: 08/23/20 14:51 Attending physician: BRIANNA CHILDRESS MD 08/22/20 21:24 Consult to Physician [CONS] Routine Comment: Consulting Provider: ROLLY TYSON Physician Instructions: Reason For Exam: Unstable angina 08/23/20 11:30 Consult to Physician [CONS] Routine Comment: Consulting Provider: ALEK BRENNAN Physician Instructions: Reason For Exam: shortness of breath 08/23/20 11:49 Consult to Physician [CONS] Routine Comment: Consulting Provider: BILL MCCOY Physician Instructions: Reason For Exam: ANXIETY Primary care physician: SERVICE AND REPAIR SUPERVISOR Hospitalization Reason for admission: chest pain Condition: Stable Hospital course: 54-year-old male with history of CHF pulmonary embolism, diabetes and hypertension and recurrent chest pain and chronic pain seeking behavior comes in for left-sided chest pain. Patient has multiple visits. Patient was recommended to have a cardiac cath but in the last minute refuses cardiac cath because of anxiety. This visit patient promises that he is going to have a cardiac cath. Chest pain is intermittent and exacerbated by exertion. No shortness of breath. Patient being admitted because of his decision to get cardiac cath. Exercise is an exacerbation factor. 08/23: Patient has had multiple visits and previously was recommended to have a cardiac cath but declined due to anxiety. Returns with chest pain. Today he is noted to wheezing we will obtain pulmonary evaluation. We will also put a psych evaluation. He also has chronic pain syndrome for which he is on oxycodone 25 mg outpatient we will evaluate and readjust his medications. Otherwise continue current management 08/24: Wheezing has improved. Continues asked for pain medication and is very manipulative way. He is very noncompliant with treatment I strongly advised him about staying n.p.o. but he is tells me that he was just too hungry and he found some crackers and juice and drank and unfortunately he implied to this rabbet operator that food was brought to him which was not true. He will remain n.p.o. for procedure tomorrow after midnight. Psych input is noted. I have also advised him on the risk of benzos and opioids combination he states that he follows with the pain doctor who is very familiar with this risk and manages appropriately. Start on steroids therapy secondary to noted wheezing CPAP at HS 08/25: Patient today again declined going for the cardiac cath. Did discuss with the rabbet operator this has been going on for about a year the patient has come to the hospital plan to have a cardiac cath in a day of procedure decides against it. He has been noncompliant with all treatment plan. Continues to ask for food or goes to the pantry to get food. Continues to insist on getting oral pain medications and IV pain medication before doing any procedure. He was seen by psych with diagnosed with generalized anxiety disorder Continue Remeron 15mg po daily, Continue Lexapro 5mg po daily. Recommended outpatient treatment for him at this time we will start him on Ranexa. Recommend that he continues to follow-up with his pain physician. He states that he will discuss with his children himself. He will also be empirically treated forpneumonia with antibiotics. I have also recommended an outpatient pulmonary evaluation for obstructive sleep apnea. Home oxygen assessment prior to discharge He is ambulating and dancing in the hallway without difficulty. Atypical chest pain recurrent question chronic pain syndrome versus coronary artery disease versus costochondritis Hypertension Severe anxiety Acute Hypoxic Respiratory failure-Not POA SARAH Secondary to vasomotor nephropathy- Not POA Tobacco use disorder History of CVA with gait abnormality persistent ambulates with a cane Chronic pain syndrome Right lobar pneumonia Spinal stenosis secondary to spinal for Prior history of pulmonary embolism with IVC filter placed Chronic congestive heart failure possible diastolic GERD Arthritis Diabetes mellitus Obstructive sleep apnea Hyperlipidemia Disposition: DC/TX- HOME [facility] Final Discharge Diagnosis (Prints w/discharge instructions): atypical chest pain secondary to costochondritis Time spent for discharge: 35 mins Core Measure Documentation - Palliative Care Palliative Care/ Comfort Measures: Not Applicable - Core Measures Any of the following diagnoses?: none Exam - Physical Exam Narrative exam: VITAL SIGNS: Reviewed. GENERAL: The patient appears normally developed, morbidly obese vital signs as documented. HEAD: No signs of head trauma. EYES: Pupils are equal. Extraocular motions intact. EARS: Hearing grossly intact. MOUTH: Oropharynx is normal. NECK: No adenopathy, no JVD. Well-healed surgical incision in the neck [neck fusion per patient] CHEST: Chest with wheezing breath sounds bilaterally expiratory morning expiratory. No rales, or rhonchi. CARDIAC: Regular rate and rhythm. S1 and S2, without murmurs, gallops, or rubs. VASCULAR: No Edema. Peripheral pulses normal and equal in all extremities. ABDOMEN: Large pannus and well healed ostomy scar. Soft, non tender and non distended. No rebound or guarding, and no masses palpated. Bowel Sounds normal. MUSCULOSKELETAL: Good range of motion of all major joints. Extremities without clubbing, cyanosis or edema. NEUROLOGIC EXAM: Alert and oriented x 3 No focal sensory or strength deficits. Speech normal. Follows commands. PSYCHIATRIC: Mood anxious. SKIN: detail exam as documented in skin assessment - Constitutional Vitals: Temp Pulse Resp BP Pulse Ox 98.1 F 57 L 18 120/70 94 08/25/20 08:23 08/25/20 08:23 08/25/20 08:23 08/25/20 08:23 08/25/20 08:23 Plan Activity: advance as tolerated, fall precautions Diet: low fat Special Instructions: record daily weights, record daily BP diary, smoking cessation, physical therapy, occupational therapy Follow up with: PRIMARY CARE, [Primary Care Provider] - 7 Days ROLLY TYSON MD [Staff Physician] - 7 Days RISHI CHARLTON MD [Staff Physician] - 7 Days Prescriptions: Tamsulosin [Flomax] 0.4 mg PO QHS #30 capsule Mirtazapine [Remeron 15mg TAB] 15 mg PO QHS #30 tablet Docusate Sodium [Colace CAP] 100 mg PO QID PRN #20 cap PRN Reason: Constipation Escitalopram Oxalate [Lexapro] 5 mg PO QDAY #30 tablet Famotidine [Pepcid] 20 mg PO BID #60 tablet Prednisone [predniSONE 5 mg (6-Day Pack, 21 Tabs)] 5 mg PO .TAPER #1 tab.ds.pk Ranolazine [Ranexa] 500 mg PO BID #60 tab.er.12h
[2020-08-25] MEDS: FAMOTIDINE 20 MG TAB PO SCH (11:17)
[2020-08-25] MEDS: TORSEMIDE 100 MG TAB PO SCH (11:17)
[2020-08-25] MEDS: GABAPENTIN 400 MG CAP PO SCH (11:17)
[2020-08-25] MEDS: HEPARIN 5,000 UNIT/1 ML VIAL SUB-Q SCH (11:18)
[2020-08-25] MEDS: ESCITALOPRAM 10 MG TAB PO SCH (11:18)
[2020-08-25] MEDS: DORZOLAMIDE 2% OP SCH (11:19)
[2020-08-25] MEDS: TIMOLOL 0.5% OP SCH (11:19)
--- NOTE | 2020-08-25 18:30 | Event Note ---
Date: 08/25/20 Patient again refused to be brought down to the cardiac catheterization laboratory today for his planned coronary study. We will defer any further cardiac intervention, patient is instructed to follow-up with his primary cardiac doctors at [facility]. We will sign off.
== END 2020-08-25 18:17 | disposition home health service (06) | DRG 205 ==
LOC: ED 11:40 → 4A 15:04 → OBSVTOIN 08-23 14:51
PROVIDERS: ADMIT Internal Medicine; ATTEND Internal Medicine
PROC: 5A09357 Assistance with Respiratory Ventilation, Less than 24 Consecutive Hours, Continuous Positive Airway Pressure (ICD-10-PCS; principal; 2020-08-25)
DX: M94.0 Chondrocostal junction syndrome [Tietze] (principal); J18.9 Pneumonia, unspecified organism; N17.0 Acute kidney failure with tubular necrosis; J96.01 Acute respiratory failure with hypoxia; I50.40 Unspecified combined systolic (congestive) and diastolic (congestive) heart failure; I20.0 Unstable angina; E66.01 Morbid (severe) obesity due to excess calories; G89.29 Other chronic pain; F41.9 Anxiety disorder, unspecified; J44.9 Chronic obstructive pulmonary disease, unspecified; E78.5 Hyperlipidemia, unspecified; G47.33 Obstructive sleep apnea (adult) (pediatric); F51.9 Sleep disorder not due to a substance or known physiological condition, unspecified; M19.90 Unspecified osteoarthritis, unspecified site; F17.200 Nicotine dependence, unspecified, uncomplicated; I11.0 Hypertensive heart disease with heart failure; K21.9 Gastro-esophageal reflux disease without esophagitis; Z68.33 Body mass index [BMI] 33.0-33.9, adult; Z71.3 Dietary counseling and surveillance; Z79.899 Other long term (current) drug therapy; Z86.73 Personal history of transient ischemic attack (TIA), and cerebral infarction without residual deficits
CPT/HCPCS: 36415; 36600; 70450; 71045; 71275; 80048; 80053; 82803; 82962; 83036; 84484; 85025; 85610; 85730; 93005; 94640; 94660; 96361; 96365; 96366; 96375; G0378; A9270-GY; J1170; J1644; J1815; J1885; J2270; J2405; J2930; Q9967

== ENCOUNTER 2020-09-19 22:26 | Emergency (ER) | payer MEDICARE ==
[2020-09-20] MEDS ORDERED: ASPIRIN 325 MG TAB PO ONE (00:38)
[2020-09-20 01:11] VITALS: BP 112/75
--- NOTE | 2020-09-20 01:14 | XRay Report ---
CHEST 1 VIEW INDICATION: dyspnea, CHF. COMPARISON: 08/22/2020 FINDINGS: Support devices: None. Heart: Normal. Lungs/Pleura: Subtle opacity in the medial right lung base could be due to infiltrate or atelectasis. Lungs otherwise clear. IMPRESSION: 1. Medial right basilar opacity could be due to focal pneumonia. This could also BE atelectatic. Signer Name: Devin Kincaid MD Signed: 09/20/2020 1:10 AM Workstation Name: [id number]
[2020-09-20 01:16] LABS: Basophils # (Auto) 0.1 K/mm3 (0.0-0.1); Basophils % (Auto) 1.3 % (0.0-1.8); Eosinophils # (Auto) 0.5 K/mm3 (0.0-0.4); Hematocrit 42.6 % (35.5-45.6); Hemoglobin 14.8 gm/dl (11.8-15.2); Lymphocytes % (Auto) 30.5 % (13.4-35.0); Mean Corpuscular HGB Conc 35 % (32-34); Mean Corpuscular Volume 98 fl (84-94); Monocytes # (Auto) 0.9 K/mm3 (0.0-0.8); Monocytes % (Auto) 13.1 % (0.0-7.3); Platelet Count 203 K/mm3 (140-440); Red Blood Count 4.33 M/mm3 (3.65-5.03); Red Cell Distribution Width 16.5 % (13.2-15.2)
[2020-09-20 01:28] LABS: INR 1.04 (0.87-1.13)
[2020-09-20 01:29] LABS: Partial Thromboplastin Time 28.4 Sec. (24.2-36.6)
[2020-09-20 01:41] LABS: Alanine Aminotransferase 16 units/L (7-56); Albumin 4.6 g/dL (3.9-5); BUN/Creatinine Ratio 20; Blood Urea Nitrogen 22 mg/dL (9-20); Calcium 9.8 mg/dL (8.4-10.2); Hemolysis Index 3
--- NOTE | 2020-09-20 03:54 | Event Note ---
ED Screening Note Date of service: 09/20/20 Time: 01:30 ED Screening Note: Patient is a 55-year-old -N[place] male with a history of chronic gout, CHF, hypertension, COPD who presents to the ED with complaint of acute onset persistent shortness of breath, worse with exertion and orthopnea for the last 1 week, worse in the last 2 days. Patient states that he has been taking his regular " water pill" and that this does not seem to be helping his shortness of breath. Patient denies chest pain, dizziness, syncope, abdominal pain, diarrhea, back pain, numbness and tingling or weakness of lower and upper extremities bilaterally, fever, chills, cough, neck pain, diaphoresis, abdominal pain, bilateral leg swelling or headache. This initial assessment/diagnostic orders/clinical plan/treatment(s) is/are subject to change based on patients health status, clinical progression and re-assessment by fellow clinical providers in the ED. Further treatment and workup at subsequent clinical providers discretion. Patient/guardian urged not to elope from the ED as their condition may be serious if not clinically assessed and managed. Initial orders include: EKG, CBC, CMP, BNP, troponin, chest x-ray, CT angiogram
--- NOTE | 2020-09-20 17:36 | Electrocardiograph Report ---
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
== END 2020-09-20 05:35 | disposition left against medical advice (07) ==
LOC: ED 22:26
DX: R07.89 Other chest pain (principal); R06.02 Shortness of breath; R53.1 Weakness; Z53.21 Procedure and treatment not carried out due to patient leaving prior to being seen by health care provider
CPT/HCPCS: 36415; 71045; 80053; 83880; 84484; 85025; 85610; 85730; 93005

== ENCOUNTER 2020-10-21 09:47 | Observation (INO) | payer MEDICARE ==
[2020-10-21] MEDS ORDERED: ASPIRIN 325 MG TAB PO ONE ×2 (10:12→14:07)
--- NOTE | 2020-10-21 10:41 | XRay Report ---
XR chest routine 2V INDICATION / CLINICAL INFORMATION: chest pain. COMPARISON: 09/20/2020 FINDINGS: SUPPORT DEVICES: None. HEART /PULMONARY VASCULATURE: No significant abnormality. LUNGS / PLEURA: No significant pulmonary or pleural abnormality. No pneumothorax. ADDITIONAL FINDINGS: No significant additional findings. IMPRESSION: 1. No acute findings. Signer Name: Antoine Isaac MD Signed: 10/21/2020 10:36 AM Workstation Name: [id number]
[2020-10-21 10:55] LABS: Basophils # (Auto) 0.1 K/mm3 (0.0-0.1); Basophils % (Auto) 1.3 % (0.0-1.8); Eosinophils # (Auto) 1.1 K/mm3 (0.0-0.4); Eosinophils % (Auto) 11.3 % (0.0-4.3); Hematocrit 43.5 % (35.5-45.6); Hemoglobin 15.2 gm/dl (11.8-15.2); Lymphocytes # (Auto) 1.9 K/mm3 (1.2-5.4); Lymphocytes % (Auto) 18.3 % (13.4-35.0); Mean Corpuscular HGB Conc 35 % (32-34); Mean Corpuscular Volume 95 fl (84-94); Platelet Count 272 K/mm3 (140-440); Red Blood Count 4.56 M/mm3 (3.65-5.03); Red Cell Distribution Width 15.9 % (13.2-15.2)
[2020-10-21 11:32] LABS: Alanine Aminotransferase 12 units/L (7-56); Albumin 3.9 g/dL (3.9-5); BUN/Creatinine Ratio 16; Blood Urea Nitrogen 14 mg/dL (9-20); Calcium 9.7 mg/dL (8.4-10.2); Hemolysis Index 2
--- NOTE | 2020-10-21 12:13 | Electrocardiograph Report ---
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
[2020-10-21] MEDS ORDERED: fentaNYL 100 MCG/2 ML INJ IV ONE ×2 (12:51→13:50)
[2020-10-21] MEDS ORDERED: ONDANSETRON 4 MG/2 ML INJ IV ONE (12:51)
[2020-10-21] MEDS ORDERED: POTASSIUM CHLORIDE ER 20 MEQ TAB PO ONE (12:53)
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
--- NOTE | 2020-10-21 13:33 | XRay Report ---
Right hip-3 views INDICATION: Pain after fall. COMPARISON: None. IMPRESSION: No acute osseous abnormality. Intact bilateral total hip arthroplasties with no hardwar e complication identified. Mild degenerative changes in the SI joints and lumbar spine. Signer Name: Manuel Merritt MD Signed: 10/21/2020 1:29 PM Workstation Name: [id number]
[2020-10-21] MEDS ORDERED: MORPHINE 4 MG/1 ML INJ IV ONE (14:34)
[2020-10-21] MEDS ORDERED: METOCLOPRAMIDE 10 MG/2 ML INJ IV ONE (14:48)
[2020-10-21] MEDS: HYDROmorphone 1 MG/1 ML INJ IV PRN ×3 (15:28→22:40)
[2020-10-21] MEDS ORDERED: ONDANSETRON 4 MG/2 ML INJ IV PRN (15:58)
[2020-10-21] MEDS ORDERED: traMADol 50 MG TAB PO PRN (15:58)
[2020-10-21] MEDS ORDERED: ACETAMINOPHEN 325 MG TAB PO PRN ×2 (15:58)
[2020-10-21] MEDS ORDERED: SODIUM CHLORIDE 0.9% 500 ML 500 ML IV SCH (16:00)
[2020-10-21] MEDS ORDERED: DOCUSATE SODIUM 100 MG CAP PO PRN (16:04)
[2020-10-21] MEDS ORDERED: HYDROmorphone 1 MG/1 ML INJ IV ONE ×2 (16:06→20:04)
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
[2020-10-21] MEDS ORDERED: XANAX 2 MG PO SCH (18:00)
[2020-10-21] MEDS ORDERED: NON-FORMULARY EACH (Gabapentin [Neurontin] 800 MG Tablet) PO SCH (18:00)
--- NOTE | 2020-10-21 18:15 | Consultation ---
History of Present Illness Consult date: 10/21/20 Requesting physician: NITHYA GR Consult reason: chest pain History of present illness: Pt is a 55-year-old AA male with a past medical hx of chronic HFpEF, HTN, HLD, DM2, CVA, COPD, JENNIFER (non-compliant with CPAP), and PE (in 2014, s/p IVC filter placement), who presented with complaints of sharp sub-sternal chest pain radiating back and forth across the right and left sides of his chest. Associated with diaphoresis. The pain started while he was walking around his kitchen this AM. It has been constant since then. Not relieved by rest. No additional aggravating or relieving factors. Pt also reports BLE weakness that caused him to lose his balance and hurt his right hip this AM. He denies dizziness, lightheadedness, syncope. No additional cardiac complaints. Trop neg x 2 thus far. ECG reveals no acute ischemic changes. Lexiscan stress MPI 11/2019 - negative for ischemia. Of note, pt has a hx of multiple admissions for similar complaints of chest pain. It appears he has been set up for cardiac catheterization multiple times and always cancels the morning of the planned procedure, requesting instead narcotics and anxiolytics. Past History Past Medical History: arthritis, COPD, diabetes, GERD, heart failure, hypertension, hyperlipidemia, pulmonary embolism, stroke Past Surgical History: bowel surgery (s/p colostomy), Other (IVC filter, spinal fusion (2011)) Social history: , smoking, alcohol abuse Family history: diabetes, hypertension Medications and Allergies Allergies Allergy/AdvReac Type Severity Reaction Status Date / Time acetaminophen [From Tylenol] Allergy Swelling Verified 05/28/20 20:18 tramadol Allergy Itching Verified 03/03/20 07:42 Home Medications Medication Instructions Recorded Confirmed Last Taken Type Rosuvastatin Calcium [Crestor] 20 mg PO HS 03/31/20 08/24/20 08/21/20 History Torsemide [Demadex] 100 mg PO DAILY 03/31/20 08/24/20 08/24/20 10:23 History Gabapentin [Neurontin] 1 tab PO 4XD 08/22/20 08/22/20 08/21/20 History Oxycodone HCl [oxyCODONE] 25 mg PO 4XD 08/22/20 08/23/20 08/22/20 15:00 History Tamsulosin 1 tab PO HS 08/22/20 08/22/20 08/21/20 History Timolol 0.5%-Dorzolamide 2% 1 drop OU BID 08/22/20 08/22/20 08/21/20 History Xanax TAB 2 mg PO 4XD 08/22/20 08/22/20 08/22/20 History oxyCODONE [roxiCODONE] 1 tab PO 4XD 08/22/20 08/22/20 08/21/20 History Docusate Sodium [Colace CAP] 100 mg PO QID PRN #20 cap 08/25/20 Unknown Rx Escitalopram Oxalate [Lexapro] 5 mg PO QDAY #30 tablet 08/25/20 Unknown Rx Famotidine [Pepcid] 20 mg PO BID #60 tablet 08/25/20 Unknown Rx Mirtazapine [Remeron 15mg TAB] 15 mg PO QHS #30 tablet 08/25/20 Unknown Rx Prednisone [predniSONE 5 mg (6-Day 5 mg PO .TAPER #1 tab.ds.pk 08/25/20 Unknown Rx Pack, 21 Tabs)] Ranolazine [Ranexa] 500 mg PO BID #60 tab.er.12h 08/25/20 Unknown Rx Tamsulosin [Flomax] 0.4 mg PO QHS #30 capsule 08/25/20 Unknown Rx Active Meds: Active Medications Acetaminophen (Acetaminophen 325 Mg Tab) 650 mg PO Q4H PRN PRN Reason: Pain MILD(1-3)/Fever >100.5/MA Alprazolam (Alprazolam 1 Mg Tab) 2 mg PO QID SHAHEED Aspirin (Aspirin 81 Mg Tab Chew) 81 mg PO DAILY SHAHEED Atorvastatin Calcium (Atorvastatin 40 Mg Tab) 40 mg PO QHS SHAHEED Docusate Sodium (Docusate Sodium 100 Mg Cap) 100 mg PO QID PRN PRN Reason: Constipation Escitalopram Oxalate (Escitalopram 10 Mg/10 Ml Oral Liqd) 5 mg PO QDAY SHAHEED Famotidine (Famotidine 20 Mg Tab) 20 mg PO BID SHAHEED Gabapentin (Gabapentin 400 Mg Cap) 800 mg PO QID SHAHEED Hydromorphone HCl (Hydromorphone 1 Mg/1 Ml Inj) 0.5 mg IV Q3H PRN PRN Reason: Pain , Severe (7-10) Sodium Chloride (Nacl 0.9% 500 Ml) 500 mls @ 50 mls/hr IV DIRECT SHAHEED Stop: 10/22/20 01:59 Mirtazapine (Mirtazapine 15 Mg Tab) 15 mg PO QHS [facility] Ondansetron HCl (Ondansetron 4 Mg/2 Ml Inj) 4 mg IV Q8H PRN PRN Reason: Nausea And Vomiting Ranolazine (Ranolazine Er 500 Mg Tab 12hr) 500 mg PO BID [facility] Sodium Chloride (Sodium Chloride 0.9% 10 Ml Flush Syringe) 10 ml IV BID SHAHEED Sodium Chloride (Sodium Chloride 0.9% 10 Ml Flush Syringe) 10 ml IV PRN PRN PRN Reason: LINE FLUSH Sodium Chloride (Sodium Chloride 0.9% 10 Ml Flush Syringe) 10 ml IV PRN PRN PRN Reason: LINE FLUSH Tamsulosin HCl (Tamsulosin 0.4 Mg Cap) 0.4 mg PO QHS [facility] Torsemide (Torsemide 100 Mg Tab) 100 mg PO DAILY [facility] Tramadol HCl (Tramadol 50 Mg Tab) 50 mg PO Q6H PRN PRN Reason: Pain, Moderate (4-6) Review of Systems Constitutional: sweats, no fever, no chills Ears, nose, mouth and throat: no nasal congestion, no sore throat Cardiovascular: chest pain, no orthopnea, no palpitations, no rapid/irregular heart beat, no edema, no syncope, no lightheadedness, no shortness of breath, no dyspnea on exertion, no claudication Respiratory: no cough, no shortness of breath, no dyspnea on exertion Gastrointestinal: no abdominal pain, no nausea, no vomiting, no diarrhea, no constipation Genitourinary Male: no dysuria, no flank pain Musculoskeletal: muscle weakness (BLE), no neck stiffness, no neck pain Integumentary: no rash, no wounds Neurological: weakness (BLE), no head injury, no paralysis, no parathesias, no numbness, no tingling, no seizures, no syncope, no vertigo, no headaches Endocrine: no cold intolerance, no heat intolerance Hematologic/Lymphatic: no easy bruising, no easy bleeding Allergic/Immunologic: no anaphylaxis Physical Examination Last Vital Signs Temp 98.7 F 10/21/20 10:11 Pulse 86 10/21/20 12:53 Resp 13 10/21/20 16:16 BP 130/84 10/21/20 17:24 Pulse Ox 96 10/21/20 17:24 General appearance: no acute distress HEENT: Positive: EOMI, Normocephaly, Mucus Membranes Moist Neck: Positive: neck supple, trachea midline. Negative: JVD/HJR Cardiac: Positive: Reg Rate and Rhythm, S1/S2 Lungs: Positive: clear to auscultation (bilaterally) Neuro: Positive: Grossly Intact Abdomen: Positive: Soft. Negative: Tender Skin: Negative: Rash Extremities: Present: upper extr. pulses, lower extr. pulses. Absent: edema Results 10/21/20 10:41 10/21/20 10:41 Cardiac Enzymes 10/21/20 Range/Units 10:41 AST 22 (5-40) units/L CBC 10/21/20 Range/Units 10:41 WBC 10.2 (4.5-11.0) K/mm3 RBC 4.56 (3.65-5.03) M/mm3 Hgb 15.2 (11.8-15.2) gm/dl Hct 43.5 (35.5-45.6) % Plt Count 272 (140-440) K/mm3 Lymph # (Auto) 1.9 (1.2-5.4) K/mm3 [place] # (Auto) 1.0 H (0.0-0.8) K/mm3 Eos # (Auto) 1.1 H (0.0-0.4) K/mm3 Baso # (Auto) 0.1 (0.0-0.1) K/mm3 Comprehensive Metabolic Panel 10/21/20 Range/Units 10:41 Sodium 139 (137-145) mmol/L Potassium 3.0 L (3.6-5.0) mmol/L Chloride 99.1 (98-107) mmol/L Carbon Dioxide 29 (22-30) mmol/L BUN 14 (9-20) mg/dL Creatinine 0.9 (0.8-1.3) mg/dL Glucose 105 H (75-100) mg/dL Calcium 9.7 (8.4-10.2) mg/dL AST 22 (5-40) units/L ALT 12 (7-56) units/L Alkaline Phosphatase 62 (35-129) units/L Total Protein 8.2 (6.3-8.2) g/dL Albumin 3.9 (3.9-5) g/dL - Imaging and Cardiology Echo: report reviewed (11/2019 - mild-mod LVH, EF 50-55%, mild diastolic dysfxn, LA mildly dilated, mild pulm HTN) EKG: report reviewed, image reviewed - EKG Interpretation EKG: no acute changes EKG interpretations - EKG Sinus rhythms and dysrhythmias: sinus rhythm QRS axis and voltage: left axis deviation Assessment and Plan AMI r/o. Given recurrence of pt's and multiple admissions, LHC is recommended at this time. Pt is agreeable to proceed with LHC in AM. NPO after midnight. Continue bASA and statin. Resume home cardiac regimen. Pt seen in conjunction with Dr. Kristal Degroot, who agrees with the assessment and plan of care. - Patient Problems (1) Chest pain Current Visit: Yes Status: Acute (2) Chronic heart failure with preserved ejection fraction (HFpEF) Current Visit: Yes Status: Chronic (3) HTN (hypertension) Current Visit: Yes Status: Chronic Qualifiers: Hypertension type: essential hypertension Qualified Code(s): I10 - Essential (primary) hypertension (4) Hyperlipemia Current Visit: Yes Status: Chronic Qualifiers: Hyperlipidemia type: mixed hyperlipidemia Qualified Code(s): E78.2 - Mixed hyperlipidemia (5) DM2 (diabetes mellitus, type 2) Current Visit: Yes Status: Chronic (6) GERD (gastroesophageal reflux disease) Current Visit: Yes Status: Chronic (7) COPD (chronic obstructive pulmonary disease) Current Visit: Yes Status: Chronic Qualifiers: COPD type: unspecified COPD Qualified Code(s): J44.9 - Chronic obstructive pulmonary disease, unspecified (8) Obstructive sleep apnea Current Visit: Yes Status: Chronic (9) Morbid obesity Current Visit: Yes Status: Chronic (10) Rheumatoid arthritis Current Visit: Yes Status: Chronic (11) Chronic pain syndrome Current Visit: Yes Status: Chronic (12) Anxiety Current Visit: Yes Status: Chronic (13) Seizure disorder Current Visit: Yes Status: Chronic (14) History of CVA (cerebrovascular accident) Current Visit: Yes Status: Chronic (15) History of pulmonary embolism Current Visit: Yes Status: Chronic Plan to address problem: 2015, s/p IVC filter placement (16) Tobacco abuse Current Visit: Yes Status: Chronic
[2020-10-21] MEDS: GABAPENTIN 400 MG CAP PO SCH ×2 (20:09→22:34)
[2020-10-21] MEDS: ALPRAZolam 1 MG TAB PO SCH ×2 (20:09→22:34)
[2020-10-21] MEDS ORDERED: MIRTAZAPINE 15 MG TAB PO SCH (22:00)
[2020-10-21] MEDS ORDERED: NON-FORMULARY EACH (Rosuvastatin Calcium [Crestor] 20 MG Tablet) PO SCH (22:00)
[2020-10-21] MEDS ORDERED: TAMSULOSIN 0.4 MG CAP PO SCH (22:00)
[2020-10-21] MEDS ORDERED: TAMSULOSIN PO SCH (22:00)
[2020-10-21] MEDS: RANOLAZINE ER 500 MG TAB 12HR PO SCH (22:34)
[2020-10-21] MEDS: FAMOTIDINE 20 MG TAB PO SCH (22:34)
[2020-10-21] MEDS ORDERED: oxyCODONE 5 MG TAB PO PRN (23:25)
[2020-10-22] MEDS: HYDROmorphone 1 MG/1 ML INJ IV PRN ×2 (04:23→08:21)
[2020-10-22 06:28] LABS: Basophils # (Auto) 0.1 K/mm3 (0.0-0.1); Eosinophils % (Auto) 12.3 % (0.0-4.3); Hematocrit 38.6 % (35.5-45.6); Hemoglobin 13.1 gm/dl (11.8-15.2); Lymphocytes % (Auto) 24.7 % (13.4-35.0); Mean Corpuscular HGB Conc 34 % (32-34); Mean Corpuscular Volume 96 fl (84-94); Monocytes # (Auto) 0.9 K/mm3 (0.0-0.8); Monocytes % (Auto) 11.6 % (0.0-7.3); Platelet Count 233 K/mm3 (140-440); Red Blood Count 4.02 M/mm3 (3.65-5.03)
[2020-10-22 06:32] LABS: INR 0.99 (0.87-1.13)
[2020-10-22 06:50] LABS: BUN/Creatinine Ratio 16; Blood Urea Nitrogen 14 mg/dL (9-20); Hemolysis Index 7
[2020-10-22] MEDS ORDERED: POTASSIUM CHLORIDE 10 MEQ 10 MEQ/100 ML BAG IV SCH (09:00)
[2020-10-22] MEDS ORDERED: TORSEMIDE 100 MG TAB PO SCH (10:00)
[2020-10-22] MEDS ORDERED: NON-FORMULARY EACH (Escitalopram Oxalate [Lexapro] 5 MG Tablet) PO SCH (10:00)
[2020-10-22] MEDS ORDERED: ESCITALOPRAM 10 MG/10 ML ORAL LIQD PO SCH (10:00)
[2020-10-22] MEDS ORDERED: ASPIRIN 81 MG TAB CHEW PO SCH (10:00)
--- NOTE | 2020-10-22 10:20 | Discharge Summary ---
Providers - Providers Date of Admission: 10/21/20 15:58 Date of discharge: 10/22/20 Attending physician: AMADEO GÓMEZ 10/21/20 Consult to Cardiac Rehabilitation [CONS] Routine Reason For Exam: Phase I 10/21/20 14:49 Consult to Physician [CONS] Urgent Comment: Consulting Provider: JEANMARIE EDWARDS Physician Instructions: Reason For Exam: Chest pain Primary care physician: PROGRAMMING MANAGER Hospitalization Condition: Fair Hospital course: 55 year old male with multiple medical problems including CHF-diastolic , GERD, COPD, hyperlipidemia, CVA, history of sleep apnea on CPAP at home presenting to the emergency room complaining of chest pain. Work-up in the emergency room including troponin, EKG were unremarkable. Patient was admitted for chest pain evaluation. Cardiology was consulted and they recommended cardiac cath as outpt. Off note, Patient has multiple visit in the past and recommended cardiac cath each time which he refused. Per cardiology the chest pain has been atypical, EKGs have been benign, and no reported elevations in cardiac enzymes. Patient was instructed to follow-up with his primary outpatient transportation planner within a week of discharge. Disposition: DC-01 TO HOME OR SELFCARE Final Discharge Diagnosis (Prints w/discharge instructions): Atypical chest pain, likely due to GERD. -Cardiac cath as outpt. Hypokalemia, repleted. Diastolic CHF, compensated. COPD, stable. History of glucoma, continue eyedrops. Hyperlipidemia, continue statin. Obstructive sleep apnea, continue CPAP. Chronic pain syndrome, follow-up at pain management clinic or with PCP outpatient. Morbid obesity Time spent for discharge: 34 minutes Core Measure Documentation - Palliative Care Palliative Care/ Comfort Measures: Not Applicable - Core Measures Any of the following diagnoses?: none Exam - Constitutional Vitals: Temp Pulse Resp BP Pulse Ox 98.6 F 92 H 20 147/87 94 10/22/20 04:15 10/22/20 04:15 10/22/20 08:21 10/22/20 04:15 10/22/20 04:15 General appearance: Present: no acute distress, obese (Morbid) - EENT Eyes: Present: EOM intact. Absent: scleral icterus, conjunctival injection ENT: hearing intact, clear oral mucosa - Neck Neck: Present: supple, normal ROM - Respiratory Respiratory effort: normal Respiratory: bilateral: CTA - Cardiovascular Heart Sounds: Present: S1 & S2. Absent: rub, click - Extremities Extremities: pulses symmetrical, No edema Peripheral Pulses: within normal limits - Abdominal General gastrointestinal: Present: soft, non-tender, non-distended, normal bowel sounds - Integumentary Integumentary: Present: clear, warm, dry - Musculoskeletal Musculoskeletal: gait normal, strength equal bilaterally - Psychiatric Psychiatric: appropriate mood/affect, intact judgment & insight - Neurologic Neurologic: CNII-XII intact, moves all extremities Plan Activity: advance as tolerated Weight Bearing Status: Weight Bear as Tolerated Diet: low fat, low salt Additional Instructions: F/u with transportation planner outpatient for outpatient coronary angiogram. Follow up with: PRIMARY CARE, [Primary Care Provider] - 3-5 Days SHERRY VELIZ MD [Staff Physician] - 7 Days Prescriptions: Aspirin [Aspirin BABY CHEW TAB] 81 mg PO DAILY #30 tab.chew Potassium Chloride [K-Dur] 20 meq PO QDAY #4 tablet
--- NOTE | 2020-10-22 10:35 | Progress Note ---
Assessment and Plan Chest pain is atypical in nature. Trop neg x 3. ECG reveals no acute ischemic changes. AMI r/o. Given recurrence of pt's and multiple admissions, he may benefit from cardiac catheterization in the future. Anxiety and chronic back will need to be adequately controlled prior to cath. Will plan for [facility] as an outpatient if pt is agreeable. Otherwise stable cardiac status. Pt may be discharged from a Cardiology standpoint. Recommend outpatient follow-up within 1-2 weeks ([phone]). Pt seen in conjunction with Dr. Kristal Degroot, who agrees with the assessment and plan of care. - Patient Problems (1) Atypical chest pain Current Visit: Yes Status: Acute (2) Chronic heart failure with preserved ejection fraction (HFpEF) Current Visit: Yes Status: Chronic (3) HTN (hypertension) Current Visit: Yes Status: Chronic Qualifiers: Hypertension type: essential hypertension Qualified Code(s): I10 - Essential (primary) hypertension (4) Hyperlipemia Current Visit: Yes Status: Chronic Qualifiers: Hyperlipidemia type: mixed hyperlipidemia Qualified Code(s): E78.2 - Mixed hyperlipidemia (5) DM2 (diabetes mellitus, type 2) Current Visit: Yes Status: Chronic (6) GERD (gastroesophageal reflux disease) Current Visit: Yes Status: Chronic (7) COPD (chronic obstructive pulmonary disease) Current Visit: Yes Status: Chronic Qualifiers: COPD type: unspecified COPD Qualified Code(s): J44.9 - Chronic obstructive pulmonary disease, unspecified (8) Obstructive sleep apnea Current Visit: Yes Status: Chronic (9) Morbid obesity Current Visit: Yes Status: Chronic (10) Rheumatoid arthritis Current Visit: Yes Status: Chronic (11) Chronic pain syndrome Current Visit: Yes Status: Chronic (12) Anxiety Current Visit: Yes Status: Chronic (13) Seizure disorder Current Visit: Yes Status: Chronic (14) History of CVA (cerebrovascular accident) Current Visit: Yes Status: Chronic (15) History of pulmonary embolism Current Visit: Yes Status: Chronic Plan to address problem: 2014, s/p IVC filter placement (16) Tobacco abuse Current Visit: Yes Status: Chronic Subjective Date of service: 10/22/20 Principal diagnosis: Chest Pain Interval history: Unable to proceed with C this AM secondary to hypokalemia. Pt states he continues to have chest pain intermittently, now relieved somewhat by change in position. Per food service manager, pt has made multiple requests for narcotics and anxiolytics overnight and this AM. Tele reviewed - SR 60s, no events. Objective Last Vital Signs Temp 98.6 F 10/22/20 04:15 Pulse 92 H 10/22/20 04:15 Resp 20 10/22/20 08:21 BP 147/87 10/22/20 04:15 Pulse Ox 94 10/22/20 04:15 - Physical Examination General: No Apparent Distress HEENT: Positive: EOMI, Normocephaly, Mucus Membranes Moist Neck: Positive: neck supple, trachea midline. Negative: JVD/HJR Cardiac: Positive: Reg Rate and Rhythm, S1/S2 Lungs: Positive: clear to auscultation Neuro: Positive: Grossly Intact Abdomen: Positive: Soft. Negative: Tender Skin: Negative: Rash Musculoskeletal: Normal Range of Motion Extremities: Present: upper extr. pulses, lower extr. pulses. Absent: edema - Labs and Meds Cardiac Enzymes 10/21/20 Range/Units 10:41 AST 22 (5-40) units/L Coagulation 10/22/20 Range/Units 05:54 PT 13.0 (12.2-14.9) Sec. INR 0.99 (0.87-1.13) CBC 10/21/20 10/22/20 Range/Units 10:41 05:54 WBC 10.2 7.9 (4.5-11.0) K/mm3 RBC 4.56 4.02 (3.65-5.03) M/mm3 Hgb 15.2 13.1 (11.8-15.2) gm/dl Hct 43.5 38.6 (35.5-45.6) % Plt Count 272 233 (140-440) K/mm3 Lymph # (Auto) 1.9 2.0 (1.2-5.4) K/mm3 [place] # (Auto) 1.0 H 0.9 H (0.0-0.8) K/mm3 Eos # (Auto) 1.1 H 1.0 H (0.0-0.4) K/mm3 Baso # (Auto) 0.1 0.1 (0.0-0.1) K/mm3 Comprehensive Metabolic Panel 10/21/20 10/22/20 Range/Units 10:41 05:54 Sodium 139 142 (137-145) mmol/L Potassium 3.0 L 3.0 L (3.6-5.0) mmol/L Chloride 99.1 102.4 (98-107) mmol/L Carbon Dioxide 29 30 (22-30) mmol/L BUN 14 14 (9-20) mg/dL Creatinine 0.9 0.9 (0.8-1.3) mg/dL Glucose 105 H 100 (75-100) mg/dL Calcium 9.7 9.0 (8.4-10.2) mg/dL AST 22 (5-40) units/L ALT 12 (7-56) units/L Alkaline Phosphatase 62 (35-129) units/L Total Protein 8.2 (6.3-8.2) g/dL Albumin 3.9 (3.9-5) g/dL - Imaging and Cardiology EKG: report reviewed, image reviewed Pharmacologic stress test: report reviewed (11/2019 - negative for ischemia) Echo: report reviewed (11/2019 - mild-mod LVH, EF 50-55%, mild diastolic dysfxn, LA mildly dilated, mild pulm HTN) - Telemetry EKG Rhythm: Sinus Rhythm - EKG Sinus rhythms and dysrhythmias: sinus rhythm QRS axis and voltage: left axis deviation
[2020-10-22] MEDS: GABAPENTIN 400 MG CAP PO SCH ×3 (11:23→18:17)
[2020-10-22] MEDS: RANOLAZINE ER 500 MG TAB 12HR PO SCH (11:23)
[2020-10-22] MEDS: FAMOTIDINE 20 MG TAB PO SCH (11:23)
[2020-10-22] MEDS: ALPRAZolam 1 MG TAB PO SCH ×3 (11:24→18:17)
[2020-10-22] MEDS: POTASSIUM CHLORIDE ER 20 MEQ TAB PO SCH ×2 (12:51→16:30)
[2020-10-22] MEDS: oxyCODONE 5 MG TAB PO PRN ×2 (12:51→20:08)
[2020-10-22] MEDS ORDERED: POTASSIUM CHLORIDE ER 20 MEQ TAB PO SCH (13:00)
[2020-10-23 00:29] VITALS: BP 107/63
--- NOTE | 2020-10-26 17:29 | Electrocardiograph Report ---
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
--- NOTE | 2020-10-26 17:31 | Electrocardiograph Report ---
[facility] Test Date: 2020-10-22 Test Time: 11:19:58 Pat Name: LUIS MANUEL MCCLOUD Department: Room: A485 1 Gender: M Video Control Operator: KENZIE : 1965 Requested By: MITALI JORGENSEN Order Number: [id number] Reading MD: Nahid Moreno Measurements Intervals [place] Rate: 66 P: 66 MS: 197 QRS: -23 QRSD: 116 T: 66 QT: 433 QTc: 452 Interpretive Statements Sinus rhythm Nonspecific intraventricular conduction delay Compared to ECG 10/22/2020 06:58:32 Electronically Signed On 10-26-2020 17:30:57 EDT by Nahid Moreno
== END 2020-10-23 00:53 | disposition home or self-care (01) ==
LOC: ED 09:47 → 4A 15:58
PROVIDERS: ADMIT Internal Medicine; ATTEND Internal Medicine
DX: I20.8 Other forms of angina pectoris (principal); I10 Essential (primary) hypertension; E11.9 Type 2 diabetes mellitus without complications; F41.9 Anxiety disorder, unspecified; I11.0 Hypertensive heart disease with heart failure; I50.9 Heart failure, unspecified; K21.9 Gastro-esophageal reflux disease without esophagitis; G89.4 Chronic pain syndrome; F17.210 Nicotine dependence, cigarettes, uncomplicated; M19.90 Unspecified osteoarthritis, unspecified site; J44.9 Chronic obstructive pulmonary disease, unspecified; E78.5 Hyperlipidemia, unspecified; G47.33 Obstructive sleep apnea (adult) (pediatric); E66.01 Morbid (severe) obesity due to excess calories; M06.9 Rheumatoid arthritis, unspecified; R56.9 Unspecified convulsions; Z86.73 Personal history of transient ischemic attack (TIA), and cerebral infarction without residual deficits; Z79.899 Other long term (current) drug therapy; Z98.890 Other specified postprocedural states; Z79.82 Long term (current) use of aspirin; Z86.711 Personal history of pulmonary embolism; Z68.37 Body mass index [BMI] 37.0-37.9, adult
CPT/HCPCS: 36415; 71046; 73502; 80048; 80053; 82962; 84484; 85025; 85610; 93005; 93306; 96365; 96375; 96376; 99285; 99406; A9270; G0378; J1170; J2270; J2405; J2765; J3010; J3480

== ENCOUNTER 2020-10-28 23:38 | Emergency (ER) | payer MEDICARE ==
[2020-10-29] MEDS ORDERED: ASPIRIN 325 MG TAB PO ONE (02:35)
--- NOTE | 2020-10-29 02:36 | XRay Report ---
RIGHT HAND 2 VIEWS INDICATION / CLINICAL INFORMATION: Right hand pain/injury after fall. COMPARISON: None available. FINDINGS: BONES and JOINT(S): No acute fracture or subluxation. There is multifocal mild osteoarthritis. SOFT TISSUES: No significant abnormality. ADDITIONAL FINDINGS: None. IMPRESSION: 1. No acute findings. 2. Mild osteoarthritis. Signer Name: Garland Sepulveda MD Signed: 10/29/2020 2:32 AM Workstation Name: [id number]
--- NOTE | 2020-10-29 02:40 | Event Note ---
ED Screening Note Date of service: 10/29/20 Time: 02:36 ED Screening Note: Patient is a 55 yo AA male with a h/o HTN, CHF, RA, Chronic pain, Glaucoma who presents to the ED with c/o acute onset persistent severe right hand pain for the last 2 hour after he felt dizzy at home when walking to the kitchen and fell down on floor landing on right hand about 2 hours ago. Patient also states that he has been having persistent lest-sided chest pain with lightheadedness and thought that it may have been due to his low potassium levels. Patient denies dyspnea, vision changes, cough, nausea, vomiting, LOC, neck pain, head or neck injuries, back pain or abdominal pain. Physical exam is positive for a palpable right hand tenderness. This initial assessment/diagnostic orders/clinical plan/treatment(s) is/are subject to change based on patients health status, clinical progression and re-assessment by fellow clinical providers in the ED. Further treatment and workup at subsequent clinical providers discretion. Patient/guardian urged not to elope from the ED as their condition may be serious if not clinically assessed and managed. Initial orders include: CBC, CMP, EKG, CXR, Right hand x-ray, BNP, troponin
--- NOTE | 2020-10-29 03:06 | XRay Report ---
CHEST 1 VIEW 10/29/2020 2:41 AM INDICATION / CLINICAL INFORMATION: CHEST PAIN, DIZZINESS. COMPARISON: 2 views of the chest from 10/21/2020 FINDINGS: SUPPORT DEVICES: None. HEART / MEDIASTINUM: No significant abnormality. LUNGS / PLEURA: No significant pulmonary abnormality. No significant pleural effusion. No pneumothora x. ADDITIONAL FINDINGS: No significant additional findings. IMPRESSION: 1. No acute abnormality of the chest. Signer Name: Garland Sepulveda MD Signed: 10/29/2020 3:01 AM Workstation Name: [id number]
[2020-10-29 03:15] LABS: Basophils # (Auto) 0.1 K/mm3 (0.0-0.1); Basophils % (Auto) 1.3 % (0.0-1.8); Eosinophils # (Auto) 0.9 K/mm3 (0.0-0.4); Eosinophils % (Auto) 9.5 % (0.0-4.3); Lymphocytes # (Auto) 2.1 K/mm3 (1.2-5.4); Mean Corpuscular HGB Conc 36 % (32-34); Mean Corpuscular Volume 95 fl (84-94); Monocytes % (Auto) 11.3 % (0.0-7.3); Platelet Count 211 K/mm3 (140-440); Red Blood Count 3.95 M/mm3 (3.65-5.03); Red Cell Distribution Width 15.2 % (13.2-15.2)
[2020-10-29 03:27] LABS: Hematocrit 37.4 % (35.5-45.6); Hemoglobin 13.6 gm/dl (11.8-15.2)
[2020-10-29 03:32] LABS: Alanine Aminotransferase 19 units/L (7-56); Albumin 4.2 g/dL (3.9-5); BUN/Creatinine Ratio 17; Blood Urea Nitrogen 22 mg/dL (9-20); Calcium 9.1 mg/dL (8.4-10.2); Hemolysis Index 7
[2020-10-29] MEDS ORDERED: POTASSIUM CHLORIDE ER 20 MEQ TAB PO ONE (05:13)
[2020-10-29] MEDS ORDERED: NACL 0.9%/KCL 20 MEQ 20 MEQ/1,000 ML BAG IV SCH (06:00)
--- NOTE | 2020-10-29 10:52 | Electrocardiograph Report ---
[facility] Test Date: 2020-10-29 Test Time: 02:50:43 Pat Name: LUIS MANUEL MCCLOUD Department: Room: Gender: M Economic Adviser: [place] : 1965 Requested By: SANDRA SERRANO Order Number: [id number] Reading MD: Melchor Sandoval Measurements Intervals [place] Rate: 94 P: 85 CT: 172 QRS: -70 QRSD: 108 T: 54 QT: 395 QTc: 494 Interpretive Statements Sinus rhythm LAE, consider biatrial enlargement LAD, consider left anterior fascicular block Compared to ECG 10/22/2020 11:19:58 Intraventricular conduction delay no longer present Electronically Signed On 10-29-2020 10:52:16 EDT by Melchor Sandoval
== END 2020-10-29 03:00 | disposition left against medical advice (07) ==
LOC: ED 23:38
DX: M25.541 Pain in joints of right hand (principal); R42 Dizziness and giddiness; Z53.21 Procedure and treatment not carried out due to patient leaving prior to being seen by health care provider
CPT/HCPCS: 36415; 71045; 80053; 83880; 84484; 85025; 93005

== ENCOUNTER 2020-11-13 15:40 | Inpatient (IN) | payer MEDICARE ==
[2020-11-13] MEDS ORDERED: ASPIRIN 325 MG TAB PO ONE (17:18)
--- NOTE | 2020-11-13 17:58 | Event Note ---
ED Screening Note Date of service: 11/13/20 Time: 17:52 ED Screening Note: 55-year-old male patient with extensive cardiac history including prior stroke presents to the emergency department with complaints of chest pain, shortness of breath, and diaphoresis starting at 9:00 AM this morning. After the onset of his symptoms, patient attempted to ambulate to the bathroom and he lost consciousness. His home health nurse witnessed the syncopal episode. Initial labs were ordered by physician asst prior to medical screening exam. During medical screening exam, patient was noted to be wheelchair-bound. On further interrogation, patient states he does not usually use a wheelchair at baseline, but he has been nonambulatory today due to numbness in his left leg. This symptom was not initially reported. He states he began to notice numbness in his left leg and weakness on his left side at 9:00 AM along with the onset of his other symptoms. These symptoms have been persistently present for 9 hours. States he suffered residual unilateral weakness from his prior stroke several years ago, which resolved with physical therapy, and the symptoms are new for him as of today. General: Awake, appropriately interactive, no acute distress. Neck: Supple. Full range of motion intact. Cardiovascular: Normal peripheral perfusion. Pulmonary: No respiratory distress. Patient is speaking normally without use of accessory muscles. Skin: No apparent rashes or lesions. Neurological: Speech is clear. Follows commands. Patient is alert and oriented. Patient reports diminished sensation to light touch along the left upper extremity and left lower extremity. Musculoskeletal: Moves all four extremities spontaneously with normal range of motion. Psych: Cooperative. Appropriate mood and affect. Code stroke protocol initiated in addition to in-progress cardiac work-up. Emergent head CT ordered. I have greeted and performed a focused rapid initial assessment of this patient. A comprehensive ED assessment and evaluation of the patient, analysis of all test results, and completion of the medical decision-making process will be conducted by additional ED providers. This initial assessment/diagnostic orders/clinical plan/treatment(s) is/are subject to change based on patients health status, clinical progression and re-assessment. Further treatment and workup at subsequent clinical provider's discretion. Patient/guardian urged not to elope from the ED as their condition may be serious if not clinically assessed and managed.
--- NOTE | 2020-11-13 18:08 | XRay Report ---
CHEST PA AND LATERAL VIEWS INDICATION: cough with chest pain. COMPARISON: 10/29/2020 FINDINGS: Support devices: None. Heart: Within normal limits. Lungs/Pleura: No acute pulmonary or pleural findings. IMPRESSION: 1. No significant change. Signer Name: Devin Kincaid MD Signed: 11/13/2020 6:03 PM Workstation Name: [id number]
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
[2020-11-13 18:22] LABS: Basophils % (Auto) 0.6 % (0.0-1.8); Eosinophils # (Auto) 0.4 K/mm3 (0.0-0.4); Eosinophils % (Auto) 5.4 % (0.0-4.3); Hematocrit 45.1 % (35.5-45.6); Hemoglobin 15.3 gm/dl (11.8-15.2); Lymphocytes # (Auto) 2.4 K/mm3 (1.2-5.4); Mean Corpuscular HGB Conc 34 % (32-34); Mean Corpuscular Volume 97 fl (84-94); Monocytes # (Auto) 0.7 K/mm3 (0.0-0.8); Monocytes % (Auto) 8.4 % (0.0-7.3); Platelet Count 215 K/mm3 (140-440); Red Blood Count 4.66 M/mm3 (3.65-5.03); Red Cell Distribution Width 15.6 % (13.2-15.2)
[2020-11-13 18:32] LABS: INR 0.98 (0.87-1.13)
[2020-11-13 18:33] LABS: Partial Thromboplastin Time 29.2 Sec. (24.2-36.6); Thrombin Time 19.9 Sec. (15.1-19.6)
--- NOTE | 2020-11-13 18:33 | Cat Scan Report ---
CT HEAD WITHOUT CONTRAST INDICATION / CLINICAL INFORMATION: Left-sided sensory symptoms. Last known well 9:00 AM. Code stroke. TECHNIQUE: All CT scans at this location are performed using CT dose reduction for ALARA by means of automated e xposure control. COMPARISON: None available. FINDINGS: HEMORRHAGE: No evidence of intracranial hemorrhage or extra-axial fluid collection. EXTRA-AXIAL SPACES: Cortical sulci, sylvian fissures and basilar cisterns have an unremarkable appear ance. VENTRICULAR SYSTEM: The third and lateral ventricles are of normal size and configuration. CEREBRAL PARENCHYMA: No areas of abnormal brain parenchymal attenuation are identified. There is no i ndication of recent infarction. MIDLINE SHIFT OR HERNIATION: There is no mass effect. CEREBELLUM / BRAINSTEM: Brainstem and cerebellum have an unremarkable appearance. MIDLINE STRUCTURES:No abnormalities of the pituitary gland or pineal region are identified. INTRACRANIAL VESSELS:No abnormalities are identified on this noncontrast head CT. ORBITS: Status post right cataract surgery. No additional abnormality. SOFT TISSUES of HEAD: No significant abnormality. CALVARIUM: Evaluation of bone windows reveals no abnormalities. PARANASAL SINUSES / MASTOID AIR CELLS: Visualized portions of the paranasal sinuses are free from inf lammatory mucosal disease. Mastoid air cells are normally pneumatized. IMPRESSION: 1. No acute intracranial abnormality. 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 L[facility], [place] emergency department. Signer Name: Rivera Fairchild MD Signed: 11/13/2020 6:28 PM Workstation Name: [id number]
[2020-11-13 18:48] LABS: Alanine Aminotransferase 25 units/L (7-56); Albumin 4.5 g/dL (3.9-5); BUN/Creatinine Ratio 11; Blood Urea Nitrogen 11 mg/dL (9-20); Calcium 9.5 mg/dL (8.4-10.2); Hemolysis Index 0
[2020-11-13] MEDS ORDERED: HYDROcodone/ACETAMINOPHEN 5-325 MG TAB PO ONE (18:56)
--- NOTE | 2020-11-13 19:00 | Consultation ---
History of Present Illness - Reason for Consult Consult date: 11/13/20 - History of Present Illness [place] [facility] Consult Note # Demographics Consult Type: Acute Stroke Level 2 (4.5-24 hrs) Patient Location: Emergency Room First Name: Bryan Last Name: Emanuel Date of : 1965 Age: 55 Gender: Male Time of Initial Page ( Time): 11/13/2020, 18:39 Time of Return Call ( Time): 11/13/2020, 18:47 # HPI History: 55yo man who presents to the ED with complaints of severe chest pain and left leg weakness. He states that he has no back pain, but does have left leg pain. he also states that when he sits up, he will have sharp pain in his chest. He has numbness in the left leg also, but only below the knee, and is both anterior and posterior areas of the leg. he states that he has waxing and waning tingling of the left arm and hand. No facial weakness or numbness. No SOB. No vision changes. He states the left leg weakness started about 9AM or so this morning. Duration: constant Quality: numbness no paralysis no slurred speech word finding difficulty # Scores Time of exam and NIHSS (): 11/13/2020, 18:56 Level of Consciousness 1a: [0] = Alert; keenly responsive LOC Questions 1b: [0] = Answers both questions correctly LOC Commands 1c: [0] = Performs both tasks correctly Best Gaze 2: [0] = Normal Visual 3: [0] = No visual loss Facial Palsy 4: [0] = Normal symmetrical movements Motor Arm Left 5a: [0] = No drift Motor Arm Right 5b: [0] = No drift Motor Leg Left 6a: [3] = No effort against gravity Motor Leg Right 6b: [0] = No drift Limb Ataxia 7: [0] = Absent Sensory 8: [1] = [id number] sensory loss Best Language 9: [0] = No aphasia Dysarthria 10: [0] = Normal Extinction and Inattention 11: [0] = No abnormality NIHSS Total: 4 # ROS Cardiovascular: chest pain no palpitations Genitourinary: no urinary incontinence # Assessment Impression: Ischemic Stroke (Subacute) vs lumbar disc disease # Plan Thrombolytic/Intervention: NOT IV Thrombolytic or IA Intervention Thrombolytic Exclusion: > 4.5 hours Intraarterial Exclusion: clinically consistent with small vessel disease Target Blood Pressure: SBP < 220 Labs: lipid panel Imaging: (urgency: routine): CT Angiogram Head and CT Angiogram Neck MRI Brain without contrast MRI L spine Diagnostic Test: echo with bubble study Therapy/Evaluation: PT/OT evaluation speech/swallow consultation Medication: aspirin 81 mg daily DVT Prophylaxis: SCD chemical DVT prophylaxis Other: permissive hypertension telemetry monitoring I have discussed my recommendations with the referring provider Disposition: admit Medications and Allergies Allergies Allergy/AdvReac Type Severity Reaction Status Date / Time acetaminophen [From Tylenol] Allergy Swelling Verified 05/28/20 20:18 tramadol Allergy Itching Verified 03/03/20 07:42 Home Medications Medication Instructions Recorded Confirmed Last Taken Type Rosuvastatin Calcium [Crestor] 20 mg PO HS 03/31/20 10/21/20 08/21/20 History Torsemide [Demadex] 100 mg PO DAILY 03/31/20 10/21/20 08/24/20 10:23 History Gabapentin [Neurontin] 1 tab PO 4XD 08/22/20 10/21/20 08/21/20 History Oxycodone HCl [oxyCODONE] 25 mg PO 4XD 08/22/20 10/21/20 08/22/20 15:00 History Timolol 0.5%-Dorzolamide 2% 1 drop OU BID 08/22/20 10/21/20 08/21/20 History Xanax TAB 2 mg PO 4XD 08/22/20 10/21/20 08/22/20 History Docusate Sodium [Colace CAP] 100 mg PO QID PRN #20 cap 08/25/20 10/21/20 Unknown Rx Famotidine [Pepcid] 20 mg PO BID #60 tablet 08/25/20 10/21/20 Unknown Rx Mirtazapine [Remeron 15mg TAB] 15 mg PO QHS #30 tablet 08/25/20 10/21/20 Unknown Rx Tamsulosin [Flomax] 0.4 mg PO QHS #30 capsule 08/25/20 10/21/20 Unknown Rx Aspirin [Aspirin BABY CHEW TAB] 81 mg PO DAILY #30 tab.chew 10/22/20 Unknown Rx Potassium Chloride [K-Dur] 20 meq PO QDAY #4 tablet 10/22/20 Unknown Rx Exam - Constitutional Vitals: Temp Pulse Resp BP Pulse Ox 99.3 F 72 17 101/70 98 11/13/20 16:52 11/13/20 18:30 11/13/20 18:30 11/13/20 18:30 11/13/20 18:30 Results - Labs CBC & Chem 7: 11/13/20 18:13 11/13/20 18:13 Labs: Abnormal lab results 11/13/20 11/13/20 11/13/20 Range/Units 18:13 18:13 18:13 Hgb 15.3 H (11.8-15.2) gm/dl MCV 97 H (84-94) fl MCH 33 H (28-32) pg RDW 15.6 H (13.2-15.2) % [place]ancock % (Auto) 8.4 H (0.0-7.3) % Eos % (Auto) 5.4 H (0.0-4.3) % Thrombin Time 19.9 H (15.1-19.6) Sec. D-Dimer (0-234) ng/mlDDU Potassium 3.3 L (3.6-5.0) mmol/L Chloride 96.0 L (98-107) mmol/L 11/13/20 Range/Units 18:32 Hgb (11.8-15.2) gm/dl MCV (84-94) fl MCH (28-32) pg RDW (13.2-15.2) % [place]ancock % (Auto) (0.0-7.3) % Eos % (Auto) (0.0-4.3) % Thrombin Time (15.1-19.6) Sec. D-Dimer 865.15 H (0-234) ng/mlDDU Potassium (3.6-5.0) mmol/L Chloride (98-107) mmol/L
[2020-11-13] MEDS ORDERED: ACETAMINOPHEN 325 MG TAB PO PRN ×2 (21:20)
[2020-11-13] MEDS ORDERED: traMADol 50 MG TAB PO PRN (21:20)
[2020-11-13] MEDS ORDERED: oxyCODONE /ACETAMINOPHEN 5-325MG TAB PO PRN (21:20)
[2020-11-13] MEDS ORDERED: NITROGLYCERIN 0.4 MG TAB SUBL SL PRN (21:20)
[2020-11-13] MEDS ORDERED: hydrALAZINE 20 MG/1 ML INJ IV PRN (21:28)
--- NOTE | 2020-11-13 21:34 | History and Physical Report ---
History of Present Illness Date of examination: 11/13/20 Date of admission: 11/13/20 Chief complaint: Chest pain Coughing Left leg numbness History of present illness: 55-year-old with with past medical history of chest pain CHF hypertension hyperlipidemia diabetes type 2 GERD COPD obstructive sleep apnea morbid obesity was brought to the hospital because of chest pain and coughing and numbness in the left leg chest pain which he states is pleuritic worsening with a deep inspiration and somewhat odd position. It involves his left anterior chest. Sometimes he feels a discomfort in his left arm. He tells me that he has not been coughing and he is not currently short of breath. However his triage note states he had green- tinged sputum. Patient had no hemoptysis. Quite clearly tells me he has not been coughing nor significantly short of breath. He states the chest pain feels like a "electric shock". He does not have any accompanying nausea vomiting or sweating. Patient also complained of numbness is affecting his leg below the knee and the pain involves his thigh. The patient states he has had left sided weakness for 4 years. However, he states he is not wheelchair-bound. The patient's nurse informs me that he was able to get up and transfer as well as walk around the CT department without any apparent difficulty. Patient is seen and evaluated by telemetry neurology. In the emergency room initial cardiac enzyme is negative. Troponin is 0.010. Initial CT scan of the head shows no acute intracranial abnormality Past History Past Medical History: arthritis, COPD, diabetes, GERD, heart failure, hypertension, hyperlipidemia, other (Morbid obesity is obstructive sleep apnea) Medications and Allergies Allergies Allergy/AdvReac Type Severity Reaction Status Date / Time acetaminophen [From Tylenol] Allergy Swelling Verified 05/28/20 20:18 tramadol Allergy Itching Verified 03/03/20 07:42 Home Medications Medication Instructions Recorded Confirmed Last Taken Type Rosuvastatin Calcium [Crestor] 20 mg PO HS 03/31/20 10/21/20 08/21/20 History Torsemide [Demadex] 100 mg PO DAILY 03/31/20 10/21/20 08/24/20 10:23 History Gabapentin [Neurontin] 1 tab PO 4XD 08/22/20 10/21/20 08/21/20 History Oxycodone HCl [oxyCODONE] 25 mg PO 4XD 08/22/20 10/21/20 08/22/20 15:00 History Timolol 0.5%-Dorzolamide 2% 1 drop OU BID 08/22/20 10/21/20 08/21/20 History Xanax TAB 2 mg PO 4XD 08/22/20 10/21/20 08/22/20 History Docusate Sodium [Colace CAP] 100 mg PO QID PRN #20 cap 08/25/20 10/21/20 Unknown Rx Famotidine [Pepcid] 20 mg PO BID #60 tablet 08/25/20 10/21/20 Unknown Rx Mirtazapine [Remeron 15mg TAB] 15 mg PO QHS #30 tablet 08/25/20 10/21/20 Unknown Rx Tamsulosin [Flomax] 0.4 mg PO QHS #30 capsule 08/25/20 10/21/20 Unknown Rx Aspirin [Aspirin BABY CHEW TAB] 81 mg PO DAILY #30 tab.chew 10/22/20 Unknown Rx Potassium Chloride [K-Dur] 20 meq PO QDAY #4 tablet 10/22/20 Unknown Rx Active Meds: Active Medications Acetaminophen (Acetaminophen 325 Mg Tab) 650 mg PO Q4H PRN PRN Reason: Pain MILD(1-3)/Fever >100.5/MA Acetaminophen (Acetaminophen 325 Mg Tab) 650 mg PO Q6H PRN PRN Reason: Pain, Mild (1-3) Albuterol/Ipratropium (Ipratropium/Albuterol Sulfate 3 Ml Ampul.Neb) 1 ampul IH Q6HRT [facility] Aspirin (Aspirin Ec 325 Mg Tab) 325 mg PO QDAY [facility] Atorvastatin Calcium (Atorvastatin 40 Mg Tab) 40 mg PO QHS [facility] Famotidine (Famotidine 10 Mg Tab) 10 mg PO BID [facility] Hydralazine HCl (Hydralazine 20 Mg/1 Ml Inj) 10 mg IV Q6H PRN PRN Reason: htn Levofloxacin (Levofloxacin 500 Mg Tab) 500 mg PO Q24HR SHAHEED; Protocol Nitroglycerin (Nitroglycerin 0.4 Mg Tab Subl) 0.4 mg SL Q5M PRN PRN Reason: Chest Pain Ondansetron HCl (Ondansetron 4 Mg/2 Ml Inj) 4 mg IV Q8H PRN PRN Reason: Nausea And Vomiting Oxycodone/Acetaminophen (Oxycodone /Acetaminophen 5-325mg Tab) 1 tab PO Q6H PRN PRN Reason: Pain, Moderate (4-6) Sodium Chloride (Sodium Chloride 0.9% 10 Ml Flush Syringe) 10 ml IV BID SHAHEED Sodium Chloride (Sodium Chloride 0.9% 10 Ml Flush Syringe) 10 ml IV PRN PRN PRN Reason: LINE FLUSH Sodium Chloride (Sodium Chloride 0.9% 10 Ml Flush Syringe) 10 ml IV PRN PRN PRN Reason: LINE FLUSH Sodium Chloride (Sodium Chloride 0.9% 10 Ml Flush Syringe) 10 ml INJ PRN PRN PRN Reason: LINE FLUSH Tramadol HCl (Tramadol 50 Mg Tab) 50 mg PO Q6H PRN PRN Reason: Pain, Moderate (4-6) Review of Systems Cardiovascular: chest pain, shortness of breath Respiratory: cough, shortness of breath Exam - Constitutional Vitals: Temp Pulse Resp BP Pulse Ox 99.3 F 61 9 L 145/89 97 11/13/20 16:52 11/13/20 19:16 11/13/20 19:16 11/13/20 19:16 11/13/20 19:16 General appearance: Present: no acute distress, well-nourished - EENT Eyes: Present: PERRL ENT: hearing intact, clear oral mucosa - Neck Neck: Present: supple, normal ROM - Respiratory Respiratory effort: normal Respiratory: bilateral: diminished - Cardiovascular Heart Sounds: Present: S1 & S2. Absent: rub, click - Extremities Extremities: pulses symmetrical, No edema Peripheral Pulses: within normal limits - Abdominal General gastrointestinal: Present: soft, non-tender, non-distended, normal bowel sounds Male genitourinary: Present: normal - Integumentary Integumentary: Present: clear, warm, dry - Musculoskeletal Musculoskeletal: gait normal, strength equal bilaterally - Psychiatric Psychiatric: appropriate mood/affect, intact judgment & insight - Neurologic Neurologic: CNII-XII intact, moves all extremities, other (Complaint of numbness in the left leg) HEART Score - HEART Score EKG: Normal Age: 45-65 Risk factors: > 3 risk factors or hx of atherosclerotic disease Troponin: Troponin T < 0.010 ng/mL (0.00-0.029) 11/13/20 19:37 Troponin: < normal limit - Critical Actions Critical Actions: 0-3 pts:0.9-1.7%risk of adverse cardiac event.Candidate for discharge Results - Labs CBC & Chem 7: 11/13/20 18:13 11/13/20 18:13 Labs: Laboratory Last Values WBC 8.1 K/mm3 (4.5-11.0) 11/13/20 18:13 RBC 4.66 M/mm3 (3.65-5.03) 11/13/20 18:13 Hgb 15.3 gm/dl (11.8-15.2) H 11/13/20 18:13 Hct 45.1 % (35.5-45.6) 11/13/20 18:13 MCV 97 fl (84-94) H 11/13/20 18:13 MCH 33 pg (28-32) H 11/13/20 18:13 MCHC 34 % (32-34) 11/13/20 18:13 RDW 15.6 % (13.2-15.2) H 11/13/20 18:13 Plt Count 215 K/mm3 (140-440) 11/13/20 18:13 Lymph % (Auto) 29.0 % (13.4-35.0) 11/13/20 18:13 [place] % (Auto) 8.4 % (0.0-7.3) H 11/13/20 18:13 Eos % (Auto) 5.4 % (0.0-4.3) H 11/13/20 18:13 Baso % (Auto) 0.6 % (0.0-1.8) 11/13/20 18:13 Lymph # (Auto) 2.4 K/mm3 (1.2-5.4) 11/13/20 18:13 [place] # (Auto) 0.7 K/mm3 (0.0-0.8) 11/13/20 18:13 Eos # (Auto) 0.4 K/mm3 (0.0-0.4) 11/13/20 18:13 Baso # (Auto) 0.0 K/mm3 (0.0-0.1) 11/13/20 18:13 Seg Neutrophils % 56.6 % (40.0-70.0) 11/13/20 18:13 Seg Neutrophils # 4.6 K/mm3 (1.8-7.7) 11/13/20 18:13 PT 13.5 Sec. (12.2-14.9) 11/13/20 18:13 INR 0.98 (0.87-1.13) 11/13/20 18:13 APTT 29.2 Sec. (24.2-36.6) 11/13/20 18:13 Thrombin Time 19.9 Sec. (15.1-19.6) H 11/13/20 18:13 D-Dimer 865.15 ng/mlDDU (0-234) H 11/13/20 18:32 Sodium 137 mmol/L (137-145) 11/13/20 18:13 Potassium 3.3 mmol/L (3.6-5.0) L 11/13/20 18:13 Chloride 96.0 mmol/L (98-107) L 11/13/20 18:13 Carbon Dioxide 30 mmol/L (22-30) 11/13/20 18:13 Anion Gap 14 mmol/L 11/13/20 18:13 BUN 11 mg/dL (9-20) 11/13/20 18:13 Creatinine 1.0 mg/dL (0.8-1.3) 11/13/20 18:13 Estimated GFR > 60 ml/min 11/13/20 18:13 BUN/Creatinine Ratio 11 % 11/13/20 18:13 Glucose 92 mg/dL (75-100) 11/13/20 18:13 Calcium 9.5 mg/dL (8.4-10.2) 11/13/20 18:13 Total Bilirubin 0.50 mg/dL (0.1-1.2) 11/13/20 18:13 AST 25 units/L (5-40) 11/13/20 18:13 ALT 25 units/L (7-56) 11/13/20 18:13 Alkaline Phosphatase 68 units/L (35-129) 11/13/20 18:13 Troponin T < 0.010 ng/mL (0.00-0.029) 11/13/20 19:37 NT-Pro-B Natriuret Pep 13.40 pg/mL (0-900) 11/13/20 18:13 Total Protein 7.9 g/dL (6.3-8.2) 11/13/20 18:13 Albumin 4.5 g/dL (3.9-5) 11/13/20 18:13 Albumin/Globulin Ratio 1.3 % 11/13/20 18:13 - Imaging and Cardiology CT scan - chest: report reviewed CT Scan - head: report reviewed Assessment and Plan VTE prophylaxis?: Chemical Plan of care discussed with patient/family: Yes - Patient Problems (1) Acute coronary syndrome Current Visit: No Status: Acute Plan to address problem: Admit the patient to the cardiac telemetry. Aspirin 325 mg p.o. daily. Lipitor 40 mg p.o. daily. We do the serial cardiac enzyme. We also do echocardiogram will consult cardiology for evaluation (2) CVA (cerebral vascular accident) Current Visit: Yes Status: Acute Qualifiers: CVA mechanism: unspecified Qualified Code(s): I63.9 - Cerebral infarction, unspecified Plan to address problem: Aspirin 325 mg p.o. daily. Lipitor 40 mg p.o. daily. MRI of the brain with and without contrast MRI of the brain and neck with and without contrast. Will consult PT OT any speech evaluation. Patient already seen and evaluated by telemetry neurology .we also do echocardiogram will consult neurology for evaluation if needed (3) Anxiety Current Visit: No Status: Chronic Plan to address problem: Stable we will continue the home medication (4) CHF (congestive heart failure) Current Visit: No Status: Chronic Qualifiers: Heart failure type: combined systolic and diastolic Heart failure chronicity: unspecified Qualified Code(s): I50.40 - Unspecified combined systolic (congestive) and diastolic (congestive) heart failure Plan to address problem: Stable. We will continue the home medication we also do echocardiogram (5) COPD (chronic obstructive pulmonary disease) Current Visit: No Status: Chronic Qualifiers: COPD type: unspecified COPD Qualified Code(s): J44.9 - Chronic obstructive pulmonary disease, unspecified Plan to address problem: Oxygen by nasal cannula 3 L/min DuoNeb by nebulizer every 4 hours we will continue home medication (6) CVA, old, alterations of sensations Current Visit: No Status: Chronic Plan to address problem: Aspirin 325 mg p.o. daily. Lipitor 40 mg p.o. daily. We will do MRI of the brain and MRA of the brain and neck with and without contrast (7) DM2 (diabetes mellitus, type 2) Current Visit: No Status: Chronic Plan to address problem: We will put the patient on insulin sliding scale Humalog moderate dose coverage with Accu-Chek before meals and at bedtime. Repeat BMP in the morning. Diabetic education (8) GERD (gastroesophageal reflux disease) Current Visit: No Status: Chronic Plan to address problem: Famotidine 20 mg p.o. twice daily for GI prophylaxis (9) HTN (hypertension) Current Visit: No Status: Chronic Qualifiers: Hypertension type: essential hypertension Qualified Code(s): I10 - Essential (primary) hypertension Plan to address problem: Hydralazine 10 mg IV every 6 hours as needed. We will continue the home medication we will monitor the blood pressure closely (10) DVT prophylaxis Current Visit: No Status: Acute Plan to address problem: Heparin 5000 units subcu every 8 hours for DVT prophylaxis. Pepcid 20 mg p.o. twice daily for GI prophylaxis. Patient is a full code
[2020-11-13] MEDS ORDERED: DEXTROSE 50% IN WATER (25GM) 50 ML SYRINGE IV PRN (21:43)
--- NOTE | 2020-11-13 21:58 | Nuclear Medicine Report ---
Nuclear medicine perfusion lung scan Indication: Chest pain, elevated d-dimer Technique: 5.0 mCi of Tc 99m MAA were given by IV. Findings: Comparison with chest radiograph from earlier the same day. Perfusion images are unremarkable; specifically, no wedge-shaped, pleural-based, segmental defects ar e seen. Impression: No perfusion abnormalities/defects to suggest acute PTE. Normal perfusion scan. Signer Name: Devin Kincaid MD Signed: 11/13/2020 9:54 PM Workstation Name: [id number]
[2020-11-13] MEDS ORDERED: FAMOTIDINE 10 MG TAB PO SCH (22:00)
[2020-11-13] MEDS: MORPHINE 2 MG/1 ML INJ IV PRN (22:18)
[2020-11-14] MEDS: oxyCODONE 5 MG TAB PO PRN ×4 (00:32→17:55)
[2020-11-14] MEDS: ALPRAZolam 1 MG TAB PO PRN ×5 (00:32→22:44)
[2020-11-14] MEDS: GABAPENTIN 400 MG CAP PO PRN (00:33)
[2020-11-14] MEDS: MIRTAZAPINE 15 MG TAB PO PRN ×2 (00:33→22:44)
[2020-11-14] MEDS: FAMOTIDINE 20 MG TAB PO SCH ×3 (01:05→21:29)
[2020-11-14] MEDS: INSULIN LISPRO 100 UNIT/ML SUB-Q SCH ×4 (01:06→17:30)
[2020-11-14 01:18] LABS: Basophils # (Auto) 0.1 K/mm3 (0.0-0.1); Basophils % (Auto) 0.7 % (0.0-1.8); Eosinophils # (Auto) 0.4 K/mm3 (0.0-0.4); Eosinophils % (Auto) 6.2 % (0.0-4.3); Hemoglobin 13.9 gm/dl (11.8-15.2); Lymphocytes # (Auto) 2.4 K/mm3 (1.2-5.4); Lymphocytes % (Auto) 34.1 % (13.4-35.0); Mean Corpuscular HGB Conc 34 % (32-34); Mean Corpuscular Volume 96 fl (84-94); Monocytes # (Auto) 0.6 K/mm3 (0.0-0.8); Monocytes % (Auto) 7.9 % (0.0-7.3); Platelet Count 209 K/mm3 (140-440); Red Blood Count 4.26 M/mm3 (3.65-5.03); Red Cell Distribution Width 15.5 % (13.2-15.2)
[2020-11-14 01:31] LABS: BUN/Creatinine Ratio 12; Blood Urea Nitrogen 12 mg/dL (9-20); Calcium 9.1 mg/dL (8.4-10.2); Hemolysis Index 3
[2020-11-14] MEDS: MORPHINE 2 MG/1 ML INJ IV PRN ×6 (02:22→22:43)
[2020-11-14] MEDS: IPRATROPIUM/ALBUTEROL SULFATE 3 ML AMPUL.NEB IH SCH ×4 (03:10→20:46)
[2020-11-14 06:29] LABS: Basophils # (Auto) 0.1 K/mm3 (0.0-0.1); Basophils % (Auto) 0.9 % (0.0-1.8); Eosinophils # (Auto) 0.5 K/mm3 (0.0-0.4); Eosinophils % (Auto) 7.3 % (0.0-4.3); Hematocrit 38.3 % (35.5-45.6); Hemoglobin 13.4 gm/dl (11.8-15.2); Lymphocytes # (Auto) 2.4 K/mm3 (1.2-5.4); Lymphocytes % (Auto) 38.1 % (13.4-35.0); Mean Corpuscular HGB Conc 35 % (32-34); Mean Corpuscular Volume 96 fl (84-94); Monocytes # (Auto) 0.6 K/mm3 (0.0-0.8); Monocytes % (Auto) 9.9 % (0.0-7.3); Platelet Count 192 K/mm3 (140-440); Red Blood Count 3.98 M/mm3 (3.65-5.03); Red Cell Distribution Width 15.1 % (13.2-15.2)
[2020-11-14 06:34] LABS: BUN/Creatinine Ratio 14; Blood Urea Nitrogen 13 mg/dL (9-20); Calcium 9.4 mg/dL (8.4-10.2); HDL Cholesterol 41 mg/dL (40-59); Hemolysis Index 0; LDL Cholesterol,Direct 159 mg/dL (50-130)
[2020-11-14] MEDS ORDERED: POTASSIUM CHLORIDE ER 20 MEQ TAB PO ONE ×2 (08:00→12:00)
--- NOTE | 2020-11-14 08:54 | Progress Note ---
Assessment and Plan Assessment and plan: (1) Acute coronary syndrome Current Visit: No Status: Acute Plan to address problem: Admit the patient to the cardiac telemetry. Aspirin 325 mg p.o. daily. Lipitor 40 mg p.o. daily. We do the serial cardiac enzyme. We also do echocardiogram will consult cardiology for evaluation (2) CVA (cerebral vascular accident) Current Visit: Yes Status: Acute Qualifiers: CVA mechanism: unspecified Qualified Code(s): I63.9 - Cerebral infarction, unspecified Plan to address problem: Aspirin 325 mg p.o. daily. Lipitor 40 mg p.o. daily. MRI of the brain with and without contrast MRI of the brain and neck with and without contrast. Will consult PT OT any speech evaluation. Patient already seen and evaluated by telemetry neurology .we also do echocardiogram will consult neurology for evaluation if needed (3) Anxiety Current Visit: No Status: Chronic Plan to address problem: Stable we will continue the home medication (4) CHF (congestive heart failure) Current Visit: No Status: Chronic Qualifiers: Heart failure type: combined systolic and diastolic Heart failure chronicity: unspecified Qualified Code(s): I50.40 - Unspecified combined systolic (congestive) and diastolic (congestive) heart failure Plan to address problem: Stable. We will continue the home medication we also do echocardiogram (5) COPD (chronic obstructive pulmonary disease) Current Visit: No Status: Chronic Qualifiers: COPD type: unspecified COPD Qualified Code(s): J44.9 - Chronic obstructive pulmonary disease, unspecified Plan to address problem: Oxygen by nasal cannula 3 L/min DuoNeb by nebulizer every 4 hours we will continue home medication (6) CVA, old, alterations of sensations Current Visit: No Status: Chronic Plan to address problem: Aspirin 325 mg p.o. daily. Lipitor 40 mg p.o. daily. We will do MRI of the brain and MRA of the brain and neck with and without contrast (7) DM2 (diabetes mellitus, type 2) Current Visit: No Status: Chronic Plan to address problem: We will put the patient on insulin sliding scale Humalog moderate dose coverage with Accu-Chek before meals and at bedtime. Repeat BMP in the morning. Diabetic education (8) GERD (gastroesophageal reflux disease) Current Visit: No Status: Chronic Plan to address problem: Famotidine 20 mg p.o. twice daily for GI prophylaxis (9) HTN (hypertension) Current Visit: No Status: Chronic Qualifiers: Hypertension type: essential hypertension Qualified Code(s): I10 - Essential (primary) hypertension Plan to address problem: Hydralazine 10 mg IV every 6 hours as needed. We will continue the home medication we will monitor the blood pressure closely (10) DVT prophylaxis Current Visit: No Status: Acute Plan to address problem: Heparin 5000 units subcu every 8 hours for DVT prophylaxis. Pepcid 20 mg p.o. twice daily for GI prophylaxis. Patient is a full code 11/14/2020 -Patient is complaining left upper extremity tingling and left lower extremity numbness -CT head showed no acute intracranial abnormality. Will follow MRI and MRA, neurology consulted -Patient started on aspirin and Lipitor -Patient is on breathing treatments and oxygen support for COPD -Blood sugars controlled and continue sliding scale insulin -Blood pressures controlled and patient is currently not on any blood pressure medication -Patient is on Pepcid for GERD -Patient said he has history of CHF and will get echo. Patient is also complaining chest pain. Cardiology consulted. -Patient has left chest wall lump and we will do ultrasound of left chest wall History Interval history: Patient was seen and evaluated this morning Patient is complaining left upper extremity tingling and left lower extremity numbness Patient is complaining left-sided chest pain and left chest wall lump Hospitalist Physical - Physical exam Narrative exam: Not in cardiopulmonary distress. The patient is obese. Vital signs as documented. Head exam is unremarkable. No scleral icterus . Neck is without jugular venous distension, thyromegaly, or carotid bruits. Lungs are clear to auscultation. Chest; left side chest wall lump. Cardiac exam reveals regular rate and Rhythm. Abdominal exam reveals normal bowel sounds, nontender, no organomegaly. Extremities are nonedematous and both femoral and pedal pulses are normal. DIMENSIONAL INSPECTOR: Alert and oriented 3. No focal weakness. - Constitutional Vitals: Temp Pulse Resp BP Pulse Ox 97.5 F L 62 18 93/67 96 11/14/20 08:07 11/14/20 08:39 11/14/20 08:39 11/14/20 08:07 11/14/20 08:41 General appearance: Present: no acute distress, well-nourished HEART Score - HEART Score EKG: Normal Age: 45-65 Risk factors: > 3 risk factors or hx of atherosclerotic disease Troponin: Troponin T < 0.010 ng/mL (0.00-0.029) 11/14/20 05:35 Troponin: < normal limit - Critical Actions Critical Actions: 0-3 pts:0.9-1.7%risk of adverse cardiac event.Candidate for discharge Results - Labs CBC & Chem 7: 11/14/20 05:35 11/14/20 05:35 Labs: Laboratory Last Values WBC 6.2 K/mm3 (4.5-11.0) 11/14/20 05:35 RBC 3.98 M/mm3 (3.65-5.03) 11/14/20 05:35 Hgb 13.4 gm/dl (11.8-15.2) 11/14/20 05:35 Hct 38.3 % (35.5-45.6) 11/14/20 05:35 MCV 96 fl (84-94) H 11/14/20 05:35 MCH 34 pg (28-32) H 11/14/20 05:35 MCHC 35 % (32-34) H 11/14/20 05:35 RDW 15.1 % (13.2-15.2) 11/14/20 05:35 Plt Count 192 K/mm3 (140-440) 11/14/20 05:35 Lymph % (Auto) 38.1 % (13.4-35.0) H 11/14/20 05:35 [place] % (Auto) 9.9 % (0.0-7.3) H 11/14/20 05:35 Eos % (Auto) 7.3 % (0.0-4.3) H 11/14/20 05:35 Baso % (Auto) 0.9 % (0.0-1.8) 11/14/20 05:35 Lymph # (Auto) 2.4 K/mm3 (1.2-5.4) 11/14/20 05:35 [place] # (Auto) 0.6 K/mm3 (0.0-0.8) 11/14/20 05:35 Eos # (Auto) 0.5 K/mm3 (0.0-0.4) H 11/14/20 05:35 Baso # (Auto) 0.1 K/mm3 (0.0-0.1) 11/14/20 05:35 Seg Neutrophils % 43.8 % (40.0-70.0) 11/14/20 05:35 Seg Neutrophils # 2.7 K/mm3 (1.8-7.7) 11/14/20 05:35 PT 13.5 Sec. (12.2-14.9) 11/13/20 18:13 INR 0.98 (0.87-1.13) 11/13/20 18:13 APTT 29.2 Sec. (24.2-36.6) 11/13/20 18:13 Thrombin Time 19.9 Sec. (15.1-19.6) H 11/13/20 18:13 D-Dimer 865.15 ng/mlDDU (0-234) H 11/13/20 18:32 Sodium 135 mmol/L (137-145) L 11/14/20 05:35 Potassium 2.9 mmol/L (3.6-5.0) L* 11/14/20 05:35 Chloride 95.8 mmol/L (98-107) L 11/14/20 05:35 Carbon Dioxide 30 mmol/L (22-30) 11/14/20 05:35 Anion Gap 12 mmol/L 11/14/20 05:35 BUN 13 mg/dL (9-20) 11/14/20 05:35 Creatinine 0.9 mg/dL (0.8-1.3) 11/14/20 05:35 Estimated GFR > 60 ml/min 11/14/20 05:35 BUN/Creatinine Ratio 14 % 11/14/20 05:35 Glucose 97 mg/dL (75-100) 11/14/20 05:35 POC Glucose 115 mg/dL (70-105) H 11/14/20 05:48 Calcium 9.4 mg/dL (8.4-10.2) 11/14/20 05:35 Total Bilirubin 0.50 mg/dL (0.1-1.2) 11/13/20 18:13 AST 25 units/L (5-40) 11/13/20 18:13 ALT 25 units/L (7-56) 11/13/20 18:13 Alkaline Phosphatase 68 units/L (35-129) 11/13/20 18:13 Troponin T < 0.010 ng/mL (0.00-0.029) 11/14/20 05:35 NT-Pro-B Natriuret Pep 13.40 pg/mL (0-900) 11/13/20 18:13 Total Protein 7.9 g/dL (6.3-8.2) 11/13/20 18:13 Albumin 4.5 g/dL (3.9-5) 11/13/20 18:13 Albumin/Globulin Ratio 1.3 % 11/13/20 18:13 Triglycerides 89 mg/dL (2-149) 11/14/20 05:35 Cholesterol 205 mg/dL (50-199) H 11/14/20 05:35 LDL Cholesterol Direct 159 mg/dL (50-130) H 11/14/20 05:35 HDL Cholesterol 41 mg/dL (40-59) 11/14/20 05:35 Cholesterol/HDL Ratio 5.00 % 11/14/20 05:35 [place]/IV: Voiding Method Toilet Active Medications - Current Medications Current Medications: Generic Name Dose Route Start Last Admin Trade Name Freq PRN Reason Stop Dose Admin Albuterol/Ipratropium 1 ampul 11/14/20 02:00 11/14/20 08:39 Ipratropium/Albuterol Sulfate 3 Ml Ampul.Neb IH 1 ampul Q6HRT SHAHEED Administration Alprazolam 2 mg 11/14/20 00:05 11/14/20 05:53 Alprazolam 1 Mg Tab PO 2 mg Q6H PRN Administration Anxiety Aspirin 325 mg 11/14/20 10:00 Aspirin Ec 325 Mg Tab PO QDAY SHAHEED Atorvastatin Calcium 40 mg 11/13/20 22:00 11/14/20 01:05 Atorvastatin 40 Mg Tab PO Not Given QHS SHAHEED Dextrose 50 ml 11/13/20 21:43 Dextrose 50% In Water (25gm) 50 Ml Syringe IV Q30MIN PRN Hypoglycemia Protocol Famotidine 20 mg 11/13/20 22:00 11/14/20 01:05 Famotidine 20 Mg Tab PO Not Given BID SHAHEED Gabapentin 800 mg 11/14/20 00:11 11/14/20 00:33 Gabapentin 400 Mg Cap PO 800 mg TID PRN Administration Neuropathy Hydralazine HCl 10 mg 11/13/20 21:28 Hydralazine 20 Mg/1 Ml Inj IV Q6H PRN htn Insulin Human Lispro 0 unit 11/14/20 00:00 11/14/20 05:50 Insulin Lispro 100 Unit/Ml SUB-Q Not Given Q6HR [facility] Protocol Levofloxacin 500 mg 11/14/20 10:00 Levofloxacin 500 Mg Tab PO Q24HR [facility] Protocol Mirtazapine 15 mg 11/14/20 00:06 11/14/20 00:33 Mirtazapine 15 Mg Tab PO 15 mg QHS PRN Administration Insomnia Morphine Sulfate 2 mg 11/13/20 21:57 11/14/20 05:52 Morphine 2 Mg/1 Ml Inj IV 2 mg Q4H PRN Administration Pain , Severe (7-10) Nitroglycerin 0.4 mg 11/13/20 21:20 Nitroglycerin 0.4 Mg Tab Subl SL Q5M PRN Chest Pain Ondansetron HCl 4 mg 11/13/20 21:20 Ondansetron 4 Mg/2 Ml Inj IV Q8H PRN Nausea And Vomiting Oxycodone HCl 25 mg 11/14/20 00:05 11/14/20 05:51 Oxycodone 5 Mg Tab PO 25 mg Q6H PRN Administration Pain, Moderate (4-6) Potassium Chloride 40 meq 11/14/20 12:00 Potassium Chloride Er 20 Meq Tab PO 11/14/20 12:01 ONCE ONE Sodium Chloride 10 ml 11/13/20 22:00 11/14/20 01:06 Sodium Chloride 0.9% 10 Ml Flush Syringe IV Not Given BID SHAHEED Sodium Chloride 10 ml 11/13/20 21:20 Sodium Chloride 0.9% 10 Ml Flush Syringe IV PRN PRN LINE FLUSH
[2020-11-14] MEDS: ASPIRIN EC 325 MG TAB PO SCH (09:59)
[2020-11-14] MEDS: levoFLOXacin 500 MG TAB PO SCH (10:02)
--- NOTE | 2020-11-14 10:02 | Consultation ---
History of Present Illness Consult date: 11/14/20 Requesting physician: YAMIL PONCE Consult reason: chest pain History of present illness: Pt is a 55-year-old AA male with a past medical hx of chronic HFpEF, HTN, HLD, DM2, CVA, COPD, JENNIFER (non-compliant with CPAP), and PE (in 2014, s/p IVC filter placement), who presented following a ?syncopal episode apparently witnessed by his home health nurse. Pt states he was ambulating to the bathroom when he fell. He states "I was out like a light." No injury. He says his home health nurse was terrified and called for an ambulance to transport him to the hospital. Cardiology has been consulted for evaluation of chest pain. Pt denies chest pain upon assessment, though he apparently previously reported SOB and chest pain that was pleuritic in nature upon arrival according to documentation. Trop neg x 3. ECG reveals no acute ischemic changes. Lexiscan stress MPI 11/2019 - negative for ischemia. CXR reveals no acute findings. V/Q scan not suggestive of PE. Of note, pt has been seen during numerous previous admissions for a wide range of complaints. He is very pleasant but has issues with pain mgmt and anxiety, for which he has been on high doses of opioids and anxiolytics for at least 10 years. Past History Past Medical History: arthritis, COPD, diabetes, GERD, heart failure, hypertension, hyperlipidemia, pulmonary embolism, stroke, other (JENNIFER, chronic pain, anxiety) Past Surgical History: total hip replacement, bowel surgery, Other (C2-C4 fusion (2011)). denies: valve replacement, CABG, PTCA Social history: , smoking. denies: alcohol abuse Family history: hypertension Medications and Allergies Allergies Allergy/AdvReac Type Severity Reaction Status Date / Time acetaminophen [From Tylenol] Allergy Swelling Verified 05/28/20 20:18 tramadol Allergy Itching Verified 03/03/20 07:42 Home Medications Medication Instructions Recorded Confirmed Last Taken Type Rosuvastatin Calcium [Crestor] 20 mg PO HS 03/31/20 11/13/20 11/13/20 History Torsemide [Demadex] 100 mg PO DAILY 03/31/20 11/13/20 11/13/20 History Gabapentin [Neurontin] 1 tab PO 4XD PRN 08/22/20 11/13/20 11/13/20 History Oxycodone HCl [oxyCODONE] 25 mg PO 4XD PRN 08/22/20 11/13/20 11/13/20 History Timolol 0.5%-Dorzolamide 2% 1 drop OU BID 08/22/20 11/13/20 11/13/20 History Xanax TAB 2 mg PO 4XD PRN 08/22/20 11/13/20 11/13/20 History Docusate Sodium [Colace CAP] 100 mg PO QID PRN #20 cap 08/25/20 11/13/20 Unknown Rx Famotidine [Pepcid] 20 mg PO BID #60 tablet 08/25/20 11/13/20 11/13/20 Rx Tamsulosin [Flomax] 0.4 mg PO QHS #30 capsule 08/25/20 11/13/20 11/13/20 Rx Aspirin [Aspirin BABY CHEW TAB] 81 mg PO DAILY #30 tab.chew 10/22/20 11/13/20 11/13/20 Rx Potassium Chloride [K-Dur] 20 meq PO QDAY #4 tablet 10/22/20 11/13/20 11/13/20 Rx Mirtazapine [Remeron 15mg TAB] 15 mg PO QHS PRN 11/13/20 11/13/20 Unknown History Active Meds: Active Medications Albuterol/Ipratropium (Ipratropium/Albuterol Sulfate 3 Ml Ampul.Neb) 1 ampul IH Q6HRT [facility] Last Admin: 11/14/20 08:39 Dose: 1 ampul Documented by: Alprazolam (Alprazolam 1 Mg Tab) 2 mg PO Q6H PRN PRN Reason: Anxiety Last Admin: 11/14/20 05:53 Dose: 2 mg Documented by: Aspirin (Aspirin Ec 325 Mg Tab) 325 mg PO QDAY [facility] Atorvastatin Calcium (Atorvastatin 40 Mg Tab) 40 mg PO QHS [facility] Last Admin: 11/14/20 01:05 Dose: Not Given Documented by: Dextrose (Dextrose 50% In Water (25gm) 50 Ml Syringe) 50 ml IV Q30MIN PRN; Protocol PRN Reason: Hypoglycemia Famotidine (Famotidine 20 Mg Tab) 20 mg PO BID [facility] Last Admin: 11/14/20 01:05 Dose: Not Given Documented by: Gabapentin (Gabapentin 400 Mg Cap) 800 mg PO TID PRN PRN Reason: Neuropathy Last Admin: 11/14/20 00:33 Dose: 800 mg Documented by: Hydralazine HCl (Hydralazine 20 Mg/1 Ml Inj) 10 mg IV Q6H PRN PRN Reason: htn Insulin Human Lispro (Insulin Lispro 100 Unit/Ml) 0 unit SUB-Q Q6HR [facility]; Protocol Last Admin: 11/14/20 05:50 Dose: Not Given Documented by: Levofloxacin (Levofloxacin 500 Mg Tab) 500 mg PO Q24HR [facility]; Protocol Mirtazapine (Mirtazapine 15 Mg Tab) 15 mg PO QHS PRN PRN Reason: Insomnia Last Admin: 11/14/20 00:33 Dose: 15 mg Documented by: Morphine Sulfate (Morphine 2 Mg/1 Ml Inj) 2 mg IV Q4H PRN PRN Reason: Pain , Severe (7-10) Last Admin: 11/14/20 05:52 Dose: 2 mg Documented by: Nitroglycerin (Nitroglycerin 0.4 Mg Tab Subl) 0.4 mg SL Q5M PRN PRN Reason: Chest Pain Ondansetron HCl (Ondansetron 4 Mg/2 Ml Inj) 4 mg IV Q8H PRN PRN Reason: Nausea And Vomiting Oxycodone HCl (Oxycodone 5 Mg Tab) 25 mg PO Q6H PRN PRN Reason: Pain, Moderate (4-6) Last Admin: 11/14/20 05:51 Dose: 25 mg Documented by: Potassium Chloride (Potassium Chloride Er 20 Meq Tab) 40 meq PO ONCE ONE Stop: 11/14/20 12:01 Sodium Chloride (Sodium Chloride 0.9% 10 Ml Flush Syringe) 10 ml IV BID [facility] Last Admin: 11/14/20 01:06 Dose: Not Given Documented by: Sodium Chloride (Sodium Chloride 0.9% 10 Ml Flush Syringe) 10 ml IV PRN PRN PRN Reason: LINE FLUSH Review of Systems Constitutional: weakness (BLE), no fever, no chills, no sweats Ears, nose, mouth and throat: no nasal congestion, no sore throat Cardiovascular: chest pain, syncope, shortness of breath, no orthopnea, no palpitations, no rapid/irregular heart beat, no edema, no lightheadedness, no dyspnea on exertion, no paroxysmal nocturnal dyspnea, no claudication Respiratory: shortness of breath, no cough, no dyspnea on exertion, no wheezing Gastrointestinal: no abdominal pain, no nausea, no vomiting, no diarrhea, no constipation Genitourinary Male: no dysuria, no flank pain Musculoskeletal: neck pain (chronic), frequent falls, no neck stiffness Integumentary: other (small lump palpable in left breast tissue), no rash, no wounds Neurological: weakness, syncope, no head injury, no paralysis, no parathesias, no numbness, no tingling, no seizures, no tremors, no vertigo, no headaches, no change in mentation Psychiatric: anxiety Endocrine: no cold intolerance, no heat intolerance Hematologic/Lymphatic: no easy bruising, no easy bleeding Allergic/Immunologic: no anaphylaxis Physical Examination Last Vital Signs Temp 97.4 F L 11/14/20 17:01 Pulse 67 11/14/20 17:01 Resp 20 11/14/20 17:01 BP 103/74 11/14/20 17:01 Pulse Ox 97 11/14/20 17:01 General appearance: no acute distress HEENT: Positive: EOMI, Normocephaly, Mucus Membranes Moist Neck: Positive: neck supple, trachea midline. Negative: JVD/HJR Cardiac: Positive: Reg Rate and Rhythm, S1/S2. Negative: Audible Murmur Lungs: Positive: clear to auscultation (bilaterally) Neuro: Positive: Grossly Intact, Weakness (BLE). Negative: Numbness Abdomen: Positive: Soft. Negative: Tender Skin: Negative: Rash Extremities: Present: upper extr. pulses, lower extr. pulses. Absent: edema Results 11/14/20 05:35 11/14/20 10:14 Cardiac Enzymes 11/13/20 Range/Units 18:13 AST 25 (5-40) units/L Coagulation 11/13/20 Range/Units 18:13 PT 13.5 (12.2-14.9) Sec. INR 0.98 (0.87-1.13) APTT 29.2 (24.2-36.6) Sec. Lipids 11/14/20 Range/Units 05:35 Triglycerides 89 (2-149) mg/dL Cholesterol 205 H (50-199) mg/dL HDL Cholesterol 41 (40-59) mg/dL Cholesterol/HDL Ratio 5.00 % CBC 11/13/20 11/14/20 11/14/20 Range/Units 18:13 00:31 05:35 WBC 8.1 7.1 6.2 (4.5-11.0) K/mm3 RBC 4.66 4.26 3.98 (3.65-5.03) M/mm3 Hgb 15.3 H 13.9 13.4 (11.8-15.2) gm/dl Hct 45.1 41.0 38.3 (35.5-45.6) % Plt Count 215 209 192 (140-440) K/mm3 Lymph # (Auto) 2.4 2.4 2.4 (1.2-5.4) K/mm3 [place] # (Auto) 0.7 0.6 0.6 (0.0-0.8) K/mm3 Eos # (Auto) 0.4 0.4 0.5 H (0.0-0.4) K/mm3 Baso # (Auto) 0.0 0.1 0.1 (0.0-0.1) K/mm3 Comprehensive Metabolic Panel 11/13/20 11/14/20 11/14/20 Range/Units 18:13 00:31 05:35 Sodium 137 136 L 135 L (137-145) mmol/L Potassium 3.3 L 3.0 L 2.9 L* (3.6-5.0) mmol/L Chloride 96.0 L 95.7 L 95.8 L (98-107) mmol/L Carbon Dioxide 30 28 30 (22-30) mmol/L BUN 11 12 13 (9-20) mg/dL Creatinine 1.0 1.0 0.9 (0.8-1.3) mg/dL Glucose 92 99 97 (75-100) mg/dL Calcium 9.5 9.1 9.4 (8.4-10.2) mg/dL AST 25 (5-40) units/L ALT 25 (7-56) units/L Alkaline Phosphatase 68 (35-129) units/L Total Protein 7.9 (6.3-8.2) g/dL Albumin 4.5 (3.9-5) g/dL - Imaging and Cardiology Echo: report reviewed (10/22/2020 - mild concentric LVH, EF 50-55%, mild diastolic dysfxn, no pericardial effusion) EKG: report reviewed, image reviewed - EKG Interpretation EKG: no acute changes EKG interpretations - Telemetry EKG Rhythm: Sinus Rhythm - EKG Sinus rhythms and dysrhythmias: sinus rhythm Assessment and Plan Pt has a hx of multiple frequent admissions @ [facility], [facility], & [facility] facilities since 2009 (typically with c/o chest pain, MSK pain, and/or injuries). 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 Pt has been noted to make frequent requests for narcotics and anxiolytics when hospitalized as well, in addition to his home pain regimen; however, he often refuses recommended diagnostic tests. Pt was followed by [facility] 09/2016-08/2017 after undergoing an elective right hip arthroplasty. Prior to hip surg, pt was taking 30mg Oxycodone and 30mg morphine at least twice daily. These dosages were steadily being decreased by PMR. After initial down-titration, pt was noted to undergo oral surgery for extraction of teeth, at which time he was given additional opioids to be taken post-operatively. Pt did not follow-up with PMR following 08/2017 after his last pain regimen dosage decrease. He was later seen by [facility] at [facility] 07/2019 for lumbar stenosis/lumbosacral spondylolisthesis. At that visit, he was taking Oxycodone 30mg q6h at home. He was being considered for surgical intervention but was told he would have to cut back or possibly stop taking opioids prior to any procedures. Pt reported back as an outpatient 09/2019 stating that his Pain Mgmt physician was no longer prescribing any narcotics for him, though it appears he was still being prescribed the aforementioned dosage of Oxycodone. Additional narcotics were declined by the Spine team at that time. Pt did not follow up again. From a cardiac perspective, pt has been set up for [facility] on numerous occasions but ultimately declines the AM of the planned procedure. He was set up for [facility] during his most recent admission at [facility] last month as well but was unable to complete d/t hypokalemia and severe back/neck pain. The plan was to schedule pt for elective cardiac catheterization, assuming anxiety and pain could be well- controlled. He now states that he wants to proceed with [facility], as long as his neck can be propped up. AMI r/o this admission. Recent echo 10/22/2020 reviewed - mild concentric LVH, EF 50-55%, mild diastolic dysfxn, no pericardial effusion. Ischemic workup may be considered when clinically stable. This could be done as an outpatient pending clinical course. Hypokalemia will also need to be addressed prior to LHC. Will check Mg as well. KCl repletion underway. Pt has very low K levels frequently. He is on Torsemide 100mg daily as an outpatient. Daily KCl supplementation dosage may need to be adjusted as such. Pt reports very minimal EtOH use ("1 beer once weekly maybe if the game is on"). Awaiting brain MRI at this time and Neuro recs. May complete repeat echo/Bubble study if requested per Neuro. Can also consider BLE Dopplers given elevated D-dimer and normal VQ scan. Additionally, subcutaneous lesion noted on chest US. In alignment with small palpable lump noted in left breast upon assessment. Biopsy recommended. Otherwise continue home cardiac regimen. Smoking cessation encouraged. Pt verbalized understanding and states he is now down to 2 cigarettes/day. Strongly recommend outpatient referral to Pain Assistant [facility] upon discharge as well if not already established. Pt seen in conjunction with Dr. Mcmullen, who agrees with the assessment and plan of care. - Patient Problems (1) Syncope and collapse Current Visit: Yes Status: Acute (2) CVA (cerebral vascular accident) Current Visit: Yes Status: Suspected Qualifiers: Qualified Code(s): I63.9 - Cerebral infarction, unspecified (3) Atypical chest pain Current Visit: Yes Status: Acute (4) Breast mass in male Current Visit: Yes Status: Acute (5) Hypokalemia Current Visit: Yes Status: Acute (6) Chronic heart failure with preserved ejection fraction (HFpEF) Current Visit: Yes Status: Chronic (7) Hypertension Current Visit: Yes Status: Chronic Qualifiers: Hypertension type: essential hypertension Qualified Code(s): I10 - Essential (primary) hypertension (8) Hyperlipemia Current Visit: Yes Status: Chronic Qualifiers: Hyperlipidemia type: mixed hyperlipidemia Qualified Code(s): E78.2 - Mixed hyperlipidemia (9) DM2 (diabetes mellitus, type 2) Current Visit: Yes Status: Chronic (10) GERD (gastroesophageal reflux disease) Current Visit: Yes Status: Chronic (11) Morbid obesity Current Visit: Yes Status: Chronic (12) Obstructive sleep apnea Current Visit: Yes Status: Chronic (13) COPD (chronic obstructive pulmonary disease) Current Visit: Yes Status: Chronic (14) Tobacco abuse Current Visit: Yes Status: Chronic (15) History of pulmonary embolism Current Visit: Yes Status: Chronic Plan to address problem: 2015, S/p IVC Filter (16) History of CVA (cerebrovascular accident) Current Visit: Yes Status: Chronic (17) H/O cervical spine surgery Current Visit: Yes Status: Chronic (18) Rheumatoid arthritis Current Visit: Yes Status: Chronic (19) Chronic pain syndrome Current Visit: Yes Status: Chronic (20) Anxiety Current Visit: Yes Status: Chronic
--- NOTE | 2020-11-14 10:03 | Consultation ---
History of Present Illness Consult date: 11/14/20 Reason for Consult: left leg weakness and numbness History of present illness: Chest pain Coughing Left leg numbness History of present illness: 55-year-old with with past medical history of chest pain CHF hypertension hyperlipidemia diabetes type 2 GERD COPD obstructive sleep apnea morbid obesity was brought to the hospital because of chest pain and coughing and numbness in the left leg9 Leg numbness is on going for few years ) According to pt. his nurse noted yesterday on his face left facial drop as well as left facial arm and leg numbness with increase weakness so he came to ER for further evaluation he is with weakness initally left side use cane for ambualtion and with hx of neck surgery 2011 as well as CVA 5 years back ,take ASA 81 mg daily and check BP and suger on regular basis chest pain which he states is pleuritic worsening with a deep inspiration and somewhat odd position. It involves his left anterior chest. Sometimes he feels a discomfort in his left arm. He tells me that he has not been coughing and he is not currently short of breath. However his triage note states he had green- tinged sputum. Patient had no hemoptysis. Quite clearly tells me he has not been coughing nor significantly short of breath. He states the chest pain feels like a "electric shock". He does not have any accompanying nausea vomiting or sweating. Patient also complained of numbness is affecting his leg below the knee and the pain involves his thigh. The patient states he has had left sided weakness for 4 years. However, he states he is not wheelchair-bound. The patient's nurse informs me that he was able to get up and transfer as well as walk around the CT department without any apparent difficulty. Patient is seen and evaluated by telemetry neurology. In the emergency room initial cardiac enzyme is negative. Troponin is 0.010. Initial CT scan of the head shows no acute intracranial abnormality he refused MRI brain today but will do tomorrow ? Past History Past Medical History: arthritis, COPD, diabetes, GERD, heart failure, hypertens ion, hyperlipidemia, other (Morbid obesity is obstructive sleep apnea) Medications and Allergies Allergies Allergy/AdvReac Type Severity Reaction Status Date / Time acetaminophen [From Tylenol] Allergy Swelling Verified 05/28/20 20:18 tramadol Allergy Itching Verified 03/03/20 07:42 Home Medications Medication Instructions Recorded Confirmed Last Taken Type Rosuvastatin Calcium [Crestor] 20 mg PO HS 03/31/20 10/21/20 08/21/20 History Torsemide [Demadex] 100 mg PO DAILY 03/31/20 10/21/20 08/24/20 10:23 History Gabapentin [Neurontin] 1 tab PO 4XD 08/22/20 10/21/20 08/21/20 History Oxycodone HCl [oxyCODONE] 25 mg PO 4XD 08/22/20 10/21/20 08/22/20 15:00 History Timolol 0.5%-Dorzolamide 2% 1 drop OU BID 08/22/20 10/21/20 08/21/20 History Xanax TAB 2 mg PO 4XD 08/22/20 10/21/20 08/22/20 History Docusate Sodium [Colace CAP] 100 mg PO QID PRN #20 cap 08/25/20 10/21/20 Unknown Rx Famotidine [Pepcid] 20 mg PO BID #60 tablet 08/25/20 10/21/20 Unknown Rx Mirtazapine [Remeron 15mg TAB] 15 mg PO QHS #30 tablet 08/25/20 10/21/20 Unknown Rx Tamsulosin [Flomax] 0.4 mg PO QHS #30 capsule 08/25/20 10/21/20 Unknown Rx Aspirin [Aspirin BABY CHEW TAB] 81 mg PO DAILY #30 tab.chew 10/22/20 Unknown Rx Potassium Chloride [K-Dur] 20 meq PO QDAY #4 tablet 10/22/20 Unknown Rx Active Meds: Active Medications Acetaminophen (Acetaminophen 325 Mg Tab) 650 mg PO Q4H PRN PRN Reason: Pain MILD(1-3)/Fever >100.5/MA Acetaminophen (Acetaminophen 325 Mg Tab) 650 mg PO Q6H PRN PRN Reason: Pain, Mild (1-3) Albuterol/Ipratropium (Ipratropium/Albuterol Sulfate 3 Ml Ampul.Neb) 1 ampul IH Q6HRT [facility] Aspirin (Aspirin Ec 325 Mg Tab) 325 mg PO QDAY [facility] Atorvastatin Calcium (Atorvastatin 40 Mg Tab) 40 mg PO QHS [facility] Famotidine (Famotidine 10 Mg Tab) 10 mg PO BID [facility] Hydralazine HCl (Hydralazine 20 Mg/1 Ml Inj) 10 mg IV Q6H PRN PRN Reason: htn Levofloxacin (Levofloxacin 500 Mg Tab) 500 mg PO Q24HR [facility]; Protocol Nitroglycerin (Nitroglycerin 0.4 Mg Tab Subl) 0.4 mg SL Q5M PRN PRN Reason: Chest Pain Ondansetron HCl (Ondansetron 4 Mg/2 Ml Inj) 4 mg IV Q8H PRN PRN Reason: Nausea And Vomiting Oxycodone/Acetaminophen (Oxycodone /Acetaminophen 5-325mg Tab) 1 tab PO Q6H PRN PRN Reason: Pain, Moderate (4-6) Sodium Chloride (Sodium Chloride 0.9% 10 Ml Flush Syringe) 10 ml IV BID [facility] Sodium Chloride (Sodium Chloride 0.9% 10 Ml Flush Syringe) 10 ml IV PRN PRN PRN Reason: LINE FLUSH Sodium Chloride (Sodium Chloride 0.9% 10 Ml Flush Syringe) 10 ml IV PRN PRN PRN Reason: LINE FLUSH Sodium Chloride (Sodium Chloride 0.9% 10 Ml Flush Syringe) 10 ml INJ PRN PRN PRN Reason: LINE FLUSH Tramadol HCl (Tramadol 50 Mg Tab) 50 mg PO Q6H PRN PRN Reason: Pain, Moderate (4-6) Review of Systems Cardiovascular: chest pain, shortness of breath Respiratory: cough, shortness of breath Past History Past Medical History: arthritis, COPD, diabetes, GERD, heart failure, hypertension, hyperlipidemia, other (Morbid obesity is obstructive sleep apnea) Medications and Allergies Allergies Allergy/AdvReac Type Severity Reaction Status Date / Time acetaminophen [From Tylenol] Allergy Swelling Verified 05/28/20 20:18 tramadol Allergy Itching Verified 03/03/20 07:42 Home Medications Medication Instructions Recorded Confirmed Last Taken Type Rosuvastatin Calcium [Crestor] 20 mg PO HS 03/31/20 11/13/20 11/13/20 History Torsemide [Demadex] 100 mg PO DAILY 03/31/20 11/13/20 11/13/20 History Gabapentin [Neurontin] 1 tab PO 4XD PRN 08/22/20 11/13/20 11/13/20 History Oxycodone HCl [oxyCODONE] 25 mg PO 4XD PRN 08/22/20 11/13/20 11/13/20 History Timolol 0.5%-Dorzolamide 2% 1 drop OU BID 08/22/20 11/13/20 11/13/20 History Xanax TAB 2 mg PO 4XD PRN 08/22/20 11/13/20 11/13/20 History Docusate Sodium [Colace CAP] 100 mg PO QID PRN #20 cap 08/25/20 11/13/20 Unknown Rx Famotidine [Pepcid] 20 mg PO BID #60 tablet 08/25/20 11/13/20 11/13/20 Rx Tamsulosin [Flomax] 0.4 mg PO QHS #30 capsule 08/25/20 11/13/20 11/13/20 Rx Aspirin [Aspirin BABY CHEW TAB] 81 mg PO DAILY #30 tab.chew 10/22/20 11/13/20 11/13/20 Rx Potassium Chloride [K-Dur] 20 meq PO QDAY #4 tablet 10/22/20 11/13/20 11/13/20 Rx Mirtazapine [Remeron 15mg TAB] 15 mg PO QHS PRN 11/13/20 11/13/20 Unknown History Active Meds: Active Medications Albuterol/Ipratropium (Ipratropium/Albuterol Sulfate 3 Ml Ampul.Neb) 1 ampul IH Q6HRT [facility] Last Admin: 11/14/20 08:39 Dose: 1 ampul Documented by: Alprazolam (Alprazolam 1 Mg Tab) 2 mg PO Q6H PRN PRN Reason: Anxiety Last Admin: 11/14/20 05:53 Dose: 2 mg Documented by: Aspirin (Aspirin Ec 325 Mg Tab) 325 mg PO QDAY [facility] Atorvastatin Calcium (Atorvastatin 40 Mg Tab) 40 mg PO QHS [facility] Last Admin: 11/14/20 01:05 Dose: Not Given Documented by: Dextrose (Dextrose 50% In Water (25gm) 50 Ml Syringe) 50 ml IV Q30MIN PRN; Protocol PRN Reason: Hypoglycemia Famotidine (Famotidine 20 Mg Tab) 20 mg PO BID [facility] Last Admin: 11/14/20 01:05 Dose: Not Given Documented by: Gabapentin (Gabapentin 400 Mg Cap) 800 mg PO TID PRN PRN Reason: Neuropathy Last Admin: 11/14/20 00:33 Dose: 800 mg Documented by: Hydralazine HCl (Hydralazine 20 Mg/1 Ml Inj) 10 mg IV Q6H PRN PRN Reason: htn Insulin Human Lispro (Insulin Lispro 100 Unit/Ml) 0 unit SUB-Q Q6HR [facility]; Protocol Last Admin: 11/14/20 05:50 Dose: Not Given Documented by: Levofloxacin (Levofloxacin 500 Mg Tab) 500 mg PO Q24HR [facility]; Protocol Mirtazapine (Mirtazapine 15 Mg Tab) 15 mg PO QHS PRN PRN Reason: Insomnia Last Admin: 11/14/20 00:33 Dose: 15 mg Documented by: Morphine Sulfate (Morphine 2 Mg/1 Ml Inj) 2 mg IV Q4H PRN PRN Reason: Pain , Severe (7-10) Last Admin: 11/14/20 05:52 Dose: 2 mg Documented by: Nitroglycerin (Nitroglycerin 0.4 Mg Tab Subl) 0.4 mg SL Q5M PRN PRN Reason: Chest Pain Ondansetron HCl (Ondansetron 4 Mg/2 Ml Inj) 4 mg IV Q8H PRN PRN Reason: Nausea And Vomiting Oxycodone HCl (Oxycodone 5 Mg Tab) 25 mg PO Q6H PRN PRN Reason: Pain, Moderate (4-6) Last Admin: 11/14/20 05:51 Dose: 25 mg Documented by: Potassium Chloride (Potassium Chloride Er 20 Meq Tab) 40 meq PO ONCE ONE Stop: 11/14/20 12:01 Sodium Chloride (Sodium Chloride 0.9% 10 Ml Flush Syringe) 10 ml IV BID [facility] Last Admin: 11/14/20 01:06 Dose: Not Given Documented by: Sodium Chloride (Sodium Chloride 0.9% 10 Ml Flush Syringe) 10 ml IV PRN PRN PRN Reason: LINE FLUSH Physical Examination - Vital Signs Vital Signs: Vital Signs Temp Pulse Resp BP Pulse Ox 99.3 F 91 H 20 116/97 97 11/13/20 16:52 11/13/20 16:52 11/13/20 16:52 11/13/20 16:52 11/13/20 16:52 - Constitutional General appearance: comfortable - EENT EENT: Present: PERRL, mucous membranes moist - Respiratory Respiratory: Present: lungs clear, rhonchi - Cardiovascular Cardiovascular: Present: regular rate, normal S1, normal S2 Extremities: Present: no clubbing, cyanosis - Gastrointestinal Gastrointestinal: Present: normoactive bowel sounds - Integumentary Integumentary: Present: normal - Neurologic Cranial nerve examination: PERRL, EOMI, other (complains of left facial sensory deficit , no clear visual drop no visual field deficit ) Speech examination: intact Sensorimotor examination: other (is with left upper and lower weakness with strength in 3+/5 left lower and 4-/5 left upper ,planter is down going , gait is not done) - Level of Consciousness 1a. Level of Consciousness: alert/keenly responsive - LOC Questions 1b. LOC Questions: answers both correctly - LOC Command 1c. LOC Commands: performs tasks correctly - Best Gaze 2. Best Gaze: normal - Visual 3. Visual: no visual loss - Facial Palsy 4. Facial Palsy: normal symmetrical movement - Motor Arm 5a. Motor Arm Left: drift 5b. Motor Arm Right: no drift - Motor Leg 6a. Motor Leg Left: drift 6b. Motor Leg Right: no drift - Limb Ataxia 7. Limb Ataxia: absent - Sensory 8. Sensory: mild/moderate sensory loss - Best Language 9. Best Language: no aphasia - Dysarthria 10. Dysarthria: normal - Extinction and Inattention 11. Extinction/Inattention: no abnormality - Scoring Total Score: 3 Stroke Severity: Minor Stroke Results - Laboratory Findings CBC and BMP: 11/14/20 05:35 11/14/20 05:35 Abnormal Lab Findings: Abnormal Labs 11/13/20 11/13/20 11/13/20 18:13 18:13 18:13 Hgb 15.3 H MCV 97 H MCH 33 H MCHC RDW 15.6 H Lymph % (Auto) Boyd % (Auto) 8.4 H Eos % (Auto) 5.4 H Eos # (Auto) Thrombin Time 19.9 H D-Dimer Sodium Potassium 3.3 L Chloride 96.0 L POC Glucose Cholesterol LDL Cholesterol Direct 11/13/20 11/14/20 11/14/20 18:32 00:31 00:31 Hgb MCV 96 H MCH 33 H MCHC RDW 15.5 H Lymph % (Auto) Boyd % (Auto) 7.9 H Eos % (Auto) 6.2 H Eos # (Auto) Thrombin Time D-Dimer 865.15 H Sodium 136 L Potassium 3.0 L Chloride 95.7 L POC Glucose Cholesterol LDL Cholesterol Direct 11/14/20 11/14/20 11/14/20 05:35 05:35 05:48 Hgb MCV 96 H MCH 34 H MCHC 35 H RDW Lymph % (Auto) 38.1 H Boyd % (Auto) 9.9 H Eos % (Auto) 7.3 H Eos # (Auto) 0.5 H Thrombin Time D-Dimer Sodium 135 L Potassium 2.9 L* Chloride 95.8 L POC Glucose 115 H Cholesterol 205 H LDL Cholesterol Direct 159 H Assessment and Plan - Imaging and Cardiology CT scan - chest: report reviewed CT Scan - head: report reviewed Assessment and Plan VTE prophylaxis?: Chemical Plan of care discussed with patient/family: Yes pt. problems # CVA (cerebral vascular accident) -he is with a new onset left face arm and leg weakness and numbness -NIH#3 -CT brain is unremarkable -currently on ASA 325 mg daily -Lipitor 40 mg daily -refused MRI brain today ? may be am -Pt ,OT ,ST therapy -Echo cardiogram -CTA brain and neck -LDL# 159 -A1C# pending # CVA, old, alterations of sensations -Aspirin 325 mg p.o. daily9 Taking 81 mg ASA at home for years !!). - Lipitor 40 mg p.o. daily. # Acute coronary syndrome -Admit the patient to the cardiac telemetry. - Aspirin 325 mg p.o. daily. - Lipitor 40 mg p.o. daily. - We do the serial cardiac enzyme. - We also do echocardiogram # Anxiety -Stable we will continue the home medication # CHF (congestive heart failure) -Stable. - We will continue the home medication we also do echocardiogram # COPD (chronic obstructive pulmonary disease) -Oxygen by nasal cannula 3 L/min DuoNeb by nebulizer every 4 hours we will continue home medication # DM2 (diabetes mellitus, type 2) -We will put the patient on insulin sliding scale Humalog moderate dose coverage with Accu-Chek before meals and at bedtime. Repeat BMP in the morning. Diabetic education # GERD (gastroesophageal reflux disease) -Famotidine 20 mg p.o. twice daily for GI prophylaxis # HTN (hypertension) -Hydralazine 10 mg IV every 6 hours as needed. We will continue the home medication we will monitor the blood pressure closely # Chronic pain syndrom -S/P neck surgery 2011 -? residual left leg and to lesser extent arm ? and with left side numbness use cane for ambulation -On Neurontine tid 8oo mg TID -Hydrocodon prn # Underlying anxiety -On xanax 2 mg tid PRN -Remeron 15 mg qhs #Morbid obesity -With underlying sleep apnea -occasional use of CPAP machine #DVT -Heparin 5000 units subcu every 8 hours for DVT prophylaxis. - Pepcid 20 mg p.o. twice daily for GI prophylaxis. - Patient is a full code PLAN 1- MRI brain 2- Cardiac monitoring 3- ASA 325 mg with Lipitor 40 mh 4- CTA brain and neck 5- PT/ST therapy maintain Xanax and pain medicatuins
--- NOTE | 2020-11-14 10:25 | Event Note ---
Date: 11/14/20 Patient does not want MRI to be done today, and wants to be done tomorrow morning.
[2020-11-14] MEDS: TORSEMIDE 100 MG TAB PO SCH (11:09)
--- NOTE | 2020-11-14 12:55 | Ultrasound Report ---
US chest INDICATION / CLINICAL INFORMATION: left chest wall lump. COMPARISON: None available. FINDINGS: Within the subcutaneous fat left chest, there is a circumscribed, somewhat poorly defined 1.8 x 1.1 x 1.3 cm lesion which is peripherally hypoechoic with central anechogenicity. No increased flow is see n within or around this. IMPRESSION: 1. Heterogeneous, predominantly hyperechoic subcutaneous lesion. It is unclear based on the images an d technologist comments if this is in the chest wall or along the breast. This does not have a sonogr aphic appearance for simple cyst or subcutaneous lipoma. This would be amenable to percutaneous biops y. Signer Name: Devin Kincaid MD Signed: 11/14/2020 12:50 PM Workstation Name: [id number]
--- NOTE | 2020-11-14 18:18 | Cat Scan Report ---
CTA neck without and with intravenous contrast material CLINICAL HISTORY: Cerebrovascular accident. Left-sided sensory symptoms. TECHNIQUE: Following acquisition of a timing bolus 0.625 mm thick contiguous axial scans were obtained from aort ic arch to the skull base during rapid bolus intravenous contrast infusion. In addition to evaluation of axial source images multiplanar reconstructions were produced and reviewed for this report. 3 karan ne MIP reconstructions were produced and reviewed. Contrast dose report: Omnipaque 350: 100 ml, administered intravenously All CT examinations performed at this facility utilize modulated dose reduction, iterative reconstruc tion or weight-based dosing, as appropriate, to obtain a radiation dose which is as low as can reason ably be achieved. FINDINGS: Thoracic aorta: Evaluation of the thoracic aorta and origins of the great vessels is significantly li mited by beam hardening artifact secondary to dense intravenous contrast within the left subclavian v ein, innominate vein and distal right internal jugular vein.. Evaluation of the brachiocephalic arter y, left subclavian artery and proximal portions of the common carotid arteries is likewise limited. Right carotid artery:No abnormalities are seen along the course of the RCCA, at the right carotid bif urcation or along the cervical portions of the JAYCEE. Left carotid artery: No abnormalities are noted along the course of the left common carotid artery, a t the left carotid bifurcation or along the course of the cervical segments of the LICA. Posterior circulation:The vertebral arteries have an unremarkable appearance. Both vertebral arteries contribute to the basilar artery origin. The basilar artery has an unremarkable appearance. The degree of stenosis, if any, is determined utilizing NASCET like criteria. In this case there is no indication of hemodynamically significant stenosis at the carotid bifurcations or elsewhere. Evaluation of the nonvascular soft tissue structures reveal no abnormality. There is no indication of cervical lymphadenopathy. No abnormalities are seen along the course of the airway. Visualized porti ons of the parotid glands and the submandibular salivary glands have a normal appearance. Thyroid gla nd has a normal appearance. Evaluation of the lung apices reveals no evidence of lung nodule or infil trate. Evaluation of the cervical spine is remarkable for laminectomy at the C3-4, C4-5 and C5-6 levels. Pos terior segmental instrumentation is noted at the C3-4 and C4-5 levels on the bilaterally. There is no indication of central canal stenosis. Bilateral neuroforaminal stenosis is evident at multiple level s. Radiolucent halos are seen surrounding the posterior screws bilaterally at the C3 level and on the right at the C6 level. This is a manifestation of loosening. IMPRESSION: 1. No indication of hemodynamically significant stenosis at the carotid bifurcations or elsewhere. Signer Name: Rivera Fairchild MD Signed: 11/14/2020 6:14 PM Workstation Name: [id number]
--- NOTE | 2020-11-14 18:32 | Cat Scan Report ---
CTA head with intravenous contrast CLINICAL HISTORY: Left-sided sensory symptoms. Cerebrovascular accident. TECHNIQUE: 0.625 mm thick contiguous axial scans were obtained from the skull base to the skull vertex during r apid bolus administration of intravenous contrast material. Multiplanar reconstructions were produced in the coronal and sagittal planes. In addition 3 plane MIP instructions were produced and reviewed for this report. The axial source images and reconstructed images were reviewed for this report. CONTRAST DOSE REPORT: Omnipaque 350: 100 ml administered intravenously. All CT scans at this location are performed using CT dose reduction for ALARA by means of automated e xposure control. FINDINGS: Internal carotid arteries:Calcified atherosclerotic plaque is seen along the course the cavernous seg ments of both internal carotid arteries. There is no associated stenosis. Dora, cavernous, opthalmi c, clinoid and supraclinoid segments of the ICAs have an otherwise unremarkable appearance. Middle cerebral arteries:Normal and symmetrical M1 segments of the middle cerebral arteries are demon strated. No abnormalities are seen on evaluation of the insular or opercular branches. Anterior cerebral arteries:Bilaterally symmetrical A1 segments are demonstrated. No abnormalities are seen along the course of the A2 segments or their visualized pericallosal branches. Vertebral arteries:Bilaterally symmetrical vertebral arteries are demonstrated. Both vertebral arteri es contribute to the basilar artery origin. Basilar artery:Basilar artery has an unremarkable appearance. Posterior cerebral arteries: Bilaterally symmetrical posterior cerebral arteries are identified. Dural sinuses: Dural venous sinuses are well demonstrated on this exam. There is no evidence of dural sinus thrombosis. IMPRESSION: 1. No indication of intracranial stenosis or large vessel occlusion. Signer Name: Rivera Fairchild MD Signed: 11/14/2020 6:28 PM Workstation Name: [id number]
[2020-11-14] MEDS: TAMSULOSIN 0.4 MG CAP PO SCH (21:29)
[2020-11-14] MEDS: ENOXAPARIN 40 MG/0.4 ML INJ SUB-Q SCH (21:32)
[2020-11-15] MEDS: INSULIN LISPRO 100 UNIT/ML SUB-Q SCH ×4 (00:12→18:27)
[2020-11-15] MEDS: oxyCODONE 5 MG TAB PO PRN ×4 (00:13→18:23)
[2020-11-15] MEDS: MORPHINE 2 MG/1 ML INJ IV PRN ×5 (03:12→20:59)
[2020-11-15] MEDS: IPRATROPIUM/ALBUTEROL SULFATE 3 ML AMPUL.NEB IH SCH ×4 (05:21→22:44)
[2020-11-15 06:23] LABS: BUN/Creatinine Ratio 13; Blood Urea Nitrogen 16 mg/dL (9-20); Calcium 8.8 mg/dL (8.4-10.2); Hemolysis Index 11
[2020-11-15] MEDS: ALPRAZolam 1 MG TAB PO PRN ×3 (06:26→19:08)
--- NOTE | 2020-11-15 08:37 | Progress Note ---
Assessment and Plan Assessment and plan: (1) Acute coronary syndrome Current Visit: No Status: Acute Plan to address problem: Admit the patient to the cardiac telemetry. Aspirin 325 mg p.o. daily. Lipitor 40 mg p.o. daily. We do the serial cardiac enzyme. We also do echocardiogram will consult cardiology for evaluation (2) CVA (cerebral vascular accident) Current Visit: Yes Status: Acute Qualifiers: CVA mechanism: unspecified Qualified Code(s): I63.9 - Cerebral infarction, unspecified Plan to address problem: Aspirin 325 mg p.o. daily. Lipitor 40 mg p.o. daily. MRI of the brain with and without contrast MRI of the brain and neck with and without contrast. Will consult PT OT any speech evaluation. Patient already seen and evaluated by telemetry neurology .we also do echocardiogram will consult neurology for evaluation if needed (3) Anxiety Current Visit: No Status: Chronic Plan to address problem: Stable we will continue the home medication (4) CHF (congestive heart failure) Current Visit: No Status: Chronic Qualifiers: Heart failure type: combined systolic and diastolic Heart failure chronicity: unspecified Qualified Code(s): I50.40 - Unspecified combined systolic (congestive) and diastolic (congestive) heart failure Plan to address problem: Stable. We will continue the home medication we also do echocardiogram (5) COPD (chronic obstructive pulmonary disease) Current Visit: No Status: Chronic Qualifiers: COPD type: unspecified COPD Qualified Code(s): J44.9 - Chronic obstructive pulmonary disease, unspecified Plan to address problem: Oxygen by nasal cannula 3 L/min DuoNeb by nebulizer every 4 hours we will continue home medication (6) CVA, old, alterations of sensations Current Visit: No Status: Chronic Plan to address problem: Aspirin 325 mg p.o. daily. Lipitor 40 mg p.o. daily. We will do MRI of the brain and MRA of the brain and neck with and without contrast (7) DM2 (diabetes mellitus, type 2) Current Visit: No Status: Chronic Plan to address problem: We will put the patient on insulin sliding scale Humalog moderate dose coverage with Accu-Chek before meals and at bedtime. Repeat BMP in the morning. Diabetic education (8) GERD (gastroesophageal reflux disease) Current Visit: No Status: Chronic Plan to address problem: Famotidine 20 mg p.o. twice daily for GI prophylaxis (9) HTN (hypertension) Current Visit: No Status: Chronic Qualifiers: Hypertension type: essential hypertension Qualified Code(s): I10 - Essential (primary) hypertension Plan to address problem: Hydralazine 10 mg IV every 6 hours as needed. We will continue the home medication we will monitor the blood pressure closely (10) DVT prophylaxis Current Visit: No Status: Acute Plan to address problem: Heparin 5000 units subcu every 8 hours for DVT prophylaxis. Pepcid 20 mg p.o. twice daily for GI prophylaxis. Patient is a full code 11/14/2020 -Patient is complaining left upper extremity tingling and left lower extremity numbness -CT head showed no acute intracranial abnormality. Will follow MRI and MRA, neurology consulted -Patient started on aspirin and Lipitor -Patient is on breathing treatments and oxygen support for COPD -Blood sugars controlled and continue sliding scale insulin -Blood pressures controlled and patient is currently not on any blood pressure medication -Patient is on Pepcid for GERD -Patient said he has history of CHF and will get echo. Patient is also complaining chest pain. Cardiology consulted. -Patient has left chest wall lump and we will do ultrasound of left chest wall 11/15/20 -We will follow MRI, CTA head and neck is negative for major vessel obstruction -Continue with aspirin and Lipitor, neurology consult appreciated -I put an order for ultrasound-guided chest wall mass biopsy -PT OT evaluation History Interval history: Patient was seen and evaluated this morning Patient is complaining left upper extremity tingling and left lower extremity numbness Patient is complaining left-sided chest pain and left chest wall lump Hospitalist Physical - Physical exam Narrative exam: Not in cardiopulmonary distress. The patient is obese. Vital signs as documented. Head exam is unremarkable. No scleral icterus . Neck is without jugular venous distension, thyromegaly, or carotid bruits. Lungs are clear to auscultation. Chest; left side chest wall lump. Cardiac exam reveals regular rate and Rhythm. Abdominal exam reveals normal bowel sounds, nontender, no organomegaly. Extremities are nonedematous and both femoral and pedal pulses are normal. FITNESS COACH: Alert and oriented 3. No focal weakness. - Constitutional Vitals: Temp Pulse Resp BP Pulse Ox 98.3 F 58 L 18 124/74 97 11/15/20 07:58 11/15/20 07:58 11/15/20 07:58 11/15/20 07:58 11/15/20 07:58 General appearance: Present: no acute distress HEART Score - HEART Score EKG: Normal Age: 45-65 Risk factors: > 3 risk factors or hx of atherosclerotic disease Troponin: Troponin T < 0.010 ng/mL (0.00-0.029) 11/14/20 05:35 Troponin: < normal limit - Critical Actions Critical Actions: 0-3 pts:0.9-1.7%risk of adverse cardiac event.Candidate for discharge Results - Labs CBC & Chem 7: 11/14/20 05:35 11/15/20 05:08 Labs: Laboratory Last Values WBC 6.2 K/mm3 (4.5-11.0) 11/14/20 05:35 RBC 3.98 M/mm3 (3.65-5.03) 11/14/20 05:35 Hgb 13.4 gm/dl (11.8-15.2) 11/14/20 05:35 Hct 38.3 % (35.5-45.6) 11/14/20 05:35 MCV 96 fl (84-94) H 11/14/20 05:35 MCH 34 pg (28-32) H 11/14/20 05:35 MCHC 35 % (32-34) H 11/14/20 05:35 RDW 15.1 % (13.2-15.2) 11/14/20 05:35 Plt Count 192 K/mm3 (140-440) 11/14/20 05:35 Lymph % (Auto) 38.1 % (13.4-35.0) H 11/14/20 05:35 [place]ink[place] % (Auto) 9.9 % (0.0-7.3) H 11/14/20 05:35 Eos % (Auto) 7.3 % (0.0-4.3) H 11/14/20 05:35 Baso % (Auto) 0.9 % (0.0-1.8) 11/14/20 05:35 Lymph # (Auto) 2.4 K/mm3 (1.2-5.4) 11/14/20 05:35 [place]ink[place] # (Auto) 0.6 K/mm3 (0.0-0.8) 11/14/20 05:35 Eos # (Auto) 0.5 K/mm3 (0.0-0.4) H 11/14/20 05:35 Baso # (Auto) 0.1 K/mm3 (0.0-0.1) 11/14/20 05:35 Seg Neutrophils % 43.8 % (40.0-70.0) 11/14/20 05:35 Seg Neutrophils # 2.7 K/mm3 (1.8-7.7) 11/14/20 05:35 PT 13.5 Sec. (12.2-14.9) 11/13/20 18:13 INR 0.98 (0.87-1.13) 11/13/20 18:13 APTT 29.2 Sec. (24.2-36.6) 11/13/20 18:13 Thrombin Time 19.9 Sec. (15.1-19.6) H 11/13/20 18:13 D-Dimer 865.15 ng/mlDDU (0-234) H 11/13/20 18:32 Sodium 138 mmol/L (137-145) 11/15/20 05:08 Potassium 3.2 mmol/L (3.6-5.0) L 11/15/20 05:08 Chloride 98.4 mmol/L (98-107) 11/15/20 05:08 Carbon Dioxide 30 mmol/L (22-30) 11/15/20 05:08 Anion Gap 13 mmol/L 11/15/20 05:08 BUN 16 mg/dL (9-20) 11/15/20 05:08 Creatinine 1.2 mg/dL (0.8-1.3) 11/15/20 05:08 Estimated GFR > 60 ml/min 11/15/20 05:08 BUN/Creatinine Ratio 13 % 11/15/20 05:08 Glucose 78 mg/dL (75-100) 11/15/20 05:08 POC Glucose 92 mg/dL (70-105) 11/14/20 17:03 Calcium 8.8 mg/dL (8.4-10.2) 11/15/20 05:08 Magnesium 1.90 mg/dL (1.7-2.3) 11/14/20 10:14 Total Bilirubin 0.50 mg/dL (0.1-1.2) 11/13/20 18:13 AST 25 units/L (5-40) 11/13/20 18:13 ALT 25 units/L (7-56) 11/13/20 18:13 Alkaline Phosphatase 68 units/L (35-129) 11/13/20 18:13 Troponin T < 0.010 ng/mL (0.00-0.029) 11/14/20 05:35 NT-Pro-B Natriuret Pep 13.40 pg/mL (0-900) 11/13/20 18:13 Total Protein 7.9 g/dL (6.3-8.2) 11/13/20 18:13 Albumin 4.5 g/dL (3.9-5) 11/13/20 18:13 Albumin/Globulin Ratio 1.3 % 11/13/20 18:13 Triglycerides 89 mg/dL (2-149) 11/14/20 05:35 Cholesterol 205 mg/dL (50-199) H 11/14/20 05:35 LDL Cholesterol Direct 159 mg/dL (50-130) H 11/14/20 05:35 HDL Cholesterol 41 mg/dL (40-59) 11/14/20 05:35 Cholesterol/HDL Ratio 5.00 % 11/14/20 05:35 [place]/IV: Voiding Method Urinal Active Medications - Current Medications Current Medications: Generic Name Dose Route Start Last Admin Trade Name Freq PRN Reason Stop Dose Admin Albuterol/Ipratropium 1 ampul 11/14/20 02:00 11/15/20 05:21 Ipratropium/Albuterol Sulfate 3 Ml Ampul.Neb IH Not Given Q6HRT [facility] Alprazolam 2 mg 11/14/20 00:05 11/15/20 06:26 Alprazolam 1 Mg Tab PO 2 mg Q6H PRN Administration Anxiety Aspirin 325 mg 11/14/20 10:00 11/14/20 09:59 Aspirin Ec 325 Mg Tab PO 325 mg QDAY SHAHEED Administration Atorvastatin Calcium 40 mg 11/13/20 22:00 11/14/20 21:29 Atorvastatin 40 Mg Tab PO 40 mg QHS SHAHEED Administration Dextrose 50 ml 11/13/20 21:43 Dextrose 50% In Water (25gm) 50 Ml Syringe IV Q30MIN PRN Hypoglycemia Protocol Enoxaparin Sodium 40 mg 11/14/20 22:00 11/14/20 21:32 Enoxaparin 40 Mg/0.4 Ml Inj SUB-Q 40 mg QDAY@2200 SHAHEED Administration Protocol Famotidine 20 mg 11/13/20 22:00 11/14/20 21:29 Famotidine 20 Mg Tab PO 20 mg BID SHAHEED Administration Gabapentin 800 mg 11/14/20 00:11 11/14/20 00:33 Gabapentin 400 Mg Cap PO 800 mg TID PRN Administration Neuropathy Insulin Human Lispro 0 unit 11/14/20 00:00 11/15/20 06:30 Insulin Lispro 100 Unit/Ml SUB-Q Not Given Q6HR [facility] Protocol Levofloxacin 500 mg 11/14/20 10:00 11/14/20 10:02 Levofloxacin 500 Mg Tab PO 500 mg Q24HR SHAHEED Administration Protocol Mirtazapine 15 mg 11/14/20 00:06 11/14/20 22:44 Mirtazapine 15 Mg Tab PO 15 mg QHS PRN Administration Insomnia Morphine Sulfate 2 mg 11/13/20 21:57 11/15/20 08:14 Morphine 2 Mg/1 Ml Inj IV 2 mg Q4H PRN Administration Pain , Severe (7-10) Nitroglycerin 0.4 mg 11/13/20 21:20 Nitroglycerin 0.4 Mg Tab Subl SL Q5M PRN Chest Pain Ondansetron HCl 4 mg 11/13/20 21:20 Ondansetron 4 Mg/2 Ml Inj IV Q8H PRN Nausea And Vomiting Oxycodone HCl 25 mg 11/14/20 00:05 11/15/20 06:26 Oxycodone 5 Mg Tab PO 25 mg Q6H PRN Administration Pain, Moderate (4-6) Sodium Chloride 10 ml 11/13/20 22:00 11/14/20 21:37 Sodium Chloride 0.9% 10 Ml Flush Syringe IV 10 ml BID SHAHEED Administration Sodium Chloride 10 ml 11/13/20 21:20 11/15/20 03:20 Sodium Chloride 0.9% 10 Ml Flush Syringe IV 10 ml PRN PRN Administration LINE FLUSH Tamsulosin HCl 0.4 mg 11/14/20 22:00 11/14/20 21:29 Tamsulosin 0.4 Mg Cap PO 0.4 mg QHS SHAHEED Administration Torsemide 100 mg 11/14/20 11:00 11/14/20 11:09 Torsemide 100 Mg Tab PO 100 mg DAILY SHAHEED Administration Nutrition/Malnutrition Assess - Dietary Evaluation Nutrition/Malnutrition Findings: Nutrition Notes Start: 11/14/20 10:33 Freq: Status: Active Protocol: Document 11/14/20 10:33 CON (Rec: 11/14/20 10:40 CON [id number]) Nutrition Notes Need for Assessment generated from: MD Order,Education Initial or Follow up Brief Note Current Diagnosis COPD,Hypertension,Heart Failure,Stroke,Hyperlipidemia Other Pertinent Diagnosis chest pain Current Diet Cardiac, Consistent CHO Labs/Tests Cholesterol 205 LDL 159 Subjective/Other Information MD order for diet education. Pt reports he does the shopping and a RN makes his meals for him. He eats deli meat daily and was given education on lowering his salt intake. Pt also given healthy fat diet education. Pt states he knows how to eat healthfully. #1 Nutrition Diagnosis Food and nutrition-related knowledge deficit Etiology lack of understanding of prior information As Evidenced by Signs and Symptoms pt eating high sodium foods daily Nutrition Intervention Teaching Recipient Patient Learning Readiness Fair Teaching Methods Discussion,Handout Response to Teaching Verbalize understanding Education Handouts Provided HTN Nutrition Therapy Barriers to Learning No Barriers RD phone number provided Yes Patient aware of follow up options Yes Revisit per MD consult or patient Sign Off request:
[2020-11-15] MEDS: ASPIRIN EC 325 MG TAB PO SCH (09:14)
[2020-11-15] MEDS: FAMOTIDINE 20 MG TAB PO SCH ×2 (09:14→22:33)
[2020-11-15] MEDS: levoFLOXacin 500 MG TAB PO SCH (09:15)
[2020-11-15] MEDS: TORSEMIDE 100 MG TAB PO SCH (09:25)
--- NOTE | 2020-11-15 10:38 | Electrocardiograph Report ---
[facility] Test Date: 2020-11-13 Test Time: 18:47:08 Pat Name: LUIS MANUEL MCCLOUD Department: Room: A484 1 Gender: M [employer] Examiner: NANCY : 1965 Requested By: YAMIL PONCE Order Number: [id number] Reading MD: Bart Degroot Measurements Intervals [place] Rate: 65 P: 55 WA: 185 QRS: -40 QRSD: 112 T: 61 QT: 443 QTc: 462 Interpretive Statements Sinus rhythm Left ventricular hypertrophy Compared to ECG 11/13/2020 17:00:00 No significant changes Electronically Signed On 11-15-2020 10:37:49 EDT by Bart Degroot
--- NOTE | 2020-11-15 10:38 | Electrocardiograph Report ---
[facility] Test Date: 2020-11-13 Test Time: 17:00:00 Pat Name: LUIS MANUEL MCCLOUD Department: Room: A484 1 Gender: M Ivf Embryologist: JOSE : 1965 Requested By: YARED DUMAS Order Number: [id number] Reading MD: Bart Degroot Measurements Intervals [place] Rate: 69 P: 64 GA: 176 QRS: -49 QRSD: 106 T: 64 QT: 432 QTc: 463 Interpretive Statements Sinus rhythm LAD, consider left anterior fascicular block Left ventricular hypertrophy Compared to ECG 10/29/2020 02:50:43 Left ventricular hypertrophy now present Electronically Signed On 11-15-2020 10:37:34 EDT by Bart Degroot
[2020-11-15] MEDS ORDERED: SODIUM CHLORIDE 0.9% 500 ML 500 ML ONE (10:55)
--- NOTE | 2020-11-15 11:24 | Magnetic Resonance Report ---
MRI BRAIN 11/15/2020 INDICATION / CLINICAL INFORMATION: Left-sided weakness. TECHNIQUE: Multiplanar, multisequence MR images of the brain were obtained. COMPARISON: CT brain 11/13/2020 FINDINGS: BRAIN / INTRACRANIAL CONTENTS: Unenhanced MR images of the brain demonstrate no evidence of acute int racranial abnormality. Ventricles and sulci are normal in size and shape. There is no evidence of acute ischemic injury, hemorrhage, or mass. There are no abnormal extra-axial fluid collections. EXTRACRANIAL: Unremarkable CRANIOCERVICAL JUNCTION: No significant abnormality. VASCULAR FLOW-VOIDS: No significant abnormality. IMPRESSION: No acute abnormality. Essentially negative unenhanced MRI of the brain for age. Signer Name: Drake Lorenz MD Signed: 11/15/2020 11:19 AM Workstation Name: [id number]
--- NOTE | 2020-11-15 11:28 | Magnetic Resonance Report ---
MRA HEAD 11/15/2020 INDICATION / CLINICAL INFORMATION: MAIN. TECHNIQUE: Routine MRA of the head is performed. 3-D/MIP reformats postprocessed. COMPARISON: None available. FINDINGS: MRA HEAD: Intracranial internal carotid arteries: No significant abnormality. Anterior cerebral arteries: No significant abnormality. Middle cerebral arteries: No significant abnormality. Intracranial vertebral arteries: No significant abnormality. Basilar artery: No significant abnormality. Posterior cerebral arteries: No significant abnormality. IMPRESSION: No significant abnormality. Signer Name: Drake Lorenz MD Signed: 11/15/2020 11:24 AM Workstation Name: [id number]
--- NOTE | 2020-11-15 11:44 | Vascular Lab Report ---
DUPLEX DOPPLER LOWER EXTREMITY VEINS, BILATERAL INDICATION: Elevated D-dimer. TECHNIQUE: Duplex doppler imaging was performed through the veins of both lower extremities using ve nous compression and other maneuvers. COMPARISON: No relevant prior imaging study available. FINDINGS: Right Common femoral vein: Negative. Right Superficial femoral vein: Negative. Right Popliteal vein: Negative. Right Calf veins: Negative. Left Common femoral vein: Negative. Left Superficial femoral vein: Negative. Left Popliteal vein: Negative. Left Calf veins: Negative. Additional findings: None. IMPRESSION: No sonographic evidence for DVT in either lower extremity. Signer Name: Anup Guillen Jr, MD Signed: 11/15/2020 11:40 AM Workstation Name: [id number]
--- NOTE | 2020-11-15 13:05 | Progress Note ---
Assessment and Plan Telemetry reviewed: Sinus rhythm 71. No events #Syncopal episode with ground-level fall * Neurology is following #Chest pain * Cardiology is consulted for report of chest pain in the prehospital setting. Patient is currently chest pain-free with no cardiac complaints. * Troponins are negative x4. AMI is ruled out. * Recent echo 10/22/2020 reviewed - mild concentric LVH, EF 50-55%, mild diastolic dysfxn, no pericardial effusion. * Lexiscan stress MPI 11/2019 - negative for ischemia. CXR reveals no acute findings. V/Q scan not suggestive of PE. * From a cardiac perspective, pt has been set up for LHC on numerous occasions but ultimately declines the AM of the planned procedure. He was set up for LHC during his most recent admission at [facility] last month as well but was unable to complete d/t hypokalemia and severe back/neck pain. The plan was to schedule pt for elective cardiac catheterization, assuming anxiety and pain could be well-controlled. He now states that he wants to proceed with LHC, as long as his neck can be propped up. We will reassess indications for ischemic evaluation once electrolyte derangement is corrected. #Elevated D-dimer * VQ scan is not suggestive of PTE * Recommend BLE duplex for further eval * History of pulmonary embolism in 2015 s/p IVC filter placement #Hypokalemia * Replete potassium #Tobacco use * Cessation encouraged #DVT prophylaxis * Lovenox SQ #Opioid dependence in setting of chronic back pain * Patient has extensive history of longstanding heavy opioid use secondary to chronic back pain. Strongly recommend outpatient referral to shipyard painter upon discharge if not already established. Will follow This patient was seen in conjunction with Dr Kristal Degroot who agrees with this assessment and plan of care (1) Syncope and collapse Current Visit: Yes Status: Acute (2) CVA (cerebral vascular accident) Current Visit: Yes Status: Suspected Qualifiers: Qualified Code(s): I63.9 - Cerebral infarction, unspecified (3) Atypical chest pain Current Visit: Yes Status: Acute (4) Breast mass in male Current Visit: Yes Status: Acute (5) Hypokalemia Current Visit: Yes Status: Acute (6) Chronic heart failure with preserved ejection fraction (HFpEF) Current Visit: Yes Status: Chronic (7) Hypertension Current Visit: Yes Status: Chronic Qualifiers: Hypertension type: essential hypertension Qualified Code(s): I10 - Essential (primary) hypertension (8) Hyperlipemia Current Visit: Yes Status: Chronic Qualifiers: Hyperlipidemia type: mixed hyperlipidemia Qualified Code(s): E78.2 - Mixed hyperlipidemia (9) DM2 (diabetes mellitus, type 2) Current Visit: Yes Status: Chronic (10) GERD (gastroesophageal reflux disease) Current Visit: Yes Status: Chronic (11) Morbid obesity Current Visit: Yes Status: Chronic (12) Obstructive sleep apnea Current Visit: Yes Status: Chronic (13) COPD (chronic obstructive pulmonary disease) Current Visit: Yes Status: Chronic (14) Tobacco abuse Current Visit: Yes Status: Chronic (15) History of pulmonary embolism Current Visit: Yes Status: Chronic Plan to address problem: 2014, S/p IVC Filter (16) History of CVA (cerebrovascular accident) Current Visit: Yes Status: Chronic (17) H/O cervical spine surgery Current Visit: Yes Status: Chronic (18) Rheumatoid arthritis Current Visit: Yes Status: Chronic (19) Chronic pain syndrome Current Visit: Yes Status: Chronic (20) Anxiety Current Visit: Yes Status: Chronic Subjective Date of service: 11/15/20 Principal diagnosis: Syncopal Episode Interval history: Patient resting comfortably in bed. No chest pain or shortness of breath overnight Telemetry reviewed: Sinus rhythm 71. No events. Objective Last Vital Signs Temp 98.3 F 11/15/20 07:58 Pulse 61 11/15/20 08:50 Resp 16 11/15/20 08:50 BP 124/74 11/15/20 07:58 Pulse Ox 97 11/15/20 07:58 - Physical Examination HEENT: Positive: EOMI, Normocephaly, Mucus Membranes Moist Neck: Positive: neck supple, trachea midline. Negative: JVD/HJR Cardiac: Positive: Reg Rate and Rhythm, S1/S2 Lungs: Positive: Normal Exam, Normal Breath Sounds Neuro: Positive: Grossly Intact, Weakness (BLE). Negative: Numbness Abdomen: Positive: Soft. Negative: Tender Skin: Negative: Rash Extremities: Present: upper extr. pulses, lower extr. pulses. Absent: edema - Labs and Meds Comprehensive Metabolic Panel 11/15/20 Range/Units 05:08 Sodium 138 (137-145) mmol/L Potassium 3.2 L (3.6-5.0) mmol/L Chloride 98.4 (98-107) mmol/L Carbon Dioxide 30 (22-30) mmol/L BUN 16 (9-20) mg/dL Creatinine 1.2 (0.8-1.3) mg/dL Glucose 78 (75-100) mg/dL Calcium 8.8 (8.4-10.2) mg/dL - Imaging and Cardiology EKG: report reviewed, image reviewed Echo: report reviewed (10/22/2020 - mild concentric LVH, EF 50-55%, mild diastolic dysfxn, no pericardial effusion) - Telemetry EKG Rhythm: Sinus Rhythm - EKG Sinus rhythms and dysrhythmias: sinus rhythm
[2020-11-15] MEDS: POTASSIUM CHLORIDE 10 MEQ 10 MEQ/100 ML BAG IV SCH ×2 (13:18→17:26)
[2020-11-15] MEDS ORDERED: POTASSIUM CHLORIDE ER 20 MEQ TAB PO ONE (19:25)
[2020-11-15] MEDS: ONDANSETRON 4 MG/2 ML INJ IV PRN (21:06)
[2020-11-15] MEDS: TAMSULOSIN 0.4 MG CAP PO SCH (22:33)
[2020-11-15] MEDS: ENOXAPARIN 40 MG/0.4 ML INJ SUB-Q SCH (22:33)
[2020-11-16] MEDS: oxyCODONE 5 MG TAB PO PRN ×4 (00:30→18:20)
[2020-11-16] MEDS: ALPRAZolam 1 MG TAB PO PRN ×4 (00:37→18:19)
[2020-11-16] MEDS: MORPHINE 2 MG/1 ML INJ IV PRN ×4 (01:38→09:40)
[2020-11-16] MEDS: IPRATROPIUM/ALBUTEROL SULFATE 3 ML AMPUL.NEB IH SCH ×4 (03:39→21:03)
[2020-11-16] MEDS: INSULIN LISPRO 100 UNIT/ML SUB-Q SCH ×4 (05:31→17:19)
[2020-11-16 06:36] LABS: Hematocrit 36.9 % (35.5-45.6); Hemoglobin 12.6 gm/dl (11.8-15.2); Mean Corpuscular HGB Conc 34 % (32-34); Mean Corpuscular Volume 97 fl (84-94); Platelet Count 178 K/mm3 (140-440); Red Cell Distribution Width 15.8 % (13.2-15.2)
[2020-11-16 06:50] LABS: BUN/Creatinine Ratio 22; Blood Urea Nitrogen 22 mg/dL (9-20); Calcium 9.5 mg/dL (8.4-10.2); Hemolysis Index 4
[2020-11-16] MEDS: ASPIRIN EC 325 MG TAB PO SCH (09:40)
[2020-11-16] MEDS: levoFLOXacin 500 MG TAB PO SCH (09:40)
[2020-11-16] MEDS: FAMOTIDINE 20 MG TAB PO SCH ×2 (09:40→21:11)
[2020-11-16] MEDS: TORSEMIDE 100 MG TAB PO SCH (09:40)
--- NOTE | 2020-11-16 09:51 | Ultrasound Report ---
ULTRASOUND BIOPSY SOFT TISSUE NECK OR CHEST HISTORY: Left chest wall mass COMPARISON: Ultrasound chest dated 11/14/2020. DESCRIPTION OF PROCEDURE: Informed consent was obtained. Sterile technique was utilized. The patient was identified with 2 patient identifiers. 1% lidocaine was utilized for anesthesia. Using ultrasound guidance, a 17-gauge introducer needle was advanced to the leading edge of a 2 cm hyperechoic irregu lar lesion in the left anterior chest subcutaneous soft tissues. 3 separate 1.2 cm 18-gauge core biop sies were obtained and placed in formalin. The patient tolerated the procedure without difficulty. IMPRESSION: Successful ultrasound-guided biopsy of the left anterior chest wall mass as described. Signer Name: Anup Guillen Jr, MD Signed: 11/16/2020 9:46 AM Workstation Name: [id number]
--- NOTE | 2020-11-16 09:55 | Procedure Note ---
Date of procedure: 11/16/20 Pre-op diagnosis: left anterior chest wall mass Post-op diagnosis: same Procedure: US guided biopsy Findings: 2cm irregular mass in left anterior chest/ superior breast Anesthesia: local Surgeon: PAT BROWN Estimated blood loss: none Pathology: list (18 G core x 3) Specimen disposition: to lab Condition: stable Disposition: floor
--- NOTE | 2020-11-16 11:01 | Progress Note ---
Assessment and Plan Assessment and plan: -- Acute coronary syndrome Current Visit: No Status: Acute Continue current cardiac medications Cardiology following --Possible CVA (cerebral vascular accident) Current Visit: Yes Status: Acute Not a candidate for TPA , continue aspirin 325 mg p.o. daily. Lipitor 40 mg p.o. daily. Neuro work-up is in progress closely monitor PT OT rehabilitation --History of anxiety disorder Current Visit: No Status: Chronic Stable we will continue current psych medications --Chronic pain syndrome; Current Visit: No Status: Chronic Patient is on multiple pain medications Follows with pain management Continue current pain medications Wean as tolerated. Patient will follow with his pain clinic upon discharge per schedule --History of CHF (congestive heart failure) Current Visit: No Status: Chronic Echo in October 2020 ; EF 50 to 55% Probably mild diastolic dysfunction , continue current antifailure medications --History of COPD (chronic obstructive pulmonary disease) Current Visit: No Status: Chronic Oxygen by nasal cannula 3 L/min DuoNeb by nebulizer every 4 hours we will continue home medication. --History of CVA, old, with residual weakness Current Visit: No Status: Chronic . Continue aspirin and statin PT OT rehab --Type II DM2 (diabetes mellitus, type 2) Current Visit: No Status: Chronic Plan to address problem: Accu-Chek sliding scale coverage ADA diet Long-acting insulin as needed -- GERD (gastroesophageal reflux disease) Current Visit: No Status: Chronic Famotidine 20 mg p.o. twice daily for GI prophylaxis --History of HTN (hypertension) Current Visit: No Status: Chronic Continue current antihypertensives and as needed hydralazine closely monitor the blood pressures and adjust medications as needed -- DVT prophylaxis. Current Visit: No Status: Acute Heparin 5000 units subcu every 8 hours for DVT prophylaxis. --GI prophylaxis Pepcid 20 mg p.o. twice daily for GI prophylaxis. closely monitor the patient and adjust management as needed Plan of care reviewed with the patient and his nurse 11/14/2020; -Patient is complaining left upper extremity tingling and left lower extremity numbness -CT head showed no acute intracranial abnormality. Will follow MRI and MRA, n eurology consulted -Patient started on aspirin and Lipitor -Patient is on breathing treatments and oxygen support for COPD -Blood sugars controlled and continue sliding scale insulin -Blood pressures controlled and patient is currently not on any blood pressure medication -Patient is on Pepcid for GERD -Patient said he has history of CHF and will get echo. Patient is also complaining chest pain. Cardiology consulted. -Patient has left chest wall lump and we will do ultrasound of left chest wall 11/15/20 -We will follow MRI, CTA head and neck is negative for major vessel obstruction -Continue with aspirin and Lipitor, neurology consult appreciated -I put an order for ultrasound-guided chest wall mass biopsy -PT OT evaluation 11/16/2020; Follow PT OT evaluation recommendations s/p chest wall mass biopsy today, pending biopsy report DC planning Case management, possible LTAC placement. History Interval history: I have seen and examined the patient at the bedside this morning Patient's chart and medications reviewed Patient feels slightly better no new complaints No overnight events reported by the nursing staff Patient had ultrasound-guided left chest wall mass biopsied Patient has no new complaints Vital signs reviewed Hospitalist Physical - Constitutional Vitals: Temp Pulse Resp BP Pulse Ox 98.8 F 89 19 105/72 98 11/16/20 04:17 11/16/20 10:00 11/16/20 10:00 11/16/20 06:30 11/16/20 10:00 General appearance: Present: no acute distress, well-nourished, obese - EENT Eyes: Present: PERRL, EOM intact - Neck Neck: Present: supple, normal ROM - Respiratory Respiratory effort: normal Respiratory: bilateral: diminished, negative: rales, rhonchi, wheezing - Cardiovascular Rhythm: regular Heart Sounds: Present: S1 & S2 - Extremities Extremities: no ischemia, No edema - Abdominal General gastrointestinal: soft, non-tender, non-distended, normal bowel sounds - Integumentary Integumentary: Present: clear, warm - Psychiatric Psychiatric: appropriate mood/affect, cooperative - Neurologic Neurologic: CNII-XII intact, moves all extremities HEART Score - HEART Score EKG: Normal Age: 45-65 Risk factors: > 3 risk factors or hx of atherosclerotic disease Troponin: Troponin T < 0.010 ng/mL (0.00-0.029) 11/16/20 05:58 Troponin: < normal limit - Critical Actions Critical Actions: 0-3 pts:0.9-1.7%risk of adverse cardiac event.Candidate for discharge Results - Labs CBC & Chem 7: 11/16/20 05:58 11/16/20 05:58 Labs: Laboratory Last Values WBC 5.2 K/mm3 (4.5-11.0) 11/16/20 05:58 RBC 3.80 M/mm3 (3.65-5.03) 11/16/20 05:58 Hgb 12.6 gm/dl (11.8-15.2) 11/16/20 05:58 Hct 36.9 % (35.5-45.6) 11/16/20 05:58 MCV 97 fl (84-94) H 11/16/20 05:58 MCH 33 pg (28-32) H 11/16/20 05:58 MCHC 34 % (32-34) 11/16/20 05:58 RDW 15.8 % (13.2-15.2) H 11/16/20 05:58 Plt Count 178 K/mm3 (140-440) 11/16/20 05:58 Lymph % (Auto) 38.1 % (13.4-35.0) H 11/14/20 05:35 [place] % (Auto) 9.9 % (0.0-7.3) H 11/14/20 05:35 Eos % (Auto) 7.3 % (0.0-4.3) H 11/14/20 05:35 Baso % (Auto) 0.9 % (0.0-1.8) 11/14/20 05:35 Lymph # (Auto) 2.4 K/mm3 (1.2-5.4) 11/14/20 05:35 [place] # (Auto) 0.6 K/mm3 (0.0-0.8) 11/14/20 05:35 Eos # (Auto) 0.5 K/mm3 (0.0-0.4) H 11/14/20 05:35 Baso # (Auto) 0.1 K/mm3 (0.0-0.1) 11/14/20 05:35 Seg Neutrophils % 43.8 % (40.0-70.0) 11/14/20 05:35 Seg Neutrophils # 2.7 K/mm3 (1.8-7.7) 11/14/20 05:35 PT 13.5 Sec. (12.2-14.9) 11/13/20 18:13 INR 0.98 (0.87-1.13) 11/13/20 18:13 APTT 29.2 Sec. (24.2-36.6) 11/13/20 18:13 Thrombin Time 19.9 Sec. (15.1-19.6) H 11/13/20 18:13 D-Dimer 865.15 ng/mlDDU (0-234) H 11/13/20 18:32 Sodium 137 mmol/L (137-145) 11/16/20 05:58 Potassium 3.5 mmol/L (3.6-5.0) L 11/16/20 05:58 Chloride 98.9 mmol/L (98-107) 11/16/20 05:58 Carbon Dioxide 30 mmol/L (22-30) 11/16/20 05:58 Anion Gap 12 mmol/L 11/16/20 05:58 BUN 22 mg/dL (9-20) H 11/16/20 05:58 Creatinine 1.0 mg/dL (0.8-1.3) 11/16/20 05:58 Estimated GFR > 60 ml/min 11/16/20 05:58 BUN/Creatinine Ratio 22 % 11/16/20 05:58 Glucose 104 mg/dL (75-100) H 11/16/20 05:58 POC Glucose 92 mg/dL (70-105) 11/14/20 17:03 Calcium 9.5 mg/dL (8.4-10.2) 11/16/20 05:58 Magnesium 1.90 mg/dL (1.7-2.3) 11/14/20 10:14 Total Bilirubin 0.50 mg/dL (0.1-1.2) 11/13/20 18:13 AST 25 units/L (5-40) 11/13/20 18:13 ALT 25 units/L (7-56) 11/13/20 18:13 Alkaline Phosphatase 68 units/L (35-129) 11/13/20 18:13 Troponin T < 0.010 ng/mL (0.00-0.029) 11/16/20 05:58 NT-Pro-B Natriuret Pep 13.40 pg/mL (0-900) 11/13/20 18:13 Total Protein 7.9 g/dL (6.3-8.2) 11/13/20 18:13 Albumin 4.5 g/dL (3.9-5) 11/13/20 18:13 Albumin/Globulin Ratio 1.3 % 11/13/20 18:13 Triglycerides 89 mg/dL (2-149) 11/14/20 05:35 Cholesterol 205 mg/dL (50-199) H 11/14/20 05:35 LDL Cholesterol Direct 159 mg/dL (50-130) H 11/14/20 05:35 HDL Cholesterol 41 mg/dL (40-59) 11/14/20 05:35 Cholesterol/HDL Ratio 5.00 % 11/14/20 05:35 Nasal Screen MRSA (PCR) Negative (Negative) 11/14/20 Unknown [place]/IV: Voiding Method Urinal Active Medications - Current Medications Current Medications: Generic Name Dose Route Start Last Admin Trade Name Freq PRN Reason Stop Dose Admin Albuterol/Ipratropium 1 ampul 11/14/20 02:00 11/16/20 08:11 Ipratropium/Albuterol Sulfate 3 Ml Ampul.Neb IH 1 ampul Q6HRT SHAHEED Administration Alprazolam 2 mg 11/14/20 00:05 11/16/20 06:48 Alprazolam 1 Mg Tab PO 2 mg Q6H PRN Administration Anxiety Aspirin 325 mg 11/14/20 10:00 11/16/20 09:40 Aspirin Ec 325 Mg Tab PO 325 mg QDAY SHAHEED Administration Atorvastatin Calcium 40 mg 11/13/20 22:00 11/15/20 22:33 Atorvastatin 40 Mg Tab PO 40 mg QHS SHAHEED Administration Dextrose 50 ml 11/13/20 21:43 Dextrose 50% In Water (25gm) 50 Ml Syringe IV Q30MIN PRN Hypoglycemia Protocol Enoxaparin Sodium 40 mg 11/14/20 22:00 11/15/20 22:33 Enoxaparin 40 Mg/0.4 Ml Inj SUB-Q 40 mg QDAY@2200 SHAHEED Administration Protocol Famotidine 20 mg 11/13/20 22:00 11/16/20 09:40 Famotidine 20 Mg Tab PO 20 mg BID SHAHEED Administration Gabapentin 800 mg 11/14/20 00:11 11/14/20 00:33 Gabapentin 400 Mg Cap PO 800 mg TID PRN Administration Neuropathy Insulin Human Lispro 0 unit 11/14/20 00:00 11/16/20 05:31 Insulin Lispro 100 Unit/Ml SUB-Q Not Given Q6HR SHAHEED Protocol Levofloxacin 500 mg 11/14/20 10:00 11/16/20 09:40 Levofloxacin 500 Mg Tab PO 11/18/20 10:01 500 mg Q24HR SHAHEED Administration Protocol Mirtazapine 15 mg 11/14/20 00:06 11/14/20 22:44 Mirtazapine 15 Mg Tab PO 15 mg QHS PRN Administration Insomnia Morphine Sulfate 2 mg 11/13/20 21:57 11/16/20 09:40 Morphine 2 Mg/1 Ml Inj IV 2 mg Q4H PRN Administration Pain , Severe (7-10) Nitroglycerin 0.4 mg 11/13/20 21:20 Nitroglycerin 0.4 Mg Tab Subl SL Q5M PRN Chest Pain Ondansetron HCl 4 mg 11/13/20 21:20 11/15/20 21:06 Ondansetron 4 Mg/2 Ml Inj IV 4 mg Q8H PRN Administration Nausea And Vomiting Oxycodone HCl 25 mg 11/14/20 00:05 11/16/20 06:47 Oxycodone 5 Mg Tab PO 25 mg Q6H PRN Administration Pain, Moderate (4-6) Sodium Chloride 10 ml 11/13/20 22:00 11/16/20 10:12 Sodium Chloride 0.9% 10 Ml Flush Syringe IV Not Given BID SHAHEED Sodium Chloride 10 ml 11/13/20 21:20 11/15/20 03:20 Sodium Chloride 0.9% 10 Ml Flush Syringe IV 10 ml PRN PRN Administration LINE FLUSH Tamsulosin HCl 0.4 mg 11/14/20 22:00 11/15/20 22:33 Tamsulosin 0.4 Mg Cap PO 0.4 mg QHS SHAHEED Administration Torsemide 100 mg 11/14/20 11:00 11/16/20 09:40 Torsemide 100 Mg Tab PO 100 mg DAILY SHAHEED Administration Nutrition/Malnutrition Assess - Dietary Evaluation Nutrition/Malnutrition Findings: Nutrition Notes Start: 11/14/20 10:33 Freq: Status: Active Protocol: Document 11/16/20 10:00 CON (Rec: 11/16/20 10:03 CON [id number]) Nutrition Notes Initial or Follow up Brief Note Subjective/Other Information Pt noncompliant with diet and has been demanding high CHO, high fat food from kitchen. 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 Will liberalize diet. Nutrition Intervention Change Diet Order: regular Revisit per MD consult or patient Sign Off request:
--- NOTE | 2020-11-16 11:36 | Progress Note ---
Assessment and Plan Telemetry reviewed: Sinus rhythm 71. No events #Syncopal episode with ground-level fall * Neurology is following #Chest pain * Cardiology is consulted for report of chest pain in the prehospital setting. Patient is currently chest pain-free with no cardiac complaints. * Troponins are negative x4. AMI is ruled out. * Recent echo 10/22/2020 reviewed - mild concentric LVH, EF 50-55%, mild diastolic dysfxn, no pericardial effusion. * Lexiscan stress MPI 11/2019 - negative for ischemia. CXR reveals no acute findings. V/Q scan not suggestive of PE. * From a cardiac perspective, pt has been set up for [facility] on numerous occasions but ultimately declines the AM of the planned procedure. He was set up for C during his most recent admission at [facility] last month as well but was unable to complete d/t hypokalemia and severe back/neck pain. The plan was to schedule pt for elective cardiac catheterization, assuming anxiety and pain could be well-controlled. Currently recommend medical management in setting of well- established noncompliance. We will reassess indications for ischemic evaluation once electrolyte derangement is corrected. #Elevated D-dimer * VQ scan is not suggestive of PTE * Recommend BLE duplex for further eval * History of pulmonary embolism in 2015 s/p IVC filter placement #Hypokalemia * Patient has history of chronic hypokalemia. We will continue to replete potassium #Tobacco use * Cessation encouraged #DVT prophylaxis * Lovenox SQ #Opioid dependence in setting of chronic back pain * Patient has extensive history of longstanding heavy opioid use secondary to chronic back pain. Strongly recommend outpatient referral to painting machine operator upon discharge if not already established. Patient currently in stable cardiac status. Plan on medical management moving forward due to well-established history of medical noncompliance. Will follow This patient was seen in conjunction with Dr Kristal Degroot who agrees with this assessment and plan of care (1) Syncope and collapse Current Visit: Yes Status: Acute (2) CVA (cerebral vascular accident) Current Visit: Yes Status: Suspected Qualifiers: Qualified Code(s): I63.9 - Cerebral infarction, unspecified (3) Atypical chest pain Current Visit: Yes Status: Acute (4) Breast mass in male Current Visit: Yes Status: Acute (5) Hypokalemia Current Visit: Yes Status: Acute (6) Chronic heart failure with preserved ejection fraction (HFpEF) Current Visit: Yes Status: Chronic (7) Hypertension Current Visit: Yes Status: Chronic Qualifiers: Hypertension type: essential hypertension Qualified Code(s): I10 - Essential (primary) hypertension (8) Hyperlipemia Current Visit: Yes Status: Chronic Qualifiers: Hyperlipidemia type: mixed hyperlipidemia Qualified Code(s): E78.2 - Mixed hyperlipidemia (9) DM2 (diabetes mellitus, type 2) Current Visit: Yes Status: Chronic (10) GERD (gastroesophageal reflux disease) Current Visit: Yes Status: Chronic (11) Morbid obesity Current Visit: Yes Status: Chronic (12) Obstructive sleep apnea Current Visit: Yes Status: Chronic (13) COPD (chronic obstructive pulmonary disease) Current Visit: Yes Status: Chronic (14) Tobacco abuse Current Visit: Yes Status: Chronic (15) History of pulmonary embolism Current Visit: Yes Status: Chronic Plan to address problem: 2014, S/p IVC Filter (16) History of CVA (cerebrovascular accident) Current Visit: Yes Status: Chronic (17) H/O cervical spine surgery Current Visit: Yes Status: Chronic (18) Rheumatoid arthritis Current Visit: Yes Status: Chronic (19) Chronic pain syndrome Current Visit: Yes Status: Chronic (20) Anxiety Current Visit: Yes Status: Chronic Subjective Date of service: 11/16/20 Principal diagnosis: Syncopal Episode Interval history: Patient resting comfortably in bed. No chest pain or shortness of breath overnight No telemetry data available for review: Patient is refusing residential monitor Objective Last Vital Signs Temp 98.8 F 11/16/20 04:17 Pulse 89 11/16/20 10:00 Resp 19 11/16/20 10:00 BP 105/72 11/16/20 06:30 Pulse Ox 98 11/16/20 10:00 - Physical Examination HEENT: Positive: EOMI, Normocephaly, Mucus Membranes Moist Neck: Positive: neck supple, trachea midline. Negative: JVD/HJR Cardiac: Positive: Reg Rate and Rhythm, S1/S2 Lungs: Positive: Normal Exam, Normal Breath Sounds Neuro: Positive: Grossly Intact, Weakness (BLE). Negative: Numbness Abdomen: Positive: Soft. Negative: Tender Skin: Negative: Rash Extremities: Present: upper extr. pulses, lower extr. pulses. Absent: edema - Labs and Meds CBC 11/16/20 Range/Units 05:58 WBC 5.2 (4.5-11.0) K/mm3 RBC 3.80 (3.65-5.03) M/mm3 Hgb 12.6 (11.8-15.2) gm/dl Hct 36.9 (35.5-45.6) % Plt Count 178 (140-440) K/mm3 Comprehensive Metabolic Panel 11/16/20 Range/Units 05:58 Sodium 137 (137-145) mmol/L Potassium 3.5 L (3.6-5.0) mmol/L Chloride 98.9 (98-107) mmol/L Carbon Dioxide 30 (22-30) mmol/L BUN 22 H (9-20) mg/dL Creatinine 1.0 (0.8-1.3) mg/dL Glucose 104 H (75-100) mg/dL Calcium 9.5 (8.4-10.2) mg/dL - Imaging and Cardiology EKG: report reviewed, image reviewed Echo: report reviewed (10/22/2020 - mild concentric LVH, EF 50-55%, mild diastolic dysfxn, no pericardial effusion) - EKG Sinus rhythms and dysrhythmias: sinus rhythm
[2020-11-16] MEDS ORDERED: oxyCODONE 5 MG TAB PO PRN ×3 (15:01→18:00)
[2020-11-16] MEDS ORDERED: MORPHINE 2 MG/1 ML INJ IV ONE (16:02)
[2020-11-16] MEDS: ONDANSETRON 4 MG/2 ML INJ IV PRN (16:26)
[2020-11-16] MEDS ORDERED: POTASSIUM CHLORIDE ER 10 MEQ TAB PO SCH (17:00)
[2020-11-16] MEDS ORDERED: ALBUTEROL 2.5 MG/3 ML NEBU IH PRN (21:00)
[2020-11-16] MEDS: TAMSULOSIN 0.4 MG CAP PO SCH (21:11)
[2020-11-16] MEDS: ENOXAPARIN 40 MG/0.4 ML INJ SUB-Q SCH (21:11)
[2020-11-16] MEDS: MIRTAZAPINE 15 MG TAB PO PRN (21:13)
[2020-11-16] MEDS: POTASSIUM CHLORIDE 10 MEQ 10 MEQ/100 ML BAG IV SCH (23:15)
[2020-11-17] MEDS: INSULIN LISPRO 100 UNIT/ML SUB-Q SCH ×4 (00:04→17:33)
[2020-11-17] MEDS: ALPRAZolam 1 MG TAB PO PRN ×4 (01:32→22:31)
[2020-11-17] MEDS: oxyCODONE 5 MG TAB PO PRN ×4 (01:32→22:42)
[2020-11-17 05:47] LABS: Hematocrit 35.3 % (35.5-45.6); Hemoglobin 12.2 gm/dl (11.8-15.2); Mean Corpuscular HGB Conc 34 % (32-34); Mean Corpuscular Volume 96 fl (84-94); Platelet Count 173 K/mm3 (140-440); Red Blood Count 3.66 M/mm3 (3.65-5.03); Red Cell Distribution Width 15.6 % (13.2-15.2)
[2020-11-17 06:10] LABS: BUN/Creatinine Ratio 20; Blood Urea Nitrogen 22 mg/dL (9-20); Calcium 9.5 mg/dL (8.4-10.2); Hemolysis Index 4
[2020-11-17] MEDS ORDERED: MAGNESIUM SULFATE 2 GM/50 ML BAG IV SCH (09:00)
[2020-11-17] MEDS: ASPIRIN EC 325 MG TAB PO SCH (09:04)
[2020-11-17] MEDS: FAMOTIDINE 20 MG TAB PO SCH ×2 (09:05→21:22)
[2020-11-17] MEDS: levoFLOXacin 500 MG TAB PO SCH (09:05)
[2020-11-17] MEDS: POTASSIUM CHLORIDE 10 MEQ 10 MEQ/100 ML BAG IV SCH ×2 (09:09→10:10)
[2020-11-17] MEDS: TORSEMIDE 100 MG TAB PO SCH (09:52)
--- NOTE | 2020-11-17 10:57 | Progress Note ---
Assessment and Plan Assessment and plan: -- Acute coronary syndrome Current Visit: No Status: Acute Continue current cardiac medications Cardiology following --Possible CVA (cerebral vascular accident) Current Visit: Yes Status: Acute Not a candidate for TPA , continue aspirin 325 mg p.o. daily. Lipitor 40 mg p.o. daily. Neuro work-up is in progress closely monitor PT OT rehabilitation --History of anxiety disorder Current Visit: No Status: Chronic Stable we will continue current psych medications --Chronic pain syndrome; Current Visit: No Status: Chronic Patient is on multiple pain medications Follows with pain management Continue current pain medications Wean as tolerated. Patient will follow with his pain clinic upon discharge per schedule --History of CHF (congestive heart failure) Current Visit: No Status: Chronic Echo in October 2020 ; EF 50 to 55% Probably mild diastolic dysfunction , continue current antifailure medications --History of COPD (chronic obstructive pulmonary disease) Current Visit: No Status: Chronic Oxygen by nasal cannula 3 L/min DuoNeb by nebulizer every 4 hours we will continue home medication. --History of CVA, old, with residual weakness Current Visit: No Status: Chronic . Continue aspirin and statin PT OT rehab --Type II DM2 (diabetes mellitus, type 2) Current Visit: No Status: Chronic Plan to address problem: Accu-Chek sliding scale coverage ADA diet Long-acting insulin as needed -- GERD (gastroesophageal reflux disease) Current Visit: No Status: Chronic Famotidine 20 mg p.o. twice daily for GI prophylaxis --History of HTN (hypertension) Current Visit: No Status: Chronic Continue current antihypertensives and as needed hydralazine closely monitor the blood pressures and adjust medications as needed -- DVT prophylaxis. Current Visit: No Status: Acute Heparin 5000 units subcu every 8 hours for DVT prophylaxis. --GI prophylaxis Pepcid 20 mg p.o. twice daily for GI prophylaxis. closely monitor the patient and adjust management as needed Plan of care reviewed with the patient and his nurse 11/14/2020; -Patient is complaining left upper extremity tingling and left lower extremity numbness -CT head showed no acute intracranial abnormality. Will follow MRI and MRA, neurology consulted -Patient started on aspirin and Lipitor -Patient is on breathing treatments and oxygen support for COPD -Blood sugars controlled and continue sliding scale insulin -Blood pressures controlled and patient is currently not on any blood pressure medication -Patient is on Pepcid for GERD -Patient said he has history of CHF and will get echo. Patient is also complaining chest pain. Cardiology consulted. -Patient has left chest wall lump and we will do ultrasound of left chest wall 11/15/20 -We will follow MRI, CTA head and neck is negative for major vessel obstruction -Continue with aspirin and Lipitor, neurology consult appreciated -I put an order for ultrasound-guided chest wall mass biopsy -PT OT evaluation 11/16/2020; Follow PT OT evaluation recommendations s/p chest wall mass biopsy today, pending biopsy report DC planning Case management, possible LTAC placement. 11/17/2020; PT OT evaluated, recommend home health PT DC planning per case management, possible DC home with home health tomorrow if stable History Interval history: I have seen and examined the patient at the bedside this morning Patient's chart and medications reviewed Patient feels slightly better Vital signs noted Hospitalist Physical - Constitutional Vitals: Temp Pulse Resp BP Pulse Ox 98.3 F 90 21 100/66 99 11/17/20 07:12 11/17/20 07:12 11/17/20 10:00 11/17/20 07:12 11/17/20 10:00 General appearance: Present: no acute distress, well-nourished, obese - EENT Eyes: Present: PERRL, EOM intact - Neck Neck: Present: supple, normal ROM - Respiratory Respiratory effort: normal Respiratory: bilateral: diminished, negative: rales, rhonchi, wheezing - Cardiovascular Rhythm: regular Heart Sounds: Present: S1 & S2 - Extremities Extremities: no ischemia, No edema - Abdominal General gastrointestinal: soft, non-tender, non-distended, normal bowel sounds - Integumentary Integumentary: Present: clear, warm - Psychiatric Psychiatric: appropriate mood/affect, cooperative - Neurologic Neurologic: CNII-XII intact, moves all extremities HEART Score - HEART Score EKG: Normal Age: 45-65 Risk factors: > 3 risk factors or hx of atherosclerotic disease Troponin: Troponin T < 0.010 ng/mL (0.00-0.029) 11/17/20 05:17 Troponin: < normal limit - Critical Actions Critical Actions: 0-3 pts:0.9-1.7%risk of adverse cardiac event.Candidate for discharge Results - Labs CBC & Chem 7: 11/17/20 05:17 11/17/20 05:17 Labs: Laboratory Last Values WBC 5.5 K/mm3 (4.5-11.0) 11/17/20 05:17 RBC 3.66 M/mm3 (3.65-5.03) 11/17/20 05:17 Hgb 12.2 gm/dl (11.8-15.2) 11/17/20 05:17 Hct 35.3 % (35.5-45.6) L 11/17/20 05:17 MCV 96 fl (84-94) H 11/17/20 05:17 MCH 33 pg (28-32) H 11/17/20 05:17 MCHC 34 % (32-34) 11/17/20 05:17 RDW 15.6 % (13.2-15.2) H 11/17/20 05:17 Plt Count 173 K/mm3 (140-440) 11/17/20 05:17 Lymph % (Auto) 38.1 % (13.4-35.0) H 11/14/20 05:35 [place] % (Auto) 9.9 % (0.0-7.3) H 11/14/20 05:35 Eos % (Auto) 7.3 % (0.0-4.3) H 11/14/20 05:35 Baso % (Auto) 0.9 % (0.0-1.8) 11/14/20 05:35 Lymph # (Auto) 2.4 K/mm3 (1.2-5.4) 11/14/20 05:35 [place] # (Auto) 0.6 K/mm3 (0.0-0.8) 11/14/20 05:35 Eos # (Auto) 0.5 K/mm3 (0.0-0.4) H 11/14/20 05:35 Baso # (Auto) 0.1 K/mm3 (0.0-0.1) 11/14/20 05:35 Seg Neutrophils % 43.8 % (40.0-70.0) 11/14/20 05:35 Seg Neutrophils # 2.7 K/mm3 (1.8-7.7) 11/14/20 05:35 PT 13.5 Sec. (12.2-14.9) 11/13/20 18:13 INR 0.98 (0.87-1.13) 11/13/20 18:13 APTT 29.2 Sec. (24.2-36.6) 11/13/20 18:13 Thrombin Time 19.9 Sec. (15.1-19.6) H 11/13/20 18:13 D-Dimer 865.15 ng/mlDDU (0-234) H 11/13/20 18:32 Sodium 141 mmol/L (137-145) 11/17/20 05:17 Potassium 3.2 mmol/L (3.6-5.0) L 11/17/20 05:17 Chloride 99.1 mmol/L (98-107) 11/17/20 05:17 Carbon Dioxide 31 mmol/L (22-30) H 11/17/20 05:17 Anion Gap 14 mmol/L 11/17/20 05:17 BUN 22 mg/dL (9-20) H 11/17/20 05:17 Creatinine 1.1 mg/dL (0.8-1.3) 11/17/20 05:17 Estimated GFR > 60 ml/min 11/17/20 05:17 BUN/Creatinine Ratio 20 % 11/17/20 05:17 Glucose 110 mg/dL (75-100) H 11/17/20 05:17 POC Glucose 92 mg/dL (70-105) 11/14/20 17:03 Calcium 9.5 mg/dL (8.4-10.2) 11/17/20 05:17 Magnesium 1.60 mg/dL (1.7-2.3) L 11/17/20 05:17 Total Bilirubin 0.50 mg/dL (0.1-1.2) 11/13/20 18:13 AST 25 units/L (5-40) 11/13/20 18:13 ALT 25 units/L (7-56) 11/13/20 18:13 Alkaline Phosphatase 68 units/L (35-129) 11/13/20 18:13 Troponin T < 0.010 ng/mL (0.00-0.029) 11/17/20 05:17 NT-Pro-B Natriuret Pep 13.40 pg/mL (0-900) 11/13/20 18:13 Total Protein 7.9 g/dL (6.3-8.2) 11/13/20 18:13 Albumin 4.5 g/dL (3.9-5) 11/13/20 18:13 Albumin/Globulin Ratio 1.3 % 11/13/20 18:13 Triglycerides 89 mg/dL (2-149) 11/14/20 05:35 Cholesterol 205 mg/dL (50-199) H 11/14/20 05:35 LDL Cholesterol Direct 159 mg/dL (50-130) H 11/14/20 05:35 HDL Cholesterol 41 mg/dL (40-59) 11/14/20 05:35 Cholesterol/HDL Ratio 5.00 % 11/14/20 05:35 Nasal Screen MRSA (PCR) Negative (Negative) 11/14/20 Unknown [place]/IV: Voiding Method Urinal Active Medications - Current Medications Current Medications: Generic Name Dose Route Start Last Admin Trade Name Freq PRN Reason Stop Dose Admin Albuterol 2.5 mg 11/16/20 21:00 Albuterol 2.5 Mg/3 Ml Nebu IH Q4HRT PRN Shortness Of Breath Alprazolam 2 mg 11/16/20 15:01 11/17/20 06:07 Alprazolam 1 Mg Tab PO 2 mg Q8H PRN Administration Anxiety Aspirin 325 mg 11/14/20 10:00 11/17/20 09:04 Aspirin Ec 325 Mg Tab PO 325 mg QDAY SHAHEED Administration Atorvastatin Calcium 40 mg 11/13/20 22:00 11/16/20 21:11 Atorvastatin 40 Mg Tab PO 40 mg QHS SHAHEED Administration Dextrose 50 ml 11/13/20 21:43 Dextrose 50% In Water (25gm) 50 Ml Syringe IV Q30MIN PRN Hypoglycemia Protocol Enoxaparin Sodium 40 mg 11/14/20 22:00 11/16/20 21:11 Enoxaparin 40 Mg/0.4 Ml Inj SUB-Q 40 mg QDAY@2200 SHAHEED Administration Protocol Famotidine 20 mg 11/13/20 22:00 11/17/20 09:05 Famotidine 20 Mg Tab PO 20 mg BID SHAHEED Administration Gabapentin 800 mg 11/14/20 00:11 11/14/20 00:33 Gabapentin 400 Mg Cap PO 800 mg TID PRN Administration Neuropathy Potassium Chloride 10 meq in 100 mls @ 100 mls/hr 11/17/20 09:30 11/17/20 10:10 Kcl 10meq/100ml IV 11/17/20 13:29 100 mls/hr Q1H SHAHEED Administration Magnesium Sulfate 2 gm in 50 mls @ 25 mls/hr 11/17/20 09:00 Magnesium Sulfate 2gm/50ml IV 11/17/20 12:00 ONCE SHAHEED Insulin Human Lispro 0 unit 11/14/20 00:00 11/17/20 05:52 Insulin Lispro 100 Unit/Ml SUB-Q Not Given Q6HR [facility] Protocol Levofloxacin 500 mg 11/14/20 10:00 11/17/20 09:05 Levofloxacin 500 Mg Tab PO 11/18/20 10:01 500 mg Q24HR SHAHEED Administration Protocol Mirtazapine 15 mg 11/14/20 00:06 11/16/20 21:13 Mirtazapine 15 Mg Tab PO 15 mg QHS PRN Administration Insomnia Nitroglycerin 0.4 mg 11/13/20 21:20 Nitroglycerin 0.4 Mg Tab Subl SL Q5M PRN Chest Pain Ondansetron HCl 4 mg 11/13/20 21:20 11/16/20 16:26 Ondansetron 4 Mg/2 Ml Inj IV 4 mg Q8H PRN Administration Nausea And Vomiting Oxycodone HCl 25 mg 11/16/20 18:00 11/17/20 06:06 Oxycodone 5 Mg Tab PO 25 mg Q8H PRN Administration Pain, Moderate (4-6) Sodium Chloride 10 ml 11/13/20 22:00 11/17/20 09:05 Sodium Chloride 0.9% 10 Ml Flush Syringe IV 10 ml BID SHAHEED Administration Sodium Chloride 10 ml 11/13/20 21:20 11/15/20 03:20 Sodium Chloride 0.9% 10 Ml Flush Syringe IV 10 ml PRN PRN Administration LINE FLUSH Tamsulosin HCl 0.4 mg 11/14/20 22:00 11/16/20 21:11 Tamsulosin 0.4 Mg Cap PO 0.4 mg QHS SHAHEED Administration Torsemide 100 mg 11/14/20 11:00 11/17/20 09:52 Torsemide 100 Mg Tab PO 100 mg DAILY SHAHEED Administration Nutrition/Malnutrition Assess - Dietary Evaluation Nutrition/Malnutrition Findings: Nutrition Notes Start: 11/14/20 10:33 Freq: Status: Active Protocol: Document 11/16/20 10:00 CON (Rec: 11/16/20 10:03 CON [id number]) Nutrition Notes Initial or Follow up Brief Note Subjective/Other Information Pt noncompliant with diet and has been demanding high CHO, high fat food from kitchen. 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 Will liberalize diet. Nutrition Intervention Change Diet Order: regular Revisit per MD consult or patient Sign Off request:
[2020-11-17] MEDS ORDERED: oxyCODONE 5 MG TAB PO NR (11:19)
--- NOTE | 2020-11-17 12:10 | Progress Note ---
Assessment and Plan #Syncopal episode with ground-level fall * Neurology is following #Chest pain * Cardiology is consulted for report of chest pain in the prehospital setting. Patient is currently describing episodic atypical chest pain described as intermittent and sharp, electric, worse with deep inspiration and movement, not exacerbated by activity and worse when sitting in a chair. * Troponins are negative x5. AMI is ruled out. Will continue to monitor Ezio during admission per pt symptoms. * Recent echo 10/22/2020 reviewed - mild concentric LVH, EF 50-55%, mild diastolic dysfxn, no pericardial effusion. * Lexiscan stress MPI 11/2019 - negative for ischemia. CXR reveals no acute findings. V/Q scan not suggestive of PE. * From a cardiac perspective, pt has been set up for [facility] on numerous occasions but ultimately declines the AM of the planned procedure. He was set up for [facility] during his most recent admission at [facility] last month as well but was unable to complete d/t hypokalemia and severe back/neck pain. The plan was to schedule pt for elective cardiac catheterization, assuming anxiety and pain could be well-controlled. Currently recommend medical management in setting of well- established noncompliance. We will reassess indications for ischemic evaluation once electrolyte derangement is corrected. * s/p chest wall biopsy of mass pending results. #Elevated D-dimer * VQ scan is not suggestive of PTE. BLE duplex ultrasound is negative for DVT * History of pulmonary embolism in 2015 s/p IVC filter placement #Hypokalemia * Patient is chronically diuresed with torsemide. He reports history of inadequate diuresis on furosemide. He normally takes potassium supplement p.o. at home. #Tobacco use * Cessation encouraged #DVT prophylaxis * Lovenox SQ #Opioid dependence in setting of chronic back pain * Patient has extensive history of longstanding heavy opioid use secondary to chronic back pain. Strongly recommend outpatient referral to silk screen painter upon discharge if not already established. Patient currently in stable cardiac status. Plan on medical management moving forward due to well-established history of medical noncompliance. Will follow This patient was seen in conjunction with Dr Kristal Degroot who agrees with this assessment and plan of care (1) Syncope and collapse Current Visit: Yes Status: Acute (2) CVA (cerebral vascular accident) Current Visit: Yes Status: Suspected Qualifiers: Qualified Code(s): I63.9 - Cerebral infarction, unspecified (3) Atypical chest pain Current Visit: Yes Status: Acute (4) Breast mass in male Current Visit: Yes Status: Acute (5) Hypokalemia Current Visit: Yes Status: Acute (6) Chronic heart failure with preserved ejection fraction (HFpEF) Current Visit: Yes Status: Chronic (7) Hypertension Current Visit: Yes Status: Chronic Qualifiers: Hypertension type: essential hypertension Qualified Code(s): I10 - Essential (primary) hypertension (8) Hyperlipemia Current Visit: Yes Status: Chronic Qualifiers: Hyperlipidemia type: mixed hyperlipidemia Qualified Code(s): E78.2 - Mixed hyperlipidemia (9) DM2 (diabetes mellitus, type 2) Current Visit: Yes Status: Chronic (10) GERD (gastroesophageal reflux disease) Current Visit: Yes Status: Chronic (11) Morbid obesity Current Visit: Yes Status: Chronic (12) Obstructive sleep apnea Current Visit: Yes Status: Chronic (13) COPD (chronic obstructive pulmonary disease) Current Visit: Yes Status: Chronic (14) Tobacco abuse Current Visit: Yes Status: Chronic (15) History of pulmonary embolism Current Visit: Yes Status: Chronic Plan to address problem: 2015, S/p IVC Filter (16) History of CVA (cerebrovascular accident) Current Visit: Yes Status: Chronic (17) H/O cervical spine surgery Current Visit: Yes Status: Chronic (18) Rheumatoid arthritis Current Visit: Yes Status: Chronic (19) Chronic pain syndrome Current Visit: Yes Status: Chronic (20) Anxiety Current Visit: Yes Status: Chronic Subjective Date of service: 11/17/20 Principal diagnosis: Syncopal Episode Interval history: Patient resting comfortably in bed. No chest pain or shortness of breath overni ght No telemetry data available for review: Patient is continuing to refuse quality assurance monitor body Objective Last Vital Signs Temp 98.4 F 11/17/20 10:43 Pulse 85 11/17/20 10:43 Resp 18 11/17/20 11:42 BP 105/46 11/17/20 10:43 Pulse Ox 95 11/17/20 10:43 - Physical Examination HEENT: Positive: EOMI, Normocephaly, Mucus Membranes Moist Neck: Positive: neck supple, trachea midline. Negative: JVD/HJR Lungs: Positive: Normal Exam, Normal Breath Sounds Neuro: Positive: Grossly Intact, Weakness (BLE). Negative: Numbness Abdomen: Positive: Soft. Negative: Tender Skin: Negative: Rash Extremities: Present: upper extr. pulses, lower extr. pulses. Absent: edema - Labs and Meds CBC 11/17/20 Range/Units 05:17 WBC 5.5 (4.5-11.0) K/mm3 RBC 3.66 (3.65-5.03) M/mm3 Hgb 12.2 (11.8-15.2) gm/dl Hct 35.3 L (35.5-45.6) % Plt Count 173 (140-440) K/mm3 Comprehensive Metabolic Panel 11/17/20 Range/Units 05:17 Sodium 141 (137-145) mmol/L Potassium 3.2 L (3.6-5.0) mmol/L Chloride 99.1 (98-107) mmol/L Carbon Dioxide 31 H (22-30) mmol/L BUN 22 H (9-20) mg/dL Creatinine 1.1 (0.8-1.3) mg/dL Glucose 110 H (75-100) mg/dL Calcium 9.5 (8.4-10.2) mg/dL - Imaging and Cardiology EKG: report reviewed, image reviewed Echo: report reviewed (10/22/2020 - mild concentric LVH, EF 50-55%, mild diastolic dysfxn, no pericardial effusion) - EKG Sinus rhythms and dysrhythmias: sinus rhythm
[2020-11-17] MEDS ORDERED: POTASSIUM CHLORIDE ER 20 MEQ TAB PO SCH (13:00)
--- NOTE | 2020-11-17 13:52 | Discharge Summary ---
Providers - Providers Date of Admission: 11/13/20 22:07 Date of discharge: 11/19/20 Attending physician: MILTON CAMPBELL 11/13/20 Consult to Cardiac Rehabilitation [CONS] Routine Reason For Exam: Phase I 11/13/20 21:20 Consult to Cardiology [CONS] Routine Consulting Provider: SHERRY VELIZ Reason For Exam: Chest pain Occupational Therapy Evaluate and Treat [CONS] Routine Comment: Reason For Exam: Neuro deficits Physical Therapy Evaluation and Treat [CONS] Routine Comment: Reason For Exam: Neuro deficits 11/13/20 21:43 Consult to Dietitian/Nutrition [CONS] Routine Physician Instructions: Reason For Exam: Reason for Consult: Diet education 11/14/20 08:53 Consult to Physician [CONS] Routine Comment: Consulting Provider: VINAYAK MURDOCK Physician Instructions: Reason For Exam: cva 11/14/20 10:12 Speech Therapy Evaluation and Treat [CONS] Routine Reason For Exam: cva Primary care physician: EXTENSION SERVICE SUPERVISOR Hospitalization Reason for admission: Chest pain, left leg numbness Condition: Fair Pertinent studies: CT head without contrast ; no acute abnormality CTA neck; no acute abnormality CTA head ; no abnormality MRI no acute abnormalitybrain; no acute abnormality MRA brain no acute abnormality echocardiogram Lower extremity venous Doppler; no DVT Soft tissue ultrasound chest wall mass VQ scan; low probability PE Procedures: Ultrasound-guided biopsy of chest wall lump, pending pathology report Hospital course: 65-year-old male patient with past medical history of congestive heart failure hypertension dyslipidemia diabetes mellitus COPD obesity was admitted through emergency room with atypical chest pain and numbness of the left leg.Patient was not a candidate for TPA, evaluated by neurologist and patient had extensive neuro work-up as mentioned above which was negativeAcute CVA ruled out, patient was also evaluated by cardiology, medications optimized Patient is noted to have a small mass on the anterior chest wall, CT chest ultrasound chest was done which showed small mass,patient had ultrasound-guided biopsy, report of which is pending patient have physical therapy occupational therapy ,. Patient symptoms significantly improved, medications optimized. Today patient is comfortable, no new complaints , no vital signs stable patient is hemodynamically and clinically stable at dischargee. Cleared by all the consultants for discharge and follow-up per schedule. Stable at discharge. Discharge diagnosis; -- Acute coronary syndrome Cardiology evaluated, medications optimized Symptoms improved, medical management. --Possible CVA (cerebral vascular accident) Not a candidate for TPA , aspirin, Lipitor Neuro work-up is negative, acute CVA ruled out --History of anxiety disorder Stable we will continue current psych medications --Chronic pain syndrome; Patient is on multiple pain medications Follows with pain management --History of CHF (congestive heart failure) Echo in October 2020 ; EF 50 to 55% Probably mild diastolic dysfunction , --History of COPD (chronic obstructive pulmonary disease) Oxygen ,DuoNeb by nebulizer symptoms resolved --History of CVA, old, with residual weakness Continue aspirin and statin --Type II DM2 (diabetes mellitus, type 2) Accu-Chek sliding scale coverage ADA diet Long-acting insulin as needed -- GERD (gastroesophageal reflux disease) Famotidine 20 mg p.o. twice --History of HTN (hypertension) Continue current antihypertensives Patient is stable at discharge Disposition: DC-30 STILL A PATIENT Final Discharge Diagnosis (Prints w/discharge instructions): Acute coronary syndrome. Chronic diastolic CHF. History of COPD. History of CVA with residual weakness. [acute CVA ruled out]. Type 2 diabetes mellitus. GERD. Hypertension. Chronic pain syndrome. Anxiety disorder Time spent for discharge: 35 min Core Measure Documentation - Palliative Care Palliative Care/ Comfort Measures: Not Applicable - Core Measures Any of the following diagnoses?: none Exam - Constitutional Vitals: Temp Pulse Resp BP Pulse Ox 98.4 F 85 18 105/46 95 11/17/20 10:43 11/17/20 10:43 11/17/20 11:42 11/17/20 10:43 11/17/20 10:43 General appearance: Present: no acute distress, well-nourished - EENT Eyes: Present: PERRL, EOM intact - Neck Neck: Present: supple, normal ROM - Respiratory Respiratory effort: normal Respiratory: bilateral: diminished, negative: rales, rhonchi, wheezing - Cardiovascular Rhythm: regular Heart Sounds: Present: S1 & S2 - Extremities Extremities: no ischemia, No edema - Abdominal General gastrointestinal: Present: soft, non-tender, non-distended, normal bowel sounds - Integumentary Integumentary: Present: clear, warm - Musculoskeletal Musculoskeletal: strength equal bilaterally, generalized weakness - Psychiatric Psychiatric: appropriate mood/affect, cooperative - Neurologic Neurologic: moves all extremities Plan Activity: advance as tolerated, fall precautions Diet: other (Cardiac diet) Special Instructions: smoking cessation Additional Instructions: F/u with contract forester Dr. Kristal Veliz on 12/07/2020 @ 2:15pm ([phone]). Follow private neurologist in 10 days. Fall precautions,. If you have worsening symptoms contact MD or go to emergency room as needed. Advised to see your pain management physician for review of your multiple medications. No new prescriptions Follow up with: PRIMARY CARE, [Primary Care Provider] - 3-5 Days SHERRY VELIZ MD [Staff Physician] - 12/07/20 2:15 pm SU PIÑA MD [Staff Physician] - 10 Days
[2020-11-17] MEDS: ENOXAPARIN 40 MG/0.4 ML INJ SUB-Q SCH (21:21)
[2020-11-17] MEDS: TAMSULOSIN 0.4 MG CAP PO SCH (21:21)
[2020-11-17] MEDS: GABAPENTIN 400 MG CAP PO PRN (21:23)
[2020-11-17] MEDS: MIRTAZAPINE 15 MG TAB PO PRN (22:32)
[2020-11-18] MEDS: oxyCODONE 5 MG TAB PO PRN ×4 (05:58→23:21)
[2020-11-18] MEDS: INSULIN LISPRO 100 UNIT/ML SUB-Q SCH ×4 (06:02→17:18)
[2020-11-18] MEDS: FAMOTIDINE 20 MG TAB PO SCH ×2 (09:41→21:32)
[2020-11-18] MEDS: ALPRAZolam 1 MG TAB PO PRN ×2 (09:41→17:36)
[2020-11-18] MEDS: GABAPENTIN 400 MG CAP PO PRN ×2 (09:41→17:35)
[2020-11-18] MEDS: levoFLOXacin 500 MG TAB PO SCH (09:42)
[2020-11-18] MEDS: ASPIRIN EC 325 MG TAB PO SCH (09:42)
[2020-11-18] MEDS: TORSEMIDE 100 MG TAB PO SCH (09:42)
--- NOTE | 2020-11-18 13:18 | Event Note ---
Date: 11/18/20 [facility] Currently stable cardiac status. No objections to discharge from a Cardiology perspective. Follow-up with Dr. Kristal Veliz on 12/07/2020 @ 2:15pm ([phone]). SHERRY VELIZ MD / IRA MARTINEZ NP
[2020-11-18] MEDS ORDERED: POTASSIUM CHLORIDE ER 20 MEQ TAB PO ONE (17:18)
--- NOTE | 2020-11-18 17:39 | Progress Note ---
Assessment and Plan Assessment and plan: -- Acute coronary syndrome Current Visit: No Status: Acute Continue current cardiac medications Cardiology following --Possible CVA (cerebral vascular accident) Current Visit: Yes Status: Acute Not a candidate for TPA , continue aspirin 325 mg p.o. daily. Lipitor 40 mg p.o. daily. Neuro work-up is in progress closely monitor PT OT rehabilitation --History of anxiety disorder Current Visit: No Status: Chronic Stable we will continue current psych medications --Chronic pain syndrome; Current Visit: No Status: Chronic Patient is on multiple pain medications Follows with pain management Continue current pain medications Wean as tolerated. Patient will follow with his pain clinic upon discharge per schedule --History of CHF (congestive heart failure) Current Visit: No Status: Chronic Echo in October 2020 ; EF 50 to 55% Probably mild diastolic dysfunction , continue current antifailure medications --History of COPD (chronic obstructive pulmonary disease) Current Visit: No Status: Chronic Oxygen by nasal cannula 3 L/min DuoNeb by nebulizer every 4 hours we will continue home medication. --History of CVA, old, with residual weakness Current Visit: No Status: Chronic . Continue aspirin and statin PT OT rehab --Type II DM2 (diabetes mellitus, type 2) Current Visit: No Status: Chronic Plan to address problem: Accu-Chek sliding scale coverage ADA diet Long-acting insulin as needed -- GERD (gastroesophageal reflux disease) Current Visit: No Status: Chronic Famotidine 20 mg p.o. twice daily for GI prophylaxis --History of HTN (hypertension) Current Visit: No Status: Chronic Continue current antihypertensives and as needed hydralazine closely monitor the blood pressures and adjust medications as needed -- DVT prophylaxis. Current Visit: No Status: Acute Heparin 5000 units subcu every 8 hours for DVT prophylaxis. --GI prophylaxis Pepcid 20 mg p.o. twice daily for GI prophylaxis. closely monitor the patient and adjust management as needed Plan of care reviewed with the patient and his nurse 11/14/2020; -Patient is complaining left upper extremity tingling and left lower extremity numbness -CT head showed no acute intracranial abnormality. Will follow MRI and MRA, neurology consulted -Patient started on aspirin and Lipitor -Patient is on breathing treatments and oxygen support for COPD -Blood sugars controlled and continue sliding scale insulin -Blood pressures controlled and patient is currently not on any blood pressure medication -Patient is on Pepcid for GERD -Patient said he has history of CHF and will get echo. Patient is also complaining chest pain. Cardiology consulted. -Patient has left chest wall lump and we will do ultrasound of left chest wall 11/15/20 -We will follow MRI, CTA head and neck is negative for major vessel obstruction -Continue with aspirin and Lipitor, neurology consult appreciated -I put an order for ultrasound-guided chest wall mass biopsy -PT OT evaluation 11/16/2020; Follow PT OT evaluation recommendations s/p chest wall mass biopsy today, pending biopsy report DC planning Case management, possible LTAC placement. 11/17/2020; PT OT evaluated, recommend home health PT DC planning per case management, possible DC home with home health tomorrow if stable 11/18/2020; patient feels better Discharge paperwork ready, patient will be picked up by caregiver early a.m. I discussed with patient's nurse Mr. Bhakta and the case management History Interval history: I have seen and examined the patient at the bedside Patient's chart and medications reviewed Hospitalist Physical - Constitutional Vitals: Temp Pulse Resp BP Pulse Ox 98.4 F 96 H 18 126/88 92 11/18/20 16:14 11/18/20 16:14 11/18/20 16:14 11/18/20 16:14 11/18/20 16:14 General appearance: Present: no acute distress, well-nourished - EENT Eyes: Present: PERRL, EOM intact - Neck Neck: Present: supple, normal ROM - Respiratory Respiratory effort: normal Respiratory: bilateral: diminished, negative: rales, wheezing - Cardiovascular Rhythm: regular Heart Sounds: Present: S1 & S2 - Extremities Extremities: no ischemia, No edema - Abdominal General gastrointestinal: soft, non-tender, non-distended, normal bowel sounds - Integumentary Integumentary: Present: clear, warm - Psychiatric Psychiatric: appropriate mood/affect, cooperative - Neurologic Neurologic: moves all extremities HEART Score - HEART Score EKG: Normal Age: 45-65 Risk factors: > 3 risk factors or hx of atherosclerotic disease Troponin: Troponin T < 0.010 ng/mL (0.00-0.029) 11/17/20 05:17 Troponin: < normal limit - Critical Actions Critical Actions: 0-3 pts:0.9-1.7%risk of adverse cardiac event.Candidate for discharge Results - Labs CBC & Chem 7: 11/17/20 05:17 11/18/20 12:23 Labs: Laboratory Last Values WBC 5.5 K/mm3 (4.5-11.0) 11/17/20 05:17 RBC 3.66 M/mm3 (3.65-5.03) 11/17/20 05:17 Hgb 12.2 gm/dl (11.8-15.2) 11/17/20 05:17 Hct 35.3 % (35.5-45.6) L 11/17/20 05:17 MCV 96 fl (84-94) H 11/17/20 05:17 MCH 33 pg (28-32) H 11/17/20 05:17 MCHC 34 % (32-34) 11/17/20 05:17 RDW 15.6 % (13.2-15.2) H 11/17/20 05:17 Plt Count 173 K/mm3 (140-440) 11/17/20 05:17 Lymph % (Auto) 38.1 % (13.4-35.0) H 11/14/20 05:35 [place] % (Auto) 9.9 % (0.0-7.3) H 11/14/20 05:35 Eos % (Auto) 7.3 % (0.0-4.3) H 11/14/20 05:35 Baso % (Auto) 0.9 % (0.0-1.8) 11/14/20 05:35 Lymph # (Auto) 2.4 K/mm3 (1.2-5.4) 11/14/20 05:35 [place] # (Auto) 0.6 K/mm3 (0.0-0.8) 11/14/20 05:35 Eos # (Auto) 0.5 K/mm3 (0.0-0.4) H 11/14/20 05:35 Baso # (Auto) 0.1 K/mm3 (0.0-0.1) 11/14/20 05:35 Seg Neutrophils % 43.8 % (40.0-70.0) 11/14/20 05:35 Seg Neutrophils # 2.7 K/mm3 (1.8-7.7) 11/14/20 05:35 PT 13.5 Sec. (12.2-14.9) 11/13/20 18:13 INR 0.98 (0.87-1.13) 11/13/20 18:13 APTT 29.2 Sec. (24.2-36.6) 11/13/20 18:13 Thrombin Time 19.9 Sec. (15.1-19.6) H 11/13/20 18:13 D-Dimer 865.15 ng/mlDDU (0-234) H 11/13/20 18:32 Sodium 141 mmol/L (137-145) 11/17/20 05:17 Potassium 3.5 mmol/L (3.6-5.0) L 11/18/20 12:23 Chloride 99.1 mmol/L (98-107) 11/17/20 05:17 Carbon Dioxide 31 mmol/L (22-30) H 11/17/20 05:17 Anion Gap 14 mmol/L 11/17/20 05:17 BUN 22 mg/dL (9-20) H 11/17/20 05:17 Creatinine 1.1 mg/dL (0.8-1.3) 11/17/20 05:17 Estimated GFR > 60 ml/min 11/17/20 05:17 BUN/Creatinine Ratio 20 % 11/17/20 05:17 Glucose 110 mg/dL (75-100) H 11/17/20 05:17 POC Glucose 92 mg/dL (70-105) 11/14/20 17:03 Calcium 9.5 mg/dL (8.4-10.2) 11/17/20 05:17 Phosphorus 2.60 mg/dL (2.5-4.5) 11/17/20 18:59 Magnesium 1.80 mg/dL (1.7-2.3) 11/17/20 18:59 Total Bilirubin 0.50 mg/dL (0.1-1.2) 11/13/20 18:13 AST 25 units/L (5-40) 11/13/20 18:13 ALT 25 units/L (7-56) 11/13/20 18:13 Alkaline Phosphatase 68 units/L (35-129) 11/13/20 18:13 Troponin T < 0.010 ng/mL (0.00-0.029) 11/17/20 05:17 NT-Pro-B Natriuret Pep 13.40 pg/mL (0-900) 11/13/20 18:13 Total Protein 7.9 g/dL (6.3-8.2) 11/13/20 18:13 Albumin 4.5 g/dL (3.9-5) 11/13/20 18:13 Albumin/Globulin Ratio 1.3 % 11/13/20 18:13 Triglycerides 89 mg/dL (2-149) 11/14/20 05:35 Cholesterol 205 mg/dL (50-199) H 11/14/20 05:35 LDL Cholesterol Direct 159 mg/dL (50-130) H 11/14/20 05:35 HDL Cholesterol 41 mg/dL (40-59) 11/14/20 05:35 Cholesterol/HDL Ratio 5.00 % 11/14/20 05:35 Nasal Screen MRSA (PCR) Negative (Negative) 11/14/20 Unknown [place]/IV: Voiding Method Urinal Active Medications - Current Medications Current Medications: Generic Name Dose Route Start Last Admin Trade Name Freq PRN Reason Stop Dose Admin Albuterol 2.5 mg 11/16/20 21:00 Albuterol 2.5 Mg/3 Ml Nebu IH Q4HRT PRN Shortness Of Breath Alprazolam 2 mg 11/16/20 15:01 11/18/20 17:36 Alprazolam 1 Mg Tab PO 2 mg Q8H PRN Administration Anxiety Aspirin 325 mg 11/14/20 10:00 11/18/20 09:42 Aspirin Ec 325 Mg Tab PO 325 mg QDAY SHAHEED Administration Atorvastatin Calcium 40 mg 11/13/20 22:00 11/17/20 21:21 Atorvastatin 40 Mg Tab PO 40 mg QHS SHAHEED Administration Dextrose 50 ml 11/13/20 21:43 Dextrose 50% In Water (25gm) 50 Ml Syringe IV Q30MIN PRN Hypoglycemia Protocol Enoxaparin Sodium 40 mg 11/14/20 22:00 11/17/20 21:21 Enoxaparin 40 Mg/0.4 Ml Inj SUB-Q 40 mg QDAY@2200 SHAHEED Administration Protocol Famotidine 20 mg 11/13/20 22:00 11/18/20 09:41 Famotidine 20 Mg Tab PO 20 mg BID SHAHEED Administration Gabapentin 800 mg 11/14/20 00:11 11/18/20 17:35 Gabapentin 400 Mg Cap PO 800 mg TID PRN Administration Neuropathy Insulin Human Lispro 0 unit 11/14/20 00:00 11/18/20 17:18 Insulin Lispro 100 Unit/Ml SUB-Q Not Given Q6HR [facility] Protocol Mirtazapine 15 mg 11/14/20 00:06 11/17/20 22:32 Mirtazapine 15 Mg Tab PO 15 mg QHS PRN Administration Insomnia Nitroglycerin 0.4 mg 11/13/20 21:20 Nitroglycerin 0.4 Mg Tab Subl SL Q5M PRN Chest Pain Ondansetron HCl 4 mg 11/13/20 21:20 11/16/20 16:26 Ondansetron 4 Mg/2 Ml Inj IV 4 mg Q8H PRN Administration Nausea And Vomiting Oxycodone HCl 25 mg 11/16/20 18:00 11/18/20 13:58 Oxycodone 5 Mg Tab PO 25 mg Q8H PRN Administration Pain, Moderate (4-6) Sodium Chloride 10 ml 11/13/20 22:00 11/18/20 09:42 Sodium Chloride 0.9% 10 Ml Flush Syringe IV 10 ml BID SHAHEED Administration Sodium Chloride 10 ml 11/13/20 21:20 11/15/20 03:20 Sodium Chloride 0.9% 10 Ml Flush Syringe IV 10 ml PRN PRN Administration LINE FLUSH Tamsulosin HCl 0.4 mg 11/14/20 22:00 11/17/20 21:21 Tamsulosin 0.4 Mg Cap PO 0.4 mg QHS SHAHEED Administration Torsemide 100 mg 11/14/20 11:00 11/18/20 09:42 Torsemide 100 Mg Tab PO 100 mg DAILY SHAHEED Administration Nutrition/Malnutrition Assess - Dietary Evaluation Nutrition/Malnutrition Findings: Nutrition Notes Start: 11/14/20 10:33 Freq: Status: Active Protocol: Document 11/16/20 10:00 CON (Rec: 11/16/20 10:03 CON [email or web address]) Nutrition Notes Initial or Follow up Brief Note Subjective/Other Information Pt noncompliant with diet and has been demanding high CHO, high fat food from kitchen. 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 Will liberalize diet. Nutrition Intervention Change Diet Order: regular Revisit per MD consult or patient Sign Off request:
[2020-11-18] MEDS: TAMSULOSIN 0.4 MG CAP PO SCH (21:32)
[2020-11-18] MEDS: ENOXAPARIN 40 MG/0.4 ML INJ SUB-Q SCH (21:37)
[2020-11-19] MEDS: INSULIN LISPRO 100 UNIT/ML SUB-Q SCH ×2 (00:16→06:37)
[2020-11-19] MEDS: GABAPENTIN 400 MG CAP PO PRN ×2 (07:35→07:41)
[2020-11-19] MEDS: oxyCODONE 5 MG TAB PO PRN (07:40)
[2020-11-19 08:12] VITALS: BP 123/84
[2020-11-19] MEDS: FAMOTIDINE 20 MG TAB PO SCH (09:11)
[2020-11-19] MEDS: TORSEMIDE 100 MG TAB PO SCH (09:11)
[2020-11-19] MEDS: ASPIRIN EC 325 MG TAB PO SCH (09:11)
--- NOTE | 2020-11-25 10:39 | Electrocardiograph Report ---
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
== END 2020-11-19 14:44 | disposition home or self-care (01) | DRG 311 ==
LOC: ED 15:40 → 4A 22:07
PROVIDERS: ADMIT Hospitalist; ATTEND Internal Medicine
PROC: 0WB83ZX Excision of Chest Wall, Percutaneous Approach, Diagnostic (ICD-10-PCS; principal; 2020-11-16)
DX: I24.9 Acute ischemic heart disease, unspecified (principal); I50.40 Unspecified combined systolic (congestive) and diastolic (congestive) heart failure; F11.20 Opioid dependence, uncomplicated; Z68.38 Body mass index [BMI] 38.0-38.9, adult; I11.0 Hypertensive heart disease with heart failure; F41.1 Generalized anxiety disorder; G89.4 Chronic pain syndrome; J44.9 Chronic obstructive pulmonary disease, unspecified; K21.9 Gastro-esophageal reflux disease without esophagitis; E87.6 Hypokalemia; N63.0 Unspecified lump in unspecified breast; G47.33 Obstructive sleep apnea (adult) (pediatric); M06.9 Rheumatoid arthritis, unspecified; E78.5 Hyperlipidemia, unspecified; E66.01 Morbid (severe) obesity due to excess calories; R22.2 Localized swelling, mass and lump, trunk; F17.200 Nicotine dependence, unspecified, uncomplicated; R55 Syncope and collapse; M54.9 Dorsalgia, unspecified; G40.909 Epilepsy, unspecified, not intractable, without status epilepticus; Z86.73 Personal history of transient ischemic attack (TIA), and cerebral infarction without residual deficits; Z86.711 Personal history of pulmonary embolism; Z83.3 Family history of diabetes mellitus; Z82.49 Family history of ischemic heart disease and other diseases of the circulatory system; Z79.4 Long term (current) use of insulin; Z93.3 Colostomy status; Z88.5 Allergy status to narcotic agent; Z88.1 Allergy status to other antibiotic agents; Z71.6 Tobacco abuse counseling
CPT/HCPCS: 20206; 36415; 70450; 70496; 70498; 70544; 70551; 71046; 76604; 76942; 78580; 80048; 80053; 80061; 82962; 83735; 83880; 84100; 84132; 84484; 85025; 85027; 85379; 85610; 85670; 85730; 87641; 88104; 88112; 88305; 88307; 93005; 93970; 94640; G0378; A9270-GY; A9540; J1650; J2270; J2405; J3475; J3480; J7040; Q9967

== ENCOUNTER 2020-12-10 14:20 | Emergency (ER) | payer MEDICARE ==
[2020-12-10] MEDS ORDERED: ASPIRIN 325 MG TAB PO ONE (14:34)
[2020-12-10 15:22] LABS: Basophils # (Auto) 0.1 K/mm3 (0.0-0.1); Basophils % (Auto) 0.7 % (0.0-1.8); Eosinophils # (Auto) 0.3 K/mm3 (0.0-0.4); Eosinophils % (Auto) 3.1 % (0.0-4.3); Hematocrit 42.1 % (35.5-45.6); Hemoglobin 14.8 gm/dl (11.8-15.2); Lymphocytes # (Auto) 1.8 K/mm3 (1.2-5.4); Lymphocytes % (Auto) 18.6 % (13.4-35.0); Mean Corpuscular HGB Conc 35 % (32-34); Mean Corpuscular Volume 96 fl (84-94); Monocytes % (Auto) 10.5 % (0.0-7.3); Platelet Count 261 K/mm3 (140-440); Red Cell Distribution Width 15.6 % (13.2-15.2)
[2020-12-10 15:34] LABS: INR 1.04 (0.87-1.13)
[2020-12-10 15:39] LABS: Alanine Aminotransferase 14 units/L (7-56); Albumin 4.1 g/dL (3.9-5); BUN/Creatinine Ratio 14; Blood Urea Nitrogen 13 mg/dL (9-20); Calcium 9.8 mg/dL (8.4-10.2); Hemolysis Index 5
[2020-12-10 18:08] VITALS: BP 125/85
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
--- NOTE | 2020-12-16 10:40 | Electrocardiograph Report ---
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
--- NOTE | 2020-12-16 10:44 | Electrocardiograph Report ---
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 Electronically Signed On 12-16-2020 10:44:21 EDT by Rafael Mays
== END 2020-12-10 18:42 | disposition home or self-care (01) ==
LOC: ED 14:20
DX: R07.89 Other chest pain (principal); F17.200 Nicotine dependence, unspecified, uncomplicated; G89.29 Other chronic pain; Z86.73 Personal history of transient ischemic attack (TIA), and cerebral infarction without residual deficits; I11.0 Hypertensive heart disease with heart failure; I50.9 Heart failure, unspecified; E11.9 Type 2 diabetes mellitus without complications; K21.9 Gastro-esophageal reflux disease without esophagitis; M19.91 Primary osteoarthritis, unspecified site; J44.9 Chronic obstructive pulmonary disease, unspecified; Z98.890 Other specified postprocedural states; Z79.899 Other long term (current) drug therapy; Z88.8 Allergy status to other drugs, medicaments and biological substances
CPT/HCPCS: 36415; 71046; 80053; 84484; 85025; 85610; 93005

== ENCOUNTER 2020-12-18 15:15 | Emergency (ER) | payer MEDICARE ==
[2020-12-18 15:38] VITALS: BP 142/98
--- NOTE | 2020-12-18 17:06 | XRay Report ---
CHEST 1 VIEW 12/18/2020 4:48 PM INDICATION / CLINICAL INFORMATION: Chest pain. COMPARISON: 12/10/20. FINDINGS: SUPPORT DEVICES: None. HEART / MEDIASTINUM: The heart size is normal with a left ventricular configuration. Pulmonary vascul ature is normal. The aorta is normal in caliber. LUNGS / PLEURA: No significant pulmonary or pleural abnormality. No pneumothorax. ADDITIONAL FINDINGS: No significant additional findings. IMPRESSION: No acute abnormality or significant change. Signer Name: Buster Braswell MD Signed: 12/18/2020 5:02 PM Workstation Name: [id number]
[2020-12-18] MEDS ORDERED: IBUPROFEN 800 MG TAB PO ONE (17:08)
[2020-12-18 17:16] LABS: BUN/Creatinine Ratio 19; Blood Urea Nitrogen 21 mg/dL (9-20); Calcium 9.7 mg/dL (8.4-10.2); Hemolysis Index 6
[2020-12-18 17:20] LABS: Basophils # (Auto) 0.1 K/mm3 (0.0-0.1); Basophils % (Auto) 1.1 % (0.0-1.8); Eosinophils # (Auto) 0.6 K/mm3 (0.0-0.4); Eosinophils % (Auto) 8.4 % (0.0-4.3); Hematocrit 43.5 % (35.5-45.6); Hemoglobin 14.8 gm/dl (11.8-15.2); Lymphocytes # (Auto) 2.2 K/mm3 (1.2-5.4); Lymphocytes % (Auto) 31.1 % (13.4-35.0); Mean Corpuscular HGB Conc 34 % (32-34); Mean Corpuscular Volume 96 fl (84-94); Monocytes # (Auto) 0.5 K/mm3 (0.0-0.8); Monocytes % (Auto) 7.7 % (0.0-7.3); Platelet Count 209 K/mm3 (140-440); Red Blood Count 4.53 M/mm3 (3.65-5.03); Red Cell Distribution Width 15.2 % (13.2-15.2)
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
[2020-12-18 17:31] LABS: INR 0.97 (0.87-1.13)
[2020-12-18 17:32] LABS: Partial Thromboplastin Time 29.7 Sec. (24.2-36.6)
--- NOTE | 2020-12-20 17:54 | Electrocardiograph Report ---
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
== END 2020-12-18 17:42 | disposition left against medical advice (07) ==
LOC: ED 15:15
DX: R07.89 Other chest pain (principal); M25.552 Pain in left hip; I11.0 Hypertensive heart disease with heart failure; I50.9 Heart failure, unspecified; E11.9 Type 2 diabetes mellitus without complications; Z90.49 Acquired absence of other specified parts of digestive tract; Z98.890 Other specified postprocedural states; Z79.899 Other long term (current) drug therapy; Z88.8 Allergy status to other drugs, medicaments and biological substances
CPT/HCPCS: 36415; 71045; 80048; 84484; 85025; 85610; 85730; 93005

== ENCOUNTER 2020-12-18 18:04 | Inpatient (IN) | payer MEDICARE ==
[2020-12-18 19:26] LABS: Alanine Aminotransferase 15 units/L (7-56); Albumin 4.1 g/dL (3.9-5); BUN/Creatinine Ratio 21; Blood Urea Nitrogen 21 mg/dL (9-20); Calcium 10.3 mg/dL (8.4-10.2); Hemolysis Index 36
[2020-12-18 19:28] LABS: Basophils # (Auto) 0.1 K/mm3 (0.0-0.1); Basophils % (Auto) 0.9 % (0.0-1.8); Eosinophils # (Auto) 0.6 K/mm3 (0.0-0.4); Eosinophils % (Auto) 8.2 % (0.0-4.3); Hematocrit 46.4 % (35.5-45.6); Hemoglobin 15.8 gm/dl (11.8-15.2); Lymphocytes # (Auto) 2.2 K/mm3 (1.2-5.4); Lymphocytes % (Auto) 31.3 % (13.4-35.0); Mean Corpuscular HGB Conc 34 % (32-34); Mean Corpuscular Volume 97 fl (84-94); Monocytes # (Auto) 0.3 K/mm3 (0.0-0.8); Monocytes % (Auto) 4.6 % (0.0-7.3); Platelet Count 214 K/mm3 (140-440); Red Blood Count 4.78 M/mm3 (3.65-5.03); Red Cell Distribution Width 15.6 % (13.2-15.2)
[2020-12-18] MEDS ORDERED: fentaNYL 100 MCG/2 ML INJ IV ONE (21:32)
[2020-12-18] MEDS ORDERED: SODIUM CHLORIDE 0.9% 250ML 250 ML IV ONE (21:32)
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
[2020-12-18] MEDS ORDERED: POTASSIUM CHLORIDE ER 20 MEQ TAB PO ONE (21:54)
--- NOTE | 2020-12-18 22:06 | XRay Report ---
LEFT HIP 3 VIEWS INDICATION / CLINICAL INFORMATION: Fall with left hip pain. COMPARISON: None available. FINDINGS: BONES / JOINT(S): There are bilateral hip prostheses without complication. There is moderate lower estrellita mbar spondylosis. I see no evidence of acute fracture or subluxation. SOFT TISSUES: There are surgical changes in the pelvis. A metallic foreign body is present in the rig ht pelvis. ADDITIONAL FINDINGS: There is an IVC filter. IMPRESSION: No acute abnormality. IVC Filter Recommendation: IVC filters should be removed if possible when they are no longer clinical ly necessary. (1) Refer to the established IVC filter management plan; (2) If there is no established plan for the patient's IVC filter, consider referral to interventional/vascular clinician on a nonem ergent basis for evaluation. Signer Name: Buster Braswell MD Signed: 12/18/2020 10:01 PM Workstation Name: [id number]
--- NOTE | 2020-12-19 00:33 | Cat Scan Report ---
CT HEAD WITHOUT CONTRAST INDICATION / CLINICAL INFORMATION: Dizziness, left arm weakness. TECHNIQUE: All CT scans at this location are performed using CT dose reduction for ALARA by means of automated exposure control. COMPARISON: MRI from 11/15/2020. FINDINGS: BRAIN PARENCHYMA: No acute intracranial hemorrhage. No evidence of recent infarct. No mass effect or midline shift. White matter chronic small vessel ischemic changes. VENTRICULAR SYSTEM/EXTRA-AXIAL SPACES: Ventricles are normal for age. No extra-axial fluid collection . ORBITS: Normal as visualized. SKELETAL SYSTEM/SOFT TISSUES: Normal bones and soft tissues. PARANASAL SINUSES/MASTOID AIR CELLS: No significant abnormality. ADDITIONAL FINDINGS: None. IMPRESSION: 1. No acute intracranial abnormality. Signer Name: Antoine Isaac MD Signed: 12/19/2020 12:28 AM Workstation Name: [id number]
--- NOTE | 2020-12-19 01:34 | History and Physical Report ---
History of Present Illness Date of examination: 12/19/20 Date of admission: 12/19/20 Chief complaint: Chest pain History of present illness: This is a 55-year-old -[place] male who presents to the emergency department for the second time today with complaint of some dizziness/lightheadedness, midsternal to left-sided chest pain, near syncope, a fall with left hip pain. Patient has a past medical history that includes hypertension, chronic pain syndrome, COPD, CVA with some residual left-sided weakness. The patient was seen in the emergency department earlier today by my colleague, but this patient signed out AMA as he did not feel that his pain was being treated appropriately. He left to go to another emergency department but says that he never made it past our waiting room as he got weak, the pain increased, and he had "another fall." The patient's work-up earlier in the day included unremarkable labs including CBC, metabolic panel, negative troponin, and he had a chest x-ray that did not show any acute process. Patient says that he spoke to his fishing captain, Dr. Degroot, yesterday and was told to come to the emergency department due to his symptoms and that he may need a stress test in the near future, allegedly. Currently his chest pain is intermittent and causes some electrical and/or shocklike pain that radiates to the left arm causing him to feel "heavy." ED work-up WBC 7.0 hemoglobin 15.8, platelet 214, sodium 136, potassium 3.0, creatinine 1.0, serum glucose 150 calcium 10.3 magnesium 1.9 hip x-ray no acute abnormality CT of the head no acute abnormality. Patient seen in the ED at bedside. Patient alert oriented x3. Patient denies any distress at the time of assessment. He said he came because of chest pain and he called his doctor and his doctor told him to come so that he can be seen in the morning. His doctor is a fishing captain. I reviewed patient lab radiology report, medical record, vital sign medication record. Patient not in acute distress. Troponin was negative Past History Past Medical History: CAD, heart failure, hypertension, hyperlipidemia Past Surgical History: No surgical history Social history: Lives alone Family history: hypertension Medications and Allergies Allergies Allergy/AdvReac Type Severity Reaction Status Date / Time acetaminophen [From Tylenol] Allergy Swelling Verified 12/10/20 14:26 tramadol Allergy Itching Verified 12/10/20 14:26 Home Medications Medication Instructions Recorded Confirmed Last Taken Type Rosuvastatin Calcium [Crestor] 20 mg PO HS 03/31/20 11/13/20 11/13/20 History Torsemide [Demadex] 100 mg PO DAILY 03/31/20 11/13/20 11/13/20 History Gabapentin [Neurontin] 1 tab PO 4XD PRN 08/22/20 11/13/20 11/13/20 History Oxycodone HCl [oxyCODONE] 25 mg PO 4XD PRN 08/22/20 11/13/20 11/13/20 History Timolol 0.5%-Dorzolamide 2% 1 drop OU BID 08/22/20 11/13/20 11/13/20 History Xanax TAB 2 mg PO 4XD PRN 08/22/20 11/13/20 11/13/20 History Docusate Sodium [Colace CAP] 100 mg PO QID PRN #20 cap 08/25/20 11/13/20 Unknown Rx Famotidine [Pepcid] 20 mg PO BID #60 tablet 08/25/20 11/13/20 11/13/20 Rx Tamsulosin [Flomax] 0.4 mg PO QHS #30 capsule 08/25/20 11/13/20 11/13/20 Rx Aspirin [Aspirin BABY CHEW TAB] 81 mg PO DAILY #30 tab.chew 10/22/20 11/13/20 11/13/20 Rx Potassium Chloride [K-Dur] 20 meq PO QDAY #4 tablet 10/22/20 11/13/20 11/13/20 Rx Mirtazapine [Remeron 15mg TAB] 15 mg PO QHS PRN 11/13/20 11/13/20 Unknown History Review of Systems Constitutional: fatigue, weakness Ears, nose, mouth and throat: no epistaxis, no bleeding gums Cardiovascular: chest pain, high blood pressure Gastrointestinal: no melena Rectal: no hemorrhoids Musculoskeletal: no neck stiffness, no neck pain Neurological: no convulsions Psychiatric: no disorientation Hematologic/Lymphatic: no easy bruising, no easy bleeding Allergic/Immunologic: no urticaria Exam - Constitutional Vitals: Temp Pulse Resp BP Pulse Ox 98.3 F 84 19 114/72 96 07/10/21 18:37 12/18/20 23:15 12/18/20 23:15 12/19/20 01:15 12/19/20 01:15 General appearance: Present: no acute distress, well-nourished, obese - EENT Eyes: Present: PERRL ENT: hearing intact, clear oral mucosa - Neck Neck: Present: supple, normal ROM - Respiratory Respiratory effort: normal Respiratory: bilateral: CTA - Cardiovascular Heart Sounds: Present: S1 & S2. Absent: rub, click - Extremities Extremities: pulses symmetrical, No edema Peripheral Pulses: within normal limits - Abdominal General gastrointestinal: Present: soft, non-tender, non-distended, normal bowel sounds Male genitourinary: Present: normal - Integumentary Integumentary: Present: clear, warm, dry - Musculoskeletal Musculoskeletal: gait normal, strength equal bilaterally - Psychiatric Psychiatric: appropriate mood/affect, intact judgment & insight - Neurologic Neurologic: CNII-XII intact, moves all extremities - Allied Health Allied health notes reviewed: nursing HEART Score - HEART Score EKG: Normal Age: 45-65 Risk factors: > 3 risk factors or hx of atherosclerotic disease Troponin: Troponin T < 0.010 ng/mL (0.00-0.029) 12/18/20 21:30 Troponin: < normal limit - Critical Actions Critical Actions: 0-3 pts:0.9-1.7%risk of adverse cardiac event.Candidate for discharge Results - Labs CBC & Chem 7: 12/18/20 18:47 12/18/20 18:47 Labs: Abnormal lab results 12/18/20 12/18/20 Range/Units 18:47 18:47 Hgb 15.8 H (11.8-15.2) gm/dl Hct 46.4 H (35.5-45.6) % MCV 97 H (84-94) fl MCH 33 H (28-32) pg RDW 15.6 H (13.2-15.2) % Eos % (Auto) 8.2 H (0.0-4.3) % Eos # (Auto) 0.6 H (0.0-0.4) K/mm3 Sodium 136 L (137-145) mmol/L Potassium 3.0 L (3.6-5.0) mmol/L Chloride 93.8 L (98-107) mmol/L BUN 21 H (9-20) mg/dL Glucose 150 H (75-100) mg/dL Calcium 10.3 H (8.4-10.2) mg/dL Assessment and Plan - Patient Problems (1) Chest pain Current Visit: Yes Status: Acute Qualifiers: Chest pain type: unspecified Qualified Code(s): R07.9 - Chest pain, unspe cified Plan to address problem: ? cause Troponin negative Chest x-ray with no acute finding V/S stable (2) Hypokalemia Current Visit: Yes Status: Acute Plan to address problem: replace potassium Monitor potassium level (3) DVT prophylaxis Current Visit: No Status: Acute Plan to address problem: Lovenox (4) Anxiety Current Visit: No Status: Chronic Plan to address problem: Resume home antianxiety drug (5) HTN (hypertension) Current Visit: No Status: Chronic Qualifiers: Hypertension type: primary hypertension Qualified Code(s): I10 - Essential (primary) hypertension Plan to address problem: Monitor vital signs Resume home antihypertensive Hydralazine as needed (6) DM2 (diabetes mellitus, type 2) Current Visit: No Status: Chronic Plan to address problem: Monitor blood sugar with sliding scale Check hemoglobin A1c (7) DVT prophylaxis Current Visit: No Status: Acute Plan to address problem: scd (8) Full code status Current Visit: No Status: Acute Plan to address problem: Pt is full code
[2020-12-19] MEDS ORDERED: METOCLOPRAMIDE 10 MG/2 ML INJ IV PRN (01:42)
[2020-12-19] MEDS ORDERED: MORPHINE 2 MG/1 ML INJ IV PRN ×2 (01:42→01:59)
[2020-12-19] MEDS ORDERED: SENNOSIDES 8.6 MG TAB PO PRN (01:42)
[2020-12-19] MEDS ORDERED: ALUM-MAG HYDROXIDE-SIMETHICONE 200-200-20MG/5ML ORAL LIQD 30 ML PO PRN (01:42)
[2020-12-19] MEDS ORDERED: oxyCODONE /ACETAMINOPHEN 5-325MG TAB PO PRN ×2 (01:42→01:59)
[2020-12-19] MEDS ORDERED: ONDANSETRON 4 MG/2 ML INJ IV PRN ×3 (01:42→01:59)
[2020-12-19] MEDS ORDERED: MAGNESIUM HYDROXIDE (MOM) ORAL LIQD UDC PO PRN (01:42)
[2020-12-19] MEDS ORDERED: GABAPENTIN 400 MG CAP PO PRN (01:50)
[2020-12-19] MEDS ORDERED: DOCUSATE SODIUM 100 MG CAP PO PRN (01:54)
[2020-12-19] MEDS ORDERED: ACETAMINOPHEN 325 MG TAB PO PRN (01:59)
[2020-12-19] MEDS ORDERED: HYDROcodone/ACETAMINOPHEN 5-325 MG TAB PO PRN (01:59)
[2020-12-19] MEDS ORDERED: NALOXONE 0.4 MG/1 ML INJ IV PRN (01:59)
[2020-12-19] MEDS ORDERED: HYDROmorphone 1 MG/1 ML INJ IV PRN (01:59)
[2020-12-19] MEDS: oxyCODONE 5 MG TAB PO PRN ×4 (03:58→22:01)
[2020-12-19] MEDS: MIRTAZAPINE 15 MG TAB PO PRN ×2 (03:58→22:05)
[2020-12-19] MEDS: INSULIN LISPRO 100 UNIT/ML SUB-Q SCH ×4 (07:29→22:31)
[2020-12-19] MEDS ORDERED: TIMOLOL 0.5% OU SCH (10:00)
[2020-12-19] MEDS ORDERED: DORZOLAMIDE 2% OU SCH (10:00)
[2020-12-19] MEDS: POTASSIUM CHLORIDE ER 20 MEQ TAB PO SCH (11:03)
[2020-12-19] MEDS: FAMOTIDINE 20 MG TAB PO SCH ×2 (11:03→22:00)
[2020-12-19] MEDS: TORSEMIDE 100 MG TAB PO SCH (11:04)
[2020-12-19] MEDS: ASPIRIN 81 MG TAB CHEW PO SCH (11:04)
--- NOTE | 2020-12-19 11:08 | Consultation ---
History of Present Illness Consult date: 12/19/20 Requesting physician: BRIANNA CHILDRESS Consult reason: chest pain History of present illness: Pt is a 55-year-old AA male with a past medical hx of chronic HFpEF, HTN, HLD, DM2, CVA, COPD, JENNIFER (non-compliant with CPAP), and PE (in 2014, s/p IVC filter placement). He has been seen by our practice on multiple previous admissions. Patient presents to [facility] ER via EMS after home health care nurse activated his life alert for apparent syncopal episode. Cardiology has been consulted for evaluation of chest pain. At time of interview patient is complaining of chest pain described as 8/10, sharp, pinching x1 day. This pain is similar to his chronic chest pain. During interview patient requested narcotic pain medications multiple times. Patient has been seen on numerous previous occasions for wide range of complaints. He has been scheduled for cardiac cath several times but ultimately refuses on day of procedure. Past History Past Medical History: CAD, heart failure, hypertension, hyperlipidemia, other Past Surgical History: No surgical history Social history: Lives alone Family history: hypertension Medications and Allergies Allergies Allergy/AdvReac Type Severity Reaction Status Date / Time acetaminophen [From Tylenol] Allergy Swelling Verified 12/10/20 14:26 tramadol Allergy Itching Verified 12/10/20 14:26 Home Medications Medication Instructions Recorded Confirmed Last Taken Type Rosuvastatin Calcium [Crestor] 20 mg PO HS 03/31/20 11/13/20 11/13/20 History Torsemide [Demadex] 100 mg PO DAILY 03/31/20 11/13/20 11/13/20 History Gabapentin [Neurontin] 1 tab PO 4XD PRN 08/22/20 11/13/20 11/13/20 History Oxycodone HCl [oxyCODONE] 25 mg PO 4XD PRN 08/22/20 11/13/20 11/13/20 History Timolol 0.5%-Dorzolamide 2% 1 drop OU BID 08/22/20 11/13/20 11/13/20 History Xanax TAB 2 mg PO 4XD PRN 08/22/20 11/13/20 11/13/20 History Docusate Sodium [Colace CAP] 100 mg PO QID PRN #20 cap 08/25/20 11/13/20 Unknown Rx Famotidine [Pepcid] 20 mg PO BID #60 tablet 08/25/20 11/13/20 11/13/20 Rx Tamsulosin [Flomax] 0.4 mg PO QHS #30 capsule 08/25/20 11/13/20 11/13/20 Rx Aspirin [Aspirin BABY CHEW TAB] 81 mg PO DAILY #30 tab.chew 10/22/20 11/13/20 11/13/20 Rx Potassium Chloride [K-Dur] 20 meq PO QDAY #4 tablet 10/22/20 11/13/20 11/13/20 Rx Mirtazapine [Remeron 15mg TAB] 15 mg PO QHS PRN 11/13/20 11/13/20 Unknown History Active Meds: Active Medications Al Hydrox/Mg Hydrox/Simethicone (Alum-Mag Hydroxide-Simethicone 147-122-81un/5ml Oral Liqd 30 Ml) 30 ml PO Q4H PRN PRN Reason: Indigestion Aspirin (Aspirin 81 Mg Tab Chew) 81 mg PO DAILY SHAHEED Atorvastatin Calcium (Atorvastatin 40 Mg Tab) 40 mg PO QHS SHAHEED Docusate Sodium (Docusate Sodium 100 Mg Cap) 100 mg PO QID PRN PRN Reason: Constipation Famotidine (Famotidine 20 Mg Tab) 20 mg PO BID SHAHEED Gabapentin (Gabapentin 400 Mg Cap) 800 mg PO 4XD PRN PRN Reason: Neuropathy Insulin Human Lispro (Insulin Lispro 100 Unit/Ml) 0 unit SUB-Q ACHS SHAHEED; Protocol Magnesium Hydroxide (Magnesium Hydroxide (Mom) Oral Liqd Udc) 30 ml PO Q4H PRN PRN Reason: Constipation Metoclopramide HCl (Metoclopramide 10 Mg/2 Ml Inj) 10 mg IV Q6H PRN PRN Reason: Nausea And Vomiting Mirtazapine (Mirtazapine 15 Mg Tab) 15 mg PO QHS PRN PRN Reason: Insomnia Last Admin: 12/19/20 03:58 Dose: 15 mg Documented by: Miscellaneous Medication (Timolol 0.5%-Dorzolamide 2%) 1 drop OU BID SHAHEED Naloxone HCl (Naloxone 0.4 Mg/1 Ml Inj) 0.1 mg IV Q2MIN PRN PRN Reason: Res Rate </= 8 or 02 SAT < 92% Ondansetron HCl (Ondansetron 4 Mg/2 Ml Inj) 4 mg IV Q8H PRN PRN Reason: Nausea And Vomiting Oxycodone HCl (Oxycodone 5 Mg Tab) 5 mg PO Q6H PRN PRN Reason: Pain, Moderate (4-6) Last Admin: 12/19/20 03:58 Dose: 5 mg Documented by: Potassium Chloride (Potassium Chloride Er 20 Meq Tab) 20 meq PO QDAY [facility] Senna (Sennosides 8.6 Mg Tab) 8.6 mg PO Q12HR PRN PRN Reason: Constipation Sodium Chloride (Sodium Chloride 0.9% 10 Ml Flush Syringe) 10 ml IV BID SHAHEED Sodium Chloride (Sodium Chloride 0.9% 10 Ml Flush Syringe) 10 ml IV PRN PRN PRN Reason: LINE FLUSH Tamsulosin HCl (Tamsulosin 0.4 Mg Cap) 0.4 mg PO QHS SHAHEED Torsemide (Torsemide 100 Mg Tab) 100 mg PO DAILY SHAHEED Review of Systems Constitutional: no weight loss, no weight gain, no fever, no chills, no sweats Ears, nose, mouth and throat: no ear pain, no ear discharge, no nasal congestion, no nasal discharge, no sinus pressure Cardiovascular: chest pain, no orthopnea, no palpitations, no rapid/irregular heart beat, no edema, no syncope, no lightheadedness, no shortness of breath Respiratory: no cough, no hemoptysis, no shortness of breath, no dyspnea on exertion Gastrointestinal: no abdominal pain, no nausea, no vomiting, no diarrhea Genitourinary Male: no flank pain Musculoskeletal: no neck stiffness, no neck pain, no shooting arm pain, no arm numbness/tingling, no low back pain, no shooting leg pain, no leg numbness/ti ngling Integumentary: no rash, no pruritis, no redness, no sores, no wounds, no jaundice Neurological: no head injury, no paralysis, no weakness, no parathesias, no numbness, no tingling, no seizures, no syncope Psychiatric: no anxiety Endocrine: no cold intolerance, no heat intolerance Hematologic/Lymphatic: no easy bruising, no easy bleeding Allergic/Immunologic: no urticaria Physical Examination Last Vital Signs Temp 97.6 F 12/19/20 08:00 Pulse 133 H 12/19/20 08:00 Resp 18 12/19/20 08:00 BP 111/73 12/19/20 08:00 Pulse Ox 93 12/19/20 08:00 General appearance: no acute distress HEENT: Positive: PERRL Neck: Positive: neck supple, trachea midline Cardiac: Positive: Reg Rate and Rhythm, S1/S2 Lungs: Positive: Normal Exam, Normal Breath Sounds Neuro: Negative: Grossly Intact Abdomen: Negative: Unremarkable, Active Bowel Sounds Musculoskeletal: No Pain Extremities: Absent: upper extr. pulses, lower extr. pulses, edema Results 12/18/20 18:47 12/19/20 10:08 Cardiac Enzymes 12/18/20 Range/Units 18:47 AST 25 (5-40) units/L CBC 12/18/20 Range/Units 18:47 WBC 7.0 (4.5-11.0) K/mm3 RBC 4.78 (3.65-5.03) M/mm3 Hgb 15.8 H (11.8-15.2) gm/dl Hct 46.4 H (35.5-45.6) % Plt Count 214 (140-440) K/mm3 Lymph # (Auto) 2.2 (1.2-5.4) K/mm3 Levy # (Auto) 0.3 (0.0-0.8) K/mm3 Eos # (Auto) 0.6 H (0.0-0.4) K/mm3 Baso # (Auto) 0.1 (0.0-0.1) K/mm3 Comprehensive Metabolic Panel 12/18/20 12/19/20 Range/Units 18:47 10:08 Sodium 136 L (137-145) mmol/L Potassium 3.0 L 3.0 L (3.6-5.0) mmol/L Chloride 93.8 L (98-107) mmol/L Carbon Dioxide 26 (22-30) mmol/L BUN 21 H (9-20) mg/dL Creatinine 1.0 (0.8-1.3) mg/dL Glucose 150 H (75-100) mg/dL Calcium 10.3 H (8.4-10.2) mg/dL AST 25 (5-40) units/L ALT 15 (7-56) units/L Alkaline Phosphatase 64 (35-129) units/L Total Protein 7.6 (6.3-8.2) g/dL Albumin 4.1 (3.9-5) g/dL - Imaging and Cardiology Echo: pending EKG interpretations - Telemetry EKG Rhythm: Sinus Rhythm - EKG Sinus rhythms and dysrhythmias: sinus rhythm Assessment and Plan Chest Pain * Patient is complaining of chest pain described as 8/10 sharp pinching x1 day with no radiation and no aggravating or relieving factors. Twelve-lead EKG shows sinus rhythm with no acute ischemic changes. Troponin is negative x4. AMI is ruled out. We will plan for MPI stress test in a.m. N.p.o. after midnight Chronic heart failure preserved ejection fraction in setting of cardiomyopathy * Echocardiogram is pending * Patient has bilateral lower extremity edema 1+. Is chronically diuresed on torsemide. Will resume home medications. Patient is currently in stable cardiac status. Stress test in a.m. n.p.o. after midnight. Will follow This patient was seen in conjunction with Dr Mays who agrees with this assessment and plan of care (1) Syncope and collapse Current Visit: Yes Status: Acute (2) CVA (cerebral vascular accident) Current Visit: Yes Status: Suspected Qualifiers: Qualified Code(s): I63.9 - Cerebral infarction, unspecified (3) Atypical chest pain Current Visit: Yes Status: Acute (4) Breast mass in male Current Visit: Yes Status: Acute (5) Hypokalemia Current Visit: Yes Status: Acute (6) Chronic heart failure with preserved ejection fraction (HFpEF) Current Visit: Yes Status: Chronic (7) Hypertension Current Visit: Yes Status: Chronic Qualifiers: Hypertension type: essential hypertension Qualified Code(s): I10 - E ssential (primary) hypertension (8) Hyperlipemia Current Visit: Yes Status: Chronic Qualifiers: Hyperlipidemia type: mixed hyperlipidemia Qualified Code(s): E78.2 - Mixed hyperlipidemia (9) DM2 (diabetes mellitus, type 2) Current Visit: Yes Status: Chronic (10) GERD (gastroesophageal reflux disease) Current Visit: Yes Status: Chronic (11) Morbid obesity Current Visit: Yes Status: Chronic (12) Obstructive sleep apnea Current Visit: Yes Status: Chronic (13) COPD (chronic obstructive pulmonary disease) Current Visit: Yes Status: Chronic (14) Tobacco abuse Current Visit: Yes Status: Chronic (15) History of pulmonary embolism Current Visit: Yes Status: Chronic Plan to address problem: 2015, S/p IVC Filter (16) History of CVA (cerebrovascular accident) Current Visit: Yes Status: Chronic (17) H/O cervical spine surgery Current Visit: Yes Status: Chronic (18) Rheumatoid arthritis Current Visit: Yes Status: Chronic (19) Chronic pain syndrome Current Visit: Yes Status: Chronic (20) Anxiety Current Visit: Yes Status: Chronic
--- NOTE | 2020-12-19 11:26 | Event Note ---
Date: 12/19/20 Patient seen and examined no acute distress requesting for more pain medication considering his recurrent falls that he reported in passing out we will hold off on adjusting pain medication at this time. Awaiting cardiology evaluation. Consult placed
[2020-12-19] MEDS: TAMSULOSIN 0.4 MG CAP PO SCH (22:01)
[2020-12-20] MEDS: oxyCODONE 5 MG TAB PO PRN ×3 (03:05→18:51)
[2020-12-20] MEDS: INSULIN LISPRO 100 UNIT/ML SUB-Q SCH ×4 (08:22→22:28)
[2020-12-20] MEDS ORDERED: REGADENOSON 0.4 MG/5 ML INJ IV ONE (08:54)
[2020-12-20] MEDS: ASPIRIN 81 MG TAB CHEW PO SCH (11:23)
[2020-12-20] MEDS: TORSEMIDE 100 MG TAB PO SCH (11:24)
[2020-12-20] MEDS: FAMOTIDINE 20 MG TAB PO SCH ×2 (11:24→22:26)
[2020-12-20] MEDS: POTASSIUM CHLORIDE ER 20 MEQ TAB PO SCH (11:24)
--- NOTE | 2020-12-20 11:52 | Nuclear Medicine Report ---
APPROVED REPORT Exam: Nuclear Stress Test Indication: Chest pain BMI: 0 Stress Test Details Stress Test: Pharmacologic stress testing performed using 0.4 mg of regadenoson per 5 mL given IV over 10 seconds. HR Resting HR: 61 bpm Max HR Achieved: 122 bpm Max Heart Rate (APMHR): 165 bpm Target HR (85% APMHR): 140 bpm % of APMHR: 73 Recovery HR: 68 bpm HR response to stress: Normal HR response to stress BP Resting BP: 100/69 mmHg Max BP: 116/82 mmHg Recovery BP: 107/72 mmHg BP response to stress: Normal blood pressure response to stress. ECG Resting ECG: Sinus Rhythm Stress ECG: Sinus Tachycardia ST Change: None Arrhythmia: None Recovery ECG: Sinus Rhythm Recovery ST Change: None Recovery Arrhythmia: None Clinical Reason for Termination: Completed protocol Stress Symptoms: None NM EXAM: Myocardial Perfusion REST/STRESS Imaging Protocol: Rest Tc-99m/Stress Tc-99m 1 day Resting Data Rest SPECT myocardial perfusion imaging was performed in upright position 45 minutes following the intravenous injection of 10 mCi of Tc-99m Myoview. Time of rest injection: 0645 Pharmacologic Stress Pharmacologic stress test was performed by injecting Regadenoson 0.4 mg IV push followed by the intravenous injection of 28 mCi of Tc-99m Myoview. Time of stress injection: 0915 Gated Stress SPECT was performed 30 minutes after stress injection. The images were gated to evaluate regional wall motion and calculate left ventricular ejection fraction. Study Quality Study: excellent Lung Uptake: Normal Study Data TID = 0.92. Perfusion Wall Motion The rest and stress images show normal left ventricular wall motion.LVEF post vasodilation 58%. Nuclear Conclusion ECG Findings: negative for ischemia Clinical Findings: negative for ischemia Nuclear Findings: positive for ischemia Exercise Capacity: not assessed Left Ventricular Function: normal Risk Study: moderate Small,moderate apical defect noted in stress images ,normalized on resting images.Normal lV function noted.Also localised infradiaphargmatic activity noted,?causing apical defect.
--- NOTE | 2020-12-20 11:59 | Progress Note ---
Assessment and Plan Chest pain with abnormal Stress Test * Chest pain is currently resolved. Troponins negative x4. AMI ruled out * Lexiscan NPI stress test shows small apical defect * Planned for LHC in AM. NPO after midnight. * Chronic heart failure preserved ejection fraction in setting of cardiomyopathy * Echocardiogram 10/22/2020: LVEF is 50 to 55%. LV normal size. LV SF is normal. Mild LVH. Mild diastolic dysfunction. RV SF is normal. RA mildly dilated. RVSP is 24 mmHg. * Patient has bilateral lower extremity edema 1+. Is chronically diuresed on torsemide. Will resume home medications. DVT Prophyaxis * Heparin SQ Patient is currently under pain management for chronic back pain, radiculopathy and spinal spondylolisthesis. He is under the care of Dr. Dulce Richards [phone]. His current pain regimen is oxycodone 20 mg every 6 hours. After discussion with the patient regarding left heart cath in the a.m. patient states that his pain is uncontrolled on current in-hospital regimen. Patient states he will leave AGAINST MEDICAL ADVICE prior to heart cath for scheduled pain management appointment if pain cannot be controlled. Importance of left heart cath procedure in setting of ongoing chest pain with abnormal stress test was stringently expressed to the patient including risk and potential benefits of the procedure and also risk of abandonment of care. Patient has significant history of abandoning cardiac care most notably 3 prior left heart caths that ultimately patient refused. Patient is currently in stable cardiac status. LHC in a.m. n.p.o. after midnight. Will follow This patient was seen in conjunction with Dr Mays who agrees with this assessment and plan of care (1) Syncope and collapse Current Visit: Yes Status: Acute (2) CVA (cerebral vascular accident) Current Visit: Yes Status: Suspected Qualifiers: Qualified Code(s): I63.9 - Cerebral infarction, unspecified (3) Atypical chest pain Current Visit: Yes Status: Acute (4) Breast mass in male Current Visit: Yes Status: Acute (5) Hypokalemia Current Visit: Yes Status: Acute (6) Chronic heart failure with preserved ejection fraction (HFpEF) Current Visit: Yes Status: Chronic (7) Hypertension Current Visit: Yes Status: Chronic Qualifiers: Hypertension type: essential hypertension Qualified Code(s): I10 - Essential (primary) hypertension (8) Hyperlipemia Current Visit: Yes Status: Chronic Qualifiers: Hyperlipidemia type: mixed hyperlipidemia Qualified Code(s): E78.2 - Mixed hyperlipidemia (9) DM2 (diabetes mellitus, type 2) Current Visit: Yes Status: Chronic (10) GERD (gastroesophageal reflux disease) Current Visit: Yes Status: Chronic (11) Morbid obesity Current Visit: Yes Status: Chronic (12) Obstructive sleep apnea Current Visit: Yes Status: Chronic (13) COPD (chronic obstructive pulmonary disease) Current Visit: Yes Status: Chronic (14) Tobacco abuse Current Visit: Yes Status: Chronic (15) History of pulmonary embolism Current Visit: Yes Status: Chronic Plan to address problem: 2014, S/p IVC Filter (16) History of CVA (cerebrovascular accident) Current Visit: Yes Status: Chronic (17) H/O cervical spine surgery Current Visit: Yes Status: Chronic (18) Rheumatoid arthritis Current Visit: Yes Status: Chronic (19) Chronic pain syndrome Current Visit: Yes Status: Chronic (20) Anxiety Current Visit: Yes Status: Chronic Subjective Date of service: 12/20/20 Principal diagnosis: CAD Interval history: Patient resting comfortably. No complaints of chest pain or SOB Sinus jazzmine 50s No events on monitor Objective Last Vital Signs Temp 98.9 F 12/20/20 07:39 Pulse 52 L 12/20/20 07:39 Resp 20 12/20/20 08:05 BP 116/72 12/20/20 09:18 Pulse Ox 97 12/20/20 07:39 - Physical Examination General: No Apparent Distress HEENT: Positive: PERRL Neck: Positive: neck supple, trachea midline Cardiac: Positive: Regular Rhythm, S1/S2, Bradycardia Lungs: Positive: Normal Exam, Normal Breath Sounds Neuro: Negative: Grossly Intact Abdomen: Negative: Unremarkable, Active Bowel Sounds Musculoskeletal: No Pain Extremities: Absent: upper extr. pulses, lower extr. pulses, edema - Imaging and Cardiology Nuclear stress test: report reviewed (Lexiscan NPI stress 12/20/2020 mild apical defect) Echo: pending - Telemetry EKG Rhythm: Sinus Bradycardia - EKG Sinus rhythms and dysrhythmias: sinus rhythm
[2020-12-20] MEDS ORDERED: SODIUM CHLORIDE 0.9% 500 ML 500 ML IV SCH (12:00)
--- NOTE | 2020-12-20 12:56 | Progress Note ---
Assessment and Plan Assessment and plan: This is a 55-year-old -[place] male who presents to the emergency department for the second time today with complaint of some dizziness/lightheadedness, midsternal to left-sided chest pain, near syncope, a fall with left hip pain. Patient has a past medical history that includes hypertension, chronic pain syndrome, COPD, CVA with some residual left-sided weakness. The patient was seen in the emergency department earlier today by my colleague, but this patient signed out AMA as he did not feel that his pain was being treated appropriately. He left to go to another emergency department but says that he never made it past our waiting room as he got weak, the pain increased, and he had "another fall." The patient's work-up earlier in the day included unremarkable labs including CBC, metabolic panel, negative troponin, and he had a chest x-ray that did not show any acute process. Patient says that he spoke to his voice data communications engineer, Dr. Degroot, yesterday and was told to come to the emergency department due to his symptoms and that he may need a stress test in the near future, allegedly. Currently his chest pain is intermittent and causes some electrical and/or shocklike pain that radiates to the left arm causing him to feel "heavy." ED work-up WBC 7.0 hemoglobin 15.8, platelet 214, sodium 136, potassium 3.0, creatinine 1.0, serum glucose 150 calcium 10.3 magnesium 1.9 hip x-ray no acute abnormality CT of the head no acute abnormality. Patient seen in the ED at bedside. Patient alert oriented x3. Patient denies any distress at the time of assessment. He said he came because of chest pain and he called his doctor and his doctor told him to come so that he can be seen in the morning. His doctor is a voice data communications engineer. I reviewed patient lab radiology report, medical record, vital sign medication record. Patient not in acute distress. Troponin was negative 12/20: Abnormal stress test. Continue supportive care. Plan for cardiac cath in a.m. Patient also has underlying chronic pain syndrome we will continue pain medication and adjust as tolerated. We will give potassium for replacement of mild hypokalemia Discussed with the cardiology team (1) Chest pain with abnormal stress test in the setting of history of CAD Current Visit: Yes Status: Acute Qualifiers: Chest pain type: unspecified Qualified Code(s): R07.9 - Chest pain, unspecified Plan to address problem: ? cause Troponin negative Chest x-ray with no acute finding V/S stable (2) Hypokalemia Current Visit: Yes Status: Acute Plan to address problem: replace potassium Monitor potassium level (3) chronic congestive heart failure with preserved EF (4) chronic pain syndrome and on chronic opioid (5) Anxiety Current Visit: No Status: Chronic Plan to address problem: Resume home antianxiety drug (6) HTN (hypertension) Current Visit: No Status: Chronic Qualifiers: Hypertension type: primary hypertension Qualified Code(s): I10 - Essential (primary) hypertension Plan to address problem: Monitor vital signs Resume home antihypertensive Hydralazine as needed (7) DM2 (diabetes mellitus, type 2) Current Visit: No Status: Chronic Plan to address problem: Monitor blood sugar with sliding scale Check hemoglobin A1c (8) DVT prophylaxis Current Visit: No Status: Acute Plan to address problem: scd (9) Full code status Current Visit: No Status: Acute Plan to address problem: Pt is full code History Interval history: Patient seen and examined, resting comfortable, No new complaints excepting wanting increased pain medicine dose for chronic pain. Underwent stress test today and was read as abnormal and is planned for cath tomorrow Hospitalist Physical - Physical exam Narrative exam: VITAL SIGNS: Reviewed. GENERAL: The patient appears normally developed, overly obese, chronic. Vital signs as documented. HEAD: No signs of head trauma. EYES: Pupils are equal. Extraocular motions intact. EARS: Hearing grossly intact. MOUTH: Oropharynx is normal. NECK: No adenopathy, no JVD. CHEST: Chest with clear breath sounds bilaterally. No wheezes, rales, or rh onchi. CARDIAC: Regular rate and rhythm. S1 and S2, without murmurs, gallops, or rubs. VASCULAR: No Edema. Peripheral pulses normal and equal in all extremities. ABDOMEN: Soft, non tender and non distended. No rebound or guarding, and no masses palpated. Bowel Sounds normal. MUSCULOSKELETAL: Well-healed incision on the back good range of motion of all major joints. Extremities without clubbing, cyanosis or edema. NEUROLOGIC EXAM: Alert and oriented x 3 No focal sensory or strength deficits. Speech normal. Follows commands. PSYCHIATRIC: Mood normal. SKIN: detail exam as documented in skin assessment - Constitutional Vitals: Temp Pulse Resp BP Pulse Ox 97.7 F 60 18 124/81 96 12/20/20 11:55 12/20/20 11:55 12/20/20 11:55 12/20/20 11:55 12/20/20 11:55 General appearance: Present: no acute distress HEART Score - HEART Score EKG: Normal Age: 45-65 Risk factors: > 3 risk factors or hx of atherosclerotic disease Troponin: Troponin T < 0.010 ng/mL (0.00-0.029) 12/18/20 21:30 Troponin: < normal limit - Critical Actions Critical Actions: 0-3 pts:0.9-1.7%risk of adverse cardiac event.Candidate for discharge Results - Labs CBC & Chem 7: 12/18/20 18:47 12/19/20 10:08 Labs: Laboratory Last Values WBC 7.0 K/mm3 (4.5-11.0) 12/18/20 18:47 RBC 4.78 M/mm3 (3.65-5.03) 12/18/20 18:47 Hgb 15.8 gm/dl (11.8-15.2) H 12/18/20 18:47 Hct 46.4 % (35.5-45.6) H 12/18/20 18:47 MCV 97 fl (84-94) H 12/18/20 18:47 MCH 33 pg (28-32) H 12/18/20 18:47 MCHC 34 % (32-34) 12/18/20 18:47 RDW 15.6 % (13.2-15.2) H 12/18/20 18:47 Plt Count 214 K/mm3 (140-440) 12/18/20 18:47 Lymph % (Auto) 31.3 % (13.4-35.0) 12/18/20 18:47 [place] % (Auto) 4.6 % (0.0-7.3) 12/18/20 18:47 Eos % (Auto) 8.2 % (0.0-4.3) H 12/18/20 18:47 Baso % (Auto) 0.9 % (0.0-1.8) 12/18/20 18:47 Lymph # (Auto) 2.2 K/mm3 (1.2-5.4) 12/18/20 18:47 [place] # (Auto) 0.3 K/mm3 (0.0-0.8) 12/18/20 18:47 Eos # (Auto) 0.6 K/mm3 (0.0-0.4) H 12/18/20 18:47 Baso # (Auto) 0.1 K/mm3 (0.0-0.1) 12/18/20 18:47 Seg Neutrophils % 55.0 % (40.0-70.0) 12/18/20 18:47 Seg Neutrophils # 3.8 K/mm3 (1.8-7.7) 12/18/20 18:47 Sodium 136 mmol/L (137-145) L 12/18/20 18:47 Potassium 3.0 mmol/L (3.6-5.0) L 12/19/20 10:08 Chloride 93.8 mmol/L (98-107) L 12/18/20 18:47 Carbon Dioxide 26 mmol/L (22-30) 12/18/20 18:47 Anion Gap 19 mmol/L 12/18/20 18:47 BUN 21 mg/dL (9-20) H 12/18/20 18:47 Creatinine 1.0 mg/dL (0.8-1.3) 12/18/20 18:47 Estimated GFR > 60 ml/min 12/18/20 18:47 BUN/Creatinine Ratio 21 % 12/18/20 18:47 Glucose 150 mg/dL (75-100) H 12/18/20 18:47 Calcium 10.3 mg/dL (8.4-10.2) H 12/18/20 18:47 Magnesium 1.90 mg/dL (1.7-2.3) 12/18/20 23:43 Total Bilirubin 0.60 mg/dL (0.1-1.2) 12/18/20 18:47 AST 25 units/L (5-40) 12/18/20 18:47 ALT 15 units/L (7-56) 12/18/20 18:47 Alkaline Phosphatase 64 units/L (35-129) 12/18/20 18:47 Troponin T < 0.010 ng/mL (0.00-0.029) 12/18/20 21:30 Total Protein 7.6 g/dL (6.3-8.2) 12/18/20 18:47 Albumin 4.1 g/dL (3.9-5) 12/18/20 18:47 Albumin/Globulin Ratio 1.2 % 12/18/20 18:47 Lipase 20 units/L (13-60) 12/18/20 18:47 TSH 0.774 mlU/mL (0.270-4.200) 12/18/20 23:43 [place]/IV: Voiding Method Urinal Active Medications - Current Medications Current Medications: Generic Name Dose Route Start Last Admin Trade Name Freq PRN Reason Stop Dose Admin Al Hydrox/Mg Hydrox/Simethicone 30 ml 12/19/20 01:42 12/19/20 22:01 Alum-Mag Hydroxide-Simethicone 168-642-05ni/5ml Oral Liqd 30 Ml PO 30 ml Q4H PRN Administration Indigestion Aspirin 81 mg 12/19/20 10:00 12/20/20 11:23 Aspirin 81 Mg Tab Chew PO 81 mg DAILY SHAHEED Administration Atorvastatin Calcium 40 mg 12/19/20 22:00 12/19/20 22:01 Atorvastatin 40 Mg Tab PO 40 mg QHS SHAHEED Administration Docusate Sodium 100 mg 12/19/20 01:54 Docusate Sodium 100 Mg Cap PO QID PRN Constipation Famotidine 20 mg 12/19/20 10:00 12/20/20 11:24 Famotidine 20 Mg Tab PO 20 mg BID SHAHEED Administration Gabapentin 800 mg 12/19/20 01:50 Gabapentin 400 Mg Cap PO 4XD PRN Neuropathy Heparin Sodium (Porcine) 5,000 unit 12/20/20 12:15 Heparin 5,000 Unit/1 Ml Vial SUB-Q Q12HR SHAHEED Sodium Chloride 500 mls @ 50 mls/hr 12/20/20 12:00 Nacl 0.9% 500 Ml IV 12/20/20 21:59 DIRECT SHAHEED Insulin Human Lispro 0 unit 12/19/20 07:30 12/20/20 08:22 Insulin Lispro 100 Unit/Ml SUB-Q Not Given ACHS [facility] Protocol Magnesium Hydroxide 30 ml 12/19/20 01:42 Magnesium Hydroxide (Mom) Oral Liqd Udc PO Q4H PRN Constipation Metoclopramide HCl 10 mg 12/19/20 01:42 Metoclopramide 10 Mg/2 Ml Inj IV Q6H PRN Nausea And Vomiting Mirtazapine 15 mg 12/19/20 01:50 12/19/20 22:05 Mirtazapine 15 Mg Tab PO 15 mg QHS PRN Administration Insomnia Miscellaneous Medication 1 drop 12/19/20 10:00 Timolol 0.5%-Dorzolamide 2% OU BID SHAHEED Naloxone HCl 0.1 mg 12/19/20 01:59 Naloxone 0.4 Mg/1 Ml Inj IV Q2MIN PRN Res Rate </= 8 or 02 SAT < 92% Ondansetron HCl 4 mg 12/19/20 01:59 Ondansetron 4 Mg/2 Ml Inj IV Q8H PRN Nausea And Vomiting Oxycodone HCl 10 mg 12/19/20 16:00 12/20/20 08:05 Oxycodone 5 Mg Tab PO 10 mg Q6H PRN Administration Pain, Moderate (4-6) Potassium Chloride 20 meq 12/19/20 10:00 12/20/20 11:24 Potassium Chloride Er 20 Meq Tab PO 20 meq QDAY SHAHEED Administration Senna 8.6 mg 12/19/20 01:42 Sennosides 8.6 Mg Tab PO Q12HR PRN Constipation Sodium Chloride 10 ml 12/19/20 10:00 12/19/20 22:28 Sodium Chloride 0.9% 10 Ml Flush Syringe IV 10 ml BID SHAHEED Administration Sodium Chloride 10 ml 12/19/20 01:42 Sodium Chloride 0.9% 10 Ml Flush Syringe IV PRN PRN LINE FLUSH Tamsulosin HCl 0.4 mg 12/19/20 22:00 12/19/20 22:01 Tamsulosin 0.4 Mg Cap PO 0.4 mg QHS SHAHEED Administration Torsemide 100 mg 12/19/20 10:00 12/20/20 11:24 Torsemide 100 Mg Tab PO 100 mg DAILY SHAHEED Administration
[2020-12-20 14:18] LABS: Eosinophils # (Auto) 0.4 K/mm3 (0.0-0.4); Eosinophils % (Auto) 9.5 % (0.0-4.3); Hemoglobin 13.7 gm/dl (11.8-15.2); Lymphocytes # (Auto) 1.8 K/mm3 (1.2-5.4); Lymphocytes % (Auto) 44.3 % (13.4-35.0); Mean Corpuscular HGB Conc 34 % (32-34); Mean Corpuscular Volume 96 fl (84-94); Monocytes # (Auto) 0.4 K/mm3 (0.0-0.8); Monocytes % (Auto) 9.6 % (0.0-7.3); Platelet Count 166 K/mm3 (140-440); Red Blood Count 4.17 M/mm3 (3.65-5.03)
[2020-12-20 14:45] LABS: Alanine Aminotransferase 12 units/L (7-56); Albumin 3.6 g/dL (3.9-5); BUN/Creatinine Ratio 20; Blood Urea Nitrogen 16 mg/dL (9-20); Calcium 9.6 mg/dL (8.4-10.2); Hemolysis Index 1
[2020-12-20] MEDS ORDERED: POTASSIUM CHLORIDE ER 20 MEQ TAB PO ONE (15:12)
[2020-12-20] MEDS: HEPARIN 5,000 UNIT/1 ML VIAL SUB-Q SCH ×2 (17:02→22:27)
--- NOTE | 2020-12-20 17:57 | Electrocardiograph Report ---
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
[2020-12-20] MEDS: TAMSULOSIN 0.4 MG CAP PO SCH (22:26)
[2020-12-20 23:25] VITALS: BP 125/79
[2020-12-21] MEDS: oxyCODONE 5 MG TAB PO PRN (00:36)
--- NOTE | 2020-12-21 10:46 | Electrocardiograph Report ---
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
== END 2020-12-21 00:36 | disposition left against medical advice (07) | DRG 641 ==
LOC: ED 18:04 → 4A 12-19 01:27 → OBSVTOIN 12-20 09:01
PROVIDERS: ADMIT Internal Medicine Geriatric Medicine; ATTEND Internal Medicine
DX: E87.6 Hypokalemia (principal); I50.32 Chronic diastolic (congestive) heart failure; I69.954 Hemiplegia and hemiparesis following unspecified cerebrovascular disease affecting left non-dominant side; R07.9 Chest pain, unspecified; F41.9 Anxiety disorder, unspecified; E78.5 Hyperlipidemia, unspecified; K21.9 Gastro-esophageal reflux disease without esophagitis; E66.01 Morbid (severe) obesity due to excess calories; Z68.35 Body mass index [BMI] 35.0-35.9, adult; M19.90 Unspecified osteoarthritis, unspecified site; I25.10 Atherosclerotic heart disease of native coronary artery without angina pectoris; E11.9 Type 2 diabetes mellitus without complications; F17.200 Nicotine dependence, unspecified, uncomplicated; I11.0 Hypertensive heart disease with heart failure; G47.33 Obstructive sleep apnea (adult) (pediatric); J44.9 Chronic obstructive pulmonary disease, unspecified; N63.0 Unspecified lump in unspecified breast; M06.9 Rheumatoid arthritis, unspecified; G89.4 Chronic pain syndrome; Z79.899 Other long term (current) drug therapy; Z88.8 Allergy status to other drugs, medicaments and biological substances; Z88.6 Allergy status to analgesic agent; Z82.49 Family history of ischemic heart disease and other diseases of the circulatory system; Z79.82 Long term (current) use of aspirin
CPT/HCPCS: 36415; 70450; 71045; 78452; 80048; 80053; 83690; 83735; 84132; 84443; 84484; 85025; 85610; 85730; 93005; 93017; 99406; G0378; A9270-GY; A9502; J1644; J2785; J3010; J7050

== ENCOUNTER 2021-02-05 02:37 | Inpatient (IN) | payer MEDICARE ==
[2021-02-05 04:08] LABS: Basophils # (Auto) 0.1 K/mm3 (0.0-0.1); Basophils % (Auto) 1.2 % (0.0-1.8); Eosinophils # (Auto) 0.6 K/mm3 (0.0-0.4); Hematocrit 42.7 % (35.5-45.6); Hemoglobin 14.8 gm/dl (11.8-15.2); Lymphocytes # (Auto) 2.2 K/mm3 (1.2-5.4); Mean Corpuscular HGB Conc 35 % (32-34); Mean Corpuscular Volume 96 fl (84-94); Monocytes # (Auto) 1.4 K/mm3 (0.0-0.8); Platelet Count 177 K/mm3 (140-440); Red Blood Count 4.44 M/mm3 (3.65-5.03); Red Cell Distribution Width 17.4 % (13.2-15.2)
--- NOTE | 2021-02-05 04:26 | XRay Report ---
CHEST 2 VIEWS INDICATION: chest pain. COMPARISON: 12/18/2020 FINDINGS: Support devices: None. Heart: Within normal limits. Lungs/Pleura: No acute air space or interstitial disease. No significant pleural effusion. IMPRESSION: No acute findings. Signer Name: Je Gerber MD Signed: 02/05/2021 4:22 AM Workstation Name: [id number]
[2021-02-05 04:33] LABS: Alanine Aminotransferase 23 units/L (7-56); Albumin 4.4 g/dL (3.9-5); BUN/Creatinine Ratio 13; Blood Urea Nitrogen 12 mg/dL (9-20); Calcium 9.8 mg/dL (8.4-10.2); Hemolysis Index 13
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
[2021-02-05] MEDS ORDERED: ASPIRIN 325 MG TAB PO STA (10:11)
--- NOTE | 2021-02-05 10:18 | Cat Scan Report ---
CT HEAD WITHOUT CONTRAST INDICATION / CLINICAL INFORMATION: head injury/dizzy. TECHNIQUE: All CT scans at this location are performed using CT dose reduction for ALARA by means of automated e xposure control. COMPARISON: Head CT 12/19/2020 FINDINGS: HEMORRHAGE: No evidence of intracranial hemorrhage or extra-axial fluid collection. EXTRA-AXIAL SPACES: Cortical sulci, sylvian fissures and basilar cisterns have an unremarkable appear ance. VENTRICULAR SYSTEM: The third and lateral ventricles are of normal size and configuration. CEREBRAL PARENCHYMA: No areas of abnormal brain parenchymal attenuation are identified. There is no i ndication of recent infarction. MIDLINE SHIFT OR HERNIATION: There is no mass effect. CEREBELLUM / BRAINSTEM: Brainstem and cerebellum have an unremarkable appearance. MIDLINE STRUCTURES:No abnormalities of the pituitary gland or pineal region are identified. INTRACRANIAL VESSELS:No abnormalities are identified on this noncontrast head CT. ORBITS: Status post left-sided cataract surgery. No additional abnormality. SOFT TISSUES of HEAD: No significant abnormality. CALVARIUM: Evaluation of bone windows reveals no abnormalities. PARANASAL SINUSES / MASTOID AIR CELLS: Visualized portions of the paranasal sinuses are free from inf lammatory mucosal disease. Mastoid air cells are normally pneumatized. IMPRESSION: 1. No significant intercranial abnormality identified on head CT without contrast. No interval change . Signer Name: Rivera Fairchild MD Signed: 02/05/2021 10:14 AM Workstation Name: [id number]
[2021-02-05] MEDS ORDERED: ONDANSETRON 4 MG/2 ML INJ IV PRN ×3 (10:20→10:26)
[2021-02-05] MEDS ORDERED: MORPHINE 2 MG/1 ML INJ IV PRN ×2 (10:20→10:26)
[2021-02-05] MEDS ORDERED: ACETAMINOPHEN 325 MG TAB PO PRN ×4 (10:20→10:30)
[2021-02-05] MEDS ORDERED: MORPHINE 4 MG/1 ML INJ IV PRN (10:23)
[2021-02-05] MEDS ORDERED: POTASSIUM CHLORIDE ER 20 MEQ TAB PO ONE ×2 (10:29→13:19)
[2021-02-05] MEDS ORDERED: NITROGLYCERIN 0.4 MG TAB SUBL SL PRN (10:30)
[2021-02-05] MEDS ORDERED: oxyCODONE 5 MG TAB PO ONE (11:32)
--- NOTE | 2021-02-05 12:10 | History and Physical Report ---
History of Present Illness Date of examination: 02/05/21 Date of admission: 02/05/21 Chief complaint: Chest pain History of present illness: Patient is 55 yo with hypertension, CAD, congestive heart failure, chronic pain. He presents with chest pain of few days duration. Chest pain 8/10, left sided, worse on exertion. He actually was admitted here last month was scheduled for cardiac cath but signed out against medical advice on 12/21/20. he was seen and evaluated in Emergency room. Three sets of Troponin are negative. Will place on Observation. Consult [facility] cardiology Past History Past Medical History: CAD, COPD, heart failure (Chronic diastolic), hypertension, hyperlipidemia, pulmonary embolism (s/p IVC filter placed), stroke, other (sleep apnea,chronic pain s. ) Past Surgical History: No surgical history Social history: Lives alone, smoking, full code Family history: hypertension Medications and Allergies Allergies Allergy/AdvReac Type Severity Reaction Status Date / Time acetaminophen [From Tylenol] Allergy Swelling Verified 12/10/20 14:26 tramadol Allergy Itching Verified 12/10/20 14:26 Home Medications Medication Instructions Recorded Confirmed Last Taken Type ALPRAZolam [Xanax TAB] 2 mg PO QID 02/05/21 02/06/21 Unknown History Gabapentin [Neurontin] 800 mg PO TID 02/05/21 02/05/21 Unknown History Loteprednol Etabonate [Lotemax Sm] 1 drop OD TID 02/05/21 02/05/21 Unknown History Oxycodone HCl [oxyCODONE] 20 mg PO Q6H PRN 02/05/21 02/05/21 Unknown History PARoxetine [Paxil] 20 mg PO DAILY 02/05/21 02/05/21 Unknown History Potassium Chloride [K-Dur] 20 meq PO QDAY 02/05/21 02/05/21 Unknown History Rosuvastatin Calcium [Crestor] 20 mg PO QDAY 02/05/21 02/05/21 Unknown History Sarilumab [Kevzara] 150 mg SQ Q14D 02/05/21 02/05/21 Unknown History Spironolactone [Aldactone] 25 mg PO QDAY 02/05/21 02/05/21 Unknown History Torsemide [Demadex] 100 mg PO TID 02/05/21 02/05/21 Unknown History carisoprodoL [Soma] 350 mg PO TID 02/05/21 02/05/21 Unknown History methOCARBAMOL [Robaxin TAB] 750 mg PO BID 02/05/21 02/05/21 Unknown History oxyCODONE [roxiCODONE] 5 mg PO BID PRN 02/05/21 02/05/21 Unknown History Active Meds: Active Medications Acetaminophen (Acetaminophen 325 Mg Tab) 650 mg PO Q6H PRN PRN Reason: Pain, Mild (1-3) Aspirin (Aspirin Ec 325 Mg Tab) 325 mg PO QDAY SHAHEED Hydromorphone HCl (Hydromorphone 1 Mg/1 Ml Inj) 0.5 mg IV Q3H PRN PRN Reason: Pain , Severe (7-10) Morphine Sulfate (Morphine 2 Mg/1 Ml Inj) 2 mg IV Q4H PRN PRN Reason: Pain, Moderate (4-6) Nitroglycerin (Nitroglycerin 0.4 Mg Tab Subl) 0.4 mg SL Q5M PRN PRN Reason: Chest Pain Ondansetron HCl (Ondansetron 4 Mg/2 Ml Inj) 4 mg IV Q8H PRN PRN Reason: Nausea And Vomiting Sodium Chloride (Sodium Chloride 0.9% 10 Ml Flush Syringe) 10 ml IV PRN PRN PRN Reason: LINE FLUSH Sodium Chloride (Sodium Chloride 0.9% 10 Ml Flush Syringe) 10 ml IV BID SHAHEED Sodium Chloride (Sodium Chloride 0.9% 10 Ml Flush Syringe) 10 ml IV PRN PRN PRN Reason: LINE FLUSH Sodium Chloride (Sodium Chloride 0.9% 10 Ml Flush Syringe) 10 ml IV PRN PRN PRN Reason: LINE FLUSH Review of Systems All systems: negative (No fever, no abd pain, no diarrhea. All other systems reviewed and are negative) Exam - Physical Exam Narrative exam: Gen:Not in acute distress, sitting up in chair HEENT:Normocephalic, atraumatic Neck:supple, no JVD Lungs: Clear to auscultation bilaterally, no wheeze Heart:S1 and S2 reg, no murmurs, rubs or gallop Abd:Soft, non tender, non distended, normal bowel sounds Ext:No edema. no clubbing, no cyanosis Neuro:Awake, alert, oriented X 3, moves all ext - Constitutional Vitals: Temp Pulse Resp BP Pulse Ox 98.5 F 77 18 127/84 100 02/05/21 03:03 02/05/21 03:03 02/05/21 03:03 02/05/21 03:03 02/05/21 03:03 HEART Score - HEART Score EKG: Normal Age: 45-65 Risk factors: > 3 risk factors or hx of atherosclerotic disease Troponin: Troponin T < 0.010 ng/mL (0.00-0.029) 02/05/21 09:36 Troponin: < normal limit - Critical Actions Critical Actions: 4-6 pts:12-16.6% risk of adverse cardiac event. Should be admitted Results - Labs CBC & Chem 7: 02/06/21 04:36 02/06/21 04:36 Labs: Abnormal lab results 02/05/21 02/05/21 Range/Units 03:43 03:43 MCV 96 H (84-94) fl MCH 33 H (28-32) pg MCHC 35 H (32-34) % RDW 17.4 H (13.2-15.2) % Morris % (Auto) 14.0 H (0.0-7.3) % Eos % (Auto) 6.0 H (0.0-4.3) % Morris # (Auto) 1.4 H (0.0-0.8) K/mm3 Eos # (Auto) 0.6 H (0.0-0.4) K/mm3 Potassium 3.3 L (3.6-5.0) mmol/L Assessment and Plan Chest pain Place on Observation Was admitted here last month, was scheduled for cardiac cath but signed out AMA on 12/21 Troponins neg Aspirin Nitro prn Consult cardiology Hypertension Monitor BP CAD Chronic diastolic CHF Monotor Fluid I/o Hyperlipidemia Statin Chronic pain Continue meds from home prn Full code status Non-compliant I discussed with him importance of compliance with medications and procedures.
[2021-02-05] MEDS ORDERED: ASPIRIN 325 MG TAB ONE (13:18)
[2021-02-05] MEDS: HYDROmorphone 1 MG/1 ML INJ IV PRN ×2 (19:06→22:10)
[2021-02-05] MEDS ORDERED: ALPRAZolam 1 MG TAB PO ONE (22:16)
[2021-02-05] MEDS ORDERED: oxyCODONE 5 MG TAB PO PRN (22:40)
[2021-02-05] MEDS ORDERED: OXYCODONE 15 MG TAB PO PRN (22:47)
[2021-02-05] MEDS ORDERED: oxyCODONE 5 MG TAB PO SCH (23:00)
[2021-02-05] MEDS: oxyCODONE 5 MG TAB PO PRN (23:12)
[2021-02-05] MEDS: OXYCODONE 15 MG TAB PO PRN (23:12)
[2021-02-06] MEDS: oxyCODONE 5 MG TAB PO PRN ×4 (05:51→22:37)
[2021-02-06 06:07] LABS: Hematocrit 38.7 % (35.5-45.6); Hemoglobin 13.2 gm/dl (11.8-15.2); Mean Corpuscular HGB Conc 34 % (32-34); Mean Corpuscular Volume 98 fl (84-94); Platelet Count 139 K/mm3 (140-440); Red Blood Count 3.94 M/mm3 (3.65-5.03); Red Cell Distribution Width 17.2 % (13.2-15.2)
[2021-02-06 06:12] LABS: BUN/Creatinine Ratio 15; Blood Urea Nitrogen 17 mg/dL (9-20); Calcium 9.6 mg/dL (8.4-10.2); Hemolysis Index 9
[2021-02-06] MEDS ORDERED: oxyCODONE 5 MG TAB PO PRN (07:36)
[2021-02-06] MEDS ORDERED: NON-FORMULARY EACH (Gabapentin [Neurontin] 800 MG Tablet) PO SCH (08:00)
[2021-02-06] MEDS ORDERED: LOTEPREDNOL ETABONATE OD SCH (08:00)
[2021-02-06 09:17] LABS: Total Cells Counted 100
[2021-02-06 09:18] LABS: Anisocytosis 1+; Platelet Estimate Consistent w Auto
[2021-02-06] MEDS ORDERED: NON-FORMULARY EACH (Rosuvastatin Calcium [Crestor] 20 MG Tablet) PO SCH (10:00)
[2021-02-06] MEDS: ASPIRIN EC 325 MG TAB PO SCH (10:04)
[2021-02-06] MEDS: GABAPENTIN 400 MG CAP PO SCH ×3 (10:04→21:51)
[2021-02-06] MEDS: SPIRONOLACTONE 25 MG TAB PO SCH (10:04)
[2021-02-06] MEDS: CARISOPRODOL 350 MG TAB PO SCH ×3 (10:05→21:38)
[2021-02-06] MEDS: OXYCODONE 15 MG TAB PO PRN ×3 (10:05→21:50)
[2021-02-06] MEDS: PARoxetine 20 MG TAB PO SCH (10:05)
[2021-02-06] MEDS: TORSEMIDE 100 MG TAB PO SCH ×3 (12:05→21:38)
--- NOTE | 2021-02-06 13:03 | Progress Note ---
Assessment and Plan Assessment and plan: Chest pain Placed on Observation Was admitted here last month, was scheduled for cardiac cath but signed out AMA on 12/21 Troponins neg Aspirin Nitro prn Consulted cardiology Hypertension Monitor BP CAD Chronic diastolic CHF Monotor Fluid I/o Hyperlipidemia Statin Chronic pain Continue meds from home prn Thrombocytopenia DVT prophylaxis. SCDs only. Has low platelets Full code status Non-compliant I discussed with him importance of compliance with medications and procedures. 02/06/21 Patient admitted yesterday for chest pain. Cardiology consulted. Hypokalemia. Give oral Potassium Keep NPO after MN, for poss Thrombocytopenia. No anticoag for DVT prophylaxis because low platelets. History Interval history: Chest pain on and off Hospitalist Physical - Physical exam Narrative exam: Gen:Not in acute distress, sitting up in chair HEENT:Normocephalic, atraumatic Neck:supple, no JVD Lungs: Clear to auscultation bilaterally, no wheeze Heart:S1 and S2 reg, no murmurs, rubs or gallop Abd:Soft, non tender, non distended, normal bowel sounds Ext:No edema. no clubbing, no cyanosis Neuro:Awake, alert, oriented X 3, moves all ext - Constitutional Vitals: Temp Pulse Resp BP Pulse Ox 98.1 F 72 20 108/70 96 02/06/21 07:50 02/06/21 07:50 02/06/21 07:50 02/06/21 07:50 02/06/21 07:50 HEART Score - HEART Score EKG: Normal Age: 45-65 Risk factors: > 3 risk factors or hx of atherosclerotic disease Troponin: Troponin T < 0.010 ng/mL (0.00-0.029) 02/05/21 09:36 Troponin: < normal limit - Critical Actions Critical Actions: 4-6 pts:12-16.6% risk of adverse cardiac event. Should be admitted Results - Labs CBC & Chem 7: 02/06/21 04:36 02/06/21 04:36 Labs: Laboratory Last Values WBC 9.6 K/mm3 (4.5-11.0) 02/06/21 04:36 RBC 3.94 M/mm3 (3.65-5.03) 02/06/21 04:36 Hgb 13.2 gm/dl (11.8-15.2) 02/06/21 04:36 Hct 38.7 % (35.5-45.6) 02/06/21 04:36 MCV 98 fl (84-94) H 02/06/21 04:36 MCH 34 pg (28-32) H 02/06/21 04:36 MCHC 34 % (32-34) 02/06/21 04:36 RDW 17.2 % (13.2-15.2) H 02/06/21 04:36 Plt Count 139 K/mm3 (140-440) L 02/06/21 04:36 Lymph % (Auto) 22.0 % (13.4-35.0) 02/05/21 03:43 Edgar % (Auto) [employer] Installer 02/06/21 04:36 Eos % (Auto) 6.0 % (0.0-4.3) H 02/05/21 03:43 Baso % (Auto) 1.2 % (0.0-1.8) 02/05/21 03:43 Lymph # (Auto) 2.2 K/mm3 (1.2-5.4) 02/05/21 03:43 Edgar # (Auto) 1.4 K/mm3 (0.0-0.8) H 02/05/21 03:43 Eos # (Auto) 0.6 K/mm3 (0.0-0.4) H 02/05/21 03:43 Baso # (Auto) 0.1 K/mm3 (0.0-0.1) 02/05/21 03:43 Add Manual Diff Complete 02/06/21 04:36 Total Counted 100 02/06/21 04:36 Seg Neutrophils % 56.8 % (40.0-70.0) 02/05/21 03:43 Seg Neuts % (Manual) 52.0 % (40.0-70.0) 02/06/21 04:36 Lymphocytes % (Manual) 20.0 % (13.4-35.0) 02/06/21 04:36 Monocytes % (Manual) 19.0 % (0.0-7.3) H 02/06/21 04:36 Eosinophils % (Manual) 8.0 % (0.0-4.3) H 02/06/21 04:36 Basophils % (Manual) 1.0 % (0.0-1.8) 02/06/21 04:36 Nucleated RBC % Not Reportable 02/06/21 04:36 Seg Neutrophils # 5.7 K/mm3 (1.8-7.7) 02/05/21 03:43 Seg Neutrophils # Man 5.0 K/mm3 (1.8-7.7) 02/06/21 04:36 Band Neutrophils # 0.0 K/mm3 02/06/21 04:36 Lymphocytes # (Manual) 1.9 K/mm3 (1.2-5.4) 02/06/21 04:36 Abs React Lymphs (Man) 0.0 K/mm3 02/06/21 04:36 Monocytes # (Manual) 1.8 K/mm3 (0.0-0.8) H 02/06/21 04:36 Eosinophils # (Manual) 0.8 K/mm3 (0.0-0.4) H 02/06/21 04:36 Basophils # (Manual) 0.1 K/mm3 (0.0-0.1) 02/06/21 04:36 Metamyelocytes # 0.0 K/mm3 02/06/21 04:36 Myelocytes # 0.0 K/mm3 02/06/21 04:36 Promyelocytes # 0.0 K/mm3 02/06/21 04:36 Blast Cells # 0.0 K/mm3 02/06/21 04:36 WBC Morphology Not Reportable 02/06/21 04:36 Hypersegmented Neuts Not Reportable 02/06/21 04:36 Hyposegmented Neuts Not Reportable 02/06/21 04:36 Hypogranular Neuts Not Reportable 02/06/21 04:36 Smudge Cells Not Reportable 02/06/21 04:36 Toxic Granulation Not Reportable 02/06/21 04:36 Toxic Vacuolation Not Reportable 02/06/21 04:36 Dohle Bodies Not Reportable 02/06/21 04:36 Pelger-Huet Anomaly Not Reportable 02/06/21 04:36 Elmer Rods Not Reportable 02/06/21 04:36 Platelet Estimate Consistent w auto 02/06/21 04:36 Clumped Platelets Not Reportable 02/06/21 04:36 Plt Clumps, EDTA Not Reportable 02/06/21 04:36 Large Platelets Not Reportable 02/06/21 04:36 Giant Platelets Not Reportable 02/06/21 04:36 Platelet Satelliting Not Reportable 02/06/21 04:36 Plt Morphology Comment Not Reportable 02/06/21 04:36 RBC Morphology Not Reportable 02/06/21 04:36 Dimorphic RBCs Not Reportable 02/06/21 04:36 Polychromasia Not Reportable 02/06/21 04:36 Hypochromasia Not Reportable 02/06/21 04:36 Poikilocytosis Not Reportable 02/06/21 04:36 Anisocytosis 1+ 02/06/21 04:36 Microcytosis Not Reportable 02/06/21 04:36 Macrocytosis Not Reportable 02/06/21 04:36 Spherocytes Not Reportable 02/06/21 04:36 Pappenheimer Bodies Not Reportable 02/06/21 04:36 Sickle Cells Not Reportable 02/06/21 04:36 Target Cells Not Reportable 02/06/21 04:36 Tear Drop Cells Not Reportable 02/06/21 04:36 Ovalocytes Not Reportable 02/06/21 04:36 Helmet Cells Not Reportable 02/06/21 04:36 Martinez-Lewellen Bodies Not Reportable 02/06/21 04:36 [place] Rings Not Reportable 02/06/21 04:36 Padmini Cells Not Reportable 02/06/21 04:36 Bite Cells Not Reportable 02/06/21 04:36 Crenated Cell Not Reportable 02/06/21 04:36 Elliptocytes Not Reportable 02/06/21 04:36 Acanthocytes (Spur) Not Reportable 02/06/21 04:36 Rouleaux Not Reportable 02/06/21 04:36 Hemoglobin C Crystals Not Reportable 02/06/21 04:36 Schistocytes Not Reportable 02/06/21 04:36 Malaria parasites Not Reportable 02/06/21 04:36 Oni Bodies Not Reportable 02/06/21 04:36 Hem Pathologist Commnt No 02/06/21 04:36 Sodium 140 mmol/L (137-145) 02/06/21 04:36 Potassium 3.3 mmol/L (3.6-5.0) L 02/06/21 04:36 Chloride 100.8 mmol/L (98-107) 02/06/21 04:36 Carbon Dioxide 29 mmol/L (22-30) 02/06/21 04:36 Anion Gap 14 mmol/L 02/06/21 04:36 BUN 17 mg/dL (9-20) 02/06/21 04:36 Creatinine 1.1 mg/dL (0.8-1.3) 02/06/21 04:36 Estimated GFR > 60 ml/min 02/06/21 04:36 BUN/Creatinine Ratio 15 % 02/06/21 04:36 Glucose 100 mg/dL (75-100) 02/06/21 04:36 POC Glucose 129 mg/dL (70-105) H 02/06/21 12:06 Calcium 9.6 mg/dL (8.4-10.2) 02/06/21 04:36 Total Bilirubin 1.00 mg/dL (0.1-1.2) 02/05/21 03:43 AST 33 units/L (5-40) 02/05/21 03:43 ALT 23 units/L (7-56) 02/05/21 03:43 Alkaline Phosphatase 53 units/L (35-129) 02/05/21 03:43 Troponin T < 0.010 ng/mL (0.00-0.029) 02/05/21 09:36 NT-Pro-B Natriuret Pep 13.81 pg/mL (0-900) 02/05/21 06:27 Total Protein 8.0 g/dL (6.3-8.2) 02/05/21 03:43 Albumin 4.4 g/dL (3.9-5) 02/05/21 03:43 Albumin/Globulin Ratio 1.2 % 02/05/21 03:43 [place]/IV: Voiding Method Toilet Active Medications - Current Medications Current Medications: Generic Name Dose Route Start Last Admin Trade Name Freq PRN Reason Stop Dose Admin Acetaminophen 650 mg 02/05/21 10:30 Acetaminophen 325 Mg Tab PO Q6H PRN Pain, Mild (1-3) Aspirin 325 mg 02/06/21 10:00 02/06/21 10:04 Aspirin Ec 325 Mg Tab PO 325 mg QDAY SHAHEED Administration Atorvastatin Calcium 40 mg 02/06/21 22:00 Atorvastatin 40 Mg Tab PO QHS SHAHEED Carisoprodol 350 mg 02/06/21 08:00 02/06/21 10:05 Carisoprodol 350 Mg Tab PO 350 mg TID SHAHEED Administration Gabapentin 800 mg 02/06/21 08:00 02/06/21 10:04 Gabapentin 400 Mg Cap PO 800 mg TID SHAHEED Administration Hydromorphone HCl 0.5 mg 02/05/21 10:26 02/05/21 22:10 Hydromorphone 1 Mg/1 Ml Inj IV 0.5 mg Q3H PRN Administration Pain , Severe (7-10) Methocarbamol 750 mg 02/06/21 10:00 02/06/21 12:05 Methocarbamol 750 Mg Tab PO 750 mg BID SHAHEED Administration Miscellaneous Medication 1 drop 02/06/21 08:00 Loteprednol Etabonate [Lotemax Sm] OD TID SHAHEED Morphine Sulfate 2 mg 02/05/21 10:26 02/05/21 20:35 Morphine 2 Mg/1 Ml Inj IV 2 mg Q4H PRN Administration Pain, Moderate (4-6) Nitroglycerin 0.4 mg 02/05/21 10:30 Nitroglycerin 0.4 Mg Tab Subl SL Q5M PRN Chest Pain Ondansetron HCl 4 mg 02/05/21 10:20 Ondansetron 4 Mg/2 Ml Inj IV Q8H PRN Nausea And Vomiting Oxycodone HCl 10 mg 02/05/21 22:52 02/06/21 10:04 Oxycodone 5 Mg Tab PO 10 mg Q6H PRN Administration Pain, Moderate (4-6) Oxycodone HCl 5 mg 02/06/21 07:36 Oxycodone 5 Mg Tab PO BID PRN Pain , Severe (7-10) Paroxetine HCl 20 mg 02/06/21 10:00 02/06/21 10:05 Paroxetine 20 Mg Tab PO 20 mg DAILY SHAHEED Administration Sodium Chloride 10 ml 02/05/21 10:20 Sodium Chloride 0.9% 10 Ml Flush Syringe IV PRN PRN LINE FLUSH Sodium Chloride 10 ml 02/05/21 22:00 02/06/21 10:05 Sodium Chloride 0.9% 10 Ml Flush Syringe IV 10 ml BID SHAHEED Administration Sodium Chloride 10 ml 02/05/21 10:26 Sodium Chloride 0.9% 10 Ml Flush Syringe IV PRN PRN LINE FLUSH Sodium Chloride 10 ml 02/05/21 10:30 Sodium Chloride 0.9% 10 Ml Flush Syringe IV PRN PRN LINE FLUSH Spironolactone 25 mg 02/06/21 10:00 02/06/21 10:04 Spironolactone 25 Mg Tab PO 25 mg QDAY SHAHEED Administration Torsemide 100 mg 02/06/21 08:00 02/06/21 12:05 Torsemide 100 Mg Tab PO 100 mg TID SHAHEED Administration
[2021-02-06] MEDS: POTASSIUM CHLORIDE ER 20 MEQ TAB PO SCH ×2 (17:21→22:37)
[2021-02-06] MEDS: ALPRAZolam 1 MG TAB PO PRN (21:43)
[2021-02-07] MEDS: oxyCODONE 5 MG TAB PO PRN ×4 (04:34→22:42)
[2021-02-07] MEDS: ALPRAZolam 1 MG TAB PO PRN ×2 (04:35→09:55)
[2021-02-07] MEDS: OXYCODONE 15 MG TAB PO PRN ×4 (04:35→22:31)
[2021-02-07 06:34] LABS: BUN/Creatinine Ratio 19; Blood Urea Nitrogen 25 mg/dL (9-20); Calcium 9.3 mg/dL (8.4-10.2); Hemolysis Index 5
--- NOTE | 2021-02-07 06:56 | Consultation ---
History of Present Illness Consult date: 02/06/21 Requesting physician: ADENIKE MORGAN Consult reason: chest pain History of present illness: Pt is a 55-year-old AA male with a past medical hx of chronic HFpEF, HTN, HLD, DM2, CVA, COPD, JENNIFER (non-compliant with CPAP), and PE (in 2014, s/p IVC filter placement) presents sharpt chest pain and fall. He has been seen by our practice on multiple previous admissions. At time of interview patient is complaining of chest pain described as sharpt shooting pain. This pain is similar to his chronic chest pain. During interview patient requested anxiety medication. He has been scheduled for cardiac cath several times but ultimately refuses on day of procedure. Past History Past Medical History: CAD, COPD, heart failure (Chronic diastolic), hypertension, hyperlipidemia, pulmonary embolism (s/p IVC filter placed), stroke, other (sleep apnea,chronic pain s. ) Past Surgical History: No surgical history Social history: Lives alone, smoking, full code Family history: hypertension Medications and Allergies Allergies Allergy/AdvReac Type Severity Reaction Status Date / Time acetaminophen [From Tylenol] Allergy Swelling Verified 12/10/20 14:26 tramadol Allergy Itching Verified 12/10/20 14:26 Home Medications Medication Instructions Recorded Confirmed Last Taken Type ALPRAZolam [Xanax TAB] 2 mg PO QDAY PRN 02/05/21 02/06/21 Unknown History Gabapentin [Neurontin] 800 mg PO TID 02/05/21 02/05/21 Unknown History Loteprednol Etabonate [Lotemax Sm] 1 drop OD TID 02/05/21 02/05/21 Unknown History Oxycodone HCl [oxyCODONE] 20 mg PO Q6H PRN 02/05/21 02/05/21 Unknown History PARoxetine [Paxil] 20 mg PO DAILY 02/05/21 02/05/21 Unknown History Potassium Chloride [K-Dur] 20 meq PO QDAY 02/05/21 02/05/21 Unknown History Rosuvastatin Calcium [Crestor] 20 mg PO QDAY 02/05/21 02/05/21 Unknown History Sarilumab [Kevzara] 150 mg SQ Q14D 02/05/21 02/05/21 Unknown History Spironolactone [Aldactone] 25 mg PO QDAY 02/05/21 02/05/21 Unknown History Torsemide [Demadex] 100 mg PO TID 02/05/21 02/05/21 Unknown History carisoprodoL [Soma] 350 mg PO TID 02/05/21 02/05/21 Unknown History methOCARBAMOL [Robaxin TAB] 750 mg PO BID 02/05/21 02/05/21 Unknown History oxyCODONE [roxiCODONE] 5 mg PO BID PRN 02/05/21 02/05/21 Unknown History Active Meds: Active Medications Acetaminophen (Acetaminophen 325 Mg Tab) 650 mg PO Q6H PRN PRN Reason: Pain, Mild (1-3) Alprazolam (Alprazolam 1 Mg Tab) 2 mg PO QDAY PRN PRN Reason: Anxiety Last Admin: 02/07/21 04:35 Dose: 2 mg Documented by: Aspirin (Aspirin Ec 325 Mg Tab) 325 mg PO QDAY [facility] Last Admin: 02/06/21 10:04 Dose: 325 mg Documented by: Atorvastatin Calcium (Atorvastatin 40 Mg Tab) 40 mg PO QHS [facility] Last Admin: 02/06/21 21:38 Dose: 40 mg Documented by: Carisoprodol (Carisoprodol 350 Mg Tab) 350 mg PO TID [facility] Last Admin: 02/06/21 21:38 Dose: 350 mg Documented by: Gabapentin (Gabapentin 400 Mg Cap) 800 mg PO TID [facility] Last Admin: 02/06/21 21:51 Dose: 800 mg Documented by: Hydromorphone HCl (Hydromorphone 1 Mg/1 Ml Inj) 0.5 mg IV Q3H PRN PRN Reason: Pain , Severe (7-10) Last Admin: 02/05/21 22:10 Dose: 0.5 mg Documented by: Methocarbamol (Methocarbamol 750 Mg Tab) 750 mg PO BID [facility] Last Admin: 02/06/21 21:38 Dose: 750 mg Documented by: Miscellaneous Medication (Loteprednol Etabonate [Lotemax Sm]) 1 drop OD TID [facility] Morphine Sulfate (Morphine 2 Mg/1 Ml Inj) 2 mg IV Q4H PRN PRN Reason: Pain, Moderate (4-6) Last Admin: 02/05/21 20:35 Dose: 2 mg Documented by: Nitroglycerin (Nitroglycerin 0.4 Mg Tab Subl) 0.4 mg SL Q5M PRN PRN Reason: Chest Pain Ondansetron HCl (Ondansetron 4 Mg/2 Ml Inj) 4 mg IV Q8H PRN PRN Reason: Nausea And Vomiting Oxycodone HCl (Oxycodone 5 Mg Tab) 10 mg PO Q6H PRN PRN Reason: Pain, Moderate (4-6) Last Admin: 02/07/21 04:34 Dose: 10 mg Documented by: Oxycodone HCl (Oxycodone 5 Mg Tab) 5 mg PO BID PRN PRN Reason: Pain , Severe (7-10) Paroxetine HCl (Paroxetine 20 Mg Tab) 20 mg PO DAILY [facility] Last Admin: 02/06/21 10:05 Dose: 20 mg Documented by: Sodium Chloride (Sodium Chloride 0.9% 10 Ml Flush Syringe) 10 ml IV PRN PRN PRN Reason: LINE FLUSH Sodium Chloride (Sodium Chloride 0.9% 10 Ml Flush Syringe) 10 ml IV BID [facility] Last Admin: 02/06/21 21:40 Dose: 10 ml Documented by: Sodium Chloride (Sodium Chloride 0.9% 10 Ml Flush Syringe) 10 ml IV PRN PRN PRN Reason: LINE FLUSH Sodium Chloride (Sodium Chloride 0.9% 10 Ml Flush Syringe) 10 ml IV PRN PRN PRN Reason: LINE FLUSH Spironolactone (Spironolactone 25 Mg Tab) 25 mg PO QDAY [facility] Last Admin: 02/06/21 10:04 Dose: 25 mg Documented by: Torsemide (Torsemide 100 Mg Tab) 100 mg PO TID [facility] Last Admin: 02/06/21 21:38 Dose: 100 mg Documented by: Review of Systems Constitutional: no fever, no chills, no sweats Ears, nose, mouth and throat: deferred Cardiovascular: chest pain, lightheadedness Respiratory: no dyspnea on exertion, no wheezing Gastrointestinal: no nausea, no vomiting, no diarrhea Genitourinary Male: no flank pain Rectal: no incontinence, no bleeding Musculoskeletal: no neck pain Integumentary: no redness, no sores Neurological: weakness Physical Examination Vital Signs Temp Pulse Resp BP Pulse Ox 98.5 F 77 18 127/84 100 02/05/21 03:03 02/05/21 03:03 02/05/21 03:03 02/05/21 03:03 02/05/21 03:03 General appearance: no acute distress HEENT: Positive: PERRL Neck: Positive: neck supple, trachea midline Cardiac: Positive: Reg Rate and Rhythm Lungs: Positive: Normal Breath Sounds Neuro: Positive: Grossly Intact Abdomen: Positive: Soft, Active Bowel Sounds Male genitourinary: Positive: deferred Skin: Negative: Rash, Suspicious Lesions Extremities: Absent: edema Results 02/06/21 04:36 02/07/21 05:51 Comprehensive Metabolic Panel 02/07/21 Range/Units 05:51 Sodium 136 L (137-145) mmol/L Potassium 3.3 L (3.6-5.0) mmol/L Chloride 98.8 (98-107) mmol/L Carbon Dioxide 28 (22-30) mmol/L BUN 25 H (9-20) mg/dL Creatinine 1.3 (0.8-1.3) mg/dL Glucose 111 H (75-100) mg/dL Calcium 9.3 (8.4-10.2) mg/dL EKG interpretations - Telemetry EKG Rhythm: Sinus Rhythm Assessment and Plan Chest Pain Hypokalemia Chronic HFpEF Fall H/O CVA COPD No EKG changes Negative cardiac enzymes MPI 12/29: small moderate apical defect Pt agreeable to [facility] now
[2021-02-07] MEDS ORDERED: SODIUM CHLORIDE 0.9% 500 ML 500 ML IV SCH ×2 (08:00→11:00)
[2021-02-07] MEDS: TORSEMIDE 100 MG TAB PO SCH ×3 (09:00→20:19)
[2021-02-07] MEDS: HYDROmorphone 1 MG/1 ML INJ IV PRN ×3 (09:50→20:29)
[2021-02-07] MEDS: ASPIRIN EC 325 MG TAB PO SCH (09:53)
[2021-02-07] MEDS: GABAPENTIN 400 MG CAP PO SCH ×3 (09:55→20:19)
[2021-02-07] MEDS: SPIRONOLACTONE 25 MG TAB PO SCH (09:55)
[2021-02-07] MEDS: CARISOPRODOL 350 MG TAB PO SCH ×3 (09:56→20:20)
[2021-02-07] MEDS: PARoxetine 20 MG TAB PO SCH (09:56)
--- NOTE | 2021-02-07 10:29 | Progress Note ---
Assessment and Plan Chest pain * Chest pain is chronic. Cardiac enzymes negative. AMI ruled out * Lexiscan NPI stress test 12/20/2020 shows small apical defect * Patient ate food this AM. LHC for today canceled. After lengthy discussion with patient will plan for LHC in AM. NPO after midnight. Chronic HFpEF * Echo 10/22/2020: LVEF is 50 to 55%. LV normal size. LV SF is normal. Mild LVH. Mild diastolic dysfunction. RV SF is normal. RA mildly dilated. RVSP is 24 mmHg. * Continue Torsemide 100mg TID, Spironolactone 25mg QD, HLD * Lipitor 40mg QHS LHc in AM. NPO after AM Patient seen in conjunction with Dr. Sandoval who agrees with this plan of care. Will continue to follow - Patient Problems (1) Chest pain Current Visit: Yes Status: Acute (2) Atypical chest pain Current Visit: No Status: Acute (3) Hypokalemia Current Visit: No Status: Acute (4) Anxiety Current Visit: No Status: Chronic (5) COPD (chronic obstructive pulmonary disease) Current Visit: No Status: Chronic (6) CVA, old, alterations of sensations Current Visit: No Status: Chronic (7) Chronic heart failure with preserved ejection fraction (HFpEF) Current Visit: No Status: Chronic (8) Chronic pain Current Visit: No Status: Chronic Qualifiers: Chronic pain type: chronic pain syndrome Qualified Code(s): G89.4 - Chronic pain syndrome (9) DM2 (diabetes mellitus, type 2) Current Visit: No Status: Chronic (10) HTN (hypertension) Current Visit: No Status: Chronic Qualifiers: Hypertension type: primary hypertension Qualified Code(s): I10 - Essential (primary) hypertension (11) History of CVA (cerebrovascular accident) Current Visit: No Status: Chronic (12) History of pulmonary embolism Current Visit: No Status: Chronic (13) Hypertension Current Visit: No Status: Chronic Qualifiers: Hypertension type: essential hypertension Qualified Code(s): I10 - Essential (primary) hypertension (14) Morbid obesity Current Visit: No Status: Chronic (15) Obstructive sleep apnea Current Visit: No Status: Chronic Subjective Date of service: 02/07/21 Principal diagnosis: chest pain Interval history: Patient sitting in bed. Patient ate food this morning so LHC canceled for today. Patient not on monitor Objective Last Vital Signs Temp 98.4 F 02/07/21 07:44 Pulse 86 02/07/21 07:44 Resp 18 02/07/21 07:44 BP 119/80 02/07/21 07:44 Pulse Ox 97 02/07/21 07:44 - Physical Examination General: No Apparent Distress HEENT: Positive: PERRL Neck: Positive: neck supple, trachea midline Cardiac: Positive: Reg Rate and Rhythm Lungs: Positive: Normal Breath Sounds Neuro: Positive: Grossly Intact Abdomen: Positive: Soft, Active Bowel Sounds Skin: Negative: Rash, Suspicious Lesions Extremities: Present: upper extr. pulses, lower extr. pulses. Absent: edema - Labs and Meds Comprehensive Metabolic Panel 02/07/21 Range/Units 05:51 Sodium 136 L (137-145) mmol/L Potassium 3.3 L (3.6-5.0) mmol/L Chloride 98.8 (98-107) mmol/L Carbon Dioxide 28 (22-30) mmol/L BUN 25 H (9-20) mg/dL Creatinine 1.3 (0.8-1.3) mg/dL Glucose 111 H (75-100) mg/dL Calcium 9.3 (8.4-10.2) mg/dL - Imaging and Cardiology Nuclear stress test: report reviewed Echo: report reviewed Cardiac cath: pending - Telemetry EKG Rhythm: Sinus Rhythm - EKG Sinus rhythms and dysrhythmias: sinus rhythm
[2021-02-07] MEDS ORDERED: ASPIRIN EC 325 MG TAB PO ONE (10:33)
--- NOTE | 2021-02-07 11:12 | Progress Note ---
Assessment and Plan Assessment and plan: Chest pain Placed on Observation Was admitted here last month, was scheduled for cardiac cath but signed out AMA on 12/21 Troponins neg Aspirin Nitro prn Consulted cardiology Hypertension Monitor BP CAD Chronic diastolic CHF Monotor Fluid I/o Hyperlipidemia Statin Chronic pain Continue meds from home prn Thrombocytopenia DVT prophylaxis. SCDs only. Has low platelets Full code status Non-compliant I discussed with him importance of compliance with medications and procedures. 02/06/21 Patient admitted yesterday for chest pain. Cardiology consulted. Hypokalemia. Give oral Potassium Keep NPO after MN, for poss Thrombocytopenia. No anticoag for DVT prophylaxis because low platelets. 02/07/21 Patient admitted for chest pain. Cardiology consulted. For cardiac cath in am. Was suppose to do today but he ate even though he is supposed to be NPO. Hypokalemia. Give oral Potassium Thrombocytopenia. No anticoag for DVT prophylaxis because low platelets. Medical noncompliance. History Interval history: Chest pain on and off Patient ate turkey sandwich this morning so cath postponed to tomorrow Hospitalist Physical - Physical exam Narrative exam: Gen:Not in acute distress, lying in bed HEENT:Normocephalic, atraumatic Neck:supple, no JVD Lungs: Clear to auscultation bilaterally, no wheeze Heart:S1 and S2 reg, no murmurs, rubs or gallop Abd:Soft, non tender, non distended, normal bowel sounds Ext:No edema. no clubbing, no cyanosis Neuro:Awake, alert, oriented X 3, moves all ext - Constitutional Vitals: Temp Pulse Resp BP Pulse Ox 98.4 F 86 18 119/80 97 02/07/21 07:44 02/07/21 07:44 02/07/21 07:44 02/07/21 07:44 02/07/21 07:44 General appearance: Present: no acute distress HEART Score - HEART Score EKG: Normal Age: 45-65 Risk factors: > 3 risk factors or hx of atherosclerotic disease Troponin: Troponin T < 0.010 ng/mL (0.00-0.029) 02/05/21 09:36 Troponin: < normal limit - Critical Actions Critical Actions: 4-6 pts:12-16.6% risk of adverse cardiac event. Should be admitted Results - Labs CBC & Chem 7: 02/06/21 04:36 02/07/21 05:51 Labs: Laboratory Last Values WBC 9.6 K/mm3 (4.5-11.0) 02/06/21 04:36 RBC 3.94 M/mm3 (3.65-5.03) 02/06/21 04:36 Hgb 13.2 gm/dl (11.8-15.2) 02/06/21 04:36 Hct 38.7 % (35.5-45.6) 02/06/21 04:36 MCV 98 fl (84-94) H 02/06/21 04:36 MCH 34 pg (28-32) H 02/06/21 04:36 MCHC 34 % (32-34) 02/06/21 04:36 RDW 17.2 % (13.2-15.2) H 02/06/21 04:36 Plt Count 139 K/mm3 (140-440) L 02/06/21 04:36 Lymph % (Auto) 22.0 % (13.4-35.0) 02/05/21 03:43 Scott % (Auto) White Lead Grinder 02/06/21 04:36 Eos % (Auto) 6.0 % (0.0-4.3) H 02/05/21 03:43 Baso % (Auto) 1.2 % (0.0-1.8) 02/05/21 03:43 Lymph # (Auto) 2.2 K/mm3 (1.2-5.4) 02/05/21 03:43 Scott # (Auto) 1.4 K/mm3 (0.0-0.8) H 02/05/21 03:43 Eos # (Auto) 0.6 K/mm3 (0.0-0.4) H 02/05/21 03:43 Baso # (Auto) 0.1 K/mm3 (0.0-0.1) 02/05/21 03:43 Add Manual Diff Complete 02/06/21 04:36 Total Counted 100 02/06/21 04:36 Seg Neutrophils % 56.8 % (40.0-70.0) 02/05/21 03:43 Seg Neuts % (Manual) 52.0 % (40.0-70.0) 02/06/21 04:36 Lymphocytes % (Manual) 20.0 % (13.4-35.0) 02/06/21 04:36 Monocytes % (Manual) 19.0 % (0.0-7.3) H 02/06/21 04:36 Eosinophils % (Manual) 8.0 % (0.0-4.3) H 02/06/21 04:36 Basophils % (Manual) 1.0 % (0.0-1.8) 02/06/21 04:36 Nucleated RBC % Not Reportable 02/06/21 04:36 Seg Neutrophils # 5.7 K/mm3 (1.8-7.7) 02/05/21 03:43 Seg Neutrophils # Man 5.0 K/mm3 (1.8-7.7) 02/06/21 04:36 Band Neutrophils # 0.0 K/mm3 02/06/21 04:36 Lymphocytes # (Manual) 1.9 K/mm3 (1.2-5.4) 02/06/21 04:36 Abs React Lymphs (Man) 0.0 K/mm3 02/06/21 04:36 Monocytes # (Manual) 1.8 K/mm3 (0.0-0.8) H 02/06/21 04:36 Eosinophils # (Manual) 0.8 K/mm3 (0.0-0.4) H 02/06/21 04:36 Basophils # (Manual) 0.1 K/mm3 (0.0-0.1) 02/06/21 04:36 Metamyelocytes # 0.0 K/mm3 02/06/21 04:36 Myelocytes # 0.0 K/mm3 02/06/21 04:36 Promyelocytes # 0.0 K/mm3 02/06/21 04:36 Blast Cells # 0.0 K/mm3 02/06/21 04:36 WBC Morphology Not Reportable 02/06/21 04:36 Hypersegmented Neuts Not Reportable 02/06/21 04:36 Hyposegmented Neuts Not Reportable 02/06/21 04:36 Hypogranular Neuts Not Reportable 02/06/21 04:36 Smudge Cells Not Reportable 02/06/21 04:36 Toxic Granulation Not Reportable 02/06/21 04:36 Toxic Vacuolation Not Reportable 02/06/21 04:36 Dohle Bodies Not Reportable 02/06/21 04:36 Pelger-Huet Anomaly Not Reportable 02/06/21 04:36 Elmer Rods Not Reportable 02/06/21 04:36 Platelet Estimate Consistent w auto 02/06/21 04:36 Clumped Platelets Not Reportable 02/06/21 04:36 Plt Clumps, EDTA Not Reportable 02/06/21 04:36 Large Platelets Not Reportable 02/06/21 04:36 Giant Platelets Not Reportable 02/06/21 04:36 Platelet Satelliting Not Reportable 02/06/21 04:36 Plt Morphology Comment Not Reportable 02/06/21 04:36 RBC Morphology Not Reportable 02/06/21 04:36 Dimorphic RBCs Not Reportable 02/06/21 04:36 Polychromasia Not Reportable 02/06/21 04:36 Hypochromasia Not Reportable 02/06/21 04:36 Poikilocytosis Not Reportable 02/06/21 04:36 Anisocytosis 1+ 02/06/21 04:36 Microcytosis Not Reportable 02/06/21 04:36 Macrocytosis Not Reportable 02/06/21 04:36 Spherocytes Not Reportable 02/06/21 04:36 Pappenheimer Bodies Not Reportable 02/06/21 04:36 Sickle Cells Not Reportable 02/06/21 04:36 Target Cells Not Reportable 02/06/21 04:36 Tear Drop Cells Not Reportable 02/06/21 04:36 Ovalocytes Not Reportable 02/06/21 04:36 Helmet Cells Not Reportable 02/06/21 04:36 [place] Bodies Not Reportable 02/06/21 04:36 [place] Rings Not Reportable 02/06/21 04:36 [place] Cells Not Reportable 02/06/21 04:36 Bite Cells Not Reportable 02/06/21 04:36 Crenated Cell Not Reportable 02/06/21 04:36 Elliptocytes Not Reportable 02/06/21 04:36 Acanthocytes (Spur) Not Reportable 02/06/21 04:36 Rouleaux Not Reportable 02/06/21 04:36 Hemoglobin C Crystals Not Reportable 02/06/21 04:36 Schistocytes Not Reportable 02/06/21 04:36 Malaria parasites Not Reportable 02/06/21 04:36 Oni Bodies Not Reportable 02/06/21 04:36 Hem Pathologist Commnt No 02/06/21 04:36 Sodium 136 mmol/L (137-145) L 02/07/21 05:51 Potassium 3.3 mmol/L (3.6-5.0) L 02/07/21 05:51 Chloride 98.8 mmol/L (98-107) 02/07/21 05:51 Carbon Dioxide 28 mmol/L (22-30) 02/07/21 05:51 Anion Gap 13 mmol/L 02/07/21 05:51 BUN 25 mg/dL (9-20) H 02/07/21 05:51 Creatinine 1.3 mg/dL (0.8-1.3) 02/07/21 05:51 Estimated GFR > 60 ml/min 02/07/21 05:51 BUN/Creatinine Ratio 19 % 02/07/21 05:51 Glucose 111 mg/dL (75-100) H 02/07/21 05:51 POC Glucose 120 mg/dL (70-105) H 02/06/21 16:49 Calcium 9.3 mg/dL (8.4-10.2) 02/07/21 05:51 Phosphorus 3.80 mg/dL (2.5-4.5) 02/07/21 08:37 Magnesium 1.80 mg/dL (1.7-2.3) 02/07/21 08:37 Total Bilirubin 1.00 mg/dL (0.1-1.2) 02/05/21 03:43 AST 33 units/L (5-40) 02/05/21 03:43 ALT 23 units/L (7-56) 02/05/21 03:43 Alkaline Phosphatase 53 units/L (35-129) 02/05/21 03:43 Troponin T < 0.010 ng/mL (0.00-0.029) 02/05/21 09:36 NT-Pro-B Natriuret Pep 13.81 pg/mL (0-900) 02/05/21 06:27 Total Protein 8.0 g/dL (6.3-8.2) 02/05/21 03:43 Albumin 4.4 g/dL (3.9-5) 02/05/21 03:43 Albumin/Globulin Ratio 1.2 % 02/05/21 03:43 [place]/IV: Voiding Method Toilet Active Medications - Current Medications Current Medications: Generic Name Dose Route Start Last Admin Trade Name Freq PRN Reason Stop Dose Admin Acetaminophen 650 mg 02/05/21 10:30 Acetaminophen 325 Mg Tab PO Q6H PRN Pain, Mild (1-3) Alprazolam 2 mg 02/06/21 16:51 02/07/21 09:55 Alprazolam 1 Mg Tab PO 2 mg QDAY PRN Administration Anxiety Aspirin 325 mg 02/06/21 10:00 02/07/21 09:53 Aspirin Ec 325 Mg Tab PO 325 mg QDAY SHAHEED Administration Aspirin 325 mg 02/07/21 10:33 Aspirin Ec 325 Mg Tab PO 02/07/21 10:34 ONCE ONE Atorvastatin Calcium 40 mg 02/06/21 22:00 02/06/21 21:38 Atorvastatin 40 Mg Tab PO 40 mg QHS SHAHEED Administration Carisoprodol 350 mg 02/06/21 08:00 02/07/21 09:56 Carisoprodol 350 Mg Tab PO 350 mg TID SHAHEED Administration Gabapentin 800 mg 02/06/21 08:00 02/07/21 09:55 Gabapentin 400 Mg Cap PO 800 mg TID SHAHEED Administration Hydromorphone HCl 0.5 mg 02/05/21 10:26 02/07/21 09:50 Hydromorphone 1 Mg/1 Ml Inj IV 0.5 mg Q3H PRN Administration Pain , Severe (7-10) Sodium Chloride 500 mls @ 50 mls/hr 02/07/21 08:00 Nacl 0.9% 500 Ml IV 02/07/21 17:59 DIRECT SHAHEED Sodium Chloride 500 mls @ 50 mls/hr 02/07/21 11:00 Nacl 0.9% 500 Ml IV 02/07/21 20:59 DIRECT SHAHEED Methocarbamol 750 mg 02/06/21 10:00 02/06/21 21:38 Methocarbamol 750 Mg Tab PO 750 mg BID SHAHEED Administration Miscellaneous Medication 1 drop 02/06/21 08:00 Loteprednol Etabonate [Lotemax Sm] OD TID SHAHEED Morphine Sulfate 2 mg 02/05/21 10:26 02/05/21 20:35 Morphine 2 Mg/1 Ml Inj IV 2 mg Q4H PRN Administration Pain, Moderate (4-6) Nitroglycerin 0.4 mg 02/05/21 10:30 Nitroglycerin 0.4 Mg Tab Subl SL Q5M PRN Chest Pain Ondansetron HCl 4 mg 02/05/21 10:20 Ondansetron 4 Mg/2 Ml Inj IV Q8H PRN Nausea And Vomiting Oxycodone HCl 10 mg 02/05/21 22:52 02/07/21 09:54 Oxycodone 5 Mg Tab PO 10 mg Q6H PRN Administration Pain, Moderate (4-6) Oxycodone HCl 5 mg 02/06/21 07:36 Oxycodone 5 Mg Tab PO BID PRN Pain , Severe (7-10) Paroxetine HCl 20 mg 02/06/21 10:00 02/07/21 09:56 Paroxetine 20 Mg Tab PO 20 mg DAILY SHAHEED Administration Sodium Chloride 10 ml 02/05/21 10:20 Sodium Chloride 0.9% 10 Ml Flush Syringe IV PRN PRN LINE FLUSH Sodium Chloride 10 ml 02/05/21 22:00 02/06/21 21:40 Sodium Chloride 0.9% 10 Ml Flush Syringe IV 10 ml BID SHAHEED Administration Spironolactone 25 mg 02/06/21 10:00 02/07/21 09:55 Spironolactone 25 Mg Tab PO 25 mg QDAY SHAHEED Administration Torsemide 100 mg 02/06/21 08:00 02/06/21 21:38 Torsemide 100 Mg Tab PO 100 mg TID SHAHEED Administration
[2021-02-07] MEDS: POTASSIUM CHLORIDE 10 MEQ 10 MEQ/100 ML BAG IV SCH (11:22)
[2021-02-07] MEDS ORDERED: POTASSIUM CHLORIDE ER 20 MEQ TAB PO NR (11:23)
[2021-02-07] MEDS: POTASSIUM CHLORIDE ER 20 MEQ TAB PO SCH ×2 (16:00→22:29)
[2021-02-07] MEDS: DORZOLAMIDE/TIMOLOL(NF) OPHTH DROP 2-0.5% 10 ML OU SCH (22:00)
[2021-02-08] MEDS: HYDROmorphone 1 MG/1 ML INJ IV PRN ×4 (02:22→11:14)
[2021-02-08] MEDS: oxyCODONE 5 MG TAB PO PRN ×2 (04:58→10:58)
[2021-02-08] MEDS: OXYCODONE 15 MG TAB PO PRN ×2 (04:58→11:00)
[2021-02-08 05:19] LABS: Basophils # (Auto) 0.1 K/mm3 (0.0-0.1); Basophils % (Auto) 0.8 % (0.0-1.8); Eosinophils # (Auto) 0.9 K/mm3 (0.0-0.4); Eosinophils % (Auto) 12.3 % (0.0-4.3); Hematocrit 37.1 % (35.5-45.6); Hemoglobin 12.8 gm/dl (11.8-15.2); Lymphocytes # (Auto) 2.2 K/mm3 (1.2-5.4); Lymphocytes % (Auto) 29.3 % (13.4-35.0); Mean Corpuscular HGB Conc 35 % (32-34); Mean Corpuscular Volume 98 fl (84-94); Monocytes # (Auto) 1.2 K/mm3 (0.0-0.8); Monocytes % (Auto) 15.6 % (0.0-7.3); Platelet Count 138 K/mm3 (140-440); Red Blood Count 3.79 M/mm3 (3.65-5.03); Red Cell Distribution Width 17.2 % (13.2-15.2)
[2021-02-08 05:29] LABS: INR 0.91 (0.87-1.13)
[2021-02-08 05:30] LABS: Partial Thromboplastin Time 28.9 Sec. (24.2-36.6)
[2021-02-08 05:35] LABS: BUN/Creatinine Ratio 20; Blood Urea Nitrogen 24 mg/dL (9-20); Calcium 9.1 mg/dL (8.4-10.2); Hemolysis Index 3
[2021-02-08] MEDS ORDERED: SODIUM CHLORIDE 0.9% 500 ML 500 ML ONE (08:02)
[2021-02-08] MEDS: ASPIRIN EC 325 MG TAB PO SCH ×2 (08:08→11:22)
--- NOTE | 2021-02-08 08:49 | Electrocardiograph Report ---
[facility] Test Date: 2021-02-05 Test Time: 03:34:27 Pat Name: LUIS MANUEL MCCLOUD Department: Room: A481 1 Gender: M Special Delivery Clerk: LORRAINE : 1965 Requested By: SAMANTA LOZOYA Order Number: [id number] Reading MD: Melchor Sandoval Measurements Intervals [place] Rate: 72 P: 73 [place]: 181 QRS: -52 QRSD: 108 T: 54 QT: 426 QTc: 467 Interpretive Statements Sinus rhythm LAD, consider left anterior fascicular block Left ventricular hypertrophy Compared to ECG 12/19/2020 08:59:41 No significant changes Electronically Signed On 02-08-2021 8:48:44 EDT by Melchor Sandoval
[2021-02-08] MEDS ORDERED: HEPARIN/NS 5000 UNIT/500ML 1,000 ML IR ONE (09:04)
[2021-02-08] MEDS ORDERED: HEPARIN 10,000 UNITS/10 ML VIAL ONE (09:04)
[2021-02-08] MEDS ORDERED: VERAPAMIL 5 MG/2 ML INJ ONE (09:05)
[2021-02-08] MEDS ORDERED: NITROGLYCERIN SYRINGE 3 ML ONE (09:06)
[2021-02-08] MEDS: fentaNYL 100 MCG/2 ML INJ ONE ×3 (09:10→09:52)
[2021-02-08] MEDS: LIDOCAINE (2%) 20 MG/1 ML VIAL 20 ML MDV INFILTRATI ONE ×2 (09:11→09:51)
[2021-02-08] MEDS: MIDAZOLAM 2 MG/2 ML INJ ONE ×3 (09:15→09:52)
--- NOTE | 2021-02-08 09:19 | Electrocardiograph Report ---
[facility] Test Date: 2021-02-07 Test Time: 09:40:28 Pat Name: LUIS MANUEL MCCLOUD Department: Room: A481 1 Gender: M Manager Database: KENZIE : 1965 Requested By: VADIM CLEVELAND Order Number: [id number] Reading MD: Luis Samaniego Measurements Intervals [place] Rate: 79 P: 62 [place]: 178 QRS: -31 QRSD: 113 T: 72 QT: 406 QTc: 466 Interpretive Statements Sinus rhythm Probable left atrial enlargement NSST'S Compared to ECG 02/05/2021 03:34:27 Left ventricular hypertrophy no longer present Electronically Signed On 02-08-2021 9:19:34 EDT by Luis Samaniego
[2021-02-08] MEDS: TORSEMIDE 100 MG TAB PO SCH ×2 (09:21→11:00)
[2021-02-08] MEDS: GABAPENTIN 400 MG CAP PO SCH (09:22)
[2021-02-08] MEDS: CARISOPRODOL 350 MG TAB PO SCH ×2 (09:22→10:57)
--- NOTE | 2021-02-08 09:41 | Electrocardiograph Report ---
[facility] Test Date: 2021-02-07 Test Time: 12:10:16 Pat Name: LUIS MANUEL MCCLODU Department: Room: A481 1 Gender: M Yard Conductor: KENZIE : 1965 Requested By: ADENIKE MORGAN Order Number: [id number] Reading MD: Luis Samaniego Measurements Intervals [place] Rate: 80 P: 60 [place]: 178 QRS: -17 QRSD: 108 T: 59 QT: 406 QTc: 468 Interpretive Statements Sinus rhythm NSST'S Compared to ECG 02/07/2021 09:40:28 No significant changes Electronically Signed On 02-08-2021 9:41:38 EDT by Luis Samaniego
--- NOTE | 2021-02-08 09:57 | Electrocardiograph Report ---
[facility] Test Date: 2021-02-08 Test Time: 06:26:07 Pat Name: LUIS MANUEL MCCLOUD Department: Room: A481 1 Gender: M Manuscript Editor: KENZIE : 1965 Requested By: ADENIKE ARCE Order Number: [id number] Reading MD: Luis Samaniego Measurements Intervals [place] Rate: 85 P: 64 [place]: 178 QRS: -41 QRSD: 105 T: 64 QT: 383 QTc: 456 Interpretive Statements Sinus rhythm Probable left atrial enlargement NSST'S Compared to ECG 02/07/2021 12:10:16 NO CHANGE Electronically Signed On 02-08-2021 9:57:30 EDT by Luis Samaniego
--- NOTE | 2021-02-08 10:01 | Progress Note ---
Assessment and Plan Noncardiac Chest pain * Chest pain is chronic. Cardiac enzymes negative. AMI ruled out * Lexiscan NPI stress test 12/20/2020 shows small apical defect * [facility] 02/08/2021- negative. Chronic HFpEF * Echo 10/22/2020: LVEF is 50 to 55%. LV normal size. LV SF is normal. Mild LVH. Mild diastolic dysfunction. RV SF is normal. RA mildly dilated. RVSP is 24 mmHg. * Continue Torsemide 100mg TID, Spironolactone 25mg QD, HLD * Lipitor 40mg QHS [facility] today showed normal coronaries. Chest pain is of noncardiac origin. Patient may be discharged from a cardiac perspective Patient seen in conjunction with Dr. Sandoval who agrees with this plan of care. Will see as needed - Patient Problems (1) Chest pain Current Visit: Yes Status: Acute (2) Atypical chest pain Current Visit: No Status: Acute (3) Hypokalemia Current Visit: No Status: Acute (4) Anxiety Current Visit: No Status: Chronic (5) COPD (chronic obstructive pulmonary disease) Current Visit: No Status: Chronic (6) CVA, old, alterations of sensations Current Visit: No Status: Chronic (7) Chronic heart failure with preserved ejection fraction (HFpEF) Current Visit: No Status: Chronic (8) Chronic pain Current Visit: No Status: Chronic Qualifiers: Chronic pain type: chronic pain syndrome Qualified Code(s): G89.4 - Chronic pain syndrome (9) DM2 (diabetes mellitus, type 2) Current Visit: No Status: Chronic (10) HTN (hypertension) Current Visit: No Status: Chronic Qualifiers: Hypertension type: primary hypertension Qualified Code(s): I10 - Essential (primary) hypertension (11) History of CVA (cerebrovascular accident) Current Visit: No Status: Chronic (12) History of pulmonary embolism Current Visit: No Status: Chronic (13) Hypertension Current Visit: No Status: Chronic Qualifiers: Hypertension type: essential hypertension Qualified Code(s): I10 - Essential (primary) hypertension (14) Morbid obesity Current Visit: No Status: Chronic (15) Obstructive sleep apnea Current Visit: No Status: Chronic Subjective Date of service: 02/08/21 Principal diagnosis: chest pain Interval history: Patient for [facility] this AM. Patient not on monitor Objective Last Vital Signs Temp 98.4 F 02/08/21 04:27 Pulse 83 08/31/21 04:27 Resp 18 02/08/21 04:27 BP 118/70 02/08/21 04:27 Pulse Ox 94 02/08/21 04:27 - Physical Examination General: No Apparent Distress HEENT: Positive: PERRL Neck: Positive: neck supple, trachea midline Cardiac: Positive: Reg Rate and Rhythm Lungs: Positive: Normal Breath Sounds Neuro: Positive: Grossly Intact Abdomen: Positive: Soft, Active Bowel Sounds Skin: Negative: Rash, Suspicious Lesions Extremities: Present: upper extr. pulses, lower extr. pulses. Absent: edema - Labs and Meds Coagulation 02/08/21 Range/Units 04:38 PT 12.9 (12.2-14.9) Sec. INR 0.91 (0.87-1.13) APTT 28.9 (24.2-36.6) Sec. CBC 02/08/21 Range/Units 04:38 WBC 7.5 (4.5-11.0) K/mm3 RBC 3.79 (3.65-5.03) M/mm3 Hgb 12.8 (11.8-15.2) gm/dl Hct 37.1 (35.5-45.6) % Plt Count 138 L (140-440) K/mm3 Lymph # (Auto) 2.2 (1.2-5.4) K/mm3 [place] # (Auto) 1.2 H (0.0-0.8) K/mm3 Eos # (Auto) 0.9 H (0.0-0.4) K/mm3 Baso # (Auto) 0.1 (0.0-0.1) K/mm3 Comprehensive Metabolic Panel 02/08/21 Range/Units 04:38 Sodium 140 (137-145) mmol/L Potassium 3.6 (3.6-5.0) mmol/L Chloride 101.6 (98-107) mmol/L Carbon Dioxide 28 (22-30) mmol/L BUN 24 H (9-20) mg/dL Creatinine 1.2 (0.8-1.3) mg/dL Glucose 120 H (75-100) mg/dL Calcium 9.1 (8.4-10.2) mg/dL - Imaging and Cardiology Echo: report reviewed Cardiac cath: pending - Telemetry EKG Rhythm: Sinus Rhythm - EKG Sinus rhythms and dysrhythmias: sinus rhythm
--- NOTE | 2021-02-08 10:17 | Discharge Summary ---
Providers - Providers Date of Admission: 02/07/21 09:02 Date of discharge: 02/08/21 Attending physician: NATHANIEL MARTINEZ 02/05/21 10:28 Consult to Physician [CONS] Routine Comment: Consulting Provider: JIM SANDOVAL Physician Instructions: Reason For Exam: chest pain Primary care physician: [facility], Hospitalization Reason for admission: cp Condition: Stable Hospital course: Patient is 55 yo with hypertension, CAD, diastolic heart failure, chronic pain who was admitted through the emergency department with diagnosis of chest pain. He actually was admitted here last month was scheduled for cardiac cath but signed out against medical advice on 12/21/20. he was seen and evaluated in Emergency room. Three sets of Troponin were negative. Consulted [facility] cardiology. AMI was ruled out. Lexiscan MPI stress test from 12/20/2020 showed small apical defect. Therefore, cardiology plan for cardiac catheterization that was completed today. Dr. Sandoval reported via telephone no significant disease and reported patient could discharge home follow-up as an outpatient. Dedicated discharge time 35 minutes.Etiology of CP likely GERD Disposition: 01 HOME / SELF CARE / HOMELESS Final Discharge Diagnosis (Prints w/discharge instructions): GERD, CAD, hyperlipidemia, chronic diastolic heart failure, chronic pain. Core Measure Documentation - Palliative Care Palliative Care/ Comfort Measures: Not Applicable - Core Measures Any of the following diagnoses?: none Exam - Constitutional Vitals: Temp Pulse Resp BP Pulse Ox 98.4 F 83 18 118/70 94 02/08/21 04:27 02/08/21 04:27 02/08/21 04:27 02/08/21 04:27 02/08/21 04:27 General appearance: Present: no acute distress, well-nourished - EENT Eyes: Present: PERRL ENT: hearing intact, clear oral mucosa - Neck Neck: Present: supple, normal ROM - Respiratory Respiratory effort: normal Respiratory: bilateral: CTA - Cardiovascular Heart Sounds: Present: S1 & S2. Absent: rub, click - Extremities Extremities: pulses symmetrical, No edema Peripheral Pulses: within normal limits - Abdominal General gastrointestinal: Present: soft, non-tender, non-distended, normal bowel sounds Male genitourinary: Present: normal - Integumentary Integumentary: Present: clear, warm, dry - Musculoskeletal Musculoskeletal: gait normal, strength equal bilaterally - Psychiatric Psychiatric: appropriate mood/affect, intact judgment & insight - Neurologic Neurologic: CNII-XII intact, moves all extremities Plan Activity: advance as tolerated Weight Bearing Status: Weight Bear as Tolerated Diet: low fat, low cholesterol, low salt Follow [facility]: [facility] MD JESUS [Primary Care Provider] - 3-5 Days JIM SANDOVAL MD [Staff Physician] - 7 Days Prescriptions: Spironolactone [Aldactone] 25 mg PO QDAY #30 Rosuvastatin Calcium [Crestor] 20 mg PO QDAY #30 Torsemide [Demadex] 100 mg PO TID #80 Aspirin EC [Ecotrin] 325 mg PO QDAY #30 tablet Gabapentin 800 mg PO TID #90 capsule Potassium Chloride [K-Dur] 20 meq PO QDAY #30 Oxycodone HCl [oxyCODONE] 20 mg PO Q6H PRN #16 PRN Reason: Pain PARoxetine [Paxil] 20 mg PO DAILY #30 methOCARBAMOL [Robaxin TAB] 750 mg PO BID #30 carisoprodoL [Soma] 350 mg PO TID #90 ALPRAZolam [Xanax TAB] 2 mg PO QDAY PRN #10 PRN Reason: Anxiety
[2021-02-08] MEDS: ALPRAZolam 1 MG TAB PO PRN (10:58)
[2021-02-08] MEDS: SPIRONOLACTONE 25 MG TAB PO SCH (10:59)
[2021-02-08] MEDS: DORZOLAMIDE/TIMOLOL(NF) OPHTH DROP 2-0.5% 10 ML OU SCH (11:21)
[2021-02-08] MEDS: PARoxetine 20 MG TAB PO SCH (11:23)
--- NOTE | 2021-02-08 11:52 | Cardiac Catherization Report ---
DATE OF SERVICE: 02/08/2021 LEFT HEART CATHETERIZATION CLINICAL INFORMATION: A 55-year-old male who has multiple admissions for chest pain with anxiety. He has refused heart catheterizations in the past and noncompliant with followup, but is here as agree for heart catheterization, explained the risks and benefits. The patient was done with moderate sedation started 9:45 finished at 10:01, 60 minutes of moderate sedation. DESCRIPTION OF PROCEDURE: Procedure was done via the right radial artery, sterile technique, local anesthesia, 6 [place] radial sheath inserted. Left system JL3.5 catheter. Left main is large and patent, bifurcates into large LAD that is patent. Diagonal 1 medium caliber was patent. Ramus is a large caliber vessel, patent with upper and lower branch. Circumflex, large caliber vessel, patent to a large OM1 that is patent. RCA engaged with JR4 is a large caliber vessel with moderate tortuosity. PDA and PLV are medium caliber vessel, patent and normal. LV gram done in [place]TE and [place] shows normal LV function, EF 55-60%. LVEDP 20 mmHg, LV is 101, aortic is 101/65. No gradient across the aortic valve on pullback, 5 Monegasque catheters all taken over a guidewire, 6 [place]gas[place] radial sheath was discontinued, radial band applied. No hematoma, no bleeding. SUMMARY: Normal coronaries, normal LV function, noncardiac chest pain. Discussed in detail with the patient. TID: [id number] RECEIPT: [id number] MONI/SARAH
[2021-02-08] MEDS ORDERED: traMADol 50 MG TAB PO PRN (13:30)
[2021-02-08] MEDS ORDERED: HYDROcodone/ACETAMINOPHEN 5-325 MG TAB PO PRN (13:30)
[2021-02-08 19:55] VITALS: BP 112/70
== END 2021-02-08 21:35 | disposition home or self-care (01) | DRG 392 ==
LOC: ED 02:37 → 4A 16:07 → OBSVTOIN 02-07 09:02
PROVIDERS: ADMIT Internal Medicine; ATTEND Hospitalist
PROC: 4A023N7 Measurement of Cardiac Sampling and Pressure, Left Heart, Percutaneous Approach (ICD-10-PCS; principal; 2021-02-08)
PROC: B2111ZZ Fluoroscopy of Multiple Coronary Arteries using Low Osmolar Contrast (ICD-10-PCS; 2021-02-08)
PROC: B2151ZZ Fluoroscopy of Left Heart using Low Osmolar Contrast (ICD-10-PCS; 2021-02-08)
DX: K21.9 Gastro-esophageal reflux disease without esophagitis (principal); I50.32 Chronic diastolic (congestive) heart failure; I25.10 Atherosclerotic heart disease of native coronary artery without angina pectoris; E66.01 Morbid (severe) obesity due to excess calories; Z68.39 Body mass index [BMI] 39.0-39.9, adult; Z88.5 Allergy status to narcotic agent; Z88.8 Allergy status to other drugs, medicaments and biological substances; I11.0 Hypertensive heart disease with heart failure; J44.9 Chronic obstructive pulmonary disease, unspecified; G89.4 Chronic pain syndrome; Z86.73 Personal history of transient ischemic attack (TIA), and cerebral infarction without residual deficits; M19.90 Unspecified osteoarthritis, unspecified site; E78.5 Hyperlipidemia, unspecified; Z91.19 Patient's noncompliance with other medical treatment and regimen; D69.6 Thrombocytopenia, unspecified; E87.6 Hypokalemia
CPT/HCPCS: 36415; 70450; 71046; 80048; 80053; 82962; 83735; 83880; 84100; 84484; 85007; 85025; 85610; 85730; 86850; 86900; 86901; 93005; 93458; 96365; 96375; G0378; A9270-GY; C1894; J1170; J1644; J2250; J2270; J3010; J7040; Q9967

== ENCOUNTER 2021-03-07 12:05 | Emergency (ER) | payer MEDICARE ==
--- NOTE | 2021-03-07 13:49 | XRay Report ---
XR chest 1V ap INDICATION / CLINICAL INFORMATION: Chest Pain COMPARISON: February 05, 2021 FINDINGS: SUPPORT DEVICES: None. HEART / MEDIASTINUM: No significant abnormality. LUNGS / PLEURA: Lungs are clear. Costophrenic sulci are sharp. No pneumothorax. ADDITIONAL FINDINGS: No significant additional findings. IMPRESSION: 1. No acute findings. Signer Name: Jason Dexter MD Signed: 03/07/2021 1:44 PM Workstation Name: [id number]
[2021-03-07 14:06] LABS: Basophils % (Auto) 0.7 % (0.0-1.8); Eosinophils # (Auto) 0.2 K/mm3 (0.0-0.4); Eosinophils % (Auto) 2.9 % (0.0-4.3); Hematocrit 41.3 % (35.5-45.6); Hemoglobin 14.4 gm/dl (11.8-15.2); Lymphocytes # (Auto) 1.8 K/mm3 (1.2-5.4); Lymphocytes % (Auto) 29.3 % (13.4-35.0); Mean Corpuscular HGB Conc 35 % (32-34); Mean Corpuscular Volume 98 fl (84-94); Monocytes # (Auto) 0.5 K/mm3 (0.0-0.8); Monocytes % (Auto) 8.3 % (0.0-7.3); Platelet Count 161 K/mm3 (140-440); Red Cell Distribution Width 16.6 % (13.2-15.2)
[2021-03-07 14:09] LABS: INR 0.99 (0.87-1.13)
[2021-03-07 14:35] LABS: Alanine Aminotransferase 23 units/L (7-56); Albumin 4.2 g/dL (3.9-5); BUN/Creatinine Ratio 11; Blood Urea Nitrogen 9 mg/dL (9-20); Calcium 9.3 mg/dL (8.4-10.2); Hemolysis Index 10
[2021-03-07] MEDS: MORPHINE 4 MG/1 ML INJ IV ONE ×2 (15:03→17:49)
[2021-03-07] MEDS: ONDANSETRON 4 MG/2 ML INJ IV ONE (15:04)
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
[2021-03-07] MEDS: POTASSIUM CHLORIDE ER 20 MEQ TAB PO ONE (15:48)
[2021-03-07 17:27] VITALS: BP 125/77
--- NOTE | 2021-03-07 17:50 | Cat Scan Report ---
CTA CHEST WITH CONTRAST INDICATION / CLINICAL INFORMATION: elevated ddimer, cp, sob. TECHNIQUE: Axial CT images were obtained through the chest after injection of Omnipaque 350, 100 cc I V contrast. 3 plane MIP and/or 3D reconstructions were produced. All CT scans at this location are pe rformed using CT dose reduction for ALARA by means of automated exposure control. COMPARISON: CTA chest 08/22/2020 FINDINGS: PULMONARY ARTERIES: No pulmonary emboli. THORACIC AORTA: No significant abnormality. HEART: No significant abnormality. CORONARY ARTERY CALCIFICATION: None. MEDIASTINUM / ELIANA: No significant abnormality. PLEURA: No pleural effusion. No pneumothorax. LUNGS: Persistent opacity at the right base medially without significant change. There is associated volume loss. No new abnormality. ADDITIONAL FINDINGS: None. UPPER ABDOMEN: No acute findings. SKELETAL STRUCTURES: No significant osseous abnormality. IMPRESSION: 1. No CT evidence for pulmonary embolism. 2. Persistent opacity at the right base medially similar to the previous exam likely represents posti nflammatory scarring. A follow-up CT at 6 months is recommended to confirm stability. Signer Name: Je Gerber MD Signed: 03/07/2021 5:45 PM Workstation Name: [id number]
--- NOTE | 2021-03-14 14:00 | Electrocardiograph Report ---
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
== END 2021-03-07 19:09 | disposition home or self-care (01) ==
LOC: ED 12:05
DX: R07.9 Chest pain, unspecified (principal); R19.7 Diarrhea, unspecified; G89.29 Other chronic pain; J98.4 Other disorders of lung; G47.30 Sleep apnea, unspecified; I11.0 Hypertensive heart disease with heart failure; Z86.73 Personal history of transient ischemic attack (TIA), and cerebral infarction without residual deficits; M19.90 Unspecified osteoarthritis, unspecified site; E11.8 Type 2 diabetes mellitus with unspecified complications; K21.9 Gastro-esophageal reflux disease without esophagitis; J44.9 Chronic obstructive pulmonary disease, unspecified; E78.5 Hyperlipidemia, unspecified; Z98.890 Other specified postprocedural states; Z88.5 Allergy status to narcotic agent
CPT/HCPCS: 36415; 71045; 71275; 80053; 84484; 85025; 85379; 85610; 93005; 96374; 96375; 96376; 99285; J2270; J2405; Q9967

== ENCOUNTER 2021-03-11 14:04 | Emergency (ER) | payer MEDICARE ==
[2021-03-11] MEDS ORDERED: ASPIRIN 81 MG TAB CHEW PO ONE (16:18)
[2021-03-11] MEDS ORDERED: NITROGLYCERIN 0.4 MG TAB SUBL SL PRN (16:18)
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
--- NOTE | 2021-03-11 16:45 | XRay Report ---
CHEST 2 VIEWS INDICATION / CLINICAL INFORMATION: Chest pain. COMPARISON: CTA chest on 03/07/2021 FINDINGS: SUPPORT DEVICES: None. HEART / MEDIASTINUM: No significant abnormality. LUNGS / PLEURA: No significant pulmonary or pleural abnormality. No pneumothorax. ADDITIONAL FINDINGS: No significant additional findings. IMPRESSION: 1. No acute findings. Signer Name: Jelani Ortiz MD Signed: 03/11/2021 4:41 PM Workstation Name: [id number]
[2021-03-11 17:16] LABS: Hematocrit 43.7 % (35.5-45.6); Hemoglobin 15.3 gm/dl (11.8-15.2); Mean Corpuscular HGB Conc 35 % (32-34); Mean Corpuscular Volume 97 fl (84-94); Platelet Count 185 K/mm3 (140-440); Red Blood Count 4.52 M/mm3 (3.65-5.03); Red Cell Distribution Width 16.8 % (13.2-15.2)
[2021-03-11] MEDS ORDERED: KETOROLAC 30 MG/1 ML INJ IV ONE (17:26)
[2021-03-11 17:35] LABS: BUN/Creatinine Ratio 14; Blood Urea Nitrogen 14 mg/dL (9-20); Calcium 9.9 mg/dL (8.4-10.2); Hemolysis Index 22
[2021-03-11] MEDS ORDERED: POTASSIUM CHLORIDE ER 20 MEQ TAB PO ONE (17:54)
[2021-03-11 18:19] VITALS: BP 118/68
== END 2021-03-11 18:16 | disposition home or self-care (01) ==
LOC: ED 14:04
DX: R07.2 Precordial pain (principal); I11.0 Hypertensive heart disease with heart failure; E11.8 Type 2 diabetes mellitus with unspecified complications; Z86.73 Personal history of transient ischemic attack (TIA), and cerebral infarction without residual deficits; K21.9 Gastro-esophageal reflux disease without esophagitis; M19.90 Unspecified osteoarthritis, unspecified site; J44.9 Chronic obstructive pulmonary disease, unspecified; E78.5 Hyperlipidemia, unspecified; G47.30 Sleep apnea, unspecified; Z98.890 Other specified postprocedural states; F17.200 Nicotine dependence, unspecified, uncomplicated; Z88.5 Allergy status to narcotic agent; Z88.6 Allergy status to analgesic agent; Z88.8 Allergy status to other drugs, medicaments and biological substances
CPT/HCPCS: 36415; 71045; 80048; 84484; 85027; 96374; 99284; J1885

== ENCOUNTER 2021-03-13 00:19 | Emergency (ER) | payer MEDICARE ==
[2021-03-13 00:50] VITALS: BP 118/72
[2021-03-13] MEDS ORDERED: MORPHINE 4 MG/1 ML INJ IM ONE (01:46)
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
--- NOTE | 2021-03-13 02:27 | XRay Report ---
Abdominal series with frontal chest 6 views INDICATION: Chest and abdominal pain IMPRESSION: No acute cardiopulmonary findings. Large stool burden identified throughout the colon. Mu ltiple surgical clips within the lower pelvis as well as IVC filter noted. Signer Name: Bob Castellanos MD Signed: 03/13/2021 2:23 AM Workstation Name: [id number]
[2021-03-13 03:02] LABS: Basophils # (Auto) 0.1 K/mm3 (0.0-0.1); Basophils % (Auto) 0.9 % (0.0-1.8); Eosinophils # (Auto) 0.3 K/mm3 (0.0-0.4); Eosinophils % (Auto) 3.3 % (0.0-4.3); Lymphocytes # (Auto) 2.8 K/mm3 (1.2-5.4); Lymphocytes % (Auto) 28.8 % (13.4-35.0); Mean Corpuscular HGB Conc 36 % (32-34); Mean Corpuscular Volume 97 fl (84-94); Monocytes # (Auto) 1.1 K/mm3 (0.0-0.8); Monocytes % (Auto) 11.8 % (0.0-7.3); Platelet Count 187 K/mm3 (140-440); Red Blood Count 4.34 M/mm3 (3.65-5.03); Red Cell Distribution Width 16.9 % (13.2-15.2)
[2021-03-13 03:06] LABS: Hematocrit 41.9 % (35.5-45.6)
[2021-03-13 03:21] LABS: Alanine Aminotransferase 26 units/L (7-56); Albumin 4.7 g/dL (3.9-5); BUN/Creatinine Ratio 20; Blood Urea Nitrogen 24 mg/dL (9-20); Calcium 9.6 mg/dL (8.4-10.2); Hemolysis Index 4
[2021-03-13] MEDS ORDERED: POTASSIUM CHLORIDE ER 20 MEQ TAB PO ONE (03:28)
[2021-03-13] MEDS ORDERED: KETOROLAC 30 MG/1 ML INJ IM ONE (03:32)
--- NOTE | 2021-03-15 11:13 | Electrocardiograph Report ---
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
== END 2021-03-13 04:05 | disposition home or self-care (01) ==
LOC: ED 00:19
DX: R07.9 Chest pain, unspecified (principal); R10.9 Unspecified abdominal pain; E87.6 Hypokalemia; I10 Essential (primary) hypertension; E11.8 Type 2 diabetes mellitus with unspecified complications; Z86.79 Personal history of other diseases of the circulatory system; I25.2 Old myocardial infarction; F17.200 Nicotine dependence, unspecified, uncomplicated; Z88.6 Allergy status to analgesic agent; Z88.5 Allergy status to narcotic agent; Z88.8 Allergy status to other drugs, medicaments and biological substances
CPT/HCPCS: 36415; 74022; 80053; 83690; 84484; 85025; 93005; 96372; 99284; J1885; J2270

== ENCOUNTER 2021-03-22 22:22 | Emergency (ER) | payer MEDICARE ==
[2021-03-22 22:51] VITALS: BP 140/90
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
[2021-03-23] MEDS ORDERED: LACTULOSE 20 GM/30 ML ORAL LIQD PO ONE (02:04)
--- NOTE | 2021-03-23 02:33 | XRay Report ---
ABDOMEN 8 VIEW(S) INDICATION / CLINICAL INFORMATION: constipation. COMPARISON: None available. FINDINGS: TUBES / LINES: None. BOWEL GAS PATTERN: Large amount of solid colonic stool. No bowel obstruction. FREE AIR / EXTRALUMINAL GAS: None seen. ADDITIONAL FINDINGS: Retrievable IVC filter. IMPRESSION: 1. Severe constipation. No bowel obstruction IVC Filter Recommendation: IVC filters should be removed if possible when they are no longer clinical ly necessary. (1) Refer to the established IVC filter management plan; (2) If there is no established plan for the patient's IVC filter, consider referral to interventional/vascular clinician on a nonem ergent basis for evaluation. Signer Name: Tavo Morton MD Signed: 03/23/2021 2:29 AM Workstation Name: [id number]
== END 2021-03-23 03:10 | disposition home or self-care (01) ==
LOC: ED 22:22
DX: K59.00 Constipation, unspecified (principal); F17.200 Nicotine dependence, unspecified, uncomplicated; F10.20 Alcohol dependence, uncomplicated; I10 Essential (primary) hypertension; E11.8 Type 2 diabetes mellitus with unspecified complications
CPT/HCPCS: 74019; 99283

== ENCOUNTER 2021-04-02 19:14 | Emergency (ER) | payer MEDICARE ==
[2021-04-02 20:12] LABS: Basophils # (Auto) 0.1 K/mm3 (0.0-0.1); Basophils % (Auto) 1.1 % (0.0-1.8); Eosinophils # (Auto) 0.8 K/mm3 (0.0-0.4); Eosinophils % (Auto) 13.9 % (0.0-4.3); Hematocrit 38.4 % (35.5-45.6); Hemoglobin 13.2 gm/dl (11.8-15.2); Lymphocytes # (Auto) 1.8 K/mm3 (1.2-5.4); Lymphocytes % (Auto) 31.8 % (13.4-35.0); Mean Corpuscular HGB Conc 34 % (32-34); Mean Corpuscular Volume 97 fl (84-94); Monocytes # (Auto) 0.8 K/mm3 (0.0-0.8); Monocytes % (Auto) 14.8 % (0.0-7.3); Platelet Count 160 K/mm3 (140-440); Red Blood Count 3.96 M/mm3 (3.65-5.03); Red Cell Distribution Width 16.5 % (13.2-15.2)
[2021-04-02 20:35] LABS: BUN/Creatinine Ratio 10; Blood Urea Nitrogen 9 mg/dL (9-20); Calcium 9.4 mg/dL (8.4-10.2); Hemolysis Index 6
[2021-04-02] MEDS ORDERED: MORPHINE 4 MG/1 ML INJ IM ONE (20:43)
[2021-04-02] MEDS ORDERED: ONDANSETRON 4 MG ODT TAB PO ONE (20:43)
[2021-04-02] MEDS ORDERED: oxyCODONE 5 MG TAB PO ONE (20:43)
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
[2021-04-02 22:05] VITALS: BP 161/98
--- NOTE | 2021-04-03 10:28 | Electrocardiograph Report ---
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
== END 2021-04-02 22:07 | disposition home or self-care (01) ==
LOC: ED 19:14
DX: R07.89 Other chest pain (principal); E87.6 Hypokalemia; E11.9 Type 2 diabetes mellitus without complications; K21.9 Gastro-esophageal reflux disease without esophagitis; I11.0 Hypertensive heart disease with heart failure; I50.9 Heart failure, unspecified; M19.90 Unspecified osteoarthritis, unspecified site; F17.200 Nicotine dependence, unspecified, uncomplicated; J44.9 Chronic obstructive pulmonary disease, unspecified; Z88.6 Allergy status to analgesic agent; Z88.8 Allergy status to other drugs, medicaments and biological substances; Z79.899 Other long term (current) drug therapy
CPT/HCPCS: 36415; 80048; 84484; 85025; 93005; 96372; 99283; J2270; Q0162

== ENCOUNTER 2021-05-08 17:16 | Emergency (ER) | payer MEDICARE ==
[2021-05-08] MEDS ORDERED: TETRACAINE 0.5% OPHTH SOLN 4ML OD STA (17:52)
[2021-05-08] MEDS ORDERED: FLUORESCEIN 1 MG STRIP OP ONE (17:52)
[2021-05-08] MEDS ORDERED: HYDROmorphone 1 MG/1 ML INJ IV ONE (17:52)
[2021-05-08] MEDS ORDERED: PANTOPRAZOLE 40 MG INJ IV ONE (17:52)
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
--- NOTE | 2021-05-08 18:29 | XRay Report ---
CHEST 1 VIEW INDICATION / CLINICAL INFORMATION: Chest Pain. FINDINGS: SUPPORT DEVICES: None. HEART / MEDIASTINUM: No significant abnormality. LUNGS / PLEURA: No significant pulmonary or pleural abnormality. No pneumothorax. ADDITIONAL FINDINGS: No significant additional findings. IMPRESSION: 1. No acute findings. Signer Name: Bob Castellanos MD Signed: 05/08/2021 6:25 PM Workstation Name: [id number]
[2021-05-08 19:03] LABS: Basophils # (Auto) 0.1 K/mm3 (0.0-0.1); Eosinophils # (Auto) 0.4 K/mm3 (0.0-0.4); Eosinophils % (Auto) 5.7 % (0.0-4.3); Hematocrit 42.2 % (35.5-45.6); Hemoglobin 14.1 gm/dl (11.8-15.2); Lymphocytes % (Auto) 31.2 % (13.4-35.0); Mean Corpuscular HGB Conc 33 % (32-34); Mean Corpuscular Volume 98 fl (84-94); Monocytes # (Auto) 0.9 K/mm3 (0.0-0.8); Monocytes % (Auto) 14.1 % (0.0-7.3); Platelet Count 159 K/mm3 (140-440); Red Blood Count 4.32 M/mm3 (3.65-5.03)
[2021-05-08 19:13] LABS: INR 0.86 (0.87-1.13)
[2021-05-08 19:21] LABS: BUN/Creatinine Ratio 14; Blood Urea Nitrogen 13 mg/dL (9-20); Calcium 8.6 mg/dL (8.4-10.2); Hemolysis Index 11
[2021-05-08] MEDS ORDERED: oxyCODONE 5 MG TAB PO ONE (20:31)
[2021-05-08 21:04] VITALS: BP 112/73
== END 2021-05-08 22:35 | disposition short-term general hospital (02) ==
LOC: ED 17:16
DX: H57.11 Ocular pain, right eye (principal); Z87.898 Personal history of other specified conditions; Z68.35 Body mass index [BMI] 35.0-35.9, adult; H54.61 Unqualified visual loss, right eye, normal vision left eye; I11.0 Hypertensive heart disease with heart failure; I50.9 Heart failure, unspecified; Z86.73 Personal history of transient ischemic attack (TIA), and cerebral infarction without residual deficits; E11.8 Type 2 diabetes mellitus with unspecified complications; K21.9 Gastro-esophageal reflux disease without esophagitis; M19.90 Unspecified osteoarthritis, unspecified site; J44.9 Chronic obstructive pulmonary disease, unspecified; E78.5 Hyperlipidemia, unspecified; G47.30 Sleep apnea, unspecified; Z98.890 Other specified postprocedural states; Z93.3 Colostomy status; F17.200 Nicotine dependence, unspecified, uncomplicated; Z88.6 Allergy status to analgesic agent; Z88.8 Allergy status to other drugs, medicaments and biological substances
CPT/HCPCS: 36415; 71045; 80048; 84484; 85025; 85610; 93005; 96374; 96375; 99285; C9113; J1170

== ENCOUNTER 2021-07-26 11:43 | Emergency (ER) | payer MEDICARE ==
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
[2021-07-26] MEDS ORDERED: oxyCODONE 5 MG TAB PO ONE (12:26)
[2021-07-26 12:43] LABS: Basophils # (Auto) 0.1 K/mm3 (0.0-0.1); Basophils % (Auto) 1.1 % (0.0-1.8); Eosinophils # (Auto) 0.4 K/mm3 (0.0-0.4); Lymphocytes # (Auto) 1.5 K/mm3 (1.2-5.4); Mean Corpuscular HGB Conc 33 % (32-34); Mean Corpuscular Volume 96 fl (84-94); Monocytes # (Auto) 0.7 K/mm3 (0.0-0.8); Monocytes % (Auto) 7.8 % (0.0-7.3); Platelet Count 241 K/mm3 (140-440)
[2021-07-26 12:56] LABS: INR 0.89 (0.87-1.13)
--- NOTE | 2021-07-26 12:56 | XRay Report ---
CHEST 1 VIEW INDICATION: Chest Pain. COMPARISON: 05/08/2021 FINDINGS: Support devices: None. Heart: Normal. Lungs/Pleura: Mild right basilar opacities are nonspecific. Left lung is clear. No pleural abnormalit y. IMPRESSION: 1. Mild right basilar opacities are nonspecific. Mild pneumonia could have this appearance. Signer Name: Devin Kincaid MD Signed: 07/26/2021 12:52 PM Workstation Name: [id number]
[2021-07-26 13:06] LABS: Alanine Aminotransferase 25 units/L (7-56); Albumin 4.2 g/dL (3.9-5); BUN/Creatinine Ratio 18; Blood Urea Nitrogen 21 mg/dL (9-20); Calcium 9.6 mg/dL (8.4-10.2); Hemolysis Index 45
--- NOTE | 2021-07-26 14:17 | Electrocardiograph Report ---
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
[2021-07-26] MEDS ORDERED: POTASSIUM CHLORIDE ER 20 MEQ TAB PO ONE (14:24)
--- NOTE | 2021-07-26 14:34 | Cat Scan Report ---
CT BRAIN: 07/26/2020 INDICATION / CLINICAL INFORMATION: headache. COMPARISON: CT brain 02/05/2021 FINDINGS: BRAIN/INTRACRANIAL STRUCTURES: Unenhanced CT images of the brain were obtained and compared to prior exam from 02/05/2021. There is been no change. There is no evidence of acute abnormality. Ventricles and sulci are normal in size and shape for a pa tient of this age. There is no evidence of ischemic injury, hemorrhage, or mass. There are no abnormal extra-axial fluid collections. EXTRACRANIAL STRUCTURES: Unremarkable. IMPRESSION: No acute abnormality. No significant change when compared to 02/05/2021. All CT scans at this location are performed using dose reduction to ALARA by means of automated expos ure control. Signer Name: Drake Lorenz MD Signed: 07/26/2021 2:29 PM Workstation Name: [id number]
[2021-07-26] MEDS ORDERED: AZITHROMYCIN 250 MG TAB PO ONE (16:20)
[2021-07-26 17:20] VITALS: BP 112/77
--- NOTE | 2021-07-28 13:11 | Electrocardiograph Report ---
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
== END 2021-07-26 17:56 | disposition home or self-care (01) ==
LOC: ED 11:43
DX: E87.6 Hypokalemia (principal); R53.1 Weakness; F11.20 Opioid dependence, uncomplicated; R91.8 Other nonspecific abnormal finding of lung field; I11.0 Hypertensive heart disease with heart failure; I50.9 Heart failure, unspecified; I62.9 Nontraumatic intracranial hemorrhage, unspecified; E11.9 Type 2 diabetes mellitus without complications; K21.9 Gastro-esophageal reflux disease without esophagitis; J44.9 Chronic obstructive pulmonary disease, unspecified; M19.90 Unspecified osteoarthritis, unspecified site; Z98.890 Other specified postprocedural states; F17.200 Nicotine dependence, unspecified, uncomplicated
CPT/HCPCS: 36415; 70450; 71045; 80053; 83735; 84484; 85025; 85610; 93005; 93010; 99284

== ENCOUNTER 2021-08-08 18:24 | Emergency (ER) | payer MEDICARE ==
[2021-08-08 19:48] VITALS: BP 119/82
--- NOTE | 2021-08-08 20:47 | XRay Report ---
XR ankle 3+V RT, XR foot 3+V RT INDICATION / CLINICAL INFORMATION: fall in tub, c/o Rt Ankle pain. COMPARISON: None available. FINDINGS: No acute fracture. Normal alignment. Joint spaces are preserved. No destructive osseous lesion or s uspicious periosteal reaction. Impression: 1.No acute fracture. Signer Name: Jason Dexter MD Signed: 08/08/2021 8:42 PM Workstation Name: [id number]
[2021-08-08] MEDS ORDERED: KETOROLAC 10 MG TAB PO ONE (21:28)
[2021-08-08] MEDS ORDERED: DEXAMETHASONE 4 MG TAB PO ONE (21:28)
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
== END 2021-08-08 23:16 | disposition home or self-care (01) ==
LOC: ED 18:24
DX: M79.671 Pain in right foot (principal); W19.XXXA Unspecified fall, initial encounter; F17.200 Nicotine dependence, unspecified, uncomplicated; I10 Essential (primary) hypertension; Z86.79 Personal history of other diseases of the circulatory system; E11.9 Type 2 diabetes mellitus without complications; Z88.6 Allergy status to analgesic agent; Y99.8 Other external cause status; Y93.89 Activity, other specified; Y92.89 Other specified places as the place of occurrence of the external cause
CPT/HCPCS: 73610; 73630; 99283; J8540

== ENCOUNTER 2022-01-26 01:36 | Emergency (ER) | payer MEDICARE ==
[2022-01-26] MEDS ORDERED: SODIUM CHLORIDE 0.9% 1000 ML 1,000 ML IV ONE (02:10)
[2022-01-26 02:50] LABS: Color,Urine Colorless (Yellow)
[2022-01-26 02:54] LABS: Amphetamine Screen,Urine PRESUMPTIVE NEGATIVE; Benzodiazepines Screen,Urine PRESUMPTIVE POSITIVE; Cannabinoid Screen,Urine PRESUMPTIVE NEGATIVE; Cocaine Screen,Urine PRESUMPTIVE NEGATIVE; Methadone Screen,Urine PRESUMPTIVE NEGATIVE; Opiate Screen,Urine PRESUMPTIVE NEGATIVE
--- NOTE | 2022-01-26 03:12 | XRay Report ---
CHEST 1 VIEW 01/26/2022 2:05 AM INDICATION / CLINICAL INFORMATION: Dyspnea. COMPARISON: 07/26/2021 FINDINGS: SUPPORT DEVICES: None. HEART / MEDIASTINUM: Cardiomegaly LUNGS / PLEURA: Mild interstitial prominence in the lung bases with mild increased pulmonary vascular ity No pneumothorax. Signer Name: Tyrone Daniel MD Signed: 01/26/2022 3:08 AM Workstation Name: [id number]
[2022-01-26 03:18] LABS: Basophils # (Auto) 0.1 K/mm3 (0.0-0.1); Basophils % (Auto) 0.8 % (0.0-1.8); Eosinophils # (Auto) 0.5 K/mm3 (0.0-0.4); Eosinophils % (Auto) 4.6 % (0.0-4.3); Hematocrit 40.7 % (35.5-45.6); Hemoglobin 13.9 gm/dl (11.8-15.2); Lymphocytes # (Auto) 2.7 K/mm3 (1.2-5.4); Lymphocytes % (Auto) 24.1 % (13.4-35.0); Mean Corpuscular HGB Conc 34 % (32-34); Mean Corpuscular Volume 93 fl (84-94); Monocytes # (Auto) 1.3 K/mm3 (0.0-0.8); Monocytes % (Auto) 11.3 % (0.0-7.3); Platelet Count 203 K/mm3 (140-440); Red Blood Count 4.37 M/mm3 (3.65-5.03); Red Cell Distribution Width 15.8 % (13.2-15.2)
[2022-01-26 03:27] LABS: INR 0.92 (0.87-1.13)
[2022-01-26 03:55] LABS: Creatine Kinase MB 6.4 ng/mL (0.0-4.0)
[2022-01-26 04:09] LABS: Alanine Aminotransferase 21 units/L (7-56); Albumin 4.2 g/dL (3.9-5); BUN/Creatinine Ratio 14; Blood Urea Nitrogen 26 mg/dL (9-20); Calcium 9.9 mg/dL (8.4-10.2); Hemolysis Index 4
[2022-01-26] MEDS ORDERED: POTASSIUM CHLORIDE ER 20 MEQ TAB PO ONE (04:16)
--- NOTE | 2022-01-26 05:29 | Cat Scan Report ---
CT ABDOMEN AND PELVIS WITH CONTRAST HISTORY: PAIN IN LOWER RIGHT SIDE OF BACK. COMPARISON: None. TECHNIQUE: CT images of the abdomen and pelvis were obtained following administration of intravenous contrast. All CT scans at this location are performed using CT dose reduction for ALARA by means of automated exposure control. CONTRAST: 100 ml of intravenous contrast administered. FINDINGS: Lungs/bones: Mild atelectasis in the lower lungs Abdomen/pelvis: The liver, spleen, adrenal glands appear normal. Atrophy of the pancreas. IVC filter is noted. The appendix appears normal. Gallbladder is distended h owever no pericholecystic fluid. Bilateral kidneys appear normal without hydronephrosis. Right renal hypodensity could represent a cyst. No hydronephrosis. Urinary bladder is distended. Bilateral hip ar throplasty slightly limits visualization of the pelvis. No significant retroperitoneal adenopathy. Po rtal vein is patent. There is abrupt tapering of the left colon from the splenic flexure into the descending colon with ma rked thickened wall. This segment measures approximately 9.6 cm and seen on coronal image 51 degenera tive changes seen throughout spine. IMPRESSION: 1. Abrupt tapering with marked thickening of the proximal aspect of the descending colon at the level splenic flexure. Findings a best seen on coronal image 51. This segment measures 9.6 cm in length. D ifferential considerations would include focal area of contraction, colitis, or colon carcinoma. A co lonoscopy and follow-up with GI is recommended for further evaluation. 2. Appendix appears normal. 3. Discogenic degenerative changes seen throughout spine. Postoperative change L4-5. Disc osteophytes are seen at several levels. If there is concern for neuroforaminal narrowing at CT myelogram could b e performed for further evaluation Signer Name: Tyrone Daniel MD Signed: 01/26/2022 5:25 AM Workstation Name: [id number]
[2022-01-26] MEDS ORDERED: MORPHINE 4 MG/1 ML INJ IV ONE (05:44)
[2022-01-26] MEDS ORDERED: ONDANSETRON 4 MG/2 ML INJ IV ONE (05:44)
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
[2022-01-26 06:24] VITALS: BP 109/74
== END 2022-01-26 06:23 | disposition home or self-care (01) ==
LOC: ED 01:36
DX: E87.6 Hypokalemia (principal); K52.9 Noninfective gastroenteritis and colitis, unspecified; I11.0 Hypertensive heart disease with heart failure; I50.9 Heart failure, unspecified; E11.9 Type 2 diabetes mellitus without complications; M19.90 Unspecified osteoarthritis, unspecified site; J44.9 Chronic obstructive pulmonary disease, unspecified; Z98.890 Other specified postprocedural states; Z88.5 Allergy status to narcotic agent; Z88.8 Allergy status to other drugs, medicaments and biological substances; Z79.899 Other long term (current) drug therapy
CPT/HCPCS: 36415; 71045; 74177; 80053; 80307; 81001; 82140; 82550; 82553; 83690; 83735; 84484; 85025; 85610; 96361; 96374; 96375; 99285; J2270; J2405; J7030; Q9967